=== PATIENT | male | born 1950 | race Caucasian/White ===

== ENCOUNTER 2023-10-13 07:36 | Outpatient (RCR) | payer MEDICARE, SELFPAY ==
[2023-10-11] VITALS (7 sets, daily range): BP systolic 111–144; BP diastolic 56–74
[2023-10-11] MEDS: BENADRYL 25 MG PO (09:29)
[2023-10-11] MEDS: GAMMAGARD 50 IV (09:30)
[2023-10-11] MEDS: TYLENOL 650 MG PO (09:30)
[2023-10-11 10:20] LABS: % Basophils 1.2 % (0-2); % Eosinophils 1.8 % (0-6); % Immature Granulocytes 0.4 % (0-0.5); % Monocytes 7.6 % (1.7-9.3); Absolute Basophils 0.1 10^3/uL (0-0.2); Absolute Eosinophils 0.1 10^3/uL (0-0.7); Absolute Lymphocytes 1.1 10^3/uL (1.2-3.4); Absolute Monocytes 0.6 10^3/uL (0.1-0.6); Absolute Neutrophils 5.9 10^3/uL (1.4-6.5); Hematocrit 38.8 % (39.0-52.0); Mean Corp Hgb Conc. 36.1 g/dL (33.0-37.0); Mean Corpuscular Hgb 31.4 pg (27.0-31.0); Nucleated Red Blood Cells % 0 % (-); Platelet Count 146 10^3/uL (130-400); Red Blood Cell Count 4.46 10^6/uL (4.70-6.10); Red Cell Dist. Width 14.8 % (11.5-14.5); White Blood Cell Count 7.8 10^3/uL (4.8-10.8)
[2023-10-11 10:29] LABS: ALT (SGPT) 24 U/L (0-50); AST (SGOT) 43 U/L (17-59); Albumin 4.3 g/dl (3.5-5.0); Alkaline Phosphatase 96 U/L (38-126); Blood Urea Nitrogen 34 mg/dl (9-20); Calcium 9.6 mg/dl (8.4-10.2); Carbon Dioxide 22 mmol/L (22-30); Chloride 101 mmol/L (98-107); Glucose 127 mg/dl (70-99); Sodium 141 mmol/L (135-145); Total Bilirubin 1.9 mg/dl (0.2-1.3); Total Protein 7.3 g/dl (6.3-8.2); eGFR 57.29
[2023-10-11] MEDS: GAMMAGARD 300 IV (10:29)
[2023-10-12 07:50] VITALS: BP 144/76
[2023-10-12] MEDS: TYLENOL 650 MG PO (08:01)
[2023-10-12 08:02] VITALS: BP 126/66
[2023-10-12] MEDS: GAMMAGARD 50 IV (08:02)
[2023-10-12] MEDS: BENADRYL 25 MG PO (08:02)
[2023-10-12] MEDS: GAMMAGARD 300 IV (08:57)
[2023-10-12 09:00] VITALS: BP 129/64
[2023-10-12 09:30] VITALS: BP 122/59
[2023-10-12 10:00] VITALS: BP 124/62
[2023-10-12 10:25] VITALS: BP 127/62
[2023-10-13] VITALS (8 sets, daily range): BP systolic 108–128; BP diastolic 49–66
[2023-10-13] MEDS: TYLENOL 650 MG PO (08:07)
[2023-10-13] MEDS: BENADRYL 25 MG PO (08:07)
[2023-10-13] MEDS: GAMMAGARD 50 IV (08:07)
[2023-10-13] MEDS: GAMMAGARD 300 IV (09:14)
[2023-10-14 16:35] LABS: Acetylcholine Receptor Bind Ab 96.2 nmol/L (0.0-0.4)
== END 2023-10-14 23:59 | disposition home or self-care (01) ==
LOC: OID 07:36
PROVIDERS: ATTENDING PHYSICIAN Psychiatry & Neurology Neurology; FAMILY PHYSICIAN Internal Medicine
DX: G70.01 Myasthenia gravis with (acute) exacerbation (principal)
CPT/HCPCS: 80053; 85025; 86041; 96365; 96366; J1569

== ENCOUNTER 2023-10-19 08:12 | Outpatient (RCR) | payer MEDICARE, SELFPAY ==
[2023-10-18] VITALS (8 sets, daily range): BP systolic 112–149; BP diastolic 50–71
[2023-10-18] MEDS: TYLENOL 650 MG PO (09:09)
[2023-10-18] MEDS: BENADRYL 25 MG PO (09:09)
[2023-10-18] MEDS: GAMMAGARD 50 IV (09:10)
[2023-10-18] MEDS: GAMMAGARD 300 IV (10:14)
[2023-10-19] VITALS (7 sets, daily range): BP systolic 117–127; BP diastolic 63–72
[2023-10-19] MEDS: GAMMAGARD 50 IV (09:04)
[2023-10-19] MEDS: TYLENOL 650 MG PO (09:04)
[2023-10-19] MEDS: GAMMAGARD 300 IV (10:03)
== END 2023-11-13 23:59 | disposition home or self-care (01) ==
LOC: OID 08:12
PROVIDERS: ATTENDING PHYSICIAN Psychiatry & Neurology Neurology; FAMILY PHYSICIAN Internal Medicine
DX: G70.01 Myasthenia gravis with (acute) exacerbation (principal)
CPT/HCPCS: 96365; 96366; J1569

== ENCOUNTER 2024-01-09 11:22 | Outpatient (RCR) | payer MEDICARE, SELFPAY ==
[2023-12-26 13:09] VITALS: BP 136/74
[2023-12-26] MEDS: VYVGART HYTRULO 1,008MG-11,200 5.6 MG SC (13:26)
[2023-12-26 14:10] VITALS: BP 132/73
[2024-01-02 13:10] VITALS: BP 115/54
[2024-01-02] MEDS: VYVGART HYTRULO 1,008MG-11,200 1008 MG SC (13:24)
[2024-01-02 15:15] VITALS: BP 119/57
[2024-01-09 11:33] VITALS: BP 135/72
[2024-01-09] MEDS: VYVGART HYTRULO 1,008MG-11,200 1008 MG SC (11:49)
== END 2024-01-10 09:50 | disposition home or self-care (01) ==
LOC: OID 11:22
PROVIDERS: ATTENDING PHYSICIAN Psychiatry & Neurology Neurology; FAMILY PHYSICIAN Internal Medicine
DX: G70.01 Myasthenia gravis with (acute) exacerbation (principal)
CPT/HCPCS: 96372; J9334

== ENCOUNTER 2024-01-09 12:53 | Emergency (ER) | payer MEDICARE, SELFPAY ==
[2024-01-09 13:02] VITALS: BP 126/64
--- NOTE | 2024-01-09 13:09 | ED.GENMED ---
ED Provider Triage
<Edelmira Madden PA-C - Last Filed: 01/09/24 13:15>
-
Patient seen by provider in Triage?: Seen in Triage
73-year-old male with history of diabetes, myasthenia gravis on steroids presents for redness, swelling and bruising to his volar aspect of his right wrist/forearm after a fall several days ago. Patient says it was a different color and then became
more red. He thought he probably just bruised it. The redness seems to be getting worse. Been on Bactrim for 6 days
Does not really see much noticeable improvement
No fevers or chills
A medical screening examination has been initiated by a qualified medical provider. Based on the assessment performed at this time, it has been determined that an emergent medical condition may exist and the patient has been informed that further
medical evaluation and possible additional diagnostic testing may be needed.
HPI: This is a medical evaluation conducted in person to initiate diagnostic evaluation and provide initial therapeutics. Please see further documentation by the treating clinician.
GENERAL: Alert , in no apparent distress
ENT: No visible abnormalities
LUNGS: No acute respiratory distress
NEUROLOGICAL: Alert and oriented
SKIN: Slight ecchymosis and erythematous skin changes of the volar aspect of the right distal forearm with soft tissue mass with minimal tenderness, some streaking up his arm, full range of motion of the wrist
MUSCULOSKELETAL: M mild wrist and forearm swelling but no significant limited range of motion
PSYCH: Normal and appropriate interaction.
History of Present Illness
<Edelmira Madden PA-C - Last Filed: 01/09/24 13:15>
General
Chief Complaint: Swelling
Time Seen by Provider: 01/09/24 16:53
<Norbert Hudson PA-C - Last Filed: 01/09/24 20:22>
History of Present Illness
History of Present Illness:
73-year-old male presents to the emergency department for evaluation of swelling and redness to the right volar forearm. He had a fall last week where he landed on outstretched hand. Denies any significant pain but the redness and swelling worsen,
was started on antibiotics 6 days ago by his primary care physician, currently on Bactrim with 1 further dose left. He states his symptoms have not improved.
Review of Systems
<Norbert Hudson PA-C - Last Filed: 01/09/24 20:22>
Review of Systems
Allergies reviewed?: Yes
All Other Systems: ROS reviewed and negative except as documented in HPI and ROS
Phy Exam
<Norbert Hudson PA-C - Last Filed: 01/09/24 20:22>
Physical Exam
Physical Exam:
GEN: Well appearing, NAD, WDWN
HEENT: Oral mucosa moist, no scleral icterus
Cardiac: Regular rate
Lung: No respiratory distress, no tachypnea
MSK: Focal fluctuant mass to the distal volar right forearm with moderate surrounding erythema, no induration, no pain with passive stretch of the right wrist
Skin: Good color, no pallor or jaundice, no rashes
Neuro: AO x3, moves all extremities freely
Psych: Calm, cooperative
Scores
<Norbert Hudson PA-C - Last Filed: 01/09/24 20:22>
Heart Failure Risk
Heart Failure Risk Score: Not Applicable
Course
<Edelmira Madden PA-C - Last Filed: 01/09/24 13:15>
Orders/Labs/Results
Orders:
Orders
01/09/24 13:10
CR Wrist - Right Min 3 Views Urgent
Comment:
Reason For Exam: fall bruising; please extend to include brusing
US Non Vasc UPPER Ext RT Urgent
Comment:
Reason For Exam: soft tissue swelling redness forearm
01/09/24 13:24
Complete Blood Count/With Diff Urgent
Comprehensive Metabolic Panel Urgent
Abnormal Lab Results
01/09/24
13:24
WBC 18.3 H 10^3/uL
(4.8-10.8)
RBC 3.33 L 10^6/uL
(4.70-6.10)
Hgb 11.4 L g/dL
(13.0-18.0)
Hct 32.7 L %
(39.0-52.0)
MCV 98.2 H fL
(80.0-94.0)
MCH 34.2 H pg
(27.0-31.0)
RDW 16.6 H %
(11.5-14.5)
Abs Immat Gran (auto) 0.2 H 10^3/uL
(0-0.05)
Absolute Neuts (auto) 15.5 H 10^3/uL
(1.4-6.5)
Absolute Monos (auto) 0.8 H 10^3/uL
(0.1-0.6)
Immature Gran % 1.3 H %
(0-0.5)
Neutrophils % 84.7 H %
(42.2-75.2)
Lymphocytes % 9.3 L %
(20.5-51.1)
BUN 38 H mg/dl
(9-20)
Creatinine 1.5 H mg/dL
(0.7-1.3)
Glucose 141 H mg/dl
(70-99)
Alkaline Phosphatase 144 H U/L
(38-126)
01/09/24 13:24
01/09/24 13:24
Vital Signs
Initial and Last Documented VS:
Initial Vital Signs
Temp Pulse Resp BP Pulse Ox
98.2 F 81 16 126/64 98
01/09/24 13:02 01/09/24 13:02 01/09/24 13:02 01/09/24 13:02 01/09/24 13:02
Last Documented Vital Signs
Temp Pulse Resp BP Pulse Ox
98.2 F 76 16 130/84 98
01/09/24 13:02 01/09/24 17:22 01/09/24 17:22 01/09/24 17:22 01/09/24 17:22
<Norbert Hudson PA-C - Last Filed: 01/09/24 20:22>
Orders/Labs/Results
Orders:
Orders
01/09/24 13:10
CR Wrist - Right Min 3 Views Urgent
Comment:
Reason For Exam: fall bruising; please extend to include brusing
US Non Vasc UPPER Ext RT Urgent
Comment:
Reason For Exam: soft tissue swelling redness forearm
01/09/24 13:24
Complete Blood Count/With Diff Urgent
Comprehensive Metabolic Panel Urgent
Abnormal Lab Results
01/09/24
13:24
WBC 18.3 H 10^3/uL
(4.8-10.8)
RBC 3.33 L 10^6/uL
(4.70-6.10)
Hgb 11.4 L g/dL
(13.0-18.0)
Hct 32.7 L %
(39.0-52.0)
MCV 98.2 H fL
(80.0-94.0)
MCH 34.2 H pg
(27.0-31.0)
RDW 16.6 H %
(11.5-14.5)
Abs Immat Gran (auto) 0.2 H 10^3/uL
(0-0.05)
Absolute Neuts (auto) 15.5 H 10^3/uL
(1.4-6.5)
Absolute Monos (auto) 0.8 H 10^3/uL
(0.1-0.6)
Immature Gran % 1.3 H %
(0-0.5)
Neutrophils % 84.7 H %
(42.2-75.2)
Lymphocytes % 9.3 L %
(20.5-51.1)
BUN 38 H mg/dl
(9-20)
Creatinine 1.5 H mg/dL
(0.7-1.3)
Glucose 141 H mg/dl
(70-99)
Alkaline Phosphatase 144 H U/L
(38-126)
01/09/24 13:24
01/09/24 13:24
Vital Signs
Initial and Last Documented VS:
Initial Vital Signs
Temp Pulse Resp BP Pulse Ox
98.2 F 81 16 126/64 98
01/09/24 13:02 01/09/24 13:02 01/09/24 13:02 01/09/24 13:02 01/09/24 13:02
Last Documented Vital Signs
Temp Pulse Resp BP Pulse Ox
98.2 F 76 16 130/84 98
01/09/24 13:02 01/09/24 17:22 01/09/24 17:22 01/09/24 17:22 01/09/24 17:22
<Norbert Hudson PA-C - Last Filed: 01/09/24 20:22>
MDM/Problems Addressed
MDM/Problems Addressed:
Small fluctuant mass Was aspirated at the bedside with an 18-gauge needle, bloody and purulent discharge removed from the mass with improvement in symptoms. Will add 3 further days of Bactrim, leukocytosis is most likely on the basis of prednisone
use
<Norbert Hudson PA-C - Last Filed: 01/09/24 20:22>
*Critical Care Note
Total Time (30-74mins, 75-104mins- exclusive of procedures): Not Applicable
ED Attending Note
<Edelmira Madden PA-C - Last Filed: 01/09/24 13:15>
-
Portions of this chart may have been created with voice recognition software.� Occasional wrong word or��sound alike� substitutions may have occurred due to the inherent limitations of voice recognition software.
Discharge Plan
Departure
Patient Disposition: Home (Routine Discharge)
Date of Disposition: 01/09/24
Time of Disposition: 17:07
Patient with high blood pressure during this ER visit?: No
Discharge Problem:
Infected hematoma
Instructions: Abscess Incision and Drainage (DC)
Prescriptions:
New
sulfamethoxazole-trimethoprim [Bactrim DS] 800-160 mg tablet
1 tab PO DAILY Qty: 6 0RF
No Action
metoprolol tartrate 100 mg Tablet
200 mg PO DAILY
amlodipine 5 mg Tablet
5 mg PO DAILY
spironolactone 25 mg Tablet
50 mg PO DAILY
simvastatin 20 mg Tablet
20 mg PO HS
pyridostigmine bromide 60 mg Tablet
60 mg PO .[id number]
Rx Instructions:
0.5 - 1 tab daily
fluticasone propionate [Flonase] 50 mcg/actuation [place],Suspension
1 spray INTRANASAL DAILY
esomeprazole magnesium [Nexium] 20 mg Capsule,Delayed Release(Dr/Ec)
20 mg PO BID
metformin 750 mg Tablet Extended Release 24 Hr
750 mg PO DAILY
dapagliflozin propanediol [Farxiga] 10 mg Tablet
10 mg PO HS
aspirin 81 mg Capsule
81 mg PO .QOD
prednisone 10 mg Tablet
50 mg PO DAILY
Vyvgart Hytrulo 1,008 mg-11,200 unit/5.6 mL Solution
5.6 ml SC QWEEK
insulin lispro 100 unit/mL Insulin Pen
10 unit SC TID
Referrals:
Juancarlos Champagne MD [Family Provider] -
Interventions
Interventions:
*Risk Screen - Suicide Last Done: 01/09/24 13:02
*General Assessment Last Done: 01/09/24 13:02
*Neglect/Abuse Screening Last Done: 01/09/24 13:02
*ED COVID-19 Vaccine History Last Done: 01/09/24 16:51
*Nursing Disposition Last Done: 01/09/24 17:23
ED- Cardiac Assessment Last Done: 01/09/24 16:51
ED- Pulmonary Assessment Last Done: 01/09/24 16:51
ED-Skin Assessment Last Done: 01/09/24 16:51
Discharge Date and Time
Discharge Date/Time: 01/09/24 17:24
Print Language: LITHUANIAN
[2024-01-09 13:42] LABS: % Basophils 0.2 % (0-2); % Eosinophils 0.2 % (0-6); % Immature Granulocytes 1.3 % (0-0.5); % Lymphocytes 9.3 % (20.5-51.1); % Monocytes 4.3 % (1.7-9.3); % Neutrophils 84.7 % (42.2-75.2); Absolute Immature Granulocytes 0.2 10^3/uL (0-0.05); Absolute Lymphocytes 1.7 10^3/uL (1.2-3.4); Absolute Monocytes 0.8 10^3/uL (0.1-0.6); Absolute Neutrophils 15.5 10^3/uL (1.4-6.5); Hematocrit 32.7 % (39.0-52.0); Hemoglobin 11.4 g/dL (13.0-18.0); Mean Corp Hgb Conc. 34.9 g/dL (33.0-37.0); Mean Corpuscular Hgb 34.2 pg (27.0-31.0); Mean Corpuscular Volume 98.2 fL (80.0-94.0); Mean Platelet Volume 9.2 fL (7.4-10.4); Nucleated Red Blood Cells % 0 % (-); Platelet Count 173 10^3/uL (130-400); Red Blood Cell Count 3.33 10^6/uL (4.70-6.10); Red Cell Dist. Width 16.6 % (11.5-14.5); White Blood Cell Count 18.3 10^3/uL (4.8-10.8)
[2024-01-09 13:52] LABS: ALT (SGPT) 38 U/L (0-50); AST (SGOT) 38 U/L (17-59); Albumin 3.6 g/dl (3.5-5.0); Alkaline Phosphatase 144 U/L (38-126); Blood Urea Nitrogen 38 mg/dl (9-20); Calcium 8.6 mg/dl (8.4-10.2); Carbon Dioxide 24 mmol/L (22-30); Chloride 103 mmol/L (98-107); Glucose 141 mg/dl (70-99); Potassium 4.1 mmol/L (3.5-5.1); Sodium 138 mmol/L (135-145); Total Bilirubin 0.7 mg/dl (0.2-1.3); Total Protein 6.3 g/dl (6.3-8.2); eGFR 48.25
[2024-01-09 17:22] VITALS: BP 130/84
== END 2024-01-09 17:24 | disposition home or self-care (01) ==
LOC: EMR 12:53
PROVIDERS: Physician Assistant; EMERGENCY PHYSICIAN Student in an Organized Health Care Education/Training Program; FAMILY PHYSICIAN Internal Medicine
DX: S50.11XA Contusion of right forearm, initial encounter (principal); W19.XXXA Unspecified fall, initial encounter; L08.89 Other specified local infections of the skin and subcutaneous tissue
CPT/HCPCS: 10160; 99284; 73110; 76882; 80053; 85025

== ENCOUNTER 2024-01-16 13:32 | Outpatient (RCR) | payer MEDICARE, SELFPAY ==
[2024-01-16 13:50] VITALS: BP 141/76
[2024-01-16] MEDS: VYVGART HYTRULO 1,008MG-11,200 1008 MG SC (14:07)
== END 2024-01-17 09:53 | disposition home or self-care (01) ==
LOC: OID 13:32
PROVIDERS: ATTENDING PHYSICIAN Psychiatry & Neurology Neurology; FAMILY PHYSICIAN Internal Medicine
DX: G70.01 Myasthenia gravis with (acute) exacerbation (principal)
CPT/HCPCS: 96372; J9334

== ENCOUNTER 2024-02-05 12:41 | Inpatient (IN) | payer MEDICARE, SELFPAY ==
[2024-02-02 14:47] VITALS: BP 128/84
[2024-02-02 15:19] LABS: % Basophils 0.2 % (0-2); % Eosinophils 0.3 % (0-6); % Immature Granulocytes 1.6 % (0-0.5); % Lymphocytes 2.9 % (20.5-51.1); % Monocytes 2.1 % (1.7-9.3); % Neutrophils 92.9 % (42.2-75.2); Absolute Immature Granulocytes 0.2 10^3/uL (0-0.05); Absolute Lymphocytes 0.4 10^3/uL (1.2-3.4); Absolute Monocytes 0.3 10^3/uL (0.1-0.6); Absolute Neutrophils 13.5 10^3/uL (1.4-6.5); Hemoglobin 10.4 g/dL (13.0-18.0); Mean Corp Hgb Conc. 33.5 g/dL (33.0-37.0); Mean Corpuscular Hgb 33.9 pg (27.0-31.0); Mean Platelet Volume 9.6 fL (7.4-10.4); Nucleated Red Blood Cells % 0 % (-); Platelet Count 121 10^3/uL (130-400); Red Blood Cell Count 3.07 10^6/uL (4.70-6.10); Red Cell Dist. Width 15.4 % (11.5-14.5); White Blood Cell Count 14.5 10^3/uL (4.8-10.8)
[2024-02-02 15:29] LABS: ALT (SGPT) 54 U/L (0-50); AST (SGOT) 66 U/L (17-59); Albumin 3.4 g/dl (3.5-5.0); Alkaline Phosphatase 211 U/L (38-126); Blood Urea Nitrogen 36 mg/dl (9-20); Calcium 8.6 mg/dl (8.4-10.2); Carbon Dioxide 23 mmol/L (22-30); Chloride 106 mmol/L (98-107); Glucose 176 mg/dl (70-99); Potassium 4.2 mmol/L (3.5-5.1); Sodium 134 mmol/L (135-145); Total Bilirubin 0.9 mg/dl (0.2-1.3); Total Protein 5.7 g/dl (6.3-8.2); eGFR 57.29
[2024-02-02 17:44] VITALS: BMI 27.3
--- NOTE | 2024-02-02 18:22 | ED.GENMED ---
History of Present Illness
General
Chief Complaint: Skin Problem
Source: patient
Exam Limitations: none
Time Seen by Provider: 02/02/24 17:42
Nursing documentation reviewed up to this point in time: agreed with
History of Present Illness
History of Present Illness:
Patient to ED with complaint of pain redness and swelling to his left hand. Symptoms started over 1 week ago. He was placed on Bactrim DS on Monday by PCP without improvement. Denies fever/chills. Limited ROM to left hand due to pain. Area of
fluctuance on dorsum of hand. States he fell 4 weeks ago He was seen in ED on 01/08 for infected hematoma which was drained in ED. He was placed on Bactrim DS and discharged home. This week he developed pain and redness to his left hand. He
denies any wounds to hand. Denies injurying hand in fall.
Past History
Past History
ED Past Medical History: GERD, HTN, Hypercholesterolemia, IDDM and Other (myasthenia Gravis)
Review of Systems
Review of Systems
Allergies reviewed?: Yes
All Other Systems: ROS reviewed and negative except as documented in HPI and ROS
Constitutional: Reports no symptoms
EENT: Reports no symptoms
Respiratory: Reports no symptoms
Cardiac: Reports no symptoms
ABD/GI: Reports no symptoms
Musculoskeletal: Reports joint pain (Pain to left hand)
Skin: Reports other (erythema, pain, swelling to left hand. Fluctuant mass to dorsum of hand)
Neurological: Reports no symptoms
Psychiatric: Reports no symptoms
Phy Exam
General Physical Exam
General Presentation: well appearing
General age: appears stated age
General Skin: warm and dry
General Habitus: normal
General Mental: alert
Musculoskeletal Exam
Musculoskeletal Exam: neuro vasc intact and other (Pain redness swelling left hand cnsistent with cellulitis. Fluctuant mass dorsum of hand. Attempted to aspirate, no fluid obtained)
Skin Exam
Skin Exam: normal color and warm/dry
Psychiatric Exam
Psychiatric Exam: normal mood/affect
Course
Orders/Labs/Results
Orders:
Orders
02/02/24 Dinner
1800 calorie (15 carb) Diabetic
At Your Request: Limited Participation
Does patient need a safe tray?: No
CMP [Comprehensive Metabolic Panel] Urgent
Complete Blood Count/With Diff Urgent
02/02/24 17:56
Hand, Left 3 View [CR Hand - Left Min 3 Views] Urgent
Comment:
Reason For Exam: pain redness swelling
02/02/24 18:26
Lactic Acid Urgent
02/02/24 19:12
Vancomycin [Vancocin] 1,500 mg 0.9% Sodium Chloride 500 ml [Nss] 500 ml IV NOW
02/02/24 19:13
Admit/Transfer Patient As Directed
Co-Sign Provider:
Level of Care: Observation services
Assign to:: Medical/Surgical
Physician / Group: hospitalist
Diagnosis: cellulitis
Reason for Hospitalization: purulent cellulitis
Expected length of stay greater than two midnights?: Yes
ELOS- Estimated Length of Stay in days: 2
I certify the patient meets the requirements for IP care: Yes
PRN Pain Medication Management As Directed
May give lesser potent ordered pain med per pt: Yes
preference::
Protocol:: Medication orders for pain may be administered in a
manner that supports deferring to patient preference
when the pt is:
- Requesting an ordered lesser potent pain medication.
Least to most potent pain medications are defined
as: acetaminophen < NSAID < tramadol < opioids
(morphine, oxycodone, hydromorphone).
- Requesting a lesser dose of the same medication IF
ORDERED.
- Requesting a less intrusive route of administration
if both routes are prescribed by the provider (PO <
IV).
02/02/24 19:15
Code Status As Directed
Resuscitation Status: Full Code
02/02/24 20:33
Acetaminophen [Tylenol] 650 mg PO Q4HPRN PRN
Bisacodyl [Dulcolax] 10 mg RECTAL [id number] PRN
Docusate W/Senna [Senokot-S] 1 tablet PO BIDPRN PRN
HYDROmorphone [Dilaudid] 0.25 mg IV Q4HPRN PRN
Polyethylene Glycol Powder [Miralax] 17 grams PO DAILYPRN PRN
VANCOMYCIN Pharmacy to Dose [VANCOCIN Pharmacy to Dose] 1 each Pharmacy To Prepare [Call Pharmacy To Prepare] 0 ml IV PER PROTOCOL
02/02/24 20:33
Activity As Directed
Activity Level: With Assistance
Bedside Glucose Monitoring As Directed
Frequency: AC&HS
Elevate Extremity As Directed
Extremity:: left hand
Vital Signs As Directed
Frequency: Per unit guidelines
Pulse Ox/spot Check [RESP] Routine
Quantity: 1
DX Deep Vein Thrombosis Video Routine
02/02/24 21:00
Pantoprazole [Protonix] 40 mg PO BID
02/02/24 22:00
Atorvastatin [Lipitor] 10 mg PO HS
Dapagliflozin [Farxiga] 10 mg PO HS
02/03/24 07:30
Insulin Aspart Corrective Low [Novolog Flexpen-Low Resistance] See Protocol SC AC
Insulin Aspart Pen [Novolog Flexpen] 5 units SC AC
02/03/24 08:00
Amlodipine [Norvasc] 5 mg PO DAILY
Aspirin Low Dose EC [Aspir Low (Enteric Coated)] 81 mg PO Q48H
Furosemide [Lasix] 20 mg PO DAILY
Metoprolol [Lopressor] 100 mg PO DAILY
Prednisone [Deltasone] 30 mg PO DAILY
Spironolactone [Aldactone] 25 mg PO DAILY
02/03/24 18:00
Enoxaparin Sodium [Lovenox] 40 mg SC QPM
Abnormal Lab Results
02/02/24 02/02/24
15:00 18:26
WBC 14.5 H 10^3/uL
(4.8-10.8)
RBC 3.07 L 10^6/uL
(4.70-6.10)
Hgb 10.4 L g/dL
(13.0-18.0)
Hct 31.0 L %
(39.0-52.0)
MCV 101.0 H fL
(80.0-94.0)
MCH 33.9 H pg
(27.0-31.0)
RDW 15.4 H %
(11.5-14.5)
Plt Count 121 L 10^3/uL
(130-400)
Abs Immat Gran (auto) 0.2 H 10^3/uL
(0-0.05)
Absolute Neuts (auto) 13.5 H 10^3/uL
(1.4-6.5)
Absolute Lymphs (auto) 0.4 L 10^3/uL
(1.2-3.4)
Immature Gran % 1.6 H %
(0-0.5)
Neutrophils % 92.9 H %
(42.2-75.2)
Lymphocytes % 2.9 L %
(20.5-51.1)
Sodium 134 L mmol/L
(135-145)
BUN 36 H mg/dl
(9-20)
Glucose 176 H mg/dl
(70-99)
Lactic Acid 3.3 H mmol/L
(0.7-2.0)
AST 66 H U/L
(17-59)
ALT 54 H U/L
(0-50)
Alkaline Phosphatase 211 H U/L
(38-126)
Total Protein 5.7 L g/dl
(6.3-8.2)
Albumin 3.4 L g/dl
(3.5-5.0)
02/02/24 15:00
02/02/24 15:00
Vital Signs
Initial and Last Documented VS:
Initial Vital Signs
Temp Pulse Resp BP Pulse Ox
98.3 F 82 16 128/84 98
02/02/24 14:47 02/02/24 14:47 02/02/24 14:47 02/02/24 14:47 02/02/24 14:47
Last Documented Vital Signs
Temp Pulse Resp BP Pulse Ox
97.3 F 65 18 110/47 100
02/04/24 15:15 02/04/24 15:15 02/04/24 15:15 02/04/24 15:15 02/04/24 15:15
*Critical Care Note
Total Time (30-74mins, 75-104mins- exclusive of procedures): Not Applicable
Update Note
Update Note:
Attempted to aspirate mass on dorsum of left hand. No fluid obtained. Labs, xray reviewed. Wbc 12.6. No evidence of osteomyelitis on xray. He has been on Bactrim DS x 3 days with worsening symtoms. Will admit to hospitalist service, IV antibiotics
ED Attending Note
-
Portions of this chart may have been created with voice recognition software.� Occasional wrong word or��sound alike� substitutions may have occurred due to the inherent limitations of voice recognition software.
Discharge Plan
Departure
Patient Disposition: Admit
Date of Disposition: 02/02/24
Time of Disposition: 18:49
Presentation/result/management discussed w/ accepting MD/DO: Hospitalist
Patient with high blood pressure during this ER visit?: No
Condition: Fair
Covid-19: Not Applicable
Discharge Problem:
Cellulitis of hand
Interventions
Interventions:
*Risk Screen - Suicide Last Done: 02/02/24 21:52
*General Assessment Last Done: 02/02/24 18:55
*Neglect/Abuse Screening Last Done: 02/02/24 14:47
ED- Fall Risk Assessment Last Done: 02/02/24 18:55
*ED COVID-19 Vaccine History Last Done: 02/02/24 21:52
*Nursing Disposition Last Done: 02/02/24 20:24
ED-Skin Assessment Last Done: 02/02/24 17:47
Discharge Date and Time
Discharge Date/Time: 02/02/24 20:55
--- NOTE | 2024-02-02 19:00 | HPS.HSE ---
Family Physician
-
Family Physician: Juancarlos Champagne
Chief Complaint
-
Left hand swelling
History of Present Illness
This is a 73 y.o with h/o diabetes on insulin, CHF, myasthenia gravis on prednisone (30mg currently), presents to ED with 3 - 4 days of left hand swelling.
Patient had a fall about 2 weeks ago with mostly bruising on the right hand. He then developed pain and swelling on the left hand. He denies fevers or chills. He notes decreased range of motion of the fingers but not wrist. Reports pain
spreading from hand to lateral forearm. Has been on bactrim for 3 days prior to coming to ED.
In ED he was afebrile, blood pressure 128/84, pulse of 82. And x-ray shows no fractures or dislocations. He had a white count of 14,000 with normal hemoglobin and a platelet of 121. He has 1.6% bands. Electrolytes BUN/creatinine are unchanged
from prior. He has mild elevation in his AST and ALT. Total bilirubin was normal.
There was attempted drainage. There was a small amount of pussy material removed however the collection was not left open.
Medical History
Past Medical History
Past Medical History: Reports CAD, CHF, GERD, HTN and IDDM
Additional Past Medical History:
Myasthenia Gravis
Past Surgical History: Reports Other
Social History
Tobacco: Non-smoker
Alcohol: None
Drug: None
Personal:
Living: With Family
Employment: Retired
Family History
Family History: Not pertinent
Allergies / Home Medications
Allergies reflects when Allergies were last updated in [facility].
Home Medications with original date entered in [facility]
Allergy/Medication List:
Allergies
Allergy/AdvReac Type Severity Reaction Status Date / Time
latex Allergy Hives/REDNE Verified 02/02/24 19:03
SS
Home Medications
amlodipine 5 mg tablet 5 mg PO DAILY 10/11/23
aspirin 81 mg capsule 81 mg PO Q48H 10/11/23
dapagliflozin propanediol 10 mg tablet (Farxiga) 10 mg PO HS 10/11/23
esomeprazole magnesium 20 mg capsule,delayed release (Nexium) 20 mg PO BID 10/11/23
metoprolol tartrate 100 mg tablet 100 mg PO DAILY 10/11/23
pyridostigmine bromide 60 mg tablet 60 mg PO Q6H 10/11/23
simvastatin 20 mg tablet 20 mg PO HS 10/11/23
spironolactone 25 mg tablet 25 mg PO DAILY 10/11/23
insulin lispro 100 unit/mL subcutaneous pen 10 unit SC MEALS 01/02/24
furosemide 20 mg tablet (Lasix) 20 mg PO DAILY 01/16/24
acetaminophen 500 mg tablet 1,000 mg PO Q6HPRN PRN mild pain 02/02/24
prednisone 20 mg tablet 30 mg PO DAILY 02/02/24
sulfamethoxazole 800 mg-trimethoprim 160 mg tablet 1 tab PO BID 02/02/24
Review of Systems
-
Constitutional: Reports No Symptoms
EENT: Reports No Symptoms
Respiratory: Reports No Symptoms
Cardiac: Reports No Symptoms
Abdomen/GI: Reports No Symptoms
: Reports No Symptoms
Musculoskeletal: Reports Edema
Skin: Reports Other (left hand swelling and erythema over the dorsal surface )
Neurological: Reports No Symptoms
Endocrine: Reports No Symptoms
Hematologic/Lymphatic: Reports No Symptoms
Psych: Reports No Symptoms
Physical Exam
Vital Signs
Vital Signs
Temp Pulse Resp BP Pulse Ox
98.3 F 82 16 128/84 98
02/02/24 14:47 02/02/24 14:47 02/02/24 14:47 02/02/24 14:47 02/02/24 14:47
Physical Exam
General: Well Developed, Well Nourished, No Apparent Distress and Comfortable
HEENT: NormoCephalic, Anicteric, Moist mucous membranes and Atraumatic
Respiratory: Clear
Cardiac: S1/S2 and Regular Rhythm
Breast: Deferred by me
GI: Soft, Non Tender, Non Distended and Normal Bowel Sounds
Rectal: Deferred by Provider
Musculoskeletal: No Clubbing, No Cyanosis, Edema, Left Lower Extremity (1+ pitting), Edema, Right Lower Extremity (trace pitting) and Other (Left hand - There is significant edema throughout the hand with decreased ROM of the fingers)
Skin: Warm and Lesions (There is a 1 cm nodular lesion on the dorsum of left hand. Minimal erythema. Tender to palpation. )
Neuro: AO x 3 and Nonfocal/grossly intact
Hematologic/Lymphatic: No Lymphadenopathy
Psych: Calm
Laboratory Results
-
02/02/24 15:00
02/02/24 15:00
Laboratory Results
Total Bilirubin 0.9 mg/dl (0.2-1.3) 02/02/24 15:00
AST 66 U/L (17-59) H 02/02/24 15:00
ALT 54 U/L (0-50) H 02/02/24 15:00
Alkaline Phosphatase 211 U/L (38-126) H 02/02/24 15:00
Data Reviewed
-
Diagnostic Radiology: Report Reviewed by me
Lab Data: Labs Reviewed by me
Old Records: Reviewed
Impression/Plan
-
IMPRESSION:
Patient with left hand swelling, erythema and tenderness. Apparent small collection/abscess located on dorsum of the left arm. S/P needle drainage unsuccessfully. Systemic signs with elevated WBC (however patient on a steroid taper for myasthenia
gravis). No fevers, chills, tachycardia to suggest sepsis.
PLAN:
1. Cellulitis - Furuncle with cellulitis of the left hand. No joint involvement. S/P bactrim x 3 days without improvement. Needle drainage in ED with removal of small amount of pus material. Extensvie hand edema. No tenosynovitis on exam.
- admit to med/surg
- iv vancomycin for now
- ID consultation
- keep hand elevated
2. Diabetes -
- farxiga daily
- aspart 10 tidac if bg > 100 otherwise 5 units
- sliding scale insulin achs
3. MG
- prednisone 30 mg daily
- continue pyridostigmine 60 q 6
4. CV
- aspirin 81, statin
- continue metoprolol, furosemide sprionlocatone and amlodipine
DVT PPX - lovenox sq
Code status - Full Code
[2024-02-02 19:09] VITALS: BP 130/61
[2024-02-02] MEDS: VANCOCIN 530 MG IV (19:42)
[2024-02-02 19:50] LABS: Lactic Acid 3.3 mmol/L (0.7-2.0)
[2024-02-02 20:00] VITALS: BP 131/63
[2024-02-02 20:56] VITALS: BP 149/69; BMI 27.3
--- NOTE | 2024-02-02 20:56 | PTCARENOTE ---
Pt arrived from ED via stretcher and ambulated with his cane to the bed. Pt is AAOx3, VSS, and w/o complaints of pain. Pt is oriented to unit, resting comfortably with call león within reach.
[2024-02-02] MEDS: FARXIGA 10 MG PO (21:20)
[2024-02-02] MEDS: LIPITOR 10 MG PO (21:20)
[2024-02-02] MEDS: PROTONIX 40 MG PO (21:20)
[2024-02-02 21:37] LABS: Glucose - Point of Care 473 mg/dl (70-99)
[2024-02-02] MEDS: MESTINON 60 MG PO (21:46)
--- NOTE | 2024-02-02 22:30 | PTCARENOTE ---
Pt's fingerstick blood sugar check is 473. RN informed pt about needing a venous glucose in order to get an accurate reading and is part of protocol. Pt refused. He stated he is a hard stick and his blood sugar is normally high at night and drops to
the 100's in the AM. RN educated on the importance of treating high blood sugars and pt still refused. PANEL MACHINE TENDER notified. Pt is oriented and call león is within reach.
[2024-02-02 23:40] VITALS: BP 155/80
[2024-02-03] MEDS: MESTINON 60 MG PO ×4 (04:10→21:28)
[2024-02-03] MEDS: VANCOCIN 275 MG IV (05:35)
[2024-02-03 07:21] LABS: Glucose - Point of Care 127 mg/dl (70-99)
[2024-02-03 07:25] VITALS: BP 139/66
--- NOTE | 2024-02-03 08:28 | PHA.VAN.IN ---
Assessment
- Assessment
Renal Function: Appears similar to baseline
Maximum Temperature: 98.4
Plan
- Plan
Initial / Loading Dose: Vanc 1500 mg 02/01 1250 mg 02/02
Maintenance Regimen: dose by level
Monitoring: r 02/03 am
Pharmacokinetics Vancomycin I
- -
Patient Age: 73
Patient Sex: Male
Vancomycin Day #: 1
Indication: Skin And Soft Tissue (L hand swelling)
Requesting Provider: Dr Leon
Pertinent Antimicrobial Allergies:
no pertinent allergies
Height / Weight:
Height 5 ft 10 in
Actual Weight 86.268 kg
Pertinent Past Medical History: MG on prednisone, DM
- Vital Signs / Lab Results
Temp Pulse Resp BP Pulse Ox
98 F 75 24 155/80 99
02/02/24 23:40 02/02/24 23:40 02/02/24 23:40 02/02/24 23:40 02/02/24 23:40
Lab Results - Hematology
02/02/24
15:00
WBC 14.5 H
Lab Results - Chemistry
02/02/24
15:00
BUN 36 H
Creatinine 1.3
Albumin 3.4 L
02/02/24
18:26
Lactic Acid 3.3 H
[2024-02-03] MEDS: NOVOLOG FLEXPEN-LOW RESISTANCE SC (08:41)
[2024-02-03] MEDS: ALDACTONE 25 MG PO (08:50)
[2024-02-03] MEDS: ASPIR LOW (ENTERIC COATED) 81 MG PO (08:50)
[2024-02-03] MEDS: LASIX 20 MG PO (08:51)
[2024-02-03] MEDS: NORVASC 5 MG PO (08:51)
[2024-02-03] MEDS: LOPRESSOR 100 MG PO (08:51)
[2024-02-03] MEDS: PROTONIX 40 MG PO ×2 (08:51→21:28)
[2024-02-03] MEDS: DELTASONE 30 MG PO (08:52)
[2024-02-03] MEDS: NOVOLOG FLEXPEN 5 UNITS SC ×3 (08:55→17:14)
[2024-02-03 11:51] LABS: Glucose - Point of Care 160 mg/dl (70-99)
--- NOTE | 2024-02-03 11:56 | W.PN.HOSP.TC ---
Today's Communication/Plan
-
Continue with IV vancomycin
Consult orthopedic
Assessment / Plan
Assessment / Plan
Patient with left hand swelling, erythema and tenderness. Apparent small collection/abscess located on dorsum of the left arm. S/P needle drainage unsuccessfully. Systemic signs with elevated WBC (however patient on a steroid taper for myasthenia
gravis). No fevers, chills, tachycardia to suggest sepsis.
PLAN:
1. Left hand cellulitis - Furuncle with cellulitis of the left hand. No joint involvement. S/P bactrim x 3 days without improvement. Needle drainage in ED with removal of small amount of pus material. Extensvie hand edema. Focal fluctuance on
the dorsal aspect of the hand noted
-Consult orthopedics
-Continue iv vancomycin for now
- ID consultation
- keep hand elevated
2. Diabetes -
- farxiga daily
- aspart 10 tidac if bg > 100 otherwise 5 units
- sliding scale insulin achs
3. MG
- prednisone 30 mg daily
- continue pyridostigmine 60 q 6
4. CV
- aspirin 81, statin
- continue metoprolol, furosemide sprionlocatone and amlodipine
DVT PPX - lovenox sq
Code status - Full Code
Anticipated Discharge: 24 - 48 hours
Subjective/Interval History
-
Date of Service: February 03, 2024
Feeling improved with less pain in the left hand.
Feels cold here in the hospital which he thinks because of not enough heat.
Denies any chills sweats or fevers today.
No nausea vomiting.
Objective Data
-
Labs:
Laboratory Results
02/03/24
06:00
WBC Pending
Hgb Pending
Hct Pending
Plt Count Pending
Sodium Pending
Potassium Pending
Chloride Pending
Carbon Dioxide Pending
BUN Pending
Creatinine Pending
Glucose Pending
Calcium Pending
Vital Signs:
Vital Signs
Temp Pulse Resp BP Pulse Ox
97.6 F 69 20 139/66 97
02/03/24 07:25 02/03/24 08:50 02/03/24 07:25 02/03/24 08:50 02/03/24 11:45
Review of Systems
-
Respiratory: Denies Trouble Breathing
Cardiac: Denies Chest Pain
Physical Exam
-
General: No Apparent Distress
HEENT: Moist Mucous Membranes
Respiratory: Clear to Auscultation
Cardiac: Regular Rhythm and S1/S2
Musculoskeletal: Other (Left dorsal aspect with the cellulitis and a focal area of fluctuation in the middle aspect of the middle metacarpal bone.)
Neuro: AO x 3
Data Reviewed
-
Labs: Labs Reviewed by me
[2024-02-03] MEDS: NOVOLOG FLEXPEN-LOW RESISTANCE 1 UNITS SC (12:28)
--- NOTE | 2024-02-03 13:47 | CON.ID ---
Consultation
-
Date/Time Consultation Requested: 02/03/24 5:53
Date/Time Consultation Performed: 02/03/24 13:49
Requesting Provider: Dr Leon
Performing Provider: Dr Salgado
Reason for Consultation: hand cellulitis, purulent, h/o dm 2, no osteo. On prednisone for Myasthenia
Chief Complaint / Past History
Chief Complaint
left hand swelling
History of Present Illness
Mr Brock is a 73 leo old male with h/o myasthenia gravis on prednisone (30 mg qday, being tapered from 60 mg) and pyridiostigmine, CHF, DM2 on insulin who presented here on 02/01 for 3-4 days of L hand swelling. About two weeks ago he suffered
a fall bursing the right hand. Subsequently with swelling of the left hand and decreased range of motion of the fingers but not wrist, started on bactrim 02/01 days however pain has now generalized to the lateral forearm.
Of note Seen in the ER on 01/08, at that time on 50 mg of prednisone a day for RIGHT hand swelling found to have 'Focal fluctuant mass to the distal volar right forearm with moderate surrounding erythema' for underwent needle drainage in the ER with
recovery of purulent material which was not sent for culture, he was given 3 further days of bactrim (10 day total course) and discharged.
In the ER he was afebrile, bp stable, wbc initially 14 hgb 10, plt 121, L shift is noted, cr 1.3, lactic acid 3.3, glucose range 473-127, t bili 0.9, ast 66, alt 54, alk phos 211, 02/01 xray of the hand - no osseous lesions seen. No cultures sent
thus far. ER did reattemtp to aspirate 'mass' on the dorsum of the L hand without return of fluid. He is on vancomycin only. ID is consulted for assistance with management. Reports that since arrival lesion is more fluctuant, but he has less
erythema and increased range of motion of the fingers
Past History
Additional Past Medical History:
CAD, CHF, GERD, HTN and IDDM
Additional Past Surgical History:
Myasthenia Gravis
Allergy History:
hydrocortisone [From Westcort ([id number])] Allergy (Unknown, Verified 02/03/24 03:13)
Unknown
neomycin [From [facility]cort ([id number])] Allergy (Unknown, Verified 02/03/24 03:13)
Unknown
polymyxin B [From Westcort ([id number])] Allergy (Unknown, Verified 02/03/24 03:13)
Unknown
varenicline Allergy (Unknown, Verified 02/03/24 03:15)
Unknown
latex Allergy (Verified 02/02/24 19:03)
Hives/REDNESS
Medications Reviewed: Yes
Social History
Tobacco: Non-Smoker
Alcohol: None
Drug: None
Family History
Family History: Not Pertinent
Review of Systems
Review of Systems
General: Negative Fever or Chills
All systems: All other systems were reviewed and were negative
Vital Signs
Temp Pulse Resp BP Pulse Ox
97.6 F 69 20 139/66 97
02/03/24 07:25 02/03/24 08:50 02/03/24 07:25 02/03/24 08:50 02/03/24 11:45
Physical Exam
Physical Exam
Constitutional: No Acute Distress
Cardiovascular: Regular Rate and S1/S2; Negative Murmur or Rub
Pulmonary: Clear and Symmetric; Negative Wheezes, Rales or Rhonchi
Gastrointestinal: Soft, Non Tender, Non Distended and Normal Bowel Sounds
Extremities: Other (left hand with fluctuant lesion about [id number] dorsal hand, decreased range of flexion of the fingers)
Skin: Warm and Dry; Negative Rash or Jaundice
Lab / Diagnostic Study Results
Abs Immat Gran (auto) 0.2 10^3/uL (0-0.05) H 02/02/24 15:00
Absolute Neuts (auto) 13.5 10^3/uL (1.4-6.5) H 02/02/24 15:00
Absolute Lymphs (auto) 0.4 10^3/uL (1.2-3.4) L 02/02/24 15:00
Absolute Monos (auto) 0.3 10^3/uL (0.1-0.6) 02/02/24 15:00
Absolute Basos (auto) 0.0 10^3/uL (0-0.2) 02/02/24 15:00
Immature Gran % 1.6 % (0-0.5) H 02/02/24 15:00
Neutrophils % 92.9 % (42.2-75.2) H 02/02/24 15:00
Lymphocytes % 2.9 % (20.5-51.1) L 02/02/24 15:00
Monocytes % 2.1 % (1.7-9.3) 02/02/24 15:00
Eosinophils % 0.3 % (0-6) 02/02/24 15:00
Basophils % 0.2 % (0-2) 02/02/24 15:00
Lactic Acid 3.3 mmol/L (0.7-2.0) H 02/02/24 18:26
Assessment / Plan
Cellulitis L hand
Tenosynovitis
Immunosuppression - high dose steroids (pred 30 mg)
Myasthenia gravis
- blood cultures x2 today
- MRSA nasal screen
- attempt at aspiration 02/01 - unsuccessful
- Xray no osseous changes
- agree with vancomycin
- orthopedics also consulted
Care Review
Plan reviewed with: Nurse (requesting a new room)
[2024-02-03 15:25] VITALS: BP 125/60
[2024-02-03] MEDS: IMODIUM 2 MG PO (16:00)
[2024-02-03 16:39] LABS: Glucose - Point of Care 244 mg/dl (70-99)
[2024-02-03] MEDS: NOVOLOG FLEXPEN-LOW RESISTANCE 2 UNITS SC (17:14)
[2024-02-03] MEDS: LOVENOX 40 MG SC (17:24)
[2024-02-03] MEDS: MELATONIN 5 MG PO (21:28)
[2024-02-03] MEDS: FARXIGA 10 MG PO (21:28)
[2024-02-03] MEDS: LIPITOR 10 MG PO (21:28)
[2024-02-03 21:51] LABS: Glucose - Point of Care 212 mg/dl (70-99)
[2024-02-03 23:04] VITALS: BP 140/63
[2024-02-04] MEDS: MESTINON 60 MG PO ×4 (04:20→21:09)
[2024-02-04 07:10] VITALS: BP 133/64
[2024-02-04 07:52] LABS: Glucose - Point of Care 123 mg/dl (70-99)
--- NOTE | 2024-02-04 08:33 | CON.ORTHO ---
Consultation - Orthopedics
History
73-year-old male presented to the emergency department with complaints of 3 to 4 days left hand swelling and redness. He had been started on Bactrim on outpatient basis without improvement. He was admitted to the hospitalist service for IV
antibiotics. Orthopedics is consulted for further evaluation and treatment. This morning patient reports that he actually has fairly significant improvement in his left hand discomfort. He reports that he is able to flex his hand much better than
when he came to the emergency department. He feels like the appearance has improved as well. Continues to complain of swelling however in his hand..
Allergies / Home Medications
Past medical history: Myasthenia gravis, insulin-dependent diabetes, hypercholesterolemia, hypertension, GERD
Past surgical history: None documented
Family history: Not pertinent
Social history: Non-smoker, lives at home
Allergy/AdvReac Type Severity Reaction Status Date / Time
hydrocortisone Allergy Unknown Unknown Verified 02/03/24 03:13
[From GIDEENrt
([id number])]
neomycin Allergy Unknown Unknown Verified 02/03/24 03:13
[From GIDEENrt
([id number])]
polymyxin B Allergy Unknown Unknown Verified 02/03/24 03:13
[From Westcort
([id number])]
varenicline Allergy Unknown Unknown Verified 02/03/24 03:15
latex Allergy Hives/REDNE Verified 02/02/24 19:03
SS
�Medication �Instructions �Recorded
amlodipine 5 mg tablet 5 mg PO DAILY Blood Pressure 10/11/23
aspirin 81 mg capsule 81 mg PO Q48H Blood Clot 10/11/23
Prevention/Tx
dapagliflozin propanediol 10 mg 10 mg PO HS Diabetes 10/11/23
tablet (Farxiga)
esomeprazole magnesium 20 mg 20 mg PO BID Gastrointestinal Issue 10/11/23
capsule,delayed release (Nexium)
metoprolol tartrate 100 mg tablet 100 mg PO DAILY Heart 10/11/23
Disease/Condition
pyridostigmine bromide 60 mg tablet 60 mg PO Q6H MYASTHENIA GRAVIS 10/11/23
simvastatin 20 mg tablet 20 mg PO HS High Cholesterol 10/11/23
spironolactone 25 mg tablet 25 mg PO DAILY Heart 10/11/23
Disease/Condition
insulin lispro 100 unit/mL 10 unit SC MEALS Diabetes 01/02/24
subcutaneous pen
furosemide 20 mg tablet (Lasix) 20 mg PO DAILY Heart 01/16/24
Disease/Condition
acetaminophen 500 mg tablet 1,000 mg PO Q6HPRN PRN mild pain 02/02/24
prednisone 20 mg tablet 30 mg PO DAILY MYASTHENIA GRAVIS 02/02/24
sulfamethoxazole 800 1 tab PO BID Infection 02/02/24
mg-trimethoprim 160 mg tablet
Vital Signs / Lab Results
Temp Pulse Resp BP Pulse Ox
98.3 F 66 16 140/63 98
02/03/24 23:04 02/03/24 23:04 02/03/24 23:04 02/03/24 23:04 02/03/24 23:04
02/03/24 06:00
02/03/24 06:00
10 point review systems reviewed and negative unless otherwise stated
General: Pleasant, no acute distress seated comfortably in chair
Musculoskeletal left upper extremity
Skin intact, very faint erythema noted dorsal aspect of hand
There is fairly diffuse swelling noted throughout dorsum of hand and into digits
Patient able to form near composite fist
There is a area of fluctuance over the long finger metacarpal that is fairly nontender to palpation today. There is a healed scab noted over this area of fluctuance
No motor or sensory deficits noted
Brisk cap refill
Diagnostic studies
X-rays hand show no fracture dislocation. No calcifications soft tissues. There is a some notable soft tissue swelling however
Assessment / Plan
73-year-old male chronic steroids myasthenia gravis history diabetes with left hand swelling erythema small area of fluctuance. Patient's symptoms have improved with IV antibiotics. Certainly improving cellulitis noted. There is an area of
fluctuance. Could represent abscess or hematoma. However this morning patient is very minimally tender over this area reports significant purulent symptoms. MRI is pending. Will plan to follow-up MRI. At this point based on examination would
not be aggressive with irrigation debridement of area of fluctuance. Would recommend continued IV antibiotics. Recommend continued elevation and ice to the hand to minimize swelling. Will reexamine patient and have further discussion regarding
continuing conservative treatment versus bedside irrigation debridement.
[2024-02-04] MEDS: ALDACTONE 25 MG PO (08:53)
[2024-02-04] MEDS: PROTONIX 40 MG PO ×2 (08:53→21:08)
[2024-02-04] MEDS: DELTASONE 30 MG PO (08:53)
[2024-02-04] MEDS: NOVOLOG FLEXPEN 5 UNITS SC ×3 (08:53→17:58)
[2024-02-04] MEDS: NORVASC 5 MG PO (08:54)
[2024-02-04] MEDS: LASIX 20 MG PO (08:54)
[2024-02-04] MEDS: NOVOLOG FLEXPEN-LOW RESISTANCE SC (08:54)
[2024-02-04] MEDS: LOPRESSOR 100 MG PO (08:54)
[2024-02-04 12:45] LABS: Blood Urea Nitrogen 36 mg/dl (9-20); Estimated Creatinine Clearance 47 ml/min
--- NOTE | 2024-02-04 12:54 | W.PN.ID1 ---
Date of Service
Date of Service: February 04, 2024
Today's Communication
- MRI abscess up to 5 cm in one dimension, given size and chronic high dose steroids, would be concerned about relapse if treated with antibiotics alone, would consider I&D, reviewed with orthopedics
Assessment / Plan
Cellulitis L hand
Tenosynovitis
Immunosuppression - high dose steroids (pred 30 mg)
Myasthenia gravis
DM2
- blood cultures x2 are in progress
- MRSA nasal screen
- attempt at aspiration 02/01 - unsuccessful
- MRI abscess up to 5 cm in one dimension, given size and chronic high dose steroids, would be concerned about relapse if treated with antibiotics alone, would consider I&D, reviewed with orthopedics
- encouraged compliance, reviewed issues with delayed blood cultures and uncontrolled blood sugars with patient, explained that he is immunosuppressed
- recommend tight glucose control which will improve neurophil function reviewed with patient
- agree with vancomycin
- appreciate orthopedics input
Chief Complaint
-: Other (abscess of the hand)
Subjective / Review of Systems
afebrile
bp stable
two sets of blood cultures were ordered for yesterday afternoon, patient refused second set
blood sugars running high over 400s on some readings - refused treatment
a1c pending
discussed reasoning for control of blood glucoses and need for two sets of blood cultures; about 15 minute conversation with him and his adult daughter, explained impact of uncontrolled hyperglycemic increasing risk of relapse of infection
Vital Signs / Physical Exam
Vital Signs
Vital Signs
Temp Pulse Resp BP Pulse Ox
97.6 F 61 14 133/64 98
02/04/24 07:10 02/04/24 08:53 02/04/24 07:10 02/04/24 08:53 02/04/24 10:38
Physical Exam
Constitutional: No Acute Distress
Cardiovascular: Regular Rate and S1/S2; Negative Murmur or Rub
Pulmonary: Clear and Symmetric; Negative Wheezes or Rales
Gastrointestinal: Soft, Non Tender, Non Distended and Normal Bowel Sounds
Extremities: Other (Left hand improved infection control nurse strength, less erythema over the large abscess on the posterior R hand)
Skin: Warm and Dry; Negative Rash or Jaundice
Objective Data
Lab Data
Lab Results
02/03/24 06:00
02/04/24 12:22
Estimated Creat Clear 47 ml/min 02/04/24 12:22
Lactic Acid 3.3 mmol/L (0.7-2.0) H 02/02/24 18:26
Total Bilirubin 0.9 mg/dl (0.2-1.3) 02/02/24 15:00
AST 66 U/L (17-59) H 02/02/24 15:00
ALT 54 U/L (0-50) H 02/02/24 15:00
Alkaline Phosphatase 211 U/L (38-126) H 02/02/24 15:00
Most recent labs reviewed.
MRI 2.6 x 1.3 x 4.8 cm rim-enhancing abscess along the dorsal aspect of the hand posterior to the third metacarpal with insinuation between the extensor tendons at this level.
No evidence for osteomyelitis.
Micro Results:
02/04/24 12: Blood Culture - Pending
Blood/Venous
02/03/24 17:21 Blood Culture - Pending
Blood/Venous
02/03/24 14:14 MRSA Screen - Pending
Nose
Care Review
Plan reviewed with: Physician (Dr Menjivar and Dr Carnes - recommend I&D, will likely be done at bedside)
[2024-02-04 12:57] LABS: Glucose - Point of Care 286 mg/dl (70-99)
[2024-02-04] MEDS: NOVOLOG FLEXPEN-LOW RESISTANCE 3 UNITS SC (13:02)
[2024-02-04] MEDS: VISBIOME 1 CAP PO (13:02)
--- NOTE | 2024-02-04 13:16 | PHA.VAN.FU ---
Vancomycin Assessment / Plan
- Assessment
Renal Function: SCR Increasing
In the past 24 hrs, patient has been: Afebrile
- Assessment - Therapeutic Drug Monitoring
Random Level: 11, 36 hous post 1250mg dose
- Dosing Plan
Continue: to dose by level, patient accumulating more than expected
Dosing by Level: Re-dose today (1000mg)
- Monitoring Plan
Random Level: 12/23 am labs
- Follow Up
Pharmacy will continue to follow.
Vancomycin Follow UP
- -
Patient Age: 73
Patient Sex: Male
Vancomycin Day #: 2
Indication: Skin And Soft Tissue (L hand swelling)
Requesting Provider: Dr Leon/ Dr Salgado
Pertinent Antimicrobial Allergies:
no pertinent allergies
Height / Weight:
Height 5 ft 10 in
Actual Weight 86.268 kg
Pertinent Past Medical History: MG on prednisone, DM
- Vital Signs / Lab Results
Temp Pulse Resp BP Pulse Ox
97.6 F 61 14 133/64 98
02/04/24 07:10 02/04/24 08:53 02/04/24 07:10 02/04/24 08:53 02/04/24 10:38
Lab Results - Hematology
02/02/24 02/03/24
15:00 06:00
WBC 14.5 H Cancelled
Lab Results - Chemistry
02/02/24 02/03/24 02/04/24
15:00 06:00 12:22
BUN 36 H Cancelled 36 H
Creatinine 1.3 Cancelled 1.4 H
Estimated Creat Clear Cancelled 47
Albumin 3.4 L
02/02/24
18:26
Lactic Acid 3.3 H
Therapeutic Drug Monitoring
Random Vancomycin 11.0 ug/ml 02/04/24 12:22
[2024-02-04 13:31] LABS: Glycohemoglobin (HgbA1c) 6.4 % (4.0-5.6)
[2024-02-04] MEDS: FLUSH (NSS) 1 FLUSH IV (13:49)
[2024-02-04] MEDS: VANCOCIN 200 IV (13:49)
--- NOTE | 2024-02-04 14:47 | W.PN.HOSP.TC ---
Today's Communication/Plan
-
see plan above
Assessment / Plan
Assessment / Plan
Patient with left hand swelling, erythema and tenderness. Apparent small collection/abscess located on dorsum of the left arm. S/P needle drainage unsuccessfully. Systemic signs with elevated WBC (however patient on a steroid taper for myasthenia
gravis). No fevers, chills, tachycardia to suggest sepsis.
PLAN:
1. Left hand cellulitis - Furuncle with cellulitis of the left hand. No joint involvement. S/P bactrim x 3 days without improvement. Needle drainage in ED with removal of small amount of pus material. Extensvie hand edema. Focal fluctuance on
the dorsal aspect of the hand noted
-Consulted orthopedic -plan to do I&D based on MRI hand
- MRI hand -2.6 x 1.3 x 4.8 cm rim-enhancing abscess along the dorsal aspect of the hand posterior to the third metacarpal with insinuation between the extensor tendons at this level.No OM
-Continue iv vancomycin for now
- ID following
- keep hand elevated
2. Diabetes -
- farxiga daily
- aspart 10 tidac if bg > 100 otherwise 5 units
- sliding scale insulin achs
3. MG
- prednisone 30 mg daily
- continue pyridostigmine 60 q 6
4. CV
- aspirin 81, statin
- continue metoprolol, furosemide sprionlocatone and amlodipine
DVT PPX - lovenox sq
Code status - Full Code
Check C Diff
Anticipated Discharge: > 48 hours
Subjective/Interval History
-
Date of Service: February 04, 2024
Feels the left hand the swelling is improved. Less pain from the dorsal aspect of the hand. No fever or chills.
Having loose stools-says he had 6 yesterday.
No nausea vomiting.
No abdominal pain.
Objective Data
-
Labs:
Laboratory Results
02/04/24
12:22
BUN 36 H
Creatinine 1.4 H
Vital Signs:
Vital Signs
Temp Pulse Resp BP Pulse Ox
97.6 F 61 14 133/64 98
02/04/24 07:10 02/04/24 08:53 02/04/24 07:10 02/04/24 08:53 02/04/24 10:38
I&O
02/03/24 02/04/24 02/05/24
06:59 06:59 06:59
Intake Total 720 / 720
Output Total 350 / 350
Balance 370 / 370
Review of Systems
-
Respiratory: Denies Trouble Breathing
Cardiac: Denies Chest Pain
Neuro: Denies Dizzy
Physical Exam
-
General: Comfortable
Respiratory: Non Labored Respirations; Negative Accessory Resp Muscle Use
Cardiac: Regular Rhythm and S1/S2
GI: Soft and Ostomy
Musculoskeletal: Other (Improved a little swelling of the hand on the left. Still fluctuant swelling on the dorsal aspect of the hand like yesterday. Less tender.)
Neuro: AO x 3
Data Reviewed
-
MRI: Report Reviewed by me (MRI hand)
Labs: Labs Reviewed by me
[2024-02-04 15:15] VITALS: BP 110/47
--- NOTE | 2024-02-04 16:08 | W.PN.UPDATE ---
Update Note
Progress Note Update
Reviewed MRI and discussed findings with patient. Also discussed with primary team and infectious disease. After discussion with patient, he like to proceed with irrigation debridement of abscess left hand under sedation in the operating room. We
discussed the details of the procedure. We discussed risks benefits and alternatives. After discussion verbal consent was obtained. Will plan to obtain written informed consent prior to OR tomorrow.
N.p.o. midnight
Please hold anticoagulation in preparation for OR
Plan 2 OR tomorrow for irrigation debridement left dorsal hand abscess
Please reach out with questions or concerns
--- NOTE | 2024-02-04 16:15 | CM ---
Addendum entered by Angelique Munoz RN 02/04/24 16:27:
GUAN Letter completed.
Original Note:
Patient with Hx myasthenia gravis with left hand swelling, erythema and tenderness. Room air. Receiving IV Abx.
Met with patient and daughter Alia Gonzalez, from [facility] (cell [phone]);
the patient resides with his Sonia in a 3rd floor condo, elevator in building.
He has been independent in ADLs and ambulation using both RW and SPC.
He is no longer driving.
DME - RW, SPC
Current with [facility]
No prior SNF.
PCP - Juancarlos Champagne
Pharmacy - [address]
Message to Dr Carnes: Patient fell 1 month ago and was getting PT/OT at home. Pls order PT/OT Evals.
Plan follow up after seen by PT/OT.
[2024-02-04 16:57] LABS: Glucose - Point of Care 360 mg/dl (70-99)
--- NOTE | 2024-02-04 16:59 | TRANSFER ---
Pt transferred from 4E to 426 via wheelchair, walked from wheelchair to chair in room by himself with a cane. Accompanied by his . VSS, oriented to room, blood sugar at this time is 360, will cover when dinner arrives. Call león within reach.
[2024-02-04] MEDS: LOVENOX SC (17:29)
[2024-02-04] MEDS: NOVOLOG FLEXPEN-LOW RESISTANCE 5 UNITS SC (17:58)
[2024-02-04] MEDS: FARXIGA 10 MG PO (21:08)
[2024-02-04] MEDS: LIPITOR 10 MG PO (21:09)
[2024-02-04] MEDS: IMODIUM 2 MG PO (21:30)
[2024-02-04 22:50] LABS: Glucose - Point of Care 195 mg/dl (70-99)
[2024-02-04] MEDS: MELATONIN 5 MG PO (22:52)
[2024-02-04 23:20] VITALS: BP 123/69
[2024-02-05] VITALS (13 sets, daily range): BP systolic 113–144; BP diastolic 57–76
[2024-02-05] MEDS: MESTINON 60 MG PO ×4 (04:52→22:55)
[2024-02-05 05:36] LABS: Hematocrit 31.6 % (39.0-52.0); Hemoglobin 10.5 g/dL (13.0-18.0); Mean Corp Hgb Conc. 33.2 g/dL (33.0-37.0); Mean Corpuscular Volume 102.3 fL (80.0-94.0); Mean Platelet Volume 9.4 fL (7.4-10.4); Platelet Count 120 10^3/uL (130-400); Red Blood Cell Count 3.09 10^6/uL (4.70-6.10); Red Cell Dist. Width 15.2 % (11.5-14.5); White Blood Cell Count 10.4 10^3/uL (4.8-10.8)
[2024-02-05 05:54] LABS: Glucose - Point of Care 124 mg/dl (70-99)
[2024-02-05 05:57] LABS: Vancomycin Random 15.1 ug/ml
[2024-02-05 06:03] LABS: Blood Urea Nitrogen 41 mg/dl (9-20); Calcium 8.8 mg/dl (8.4-10.2); Carbon Dioxide 26 mmol/L (22-30); Chloride 104 mmol/L (98-107); Estimated Creatinine Clearance 51 ml/min; Glucose 113 mg/dl (70-99); Potassium 4.1 mmol/L (3.5-5.1); Sodium 134 mmol/L (135-145); eGFR 57.29
[2024-02-05] MEDS: NOVOLOG FLEXPEN SC ×2 (06:05→13:09)
[2024-02-05] MEDS: NOVOLOG FLEXPEN-LOW RESISTANCE SC (06:05)
--- NOTE | 2024-02-05 08:07 | PHA.VAN.FU ---
Vancomycin Assessment / Plan
- Assessment
Renal Function: Stable (~ 1.3)
WBC's are: Trending Down
In the past 24 hrs, patient has been: Afebrile
Concomitant Antimicrobials: none
- Assessment - Therapeutic Drug Monitoring
Random Level: 15.1 - ~15 hours post 1000 mg dose
- Dosing Plan
Continue: dose by random level
Dosing by Level: Re-dose today (750 mg x 1 dose today)
- Monitoring Plan
Random Level: Am 02/06/24
- Follow Up
Pharmacy will continue to follow.
Vancomycin Follow UP
- -
Patient Age: 73
Patient Sex: Male
Vancomycin Day #: 3
Indication: Skin And Soft Tissue (L hand swelling)
Requesting Provider: Dr Leon/ Dr Salgado
Pertinent Antimicrobial Allergies:
no pertinent allergies
Height / Weight:
Height 5 ft 10 in
Actual Weight 86.268 kg
Pertinent Past Medical History: MG on prednisone, DM
- Vital Signs / Lab Results
Temp Pulse Resp BP Pulse Ox
98.3 F 63 18 123/69 99
02/04/24 23:20 02/04/24 23:20 02/04/24 23:20 02/04/24 23:20 02/04/24 23:20
Lab Results - Hematology
02/02/24 02/03/24 02/05/24
15:00 06:00 04:52
WBC 14.5 H Cancelled 10.4
Lab Results - Chemistry
02/02/24 02/03/24 02/04/24
15:00 06:00 12:22
BUN 36 H Cancelled 36 H
Creatinine 1.3 Cancelled 1.4 H
Estimated Creat Clear Cancelled 47
Albumin 3.4 L
02/05/24
04:52
BUN 41 H
Creatinine 1.3
Estimated Creat Clear 51
Albumin
02/02/24
18:26
Lactic Acid 3.3 H
Microbiology Results
02/03/24 17:21 Blood Culture - Preliminary
Blood/Venous No Growth in 24 hours- Final report to follow
02/03/24 14:14 MRSA Screen - Final
Nose Staph aureus MRSA
Therapeutic Drug Monitoring
Random Vancomycin 15.1 ug/ml 02/05/24 04:52
[2024-02-05] MEDS: VISBIOME PO ×2 (09:10→09:30)
[2024-02-05] MEDS: NORVASC 5 MG PO (09:10)
[2024-02-05] MEDS: LOPRESSOR 100 MG PO (09:11)
[2024-02-05] MEDS: PROTONIX 40 MG PO ×2 (09:11→22:55)
[2024-02-05] MEDS: DELTASONE 30 MG PO (09:11)
[2024-02-05] MEDS: ALDACTONE 25 MG PO (09:12)
[2024-02-05] MEDS: LASIX 20 MG PO (09:12)
[2024-02-05] MEDS: VANCOCIN 150 IV (09:13)
[2024-02-05] MEDS: ASPIR LOW (ENTERIC COATED) PO (09:14)
[2024-02-05 11:37] LABS: Glucose - Point of Care 192 mg/dl (70-99)
--- NOTE | 2024-02-05 12:38 | W.PN.HOSP.TC ---
Today's Communication/Plan
-
OR today
Hold Farxiga
CW ABX
Assessment / Plan
Assessment / Plan
Patient with left hand swelling, erythema and tenderness. Apparent small collection/abscess located on dorsum of the left arm. S/P needle drainage unsuccessfully. Systemic signs with elevated WBC (however patient on a steroid taper for myasthenia
gravis). No fevers, chills, tachycardia to suggest sepsis.
PLAN:
Left hand cellulitis - Furuncle with cellulitis of the left hand. No joint involvement. S/P bactrim x 3 days without improvement. Needle drainage in ED with removal of small amount of pus material. Extensvie hand edema. Focal fluctuance on the
dorsal aspect of the hand noted
-Consulted orthopedic -plan to do I&D today
- MRI hand -2.6 x 1.3 x 4.8 cm rim-enhancing abscess along the dorsal aspect of the hand posterior to the third metacarpal with insinuation between the extensor tendons at this level.No OM
- Continue iv vancomycin for now
- ID following
- keep hand elevated
Diabetes -
- farxiga daily -hold of surgery
- aspart 10 tidac if bg > 100 otherwise 5 units
- sliding scale insulin achs
MG
- prednisone 30 mg daily
- continue pyridostigmine 60 q 6
CV
- aspirin 81, statin
- continue metoprolol, furosemide sprionlocatone and amlodipine
DVT PPX - lovenox sq
Code status - Full Code
Anticipated Discharge: 24 - 48 hours
Subjective/Interval History
-
Date of Service: February 05, 2024
Pain from the left hand is improved. No fever or chills.
Denies any further loose stools. Used Imodium. No nausea vomiting. Tolerating diet. No abdominal pain.
Objective Data
-
Labs:
Laboratory Results
02/05/24
04:52
WBC 10.4
Hgb 10.5 L
Hct 31.6 L
Plt Count 120 L
Sodium 134 L
Potassium 4.1
Chloride 104
Carbon Dioxide 26
BUN 41 H
Creatinine 1.3
Glucose 113 H
Calcium 8.8
Vital Signs:
Vital Signs
Temp Pulse Resp BP Pulse Ox
98.3 F 71 20 116/66 99
02/05/24 09:11 02/05/24 09:11 02/05/24 09:11 02/05/24 09:11 02/05/24 09:11
I&O
02/04/24 02/05/24 02/06/24
06:59 06:59 06:59
Intake Total 720 / 720
Output Total 350 / 350
Balance 370 / 370
Review of Systems
-
Constitutional: Denies Fever or Chills
EENT: Denies Sore Throat
Respiratory: Denies Cough or Trouble Breathing
Cardiac: Denies Chest Pain
Neuro: Denies Dizzy
Physical Exam
-
General: No Apparent Distress
Respiratory: Non Labored Respirations; Negative Accessory Resp Muscle Use
Cardiac: Regular Rhythm and S1/S2; Negative Tachycardic
GI: Soft, Nontender, Nondistended and Normal Bowel Sounds
Musculoskeletal: Other (left dorsal hand - fluctuant swelling as yesterday)
Neuro: AO x 3
Data Reviewed
-
Labs: Labs Reviewed by me
[2024-02-05] MEDS: NOVOLOG FLEXPEN-LOW RESISTANCE 1 UNITS SC (13:23)
[2024-02-05 14:21] LABS: Glucose - Point of Care 247 mg/dl (70-99)
--- NOTE | 2024-02-05 14:53 | CM ---
CM reviewed chart, patient off floor at this time, for OR today. Patient switched to inpatient status. CM will continue to follow for all discharge planning needs.
Plan; home no needs vs VN, watch for further recommendations upon discharge.
--- NOTE | 2024-02-05 15:11 | W.PN.ID1 ---
Date of Service
Date of Service: February 05, 2024
Today's Communication
- MRSA nasal screen - positive - lab will get me sensitives on this isolate
- s/p I&D will follow up any available cultures
- continue with vancomycin
- appreciate orthopedics input
Assessment / Plan
Cellulitis L hand
Tenosynovitis
Immunosuppression - high dose steroids (pred 30 mg)
Myasthenia gravis
DM2
- blood cultures x2 are in progress
- MRSA nasal screen - positive - lab will get me sensitives on this isolate
- s/p I&D will follow up any available cultures
- continue with vancomycin
- appreciate orthopedics input
Chief Complaint
-: Other (abscess of the hand)
Subjective / Review of Systems
afebrile
bp stable
got a new room
no events overnight
had I&D this afternoon seen in pacu
Vital Signs / Physical Exam
Vital Signs
Vital Signs
Temp Pulse Resp BP Pulse Ox
98.3 F 71 20 116/66 99
02/05/24 09:11 02/05/24 09:11 02/05/24 09:11 02/05/24 09:11 02/05/24 09:11
Physical Exam
Constitutional: No Acute Distress
Cardiovascular: Regular Rate and S1/S2; Negative Murmur or Rub
Pulmonary: Clear and Symmetric; Negative Wheezes or Rales
Gastrointestinal: Soft, Non Tender, Non Distended and Normal Bowel Sounds
Extremities: Other (post operative dressing in place, deferred take down)
Skin: Warm and Dry; Negative Rash or Jaundice
Objective Data
Lab Data
Lab Results
02/05/24 04:52
02/05/24 04:52
Estimated Creat Clear 51 ml/min 02/05/24 04:52
Lactic Acid 3.3 mmol/L (0.7-2.0) H 02/02/24 18:26
Total Bilirubin 0.9 mg/dl (0.2-1.3) 02/02/24 15:00
AST 66 U/L (17-59) H 02/02/24 15:00
ALT 54 U/L (0-50) H 02/02/24 15:00
Alkaline Phosphatase 211 U/L (38-126) H 02/02/24 15:00
Most recent labs reviewed.
Micro Results:
02/04/24 12:22 Blood Culture - Preliminary
Blood/Venous No Growth in 24 hours- Final report to follow
02/03/24 17:21 Blood Culture - Preliminary
Blood/Venous No Growth in 24 hours- Final report to follow
02/03/24 14:14 MRSA Screen - Final
Nose Staph aureus MRSA
Care Review
Plan reviewed with: Physician (Dr Carnes - antibiotics)
[2024-02-05 15:16] LABS: Glucose - Point of Care 261 mg/dl (70-99)
--- NOTE | 2024-02-05 15:17 | OR.RPT ---
Operative Report
Operative Report
Anesthesia Type:
MAC
Operative Indications:
Left dorsal hand abscess
Operative Findings :
Gross purulence
Complications:
None
Implants:
None
Procedure and Technique:
Irrigation and debridement left dorsal hand abscess with excisional debridement
INDICATIONS FOR PROCEDURE:
73-year-old male history of myasthenia gravis diabetes presented to the ED with complaints of left hand pain swelling and redness. He was admitted to the hospital service. He was subsequently diagnosed with a dorsal hand abscess that was confirmed
on MRI. After discussion the patient primary team and infectious disease, mutual agreement to proceed with formal irrigation debridement of left dorsal hand abscess. We discussed risks benefits and alternatives to surgery. Discussed the usual
expected perioperative postoperative course. After discussion written informed consent was obtained
OPERATIVE PROCEDURE:
Patient was seen identified in the preoperative holding area. Operative extremities marked. All questions were addressed and answered. He was taken to the operating room where anesthesia was administered. Operative extremity was then prepped and
draped in normal sterile fashion. Nonsterile tourniquet was applied. Preoperative antibiotics were addressed. Tourniquet was inflated. Approximately 4 cm incision was made directly over the area of fluctuance dorsal aspect of left hand in line
with the long finger metacarpal. Gross purulence was identified. Cultures were obtained. this was copiously irrigated with normal saline solution 3 L. Sharp excisional debridement of deep fascial layer tendons and bone was performed to bleeding
tissue with a curette and rongeur. Satisfied with extent of surgery, wound was copiously irrigated and closed with 3-0 nylon suture. Quarter inch iodoform packing was placed in the wound. Sterile dressing was applied consisting of Xeroform, 4 x 4
gauze, ABD Webril. Patient was placed in a volar slab splint applied by myself. Anesthesia was versed he was taken to PACU in stable condition.
Postoperative plans will include nonweightbearing to the operative extremity. Follow-up intraoperative cultures. Continue IV antibiotics.
Disposition:
PACU stable condition
--- NOTE | 2024-02-05 15:19 | PTCARENOTE ---
1500 Patient RUE midline dressing noted to be saturated, no drainage from under tegaderm. PICC line functioning without difficulty. per CHIP FRIER this was patient's presentation on arrival. IV team to change dressing upon arrival to floor.
[2024-02-05] MEDS: NOVOLOG vial 4 UNITS SC (15:20)
[2024-02-05] MEDS: DILAUDID 0.25 MG IV (15:47)
--- NOTE | 2024-02-05 16:22 | SUR.PHASEI ---
awake and alert in pacu. tearful at times. wants to be home for [place] - concerned for family members. ID visited and spoke with patient. Review plan - assure pt he can see family. Initially minimal discomfort left hand and then pain 6/10 -
medicated with dilaudid with relief. Discharge to floor with report and hand off at bedside.
[2024-02-05 16:40] LABS: Glucose - Point of Care 221 mg/dl (70-99)
[2024-02-05] MEDS: NSS 1000 IV (17:04)
[2024-02-05] MEDS: LOVENOX 40 MG SC (17:05)
[2024-02-05] MEDS: NOVOLOG FLEXPEN 5 UNITS SC (17:54)
[2024-02-05] MEDS: NOVOLOG FLEXPEN-LOW RESISTANCE 2 UNITS SC (17:55)
[2024-02-05 21:42] LABS: Glucose - Point of Care 252 mg/dl (70-99)
--- NOTE | 2024-02-05 21:43 | PTCARENOTE ---
pt is asking to have all of his evening medications at 11pm. L arm elevated per orders. pt denies pain at this time.
[2024-02-05] MEDS: LIPITOR 10 MG PO (22:55)
[2024-02-05] MEDS: MELATONIN 5 MG PO (22:55)
[2024-02-06] MEDS: MESTINON 60 MG PO ×3 (04:59→16:00)
[2024-02-06 05:00] VITALS: BP 131/68
[2024-02-06 05:03] LABS: Hematocrit 31.9 % (39.0-52.0); Hemoglobin 10.7 g/dL (13.0-18.0); Mean Corp Hgb Conc. 33.5 g/dL (33.0-37.0); Mean Corpuscular Hgb 33.4 pg (27.0-31.0); Mean Corpuscular Volume 99.7 fL (80.0-94.0); Mean Platelet Volume 9.8 fL (7.4-10.4); Platelet Count 150 10^3/uL (130-400); Red Cell Dist. Width 14.8 % (11.5-14.5); White Blood Cell Count 12.5 10^3/uL (4.8-10.8)
[2024-02-06 05:20] LABS: Blood Urea Nitrogen 46 mg/dl (9-20); Calcium 8.7 mg/dl (8.4-10.2); Carbon Dioxide 25 mmol/L (22-30); Chloride 105 mmol/L (98-107); Estimated Creatinine Clearance 47 ml/min; Glucose 142 mg/dl (70-99); Potassium 4.9 mmol/L (3.5-5.1); Sodium 136 mmol/L (135-145); eGFR 52.41
[2024-02-06 06:53] LABS: Glucose - Point of Care 154 mg/dl (70-99)
--- NOTE | 2024-02-06 07:41 | PHA.VAN.FU ---
Vancomycin Assessment / Plan
- Assessment
Renal Function: SCR Increasing (1.4->1.3->1.4)
WBC's are: Trending Up
In the past 24 hrs, patient has been: Afebrile
Concomitant Antimicrobials: none
- Assessment - Therapeutic Drug Monitoring
Random Level: 16.0 ~ 19 hours post 750 mg dose yesterday
- Dosing Plan
Continue: dose by random level
Dosing by Level: Re-dose today (500 mg x 1 dose)
- Monitoring Plan
Random Level: 0600 02/06
- Follow Up
Pharmacy will continue to follow.
Vancomycin Follow UP
- -
Patient Age: 73
Patient Sex: Male
Vancomycin Day #: 4
Indication: Skin And Soft Tissue (L hand swelling)
Requesting Provider: Dr Leon/ Dr Salgado
Pertinent Antimicrobial Allergies:
no pertinent allergies
Height / Weight:
Height 5 ft 10 in
Actual Weight 86.268 kg
Pertinent Past Medical History: MG on prednisone, DM
- Vital Signs / Lab Results
Temp Pulse Resp BP Pulse Ox
98.6 F 69 18 131/68 100
02/06/24 05:00 02/06/24 05:00 02/06/24 05:00 02/06/24 05:00 02/06/24 05:00
Lab Results - Hematology
02/03/24 02/05/24 02/06/24
06:00 04:52 04:32
WBC Cancelled 10.4 12.5 H
Lab Results - Chemistry
02/03/24 02/04/24 02/05/24
06:00 12:22 04:52
BUN Cancelled 36 H 41 H
Creatinine Cancelled 1.4 H 1.3
Estimated Creat Clear Cancelled 47 51
02/06/24
04:32
BUN 46 H
Creatinine 1.4 H
Estimated Creat Clear 47
Microbiology Results
02/05/24 14:30 Gram Stain - Preliminary
Hand - Left
02/03/24 17:21 Blood Culture - Preliminary
Blood/Venous No Growth in 48 hours- Final report to follow
02/03/24 14:14 MRSA Screen - Preliminary
Nose Staph aureus MRSA
02/04/24 12:22 Blood Culture - Preliminary
Blood/Venous No Growth in 24 hours- Final report to follow
Therapeutic Drug Monitoring
Random Vancomycin 16.0 ug/ml 02/06/24 04:32
[2024-02-06 07:50] VITALS: BP 143/74
[2024-02-06] MEDS: NOVOLOG FLEXPEN-LOW RESISTANCE 1 UNITS SC (08:00)
[2024-02-06] MEDS: NOVOLOG FLEXPEN 5 UNITS SC ×2 (08:00→12:41)
[2024-02-06] MEDS: ALDACTONE 25 MG PO (08:00)
[2024-02-06] MEDS: LASIX 20 MG PO (08:01)
[2024-02-06] MEDS: VISBIOME 1 CAP PO (08:01)
[2024-02-06] MEDS: PROTONIX 40 MG PO (08:01)
[2024-02-06] MEDS: LOPRESSOR 100 MG PO (08:01)
[2024-02-06] MEDS: DELTASONE 30 MG PO (08:01)
[2024-02-06] MEDS: NORVASC 5 MG PO (08:01)
--- NOTE | 2024-02-06 10:09 | CM ---
Addendum entered by Dionna Gloria 02/06/24 16:21:
IMM completed and patient pharmacy confirmed time for closure, family to have patient script picked up. Patient here with him. CM will continue to follow for discharge planning needs.
fax for [facility] is [phone]
Addendum entered by Dionna Gloria 02/06/24 14:01:
updated clinical information sent to [facility]. Patient updated that he is now INP status.
Original Note:
Liaison for [facility] called, they have open case for patient to OT and nursing. Please update plans for discharge and call Liaison [phone]/ fax [phone]. CM will continue to follow for discharge planning needs.
Plan; watch for IV antibiotic needs, open to [facility], send updated clinicals and home with family supports
--- NOTE | 2024-02-06 11:02 | W.PN.ORTHO ---
Today's Communication / Plan
-
73-year-old male postop day 1 status post I&D of left dorsal hand abscess doing well
Limited use left upper extremity. Recommend no more lifting than coffee cup
Intraoperative cultures show Staph aureus
Continue antibiotics per primary team/infectious disease
Splint and dressing were removed, wound packing was removed and redressed with soft dressing
Okay for soft dressing changes as needed
Follow-up outpatient with myself in 7 to 10 days for repeat wound evaluation
Subjective
.
.:
Patient resting comfortably in chair this morning. Reports that hand continues to feel much improved.
Vital Signs and Labs
.
Vital Signs and Labs:
Lab Results
02/06/24 04:32
02/06/24 04:32
Temp Pulse Resp BP Pulse Ox
97.8 F 66 18 143/74 99
02/06/24 07:50 02/06/24 08:00 02/06/24 07:50 02/06/24 08:00 02/06/24 07:50
Physical Exam
-
Musculoskeletal left upper extremity
Surgical incision visualized, no active drainage
Packing was visualized and this was removed
Motor intact to AIN, PIN, ulnar nerve, radial nerve median nerve
Sensation tact light touch in all dispositions distally
Brisk cap refill
[2024-02-06] MEDS: VANCOCIN HCL 500 MG 100 IV (11:04)
[2024-02-06 11:35] LABS: Glucose - Point of Care 245 mg/dl (70-99)
--- NOTE | 2024-02-06 12:35 | W.PN.ID1 ---
Date of Service
Date of Service: February 06, 2024
Today's Communication
- sensitivity wont result until tomorrow; however patient requesting discharge, plan linezolid 600 mg PO BID x 6 weeks given need to debride bone, very likely to be sensitive and will not impact myasthenia gravis. counseled patient re: hold farxiga
while on linezolid due to risk of hypoglycemia - continue insulin, alarm symptoms (numbness/tingeling/changes in vision etc) and need to call [facility] coupon,
Assessment / Plan
Cellulitis L hand
Tenosynovitis
Immunosuppression - high dose steroids (pred 30 mg)
Myasthenia gravis
DM2
- blood cultures x2 are in progress
- MRSA nasal screen - positive - lab will get me sensitives on this isolate
- s/p I&D will follow up any available cultures
- vancomycin level 16 today, received vancomycin today
- sensitivity wont result until tomorrow; however patient requesting discharge, plan linezolid 600 mg PO BID x 6 weeks given need to debride bone, very likely to be sensitive and will not impact myasthenia gravis. counseled patient re: hold farxiga
while on linezolid due to risk of hypoglycemia - continue insulin, alarm symptoms (numbness/tingeling/changes in vision etc) and need to call [facility] coupon,
- follow up with me in about 6 weeks
Chief Complaint
-: Other (abscess of the hand)
Subjective / Review of Systems
afebrile
bp stable
Vital Signs / Physical Exam
Vital Signs
Vital Signs
Temp Pulse Resp BP Pulse Ox
97.8 F 66 18 143/74 99
02/06/24 07:50 02/06/24 08:00 02/06/24 07:50 02/06/24 08:00 02/06/24 07:50
Physical Exam
Constitutional: No Acute Distress
Cardiovascular: Regular Rate
Pulmonary: Symmetric and Non Labored
Musculoskeletal: Other (deferred dressing take down)
Neurological: Awake
Objective Data
Lab Data
Lab Results
02/06/24 04:32
02/06/24 04:32
Estimated Creat Clear 47 ml/min 02/06/24 04:32
Lactic Acid 3.3 mmol/L (0.7-2.0) H 02/02/24 18:26
Total Bilirubin 0.9 mg/dl (0.2-1.3) 02/02/24 15:00
AST 66 U/L (17-59) H 02/02/24 15:00
ALT 54 U/L (0-50) H 02/02/24 15:00
Alkaline Phosphatase 211 U/L (38-126) H 02/02/24 15:00
Most recent labs reviewed.
Micro Results:
02/04/24 12:22 Blood Culture - Preliminary
Blood/Venous No Growth in 48 hours- Final report to follow
02/03/24 14:14 MRSA Screen - Preliminary
Nose Staph aureus MRSA
02/05/24 14:30 Wound Culture - Preliminary
Hand - Left Staphylococcus aureus
Gram Stain - Preliminary
02/05/24 14:30 Anaerobic Culture - Preliminary
Hand - Left Culture pending. Anaerobic cultures are examined after 3
days incubation. Additional information to follow.
02/03/24 17:21 Blood Culture - Preliminary
Blood/Venous No Growth in 48 hours- Final report to follow
Care Review
Plan reviewed with: Physician (Dr Carnes- pt requesting dc, plan finalized)
[2024-02-06] MEDS: NOVOLOG FLEXPEN-LOW RESISTANCE 2 UNITS SC (12:41)
--- NOTE | 2024-02-06 14:21 | W.PN.HOSP.TC ---
Today's Communication/Plan
-
DC
Assessment / Plan
Assessment / Plan
Patient with left hand swelling, erythema and tenderness. Apparent small collection/abscess located on dorsum of the left arm. S/P needle drainage unsuccessfully. Systemic signs with elevated WBC (however patient on a steroid taper for myasthenia
gravis). No fevers, chills, tachycardia to suggest sepsis.
PLAN:
Left hand cellulitis - Furuncle with cellulitis of the left hand. No joint involvement. S/P bactrim x 3 days without improvement. Needle drainage in ED with removal of small amount of pus material. Extensvie hand edema. Focal fluctuance on the
dorsal aspect of the hand noted
- s/p I&D to02/04 - staph aureus noted; MRSA on nasal swab.
- MRI hand -2.6 x 1.3 x 4.8 cm rim-enhancing abscess along the dorsal aspect of the hand posterior to the third metacarpal with insinuation between the extensor tendons at this level.No OM
- keep hand elevated;improved swelling of hand
- DW ID -recommend Linezolid BID for 40 days. He was told about SE by ID.
Diabetes
- farxiga daily -hold till on Linezolid per ID
- home insulin regimen
MG
- prednisone 30 mg daily
- continue pyridostigmine 60 q 6
CV
- aspirin 81, statin
- continue metoprolol, furosemide sprionlocatone and amlodipine
DVT PPX - lovenox sq
Code status - Full Code
Medically stable for DC home today
Total time of dc 32 min
Anticipated Discharge: Today
Subjective/Interval History
-
Date of Service: February 06, 2024
Patient feels that his left hand swelling is much improved. Not much pain.
No fever chills.
Tolerating diet without nausea or diarrhea.
He says he is comfortable doing the dressing changes himself at home. He had done dressing changes for his when she had her toes wounds.
Objective Data
-
Labs:
Laboratory Results
02/06/24
04:32
WBC 12.5 H
Hgb 10.7 L
Hct 31.9 L
Plt Count 150 D
Sodium 136
Potassium 4.9
Chloride 105
Carbon Dioxide 25
BUN 46 H
Creatinine 1.4 H
Glucose 142 H
Calcium 8.7
Vital Signs:
Vital Signs
Temp Pulse Resp BP Pulse Ox
97.8 F 66 18 143/74 99
02/06/24 07:50 02/06/24 08:00 02/06/24 07:50 02/06/24 08:00 02/06/24 07:50
I&O
02/05/24 02/06/24 02/07/24
06:59 06:59 06:59
Intake Total 1370 / 1370
Output Total 700 / 700
Balance 670 / 670
Review of Systems
-
Constitutional: Denies Fever
EENT: Denies Sore Throat
Respiratory: Denies Cough or Trouble Breathing
Cardiac: Denies Chest Pain
Neuro: Denies Dizzy
Physical Exam
-
General: No Apparent Distress
HEENT: Moist Mucous Membranes
Respiratory: Clear to Auscultation
Cardiac: Regular Rhythm and S1/S2
GI: Soft
Musculoskeletal: Other (improved hand swelling on left . Wound just dressed today by Ortho so did not review.)
Psych: Calm
Data Reviewed
-
Labs: Labs Reviewed by me
[2024-02-06 15:24] VITALS: BP 121/51
--- NOTE | 2024-02-06 16:00 | W.DCSUMMARY ---
Discharge Summary
Discharge Data
Date of Admission: 02/05/24
Date of Discharge: 02/06/24
-
Pending Results: No
Hospital Course
Primary diagnosis:
Left hand cellulitis with dorsal hand abscess status post excisional debridement
Secondary diagnosis:
Diabetes mellitus type 2
Myasthenia gravis on prednisone
Essential hypertension
Hospital course:
Patient presented after failed outpatient to antibiotic treatments for left hand cellulitis. His left hand was getting more swollen and painful. In his dorsal of the hand clinically a fluctuant swelling was noted which was concerning for abscess
which was confirmed by MRI. Was seen by orthopedics, had I&D. Prelim wound culture report shows Staph aureus. His nasal swab was positive for MRSA. He was seen by ID who recommended a switch to oral linezolid for 6 weeks as there was need to
debride bone. He was advised to hold Farxiga while he is on linezolid for the risk of hypoglycemia. Advised to continue with his home insulin regimen and adjust as needed.
Consultants on board:
Ortho Melisa Fernandez
ID - Cuca Dotson
Discharge Plan
-
Patient Disposition: Home with Home Care
Discharge Diagnosis/Procedures: Left hand infection s/p I&D
Diet: Diabetic, Carb Controlled
Activity: As tolerated
Driving Restrictions: As prior to admission
Bathing Restrictions: None
Other Services: VN
Referrals:
Juancarlos Champagne MD [Family Provider] - in less than 1 week
Kael Menjivar MD [Active] - in one week
Sharla Salgado MD [Active] - in two to four weeks
Prescriptions:
New
linezolid 600 mg Tablet
600 mg PO BID Qty: 80 0RF
Continued
metoprolol tartrate 100 mg Tablet
100 mg PO DAILY
amlodipine 5 mg Tablet
5 mg PO DAILY
spironolactone 25 mg Tablet
25 mg PO DAILY
simvastatin 20 mg Tablet
20 mg PO HS
pyridostigmine bromide 60 mg Tablet
60 mg PO Q6H
esomeprazole magnesium [Nexium] 20 mg Capsule,Delayed Release(Dr/Ec)
20 mg PO BID
aspirin 81 mg Capsule
81 mg PO Q48H
insulin lispro 100 unit/mL Insulin Pen
10 unit SC MEALS
furosemide [Lasix] 20 mg Tablet
20 mg PO DAILY
prednisone 20 mg Tablet
30 mg PO DAILY
acetaminophen 500 mg Tablet
1,000 mg PO Q6HPRN PRN (Reason: mild pain)
Held
dapagliflozin propanediol [Farxiga] 10 mg Tablet
10 mg PO HS
Hold Instructions: Resume on 03/19/24. While you are on Linezolid antibiotic
Discontinued
sulfamethoxazole-trimethoprim 800-160 mg Tablet
1 tab PO BID
Discharge Orders:
Discharge Patient (As Directed); Ordered 02/06/24
Ordered By: Torres Carnes
Discharge Date and Time
Print Language: CHILEAN
[2024-02-06] MEDS: NOVOLOG FLEXPEN SC (16:05)
[2024-02-06] MEDS: NOVOLOG FLEXPEN-LOW RESISTANCE SC (16:06)
== END 2024-02-06 22:15 | disposition home health service (06) | DRG 982 ==
LOC: 4 WEST ACU 12:41
PROVIDERS: Nurse Practitioner; Student in an Organized Health Care Education/Training Program; ADMITTING PHYSICIAN Internal Medicine; ATTENDING PHYSICIAN Internal Medicine; CONSULT PHYSICIAN Orthopaedic Surgery; CONSULT PHYSICIAN Student in an Organized Health Care Education/Training Program; EMERGENCY PHYSICIAN Emergency Medicine; FAMILY PHYSICIAN Internal Medicine
PROC: 0J9K3ZZ Drainage of Left Hand Subcutaneous Tissue and Fascia, Percutaneous Approach (ICD-10-PCS; 2024-02-02)
PROC: 0PBN0ZZ Excision of Left Carpal, Open Approach (ICD-10-PCS; 2024-02-05)
DX: L02.512 Cutaneous abscess of left hand (principal); D84.821 Immunodeficiency due to drugs; L03.114 Cellulitis of left upper limb; E11.9 Type 2 diabetes mellitus without complications; B95.61 Methicillin susceptible Staphylococcus aureus infection as the cause of diseases classified elsewhere; E78.00 Pure hypercholesterolemia, unspecified; G70.00 Myasthenia gravis without (acute) exacerbation; I50.9 Heart failure, unspecified; I11.0 Hypertensive heart disease with heart failure; I25.10 Atherosclerotic heart disease of native coronary artery without angina pectoris; K21.9 Gastro-esophageal reflux disease without esophagitis; Z79.52 Long term (current) use of systemic steroids; Z79.4 Long term (current) use of insulin; Z91.040 Latex allergy status; Z79.82 Long term (current) use of aspirin; Z88.1 Allergy status to other antibiotic agents; Z88.8 Allergy status to other drugs, medicaments and biological substances
CPT/HCPCS: 73130; 73220; 80048; 80053; 80202; 82565; 82962; 83036; 83605; 84520; 85025; 85027; 86140; 87040; 87070; 87075; 87147; 87186; 87205; 96374; 99284; A9575

== ENCOUNTER 2024-02-27 12:38 | Outpatient (RCR) | payer MEDICARE, SELFPAY ==
[2024-02-20 13:50] VITALS: BP 109/53
[2024-02-20] MEDS: VYVGART HYTRULO 1,008MG-11,200 1008 MG SC (14:09)
[2024-02-27 13:34] VITALS: BP 107/53
[2024-02-27] MEDS: VYVGART HYTRULO 1,008MG-11,200 1008 MG SC (13:43)
== END 2024-03-15 23:59 | disposition home or self-care (01) ==
LOC: OID 12:38
PROVIDERS: ATTENDING PHYSICIAN Psychiatry & Neurology Neurology; FAMILY PHYSICIAN Internal Medicine
DX: G70.01 Myasthenia gravis with (acute) exacerbation (principal)
CPT/HCPCS: 96372; J9334

== ENCOUNTER 2024-03-04 13:18 | Inpatient (IN) | payer MEDICARE, SELFPAY ==
[2024-03-04] VITALS (9 sets, daily range): BP systolic 69–147; BP diastolic 58–71; BMI 25.0; BMI 22.7
[2024-03-04 08:28] LABS: AST (SGOT) 37 U/L (17-59); Albumin 3.5 g/dl (3.5-5.0); Alkaline Phosphatase 151 U/L (38-126); Blood Urea Nitrogen 60 mg/dl (9-20); Calcium 8.9 mg/dl (8.4-10.2); Carbon Dioxide 16 mmol/L (22-30); Chloride 107 mmol/L (98-107); Estimated Creatinine Clearance 30 ml/min; Glucose 146 mg/dl (70-99); Sodium 135 mmol/L (135-145); Total Bilirubin 2.2 mg/dl (0.2-1.3); Total Protein 5.6 g/dl (6.3-8.2); eGFR 30.47
--- NOTE | 2024-03-04 08:40 | ED.GENMED ---
History of Present Illness
General
Chief Complaint: Fatigue
Source: patient
Exam Limitations: none
Time Seen by Provider: 03/04/24 07:54
Nursing documentation reviewed up to this point in time: agreed with
History of Present Illness
History of Present Illness:
73-year-old male with past medical history of myasthenia gravis currently on steroids as well as pyridostigmine presenting to the emergency department today with concerns of increasing weakness over the past 3 days. Denies any trauma denies any
specific symptoms. Denies any abdominal pain at this point no fevers has had some mild upper respiratory symptoms
Past History
Past History
ED Past Medical History: GERD, HTN, Hypercholesterolemia, IDDM and Other (myasthenia Gravis)
Review of Systems
Review of Systems
Allergies reviewed?: Yes
All Other Systems: ROS reviewed and negative except as documented in HPI and ROS
Phy Exam
Physical Exam
Physical Exam:
GENERAL: Alert , in no apparent distress
EYE: pupils equal and reactive
NECK: Supple, no significant adenopathy.
ENT: o/p clr, mmm.
CARDIAC: Regular rate and rhythm .
LUNGS: Clear breath sounds bilaterally, no acute respiratory distress, no wheezes/rales/rhonchi
ABDOMEN: Soft, without focal tenderness, no r/g, no cvat
NEUROLOGICAL: Alert and oriented, no focal neuro deficits
SKIN: Warm and dry, skin intact.
MUSCULOSKELETAL: No edema, well perfused.
PSYCH: Normal and appropriate interaction.
Course
Orders/Labs/Results
Orders:
Orders
03/04/24 08:06
EKG [Electrocardiogram (*1)] Urgent
Reason for Study: Fatigue / Weakness
Complete Blood Count/With Diff Urgent
Comprehensive Metabolic Panel Urgent
TSH Reflex To Free T4 Urgent
Comment: ADD
03/04/24 08:07
EKG- Treatment ONCE
03/04/24 08:30
Add On- LAB Urgent
Tests Added?: TSH reflex to free T4
03/04/24 08:33
Chest [CR Chest - 2 Views ] Urgent
Comment:
Reason For Exam: weakness
US Abdomen Complete/Upper Urgent
Comment:
Reason For Exam: elvate dbili
03/04/24 08:39
COVID-19 Antigen Urgent
Source: Nasal Swab
Influenza A+B Rapid Molecular Urgent
[place] Source: Nasal Swab
Specimen Description:
0.9% Sodium Chloride 1000 ml [Nss] 1,000 ml IV BOLUS
03/04/24 10:42
Urinalysis Reflex To Culture Urgent
Date Specimen was Collected: 03/04/24
Time Specimen was Collected: 10:41
Urine Microscopic Reflex Cult Urgent
03/04/24 12:16
HEMATOLOGY CONSULT Routine
Consulting Provider: Linda Noyola
Was physician already notified: Yes
Reason for consult: Need for plasmapheresis. TY
03/04/24 12:17
NEUROLOGY CONSULT Urgent
Consulting Provider: Edwin Wolfe
Was physician already notified: Yes
03/04/24 12:18
Obtain Records As Directed
Dates of Information to be Released: all
Type of Information Requested: Consults
If Other, list type of info requested: All neurology consults and progress notes
Obtain Records from: [facility]
Abnormal Lab Results
03/04/24 03/04/24
08:06 10:42
RBC 2.98 L 10^6/uL
(4.70-6.10)
Hgb 9.9 L g/dL
(13.0-18.0)
Hct 27.9 L %
(39.0-52.0)
MCH 33.2 H pg
(27.0-31.0)
Plt Count 51 L 10^3/uL
(130-400)
MPV 12.0 H fL
(7.4-10.4)
Abs Immat Gran (auto) 0.1 H 10^3/uL
(0-0.05)
Absolute Neuts (auto) 7.3 H 10^3/uL
(1.4-6.5)
Immature Gran % 0.6 H %
(0-0.5)
Neutrophils % 79.1 H %
(42.2-75.2)
Lymphocytes % 18.9 L %
(20.5-51.1)
Monocytes % 1.3 L %
(1.7-9.3)
Carbon Dioxide 16 L mmol/L
(22-30)
BUN 60 H mg/dl
(9-20)
Creatinine 2.2 H mg/dL
(0.7-1.3)
Glucose 146 H mg/dl
(70-99)
Total Bilirubin 2.2 H mg/dl
(0.2-1.3)
Alkaline Phosphatase 151 H U/L
(38-126)
Total Protein 5.6 L g/dl
(6.3-8.2)
Leukocyte Esterase Rfl Trace A
(Negative)
Urine Bacteria (Reflex) Few A
(Negative)
Urine Yeast Few A
(Negative)
03/04/24 08:06
03/04/24 08:06
Vital Signs
Initial and Last Documented VS:
Initial Vital Signs
Temp Pulse Resp BP Pulse Ox
97.9 F 80 16 121/63 99
03/04/24 07:54 03/04/24 07:54 03/04/24 07:54 03/04/24 07:54 03/04/24 07:54
Last Documented Vital Signs
Temp Pulse Resp BP Pulse Ox
97.9 F 62 18 121/63 99
03/04/24 07:54 03/04/24 11:30 03/04/24 11:30 03/04/24 08:00 03/04/24 11:00
MDM/Problems Addressed
MDM/Problems Addressed:
73-year-old male presenting to the emergency department today with concerns of increased fatigue weakness decreased appetite over the past 2 days. Has been taking his normal medications for myasthenia gravis. Otherwise vital signs here are normal.
Labs showing potential dehydration with elevated creatinine of 2.2 baseline typically in the mid ones as well as a newly elevated BUN. Patient with a mild ANGELIA was given fluids did feel somewhat improved when reassessed but claims that he still
felt significantly weak unable to ambulate concerning this plan to admit with neuro consult for myasthenia gravis as well.
*Critical Care Note
Total Time (30-74mins, 75-104mins- exclusive of procedures): Not Applicable
ED Attending Note
-
Portions of this chart may have been created with voice recognition software.� Occasional wrong word or��sound alike� substitutions may have occurred due to the inherent limitations of voice recognition software.
Discharge Plan
Departure
Patient Disposition: Admit
Date of Disposition: 03/04/24
Time of Disposition: 12:23
Admit to: Telemetry
Admit to doctor: Tiago
Presentation/result/management discussed w/ accepting MD/DO: Hospitalist
Patient with high blood pressure during this ER visit?: No
Condition: Good
Covid-19: Not Applicable
Discharge Problem:
Generalized weakness, ANGELIA (acute kidney injury)
Prescriptions:
No Action
metoprolol tartrate 100 mg Tablet
100 mg PO DAILY
amlodipine 5 mg Tablet
5 mg PO DAILY
spironolactone 25 mg Tablet
25 mg PO DAILY
simvastatin 20 mg Tablet
20 mg PO HS
pyridostigmine bromide 60 mg Tablet
60 mg PO Q6H
esomeprazole magnesium [Nexium] 20 mg Capsule,Delayed Release(Dr/Ec)
20 mg PO BID
dapagliflozin propanediol [Farxiga] 10 mg Tablet
10 mg PO HS
aspirin 81 mg Capsule
81 mg PO Q48H
insulin lispro 100 unit/mL Insulin Pen
10 unit SC MEALS
furosemide [Lasix] 20 mg Tablet
20 mg PO DAILY
Patient Comments:
ON Hold 02/27/24
diphenhydramine-acetaminophen [Tylenol PM Extra Strength] 25-500 mg Tablet
1 tab PO HS PRN (Reason: sleep)
Vyvgart Hytrulo 1,008 mg-11,200 unit/5.6 mL Solution
5.6 ml SC QWEEK
prednisone 20 mg Tablet
30 mg PO DAILY
acetaminophen 500 mg Tablet
1,000 mg PO Q6HPRN PRN (Reason: mild pain)
linezolid 600 mg Tablet
600 mg PO BID Qty: 80 0RF
Referrals:
Juancarlos Champagne MD [Family Provider] -
Interventions
Interventions:
*Risk Screen - Suicide Last Done: 03/04/24 08:02
*General Assessment Last Done: 03/04/24 07:58
*Neglect/Abuse Screening Last Done: 03/04/24 08:02
*ED COVID-19 Vaccine History Last Done: 03/04/24 07:58
Discharge Date and Time
Print Language: SWISS
[2024-03-04 08:44] LABS: ALT (SGPT) 46 U/L (0-50)
[2024-03-04 08:48] LABS: % Basophils 0.1 % (0-2); % Immature Granulocytes 0.6 % (0-0.5); % Lymphocytes 18.9 % (20.5-51.1); % Monocytes 1.3 % (1.7-9.3); % Neutrophils 79.1 % (42.2-75.2); Absolute Immature Granulocytes 0.1 10^3/uL (0-0.05); Absolute Lymphocytes 1.8 10^3/uL (1.2-3.4); Absolute Monocytes 0.1 10^3/uL (0.1-0.6); Absolute Neutrophils 7.3 10^3/uL (1.4-6.5); Hematocrit 27.9 % (39.0-52.0); Hemoglobin 9.9 g/dL (13.0-18.0); Mean Corp Hgb Conc. 35.5 g/dL (33.0-37.0); Mean Corpuscular Hgb 33.2 pg (27.0-31.0); Mean Corpuscular Volume 93.6 fL (80.0-94.0); Nucleated Red Blood Cells % 0 % (-); Platelet Count 51 10^3/uL (130-400); Red Blood Cell Count 2.98 10^6/uL (4.70-6.10); Red Cell Dist. Width 13.1 % (11.5-14.5); White Blood Cell Count 9.3 10^3/uL (4.8-10.8)
[2024-03-04 09:08] LABS: COVID-19 Antigen Negative (Negative)
[2024-03-04] MEDS: NSS 1000 IV ×3 (09:39→20:44)
[2024-03-04 10:01] LABS: TSH Reflex To Free T4 0.76 uIU/ml (0.47-4.68)
[2024-03-04 10:58] LABS: Urine Albumin Trace (Neg - Trace); Urine Bilirubin Negative (Negative); Urine Character Clear (Clear); Urine Color Yellow; Urine Glucose Negative (Negative); Urine Ketone Negative (Negative); Urine Leukocyte Trace (Negative); Urine Nitrite Negative (Negative); Urine Occult Blood Negative (Negative); Urine Urobilinogen Negative (Neg - 1+)
[2024-03-04 11:05] LABS: Urine Red Blood Cell 0-2 /HPF (0-2)
[2024-03-04 11:07] LABS: Urine Bacteria Few (Negative); Urine Yeast Few (Negative)
[2024-03-04 11:08] LABS: Urine Mucus Moderate
--- NOTE | 2024-03-04 11:50 | CON.NEURO4 ---
Addendum entered and electronically signed by Edwin Wolfe MD 03/04/24 13:16:
Studies reviewed.
I have personally examined the patient. I reviewed and agree with the BLANKBOOK FORWARDER's Note.
My addenda:
Awake, alert, interactive. No acute distress.
Speech intact.
Follows 2-step requests w/o difficulty. No tremor.
Extra-ocular movements grossly intact.
Facial movements full and symmetric. Hearing intact to normal conversational volume. Mild ptosis bilaterally without fatigable ptosis according to the patient with prolonged upgaze
Right upper extremity proximal strength 5 - out of 5, left upper extremity strength approximately 4 out of 5, right lower extremity proximal strength 4+ out of 5, left lower extremity 4- out of 5. Distal strength in all extremities full
Neck flexor strength 3+ out of 5, neck extensors strength full
Neck: full ROM.
Chest: no dyspnea
Heart: no JVD
Ext: (-) Clubbing, (-) Cyanosis, (-) Edema
IMPRESSIONS/RECOMMENDATIONS:
Abrupt onset of worsening proximal strength in lower greater than upper extremities despite use of Efgartigimod. Most likely worsening in part due to lowering of usual steroids due to recent cellulitis secondary to trauma
Initiate plasma exchange with the assistance of hematology consultation, goal of 5 exchanges using 1-1-1/2 plasma volumes each exchange
Continue pyridostigmine, plan to increase from 60 mg 4 times a day to dosing of 120 mg 4 times a day if patient is tolerant
Continue Efgartigimod as planned
Continue antibiotics as currently receiving
Consider restart of high dose steroids, consider current low-dose steroid dosing at 30 mg daily
Obtain outpatient records
Start treatment for oral Yue infection
D/W patient / family / nursing
Will continue to follow patient.
Original Note:
Consultation - Neurology 4
-
CONSULTING PHYSICIAN:Dr. Edwin Wolfe
REFERRING PHYSICIAN: Dr. Manny Jarrett
DICTATED BY: TRAN Aleman
DATE/TIME OF REQUEST: 03/04/2024 1055
DATE/TIME OF CONSULTATION: 03/04/2024 1100
Reason for Consultation: weakness, history of MG
History of Present Illness:
This is a 73 year old right handed patient with a past medical history of CAD, CHF, GERD, IDDM, MG, and cellulitis/abscess, who presented to the hospital this a.m. on 03/04/2024 with GI symptoms, progressive weakness and vision being unclear. He
endorses a diagnosis of myasthenia gravis in August 2023. He had presented to his PCP with ptosis, diplopia difficulty swallowing as well as head weakness in August of 2023. His PCP suspected he had myasthenia he was sent to Dr. Gabriel at [facility] for
further evaluation. He was formally diagnosed with MG and started on IVIG. This was not helpful so he was admitted to [facility] for plasmapheresis. He reports he was in the hospital for 9 days. He was also started on pyridostigmine 60 mg
4 times daily as well as steroids. He has also started Vyvgart Hytrulo. He has had 1 round of 4 doses over 4 weeks followed by 4 weeks off and is into his second dose of his second round. He has been receiving that at our [facility]. Has been tolerating
this well. He does not feel that this round has been as helpful as the first round. Of note he had a fall in January and had bruising of left hand which resulted in abscess. He needed an
I&D 02/05/2024 and has been on antibiotics ever since. Antibiotics have caused significant diarrhea. D/t infection steroids have been fairly aggressively reduced from 60 mg to 30 mg daily. He reports over the past few weeks he has had a few falls.
He has needed assistance from his neighbor to get off the toilet twice in the past 2 weeks.
He does report that he had swallowing evaluation completed in October.
Past Medical History: CAD, CHF, GERD, IDDM,
Surgical History: I &D left hand
Family History: reviewed and non-contributory
Social History:Pt lives with in an over [address] condo
Allergies: see below
Home Medications: see below
Review of Symptoms:
Patient denies any fever, headache, chest pain, shortness of breath, GI or symptoms.
�
Vital Signs: see below
Physical Exam:
The patient is afebrile, heart sounds S1 and S2 are regular and chest is clear to auscultation bilaterally.
Neurologic Examination:
The patient is awake, alert and oriented x 3. He is able to follow commands and answer questions appropriately. There is no aphasia or dysarthria. On cranial nerve assessment, pupils are pinpoint bilateral, round and reactive to light and
accommodation, mild exophthalmos. Visual rosas are full. Extraocular movements are intact. Facial sensations are intact and bilaterally symmetrical, there is no facial asymmetry. Hearing is intact bilaterally to normal conversation volume. Tongue
palate and uvula are midline, candidiasis noted to throat. Sternocleidomastoid strengths are full bilaterally. Motor strengths-head extension 5/5, head flexion 3/5, RLE 4-/5, LLE 5/5, b/l upper extremity 5/5 proximal and distal. There is no drift or
involuntary movement noted. Deep tendon reflexes are trace bilateral upper and lower extremities. Sensations light touch intact. Sensation of temperature reduced distally. There was no extinction noted on double simultaneous stimulation.
Coordination is intact by finger to nose bilaterally.
Lab Results: see below
Neuro Imaging: none to review
Impression:
EMILY SHARP is a 73 year old M who has presented to the hospital with increased LE weakness, head weakness and vision changes. This is likely exacerbation of MG in the setting of infection and dehydration.
Recommendations:
-recommend starting plasmapheresis, will need to consult hematology to assist
-continue Pyridostigmine 60 mg QID
-continue Prednisone 30 mg daily, may need to consider increased dosage, may need infectious disease input given recent abscess/cellulitis of left hand
-monitor respiratory status, daily vital capacity and NIF
-PT/OT and speech evaluations
-Need inpatient records from [facility] as well as outpatient neurology records from Dr. Gabriel
Discussed patient care with: Patient, and neurologist, Dr. Wolfe
Medication and Allergies
Home Medications
Home Medications
�Medication �Instructions �Recorded
amlodipine 5 mg tablet 5 mg PO DAILY Blood Pressure 10/11/23
aspirin 81 mg capsule 81 mg PO Q48H Blood Clot 10/11/23
Prevention/Tx
dapagliflozin propanediol 10 mg 10 mg PO HS Diabetes 10/11/23
tablet (Farxiga)
esomeprazole magnesium 20 mg 20 mg PO BID Gastrointestinal Issue 10/11/23
capsule,delayed release (Nexium)
metoprolol tartrate 100 mg tablet 100 mg PO DAILY Heart 10/11/23
Disease/Condition
pyridostigmine bromide 60 mg tablet 60 mg PO Q6H MYASTHENIA GRAVIS 10/11/23
simvastatin 20 mg tablet 20 mg PO HS High Cholesterol 10/11/23
spironolactone 25 mg tablet 25 mg PO DAILY Heart 10/11/23
Disease/Condition
insulin lispro 100 unit/mL 10 unit SC MEALS Diabetes 01/02/24
subcutaneous pen
furosemide 20 mg tablet (Lasix) 20 mg PO DAILY Heart 01/16/24
Disease/Condition
acetaminophen 500 mg tablet 1,000 mg PO Q6HPRN PRN mild pain 02/02/24
prednisone 20 mg tablet 30 mg PO DAILY MYASTHENIA GRAVIS 02/02/24
linezolid 600 mg tablet 600 mg PO BID #80 tabs 02/06/24
diphenhydramine 25 1 tab PO HS PRN sleep 02/27/24
mg-acetaminophen 500 mg tablet
(Tylenol PM Extra Strength)
efgartigimod jimbo 1008 5.6 ml SC QWEEK 02/27/24
zr-[id number]-tiow 11,200 unit/5.6
mL subcut soln (Vyvgart Hytrulo)
Allergies
Allergies
Allergy/AdvReac Type Severity Reaction Status Date / Time
hydrocortisone Allergy Unknown Unknown Verified 02/27/24 13:27
[From [employer]
([id number])]
neomycin Allergy Unknown Unknown Verified 02/27/24 13:27
[From [employer]
([id number])]
polymyxin B Allergy Unknown Unknown Verified 02/27/24 13:27
[From [employer]
([id number])]
varenicline Allergy Unknown Unknown Verified 02/27/24 13:27
latex Allergy Hives/REDNE Verified 02/27/24 13:27
SS
Vital Signs / Labs
-
Vital Signs and Labs:
Temp Pulse Resp BP Pulse Ox
97.9 F 62 18 121/63 99
03/04/24 07:54 03/04/24 11:30 03/04/24 11:30 03/04/24 08:00 03/04/24 11:00
03/04/24 08:06
03/04/24 08:06
03/04/24 03/04/24
08:06 10:42
RBC 2.98 L
Hgb 9.9 L
Hct 27.9 L
MCH 33.2 H
Plt Count 51 L
MPV 12.0 H
Abs Immat Gran (auto) 0.1 H
Absolute Neuts (auto) 7.3 H
Immature Gran % 0.6 H
Neutrophils % 79.1 H
Lymphocytes % 18.9 L
Monocytes % 1.3 L
Carbon Dioxide 16 L
BUN 60 H
Creatinine 2.2 H
Glucose 146 H
Total Bilirubin 2.2 H
Alkaline Phosphatase 151 H
Total Protein 5.6 L
Leukocyte Esterase Rfl Trace A
Urine Bacteria (Reflex) Few A
Urine Yeast Few A
--- NOTE | 2024-03-04 12:24 | HPS.HSE ---
Family Physician
-
Family Physician: Juancarlos Champagne
Chief Complaint
-
abdominal pain diarrhea
History of Present Illness
73-year-old male with past medical history of myasthenia gravis, left hand wrist abscess.CKD,HTN, DM presented to us with abdominal pain associated with diarrhea for two weeks. patient stated poor oral intake. abdominal pain with eating and
diarrhea with any oral intake. denied nausea and vomiting.Denied fever, chills, chest pain,sob. denied fever,chills, chest pain, sob. denied dysuria or hematuria. patient stated worsening weakness. patient is on oral Linezolid for left hand
cellulitis with staph infection and MRSA of nares.
admitting for further management.
Medical History
Past Medical History
Past Medical History: Reports Other
Additional Past Medical History:
GERD
HTN
HLD
IDDM
Myasthenia Gravis
Past Surgical History: Reports Other
Additional Past Surgical History:
cholecystectomy
right knee replacement
cardiac stents
Social History
Tobacco: Non-smoker
Alcohol: None
Drug: None
Personal:
Living: With Family
Family History
Family History: Not pertinent
Allergies / Home Medications
Allergies reflects when Allergies were last updated in [facility].
Home Medications with original date entered in [facility]
Allergy/Medication List:
Allergies
Allergy/AdvReac Type Severity Reaction Status Date / Time
hydrocortisone Allergy Unknown Unknown Verified 02/27/24 13:27
[From [employer]
([id number])]
neomycin Allergy Unknown Unknown Verified 02/27/24 13:27
[From [employer]
([id number])]
polymyxin B Allergy Unknown Unknown Verified 02/27/24 13:27
[From [employer]
([id number])]
varenicline Allergy Unknown Unknown Verified 02/27/24 13:27
latex Allergy Hives/REDNE Verified 02/27/24 13:27
SS
Home Medications
aspirin 81 mg capsule 81 mg PO Q48H Blood Clot Prevention/Tx 10/11/23
esomeprazole magnesium 20 mg capsule,delayed release (Nexium) 20 mg PO BID Gastrointestinal Issue 10/11/23
metoprolol tartrate 100 mg tablet 100 mg PO DAILY Heart Disease/Condition 10/11/23
pyridostigmine bromide 60 mg tablet 60 mg PO Q6H MYASTHENIA GRAVIS 10/11/23
simvastatin 20 mg tablet 20 mg PO HS High Cholesterol 10/11/23
spironolactone 25 mg tablet 25 mg PO DAILY Heart Disease/Condition 10/11/23
insulin lispro 100 unit/mL subcutaneous pen 10 unit SC MEALS Diabetes 01/02/24
acetaminophen 500 mg tablet 1,000 mg PO Q6HPRN PRN mild pain 02/02/24
prednisone 20 mg tablet 30 mg PO DAILY MYASTHENIA GRAVIS 02/02/24
linezolid 600 mg tablet 600 mg PO BID #80 tabs 02/06/24
diphenhydramine 25 mg-acetaminophen 500 mg tablet (Tylenol PM Extra Strength) 1 tab PO HS PRN sleep 02/27/24
efgartigimod jimbo 1008 [id number]-[id number] 11,200 unit/5.6 mL subcut soln (Vyvgart Hytrulo) 5.6 ml SC QWEEK 02/27/24
Review of Systems
-
Constitutional: Reports Fatigue
EENT: Reports No Symptoms
Respiratory: Reports No Symptoms
Cardiac: Reports No Symptoms
Abdomen/GI: Reports Abdominal Pain and Diarrhea
: Reports No Symptoms
Musculoskeletal: Reports No Symptoms
Skin: Reports No Symptoms
Neurological: Reports Weakness
Endocrine: Reports No Symptoms
Hematologic/Lymphatic: Reports No Symptoms
Psych: Reports No Symptoms
Physical Exam
Vital Signs
Vital Signs
Temp Pulse Resp BP Pulse Ox
97.9 F 62 18 121/63 99
03/04/24 07:54 03/04/24 11:30 03/04/24 11:30 03/04/24 08:00 03/04/24 11:00
Physical Exam
General: Well Developed, Well Nourished and No Apparent Distress
HEENT: NormoCephalic, Moist mucous membranes and Atraumatic
Respiratory: Clear
Cardiac: S1/S2 and Regular Rhythm; No Murmur or Rub
GI: Soft, Non Tender, Non Distended and Normal Bowel Sounds; No Organomegaly
Rectal: Deferred by Provider
Musculoskeletal: No Clubbing, No Cyanosis and No Edema
Skin: No Rash
Neuro: AO x 3 and Nonfocal/grossly intact
Psych: Calm
Laboratory Results
-
03/04/24 08:06
03/04/24 08:06
Laboratory Results
Total Bilirubin 2.2 mg/dl (0.2-1.3) H 03/04/24 08:06
AST 37 U/L (17-59) 03/04/24 08:06
ALT 46 U/L (0-50) 03/04/24 08:06
Alkaline Phosphatase 151 U/L (38-126) H 03/04/24 08:06
Data Reviewed
-
Diagnostic Radiology: Discussed with Physician
Lab Data: Labs Reviewed by me
Impression/Plan
-
#abdominal pain associated with diarrhea
-obtain stool culture, c diff, norovirus
-abdominal US with rior cholecystectomy. No findings to suggest biliary tract dilatation.Small volume ascites.Mildly irregular hepatic contour.Stable mild chronic right medical renal disease.Normal directional blood flow within the hepatic and
portal veins.
-obtain Trop, Lipase,lactic acid
-obtain X ray of abdomen
-ctm
# MG flare
-Hematology consulted for plasmapheresis
-continue Pyridostigmine 60 mg QID
-continue Prednisone 30 mg daily, may need to consider increased dosage, may need infectious disease input given recent abscess/cellulitis of left hand
-monitor respiratory status, daily vital capacity and NIF
-PT/OT and speech evaluations
#Diabetes type 2
- hold Farxiga
-sliding scale
-CHo diet
#left hand cellulitis with staph aures/MRSA of nares
-on Linezolid as outpatient
-ID consulted
# ANGELIA on CKD stage IIIb/metabolic acidosis likely dehydration
-Creatinine 2.2, CO2 16
-Patient received fluids in ER
-normal saline x1 bag
-Monitor BMP in a.m.
# Anemia of chronic disease/thrombocytopenia
-Hemoglobin stable at 9.9
-No active bleeding
-Continue to monitor
-Hematology consulted
#CAD with cardiac stents
- aspirin 81 daily
#essential htn
-continue metoprolol
-hold spironolactone
#HLD
-statin continued
DVT PPX
-heparin sq
Code status - Full Code
[2024-03-04 13:30] LABS: Lactic Acid 5.1 mmol/L (0.7-2.0)
[2024-03-04 13:42] LABS: Troponin I 0.076 ng/ml
[2024-03-04 13:57] LABS: Lipase > 4000 U/L (23-300)
--- NOTE | 2024-03-04 14:15 | CON.ONC ---
Impression
Impression
- Hx of Myasthenia gravis with acute flare
- normocytic anemia
- thrombocytopenia
- Left hand abscess on abx
Plan
Plan
# MG flare
- Neurology recommended PLEX for MG symptoms despite current medications.
- IR consulted for non-tunneled pheresis catheter placement.
- [facility] notified with plan to start PLEX with albumin replacement QOD x 5 starting 03/05.
- written orders provided to [facility] pharmacist in ED.
- baseline PT, PTT, fibrinogen ordered. monitor daily while receiving PLEX.
# thrombocytopenia
- drop in from 150K on 02/05 to 51K this admission. Prior in 120-150 range.
- suspect related to Linezolid abx therapy. Consider holding if no longer clinically indicated (sent home 02/05 with 40day course)
- continue to monitor CBC daily.
- hold ppx AC if plts < 50K or bleeding.
thank you for consult. will continue to follow.
Patient History
History of Present Illness
Víctor is a 73 year old M w/ a past medical history of CAD, CHF, GERD, IDDM, MG, cellulitis/abscess involving left hand s/p I+D 02/04 who presented to the hospital 03/04/2024 with GI symptoms, progressive weakness and blurred vision. He was
diagnsoed with myasthenia gravis in August 2023. He had presented to his PCP with ptosis, diplopia difficulty swallowing as well as head weakness in August of 2023. His PCP suspected he had myasthenia he was sent to Dr. Gabriel at [place] for further
evaluation. He was formally diagnosed with MG and started on IVIG. This was not helpful so he was admitted to [facility] for plasmapheresis QOD x 5 in November which he states was most effective intervention to date. He was also started on
pyridostigmine 60 mg 4 times daily as well as steroids. He has also started Vyvgart Hytrulo. He has had 1 round of 4 doses over 4 weeks followed by 4 weeks off and is into his second dose of his second round. He has been receiving that at [facility].
Denies SOB, confusion, difficulty swallowing. CBC notable for new moderate thrombocytopenia with plts 51K, hgb 9.9 g/dl.
Neurology was consulted due to concern for MG flare. PLEX recommended. Hematology consulted to assist in arranging.
Past-Medical/Surgical History
see above
Patient Medication
�Medication �Instructions �Recorded �Confirmed �Last Taken �Type
aspirin 81 mg capsule 81 mg PO Q48H Blood Clot 10/11/23 03/04/24 02/26/24 History
Prevention/Tx
esomeprazole magnesium 20 mg 20 mg PO BID Gastrointestinal Issue 10/11/23 03/04/24 02/27/24 History
capsule,delayed release (Nexium)
metoprolol tartrate 100 mg tablet 100 mg PO DAILY Heart 10/11/23 03/04/24 02/27/24 History
Disease/Condition
pyridostigmine bromide 60 mg tablet 60 mg PO Q6 MYASTHENIA GRAVIS 10/11/23 03/04/24 03/04/24 History
simvastatin 20 mg tablet 20 mg PO HS High Cholesterol 10/11/23 03/04/24 02/26/24 History
spironolactone 25 mg tablet 25 mg PO DAILY Heart 10/11/23 03/04/24 02/27/24 History
Disease/Condition
insulin lispro 100 unit/mL 3 - 10 unit SC MEALS Diabetes 01/02/24 03/04/24 03/02/24 History
subcutaneous pen
acetaminophen 500 mg tablet 1,000 mg PO Q6HPRN PRN mild pain 02/02/24 03/04/24 02/27/24 History
prednisone 20 mg tablet 30 mg PO DAILY MYASTHENIA GRAVIS 02/02/24 03/04/24 02/27/24 History
30 mg
linezolid 600 mg tablet 600 mg PO BID #80 tabs 02/06/24 03/04/24 02/27/24 Rx
diphenhydramine 25 1 tab PO HS PRN sleep 02/27/24 03/04/24 02/26/24 History
mg-acetaminophen 500 mg tablet
(Tylenol PM Extra Strength)
efgartigimod jimbo 1008 5.6 ml SC TU MG 02/27/24 03/04/24 02/27/24 History
[id number]-[id number] 11,200 unit/5.6
mL subcut soln (Vyvgart Hytrulo)
Active Medications
Generic Name Dose Route Start Last Admin
Trade Name Freq PRN Reason Stop Dose Admin
Sodium Chloride 1,000 mls @ 80 mls/hr 03/04/24 13:45 03/04/24 14:05
Nss IV 03/05/24 02:14 1,000 mls
.[id number] SÁNCHEZ Administration
Review of Systems
-
History Source: Patient
Constitutional: Reports Fatigue and Weakness; Denies Fever
EENT: Reports Blurry Vision
Respiratory: Denies Cough or Trouble Breathing
Cardiac: Denies Chest Pain
GI: Reports Diarrhea; Denies Abdominal Pain
Musculoskeletal: Reports Joint Pain
Neuro: Reports Weakness; Denies Dizzy or Headache
Hematologic/Lymphatic: Denies Bleeding
Physical Exam
-
General: Well Developed, Well Nourished and No Apparent Distress
HEENT: Negative Jaundice
Cardiology: Normal Sinus Rhythm
Pulmonary: Clear
GI: Soft
Extremities: Edema (1+ pitting edema at ankles )
Neurology: Non Focal and No Word Finding Difficulty
Labs
Lab Results
WBC 9.3 10^3/uL (4.8-10.8) 03/04/24 08:06
RBC 2.98 10^6/uL (4.70-6.10) L 03/04/24 08:06
Hgb 9.9 g/dL (13.0-18.0) L 03/04/24 08:06
Hct 27.9 % (39.0-52.0) L 03/04/24 08:06
MCV 93.6 fL (80.0-94.0) 03/04/24 08:06
MCH 33.2 pg (27.0-31.0) H 03/04/24 08:06
MCHC 35.5 g/dL (33.0-37.0) 03/04/24 08:06
RDW 13.1 % (11.5-14.5) 03/04/24 08:06
Plt Count 51 10^3/uL (130-400) L 03/04/24 08:06
MPV 12.0 fL (7.4-10.4) H 03/04/24 08:06
Abs Immat Gran (auto) 0.1 10^3/uL (0-0.05) H 03/04/24 08:06
Absolute Neuts (auto) 7.3 10^3/uL (1.4-6.5) H 03/04/24 08:06
Absolute Lymphs (auto) 1.8 10^3/uL (1.2-3.4) 03/04/24 08:06
Absolute Monos (auto) 0.1 10^3/uL (0.1-0.6) 03/04/24 08:06
Absolute Eos (auto) 0.0 10^3/uL (0-0.7) 03/04/24 08:06
Absolute Basos (auto) 0.0 10^3/uL (0-0.2) 03/04/24 08:06
Immature Gran % 0.6 % (0-0.5) H 03/04/24 08:06
Neutrophils % 79.1 % (42.2-75.2) H 03/04/24 08:06
Lymphocytes % 18.9 % (20.5-51.1) L 03/04/24 08:06
Monocytes % 1.3 % (1.7-9.3) L 03/04/24 08:06
Eosinophils % 0.0 % (0-6) 03/04/24 08:06
Basophils % 0.1 % (0-2) 03/04/24 08:06
Creatinine 2.2 mg/dL (0.7-1.3) H 03/04/24 08:06
Vital Signs
Vital Signs
Temp Pulse Resp BP Pulse Ox
97.9 F 62 18 121/63 99
03/04/24 07:54 03/04/24 11:30 03/04/24 11:30 03/04/24 08:00 03/04/24 11:00
[2024-03-04 14:27] LABS: INR 1.24; PT 15.9 Sec (11.4-14.6)
--- NOTE | 2024-03-04 14:28 | CON.GI ---
Addendum entered and electronically signed by Denver Mccloud MD 03/04/24 17:28:
I saw and examined the patient.
The TRANSPLANTER ORCHID or PA's note was reviewed and I agree with the note.
Comment: 73yo male recently dx'd with myasthenia gravis in August 2023 previously treated with IVIg, plasmapheresis, pyridostigmine, steroids, Vyvgart Hytrulo without complete response. He was sent to ER due to worsening weakness, dysphagia, abd
pain, diarrhea, diplopia. In ER lipase was 4000, so GI consulted. He was recently treated for cellulitis and on Linezoid. New thrombocytopenia felt due to abx. LFTs essentially normal TB 2.2, AP 151, normal AST/ALT. Cr up to 2.2. Lactate 5.1.
Denies EtOH currently, drank heavy in the distant past. Had cholecystectomy. US in ER shows prior cholecystectomy, no biliary dilation, small volume ascites, mild irregular hepatic contour.
REC:
Complex presentation with myasthenia flare, abd pain/diarrhea, thrombocytopenia probably due to recent Linezolid course for had cellulitis
Await CT (though without contrast) results to look for evidence of acute pancreatitis
Linezolid can cause elevated lipase level
No bump in LFTs, would hold on MRCP at this time. Can reconsider if LFTs bump or abd pain progresses
Check stool studies, c diff given recent diarrhea
Will follow
Original Note:
Consultation
-
Date/Time Consultation Requested: 03/04/24 1420
Date/Time Consultation Performed: 03/04/24 1430
Requesting Provider: TRAN Barrera
Performing Provider: TRAN Ortiz, Denver Mccloud MD
Reason for Consultation: abdominal pain, diarrhea, elevated lipase
Medical History
Chief Complaint / HPI
Chief Complaint: abdominal pain, diarrhea
History of Present Illness:
Pt is a 73yo presents with HTN, NIDDM, CAD, CHF, GERD, graves's esophagus, prior mark, cellulitis/abscess, and myasthenia Gravis on Prednisone and pyridostigmine with prior IVIG/plasmapheresis and Vyvgart Hytulo use. He had recent fall with
hand abscess requiring Linezolid course. He is now noted with with diarrhea, abdominal pain, and lipase >4000. Labs also noted with lipase 5.1, troponin 0.076, bili 2.2, AST 37, ALT 46, alk phos 151. Pt also noted with complaints of progressive
weakness and blurred vision with plan for plasmapheresis therapy.
In review with patient he began with weakness and myasthenia Gravis symptoms in the summer. He has lost over 50 lbs since August. He also states onset of diarrhea. He has had some chronic loose stools but now admits to up to 8 stools a few
days ago. He also admits to dysphagia with dry mouth and cough with eating with concern for myasthenia related symptoms. He has seen speech in past. He also admits to abdominal pain that is in left upper quadrant and worse over last week. Pain
with worse with eating and pressure to abdomen. Better with lying still. He states pain in constant 3-6/10. He is on IVF and is concerned with issues with fluid overload in past. He denies blood or black in stools. Rare NSAID use. Heavy ETOH
use years ago but denies any recent use. Last EGD/colon at [facility] several years ago recall graves's esophagus no polyps.
Past Medical History
Past Medical History: CAD, CHF, GERD, HTN, NIDDM and Other (myasthenia gravis on prednisone, graves's esophagus, cellulitis with abscess)
Past Surgical History: Cholecystectomy
Social History
Tobacco: Former Smoker (quit 10 years ago and admit to recurrent use [id number] )
Alcohol: Other (heavy years ago no recent use )
Drug: None
Personal:
Employment: Retired
Family History
Family History: Other (no family hx pancreatitis )
Allergies / Home Medications
Allergy/AdvReac Type Severity Reaction Status Date / Time
hydrocortisone Allergy Unknown Unknown Verified 02/27/24 13:27
[From [facility]
([id number])]
neomycin Allergy Unknown Unknown Verified 02/27/24 13:27
[From [facility]
([id number])]
polymyxin B Allergy Unknown Unknown Verified 02/27/24 13:27
[From [facility]
([id number])]
varenicline Allergy Unknown Unknown Verified 02/27/24 13:27
latex Allergy Hives/REDNE Verified 02/27/24 13:27
SS
�Medication �Instructions �Recorded
aspirin 81 mg capsule 81 mg PO Q48H Blood Clot 10/11/23
Prevention/Tx
esomeprazole magnesium 20 mg 20 mg PO BID Gastrointestinal Issue 10/11/23
capsule,delayed release (Nexium)
metoprolol tartrate 100 mg tablet 100 mg PO DAILY Heart 10/11/23
Disease/Condition
pyridostigmine bromide 60 mg tablet 60 mg PO Q6 MYASTHENIA GRAVIS 10/11/23
simvastatin 20 mg tablet 20 mg PO HS High Cholesterol 10/11/23
spironolactone 25 mg tablet 25 mg PO DAILY Heart 10/11/23
Disease/Condition
insulin lispro 100 unit/mL 3 - 10 unit SC MEALS Diabetes 01/02/24
subcutaneous pen
acetaminophen 500 mg tablet 1,000 mg PO Q6HPRN PRN mild pain 02/02/24
prednisone 20 mg tablet 30 mg PO DAILY MYASTHENIA GRAVIS 02/02/24
linezolid 600 mg tablet 600 mg PO BID #80 tabs 02/06/24
diphenhydramine 25 1 tab PO HS PRN sleep 02/27/24
mg-acetaminophen 500 mg tablet
(Tylenol PM Extra Strength)
efgartigimod jimbo 1008 5.6 ml SC TU MG 02/27/24
la-rermxzfy-xaok 11,200 unit/5.6
mL subcut soln (Vyvgart Hytrulo)
Review of Systems
-
History Source: Patient and Family
Constitutional: Reports Weight Loss, Fatigue, Chills and Other (dry mouth)
EENT: Reports No Symptoms
Respiratory: Reports Cough (with eating )
Abdomen/GI: Reports Abdominal Pain, Diarrhea and Other (dysphagia )
: Reports No Symptoms
Musculoskeletal: Reports Other (weakness with difficulty walking)
Skin: Reports No Symptoms
Neurological: Reports Weakness
Endocrine: Reports No Symptoms
Hematologic/Lymphatic: Reports No Symptoms
Vital Signs
Temp Pulse Resp BP Pulse Ox
97.9 F 62 18 121/63 99
03/04/24 07:54 03/04/24 11:30 03/04/24 11:30 03/04/24 08:00 03/04/24 11:00
Physical Exam
Exam
General: Well Developed, Well Nourished and No Apparent Distress
HEENT: Normocephalic
Respiratory: Clear
Cardiac: Regular Rhythm
GI: Soft, Non Distended and Tender (left upper quadrant pain)
Musculoskeletal: No Clubbing and No Cyanosis
Skin: Warm and Dry
Neuro: Awake, Alert and AO x 3
Psych: Calm
Results
WBC 9.3 10^3/uL (4.8-10.8) 03/04/24 08:06
Hgb 9.9 g/dL (13.0-18.0) L 03/04/24 08:06
Hct 27.9 % (39.0-52.0) L 03/04/24 08:06
MCV 93.6 fL (80.0-94.0) 03/04/24 08:06
Plt Count 51 10^3/uL (130-400) L 03/04/24 08:06
Absolute Neuts (auto) 7.3 10^3/uL (1.4-6.5) H 03/04/24 08:06
Sodium 135 mmol/L (135-145) 03/04/24 08:06
Potassium 5.0 mmol/L (3.5-5.1) 03/04/24 08:06
Chloride 107 mmol/L (98-107) 03/04/24 08:06
Carbon Dioxide 16 mmol/L (22-30) L 03/04/24 08:06
BUN 60 mg/dl (9-20) H 03/04/24 08:06
Creatinine 2.2 mg/dL (0.7-1.3) H 03/04/24 08:06
Calcium 8.9 mg/dl (8.4-10.2) 03/04/24 08:06
Total Bilirubin 2.2 mg/dl (0.2-1.3) H 03/04/24 08:06
AST 37 U/L (17-59) 03/04/24 08:06
ALT 46 U/L (0-50) 03/04/24 08:06
Alkaline Phosphatase 151 U/L (38-126) H 03/04/24 08:06
Lipase > 4000 U/L (23-300) H* 03/04/24 13:10
Diagnostic Image Results:
03/04 abdominal film noted with Nonobstructive bowel gas pattern.Cholecystectomy clips project over the right upper quadrant. No appreciable intraperitoneal free air. No abnormal soft tissue calcifications. The lung bases are clear
Prior GI Procedures:
EGD: + graves's several years ago at [facility]
Colonoscopy: several years ago at [facility]
Assessment / Plan
-
Pt is a 73yo presents with HTN, NIDDM, CAD, CHF, GERD, graves's esophagus, prior mark, cellulitis/abscess, and myasthenia Gravis on Prednisone and pyridostigmine with prior IVIG/plasmapheresis and Vyvgart Hytulo use. He had recent fall with
hand abscess requiring Linezolid course. He is now noted with with diarrhea, abdominal pain, dysphagia, wt loss, and lipase >4000. Labs also noted with lipase 5.1, troponin 0.076, bili 2.2, AST 37, ALT 46, alk phos 151. Pt also noted with
complaints of progressive weakness and blurred vision with plan for plasmapheresis therapy. No recent ETOH use. No NSAID use.
-abdominal pain with elevated lipase and concern for pancreatitis
-diarrhea
-dysphagia
-wt loss
-acute on chronic CKD
-myasthenia Gravis with multiple recent treatment and concern for current flare
-recent cellulitis with Linezolid use
-elevated lactate level
-thrombocytopenia
-anemia
-elevated troponin
other med problems:
-NIDDM
-HTN
-CAD
-CHF
-graves's esophagus
-GERD
PLAN:
Etiology of pancreatitis, thrombocytopenia related to recent antibiotic use vs other
plan for CT to eval pancreas- no recent ETOH use, hx mark
cont IVF-- monitor for fluid overload
abx per ID
for heme eval with cytopenia in setting of recent antibiotics
to start plasmapheresis with myasthenia flare- for neuro eval
agree with check for norovirus, c-diff, stool cx with diarrhea
for speech eval with dysphagia
nutritional eval for wt loss
cont PPI with hx GERD and graves's
family updated
-
-
Thank you for consultation and allowing me to participate in the patient's care. Please call the computational sciences professor GI physician during the after hours with any questions or concerns.
[2024-03-04 14:46] LABS: Fibrinogen 120 MG/DL (199-459)
--- NOTE | 2024-03-04 15:11 | W.PN.UPDATE ---
Update Note
Progress Note Update
Attending update note
Patient seen independently
73-year-old man with past medical history of
myasthenia gravis,
recent left hand wrist abscess.
CKD,
essential HTN,
ID-DM
presents with abdominal pain associated with diarrhea for two weeks and weakness. patient stated he has poor oral intake. Abdominal pain is worse with eating and he has diarrhea with any oral intake. He denied nausea and vomiting.Denied fever,
chills, chest pain,sob. denied fever,chills, chest pain, sob. denied dysuria or hematuria. He is on oral Linezolid for left hand cellulitis with staph infection and MRSA of nares. Neurology has seen patient and recommends the following:
'Abrupt onset of worsening proximal strength in lower greater than upper extremities despite use of Efgartigimod.
Most likely worsening in part due to lowering of usual steroids due to recent cellulitis secondary to trauma
Initiate plasma exchange with the assistance of hematology consultation, goal of 5 exchanges using 1-1-1/2 plasma volumes each exchange
Continue pyridostigmine, plan to increase from 60 mg 4 times a day to dosing of 120 mg 4 times a day if patient is tolerant
Continue Efgartigimod as planned
Continue antibiotics as currently receiving
Consider restart of high dose steroids, consider current low-dose steroid dosing at 30 mg daily
Obtain outpatient records
Start treatment for oral Yue infection'
A lipase was checked because of the complaint of abdominal pain and it came back as > 4,000. CT of abdomen ordered and GI was consulted. Hematology has also been consulted.
Past Medical History
GERD
HTN
HLD
IDDM
Myasthenia Gravis
Past Surgical History: Reports Other
Additional Past Surgical History:
cholecystectomy
right knee replacement
cardiac stents
Physical Exam
General: Well Developed, Well Nourished and No Apparent Distress, but has intermittent abd pain
HEENT: NormoCephalic, Moist mucous membranes and Atraumatic
Respiratory: Clear
Cardiac: S1/S2 and Regular Rhythm; No Murmur or Rub
GI: Soft, Tender LUQ, Non Distended and Normal Bowel Sounds; No Organomegaly; no rebound, no guarding.
Psych: Calm
Impression/Plan
1. Pancreatitis, with abdominal pain associated with diarrhea
NPO
IV fluids
Pain control
-obtain stool culture, c diff, norovirus
CT of abdomen pending
GI consulted
2. MG flare
-Hematology consulted for plasmapheresis
Will follow recommendations of neuro and hematology
-continue Pyridostigmine 60 mg QID
-continue Prednisone 30 mg daily,
may need to consider increased dosage,
Will need infectious disease input given recent abscess/cellulitis of left hand
3. Diabetes - type 2, on insulin at home
- hold Farxiga
-sliding scale
4. left hand cellulitis with staph aures/MRSA of nares
-on Linezolid as outpatient - but this may be causing pancreatitis
-ID consulted
5. ANGELIA on CKD stage IIIb/metabolic acidosis likely dehydration -Creatinine 2.2, CO2 16
IV fluids
Follow renal function daily
Please see CAFETERIA DIRECTOR note for other details about:
Anemia of chronic disease/thrombocytopenia
CAD with cardiac stents
essential htn
HLD
DVT PPX -heparin sq
Code status - Full Code
--- NOTE | 2024-03-04 15:51 | CON.ID ---
Consultation
-
Date/Time Consultation Requested: 03/04/2024 1525
Date/Time Consultation Performed: 03/04/2024 1551
Requesting Provider: Anjana Cox
Performing Provider: Dr. Loza
Reason for Consultation: Hx left wrist infection
Chief Complaint / Past History
History of Present Illness
Víctor Brock is a 73-year-old man being evaluated at the request of Anjana Cox regarding left wrist infection. History is obtained from chart review, along with patient interview.
The patient has a significant past medical history of myasthenia gravis which was diagnosed in mid 2023. He is known to the Infectious Diseases service, having been seen in late January for a left hand cellulitis which ultimately grew MRSA. Notes
from that admission indicated he had had some left hand swelling and decreased range of motion. He was taken to the OR on 02/04, with excisional debridement of deep fascial layer tendons and bone. He was ultimately discharged on 02/05, to continue
with a 6-week course of linezolid.
He notes over the past 3 days or so he has had increasing abdominal discomfort. He also admits to some diarrhea for the past 2 weeks. No history of nausea or vomiting. He also reports increasing generalized weakness over the past 3 days, and his
notes that he recently slid out of bed.
Workup in the emergency room has not revealed a leukocytosis, but he does have a thrombocytopenia. Additionally creatinine is noted to be elevated and lipase is greater than 4000. He has been evaluated by Neurology, and plasma exchange is planned;
a right IJ catheter has been placed.
Past History
Additional Past Medical History:
CAD
CHF
GERD
HTN
DM
Myasthenia gravis
Allergy History:
hydrocortisone [From [facility] ([id number])] Allergy (Unknown, Verified 02/27/24 13:27)
Unknown
neomycin [From [facility] ([id number])] Allergy (Unknown, Verified 02/27/24 13:27)
Unknown
polymyxin B [From [employer] ([id number])] Allergy (Unknown, Verified 02/27/24 13:27)
Unknown
varenicline Allergy (Unknown, Verified 02/27/24 13:27)
Unknown
latex Allergy (Verified 02/27/24 13:27)
Hives/REDNESS
Medications Reviewed: Yes
Current Antibiotics:
Linezolid 600 mg p.o. twice daily
Social History
Tobacco: Non-Smoker
Alcohol: None
Drug: None
Personal:
Living: With Family
Employment: Retired
Family History
Family History: Not Pertinent
Review of Systems
Vital Signs
Temp Pulse Resp BP Pulse Ox
97.7 F 67 20 147/71 97
03/04/24 15:39 03/04/24 15:39 03/04/24 15:39 03/04/24 15:39 03/04/24 15:39
Physical Exam
Physical Exam
Constitutional: Comfortable, Chronically Ill and Non-toxic
Eyes: No Conjunctival Hemorrhage and Sclera Anicteric
Oral: No Thrush and No Ulcers
Cardiovascular: S1/S2; Negative S3/S4
Pulmonary: Clear; Negative Wheezes or Rales
Gastrointestinal: Soft, Tender, Non Distended, Normal Bowel Sounds, No Rebound and No Guarding
Extremities: Negative Edema, Cyanosis or Erythema
Skin: Other (Multiple areas of superficial ecchymosis)
Neurological: Awake and Alert
Psychological: Calm
.
Lab / Diagnostic Study Results
03/04/24 08:06
03/04/24 08:06
Abs Immat Gran (auto) 0.1 10^3/uL (0-0.05) H 03/04/24 08:06
Absolute Neuts (auto) 7.3 10^3/uL (1.4-6.5) H 03/04/24 08:06
Absolute Lymphs (auto) 1.8 10^3/uL (1.2-3.4) 03/04/24 08:06
Absolute Monos (auto) 0.1 10^3/uL (0.1-0.6) 03/04/24 08:06
Absolute Basos (auto) 0.0 10^3/uL (0-0.2) 03/04/24 08:06
Immature Gran % 0.6 % (0-0.5) H 03/04/24 08:06
Neutrophils % 79.1 % (42.2-75.2) H 03/04/24 08:06
Lymphocytes % 18.9 % (20.5-51.1) L 03/04/24 08:06
Monocytes % 1.3 % (1.7-9.3) L 03/04/24 08:06
Eosinophils % 0.0 % (0-6) 03/04/24 08:06
Basophils % 0.1 % (0-2) 03/04/24 08:06
PT 15.9 Sec (11.4-14.6) H 03/04/24 13:50
INR 1.24 03/04/24 13:50
Lactic Acid 5.1 mmol/L (0.7-2.0) H* 03/04/24 13:10
Ur Squamous Epith Cells 3-5 /LPF (Few) 03/04/24 10:42
Microbiology Results
Micro:
03/04/24 08:39 Influenza Types A & B (RYLIE) - Final
Nasal Swab Negative for Influenza A & B, NAAT
Negative results must be combined with clinical observations
and patient history.
Nucleic Acid Amplification test (NAAT)performed on the
[employer] platform.
Assessment / Plan
Suspected flare of myasthenia gravis
- Tentatively for plasmapheresis
Hx left hand infection with MRSA
- On 6-week course of linezolid
Thrombocytopenia
- suspect secondary to linezolid
Pancreatitis
ANGELIA
CAD
CHF
GERD
HTN
DM
Recommendations:
Currently ~ d#27 (of 42) of linezolid.
Discontinue further linezolid given thrombocytopenia.
Begin daptomycin.
- Current estimated creatinine clearance is 30.
- Begin at 700 mg every 24 hours. If Est CrCl goes below 30, adjust to q48h dosing.
- hold statin
- CPK in am
Trend platelet count.
Await initiation of plasmapheresis. Will contact Infectious Diseases Clinical Pharmacist to see if there is any dosing adjustments necessary.
Monitor white count and temperature curve.
--- NOTE | 2024-03-04 16:16 | PTCARENOTE ---
Recieved pt from ED, pulled over from stretcher, VSS, AAOx3, IVF running, oriented to room and call león. at bedside, pt resting comfortably, no new orders at this time.
[2024-03-04 16:28] LABS: Glucose - Point of Care 140 mg/dl (70-99)
[2024-03-04] MEDS: MESTINON 60 MG PO ×2 (17:13→23:11)
[2024-03-04] MEDS: CUBICIN 14 MG IV (18:13)
[2024-03-04 18:32] LABS: Lactic Acid 7.4 mmol/L (0.7-2.0)
[2024-03-04 18:43] LABS: Troponin I 0.087 ng/ml
--- NOTE | 2024-03-04 18:45 | PTCARENOTE ---
Lactic acid for this evening resulted at 7.4 after it was 5.1 earlier, cross coverage made aware. IVF at 120mL/hr, IV ABX administered, pt down for CT of abdomen currently.
--- NOTE | 2024-03-04 19:10 | W.PN.UPDATE ---
Update Note
Progress Note Update
patient lactic trending up-fluids continued at 200ml/hr
patient was also noted have elevated trop-cardiology consulted. gave a dose of asa now and continued asa. d/w with Dr. Olivas
[2024-03-04] MEDS: ASPIRIN 325 MG PO (19:36)
[2024-03-04] MEDS: PROTONIX 40 MG PO (19:36)
[2024-03-04 23:15] LABS: Glucose - Point of Care 120 mg/dl (70-99)
[2024-03-04 23:34] LABS: Lactic Acid 8.5 mmol/L (0.7-2.0)
--- NOTE | 2024-03-04 23:47 | PTCARENOTE ---
Addendum entered by Cyndi Randolph RN 03/05/24 04:01:
lactic 8.7, no complaints. 97.3-87-114/60-20-97%RA. updated house provider
Addendum entered by Cyndi Randolph RN 03/05/24 00:45:
co2-10, updated house provider
Original Note:
lactic- 8.5 from 7.4. Patient is getting NS at 200. 98.7-79-138/59-20-96% RA. Notified house provider
[2024-03-04 23:51] LABS: Troponin I 0.185 ng/ml
[2024-03-05] VITALS (10 sets, daily range): BP systolic 88–120; BP diastolic 47–74; BMI 22.7
[2024-03-05 00:12] LABS: Venous Blood Gas B.E. -13.9 mmol/L (-4 to +4); Venous Blood Gas HCO3 12.8 mmol/L (22-27); Venous Blood Gas O2 Sat % 96.7 %; Venous Blood Gas pCO2 32 mmHg (35-48); Venous Blood Gas pH 7.21 (7.32-7.43); Venous Blood Gas pO2 78 mmHg (30-50)
--- NOTE | 2024-03-05 00:17 | W.PN.UPDATE ---
Update Note
Progress Note Update
Lactic now 8.5 from 7.4 previously
Pt aaox3 vital signs wnl, hemodynamically stable
abd soft. pt states tenderness less than before.
Discussed with Dr Olivas- check bmp and VBG now
Give another 1000ml nss
[2024-03-05] MEDS: NSS 1000 IV ×6 (00:25→23:54)
[2024-03-05 00:41] LABS: Blood Urea Nitrogen 60 mg/dl (9-20); Calcium 8.1 mg/dl (8.4-10.2); Carbon Dioxide 10 mmol/L (22-30); Chloride 114 mmol/L (98-107); Estimated Creatinine Clearance 27 ml/min; Glucose 101 mg/dl (70-99); Potassium 4.8 mmol/L (3.5-5.1); Sodium 138 mmol/L (135-145); eGFR 27.45
[2024-03-05] MEDS: SODIUM BICARBONATE 50 MEQ IV (02:19)
[2024-03-05 03:52] LABS: Lactic Acid 8.7 mmol/L (0.7-2.0)
[2024-03-05] MEDS: MESTINON PO ×3 (05:31→11:39)
[2024-03-05 06:25] LABS: Glucose - Point of Care 99 mg/dl (70-99)
[2024-03-05 06:56] LABS: Hematocrit 23.7 % (39.0-52.0); Hemoglobin 8.3 g/dL (13.0-18.0); Lactic Acid 8.1 mmol/L (0.7-2.0); Mean Corpuscular Hgb 33.6 pg (27.0-31.0); Mean Platelet Volume 12.4 fL (7.4-10.4); Platelet Count 23 10^3/uL (130-400); Red Blood Cell Count 2.47 10^6/uL (4.70-6.10); Red Cell Dist. Width 13.2 % (11.5-14.5); White Blood Cell Count 6.9 10^3/uL (4.8-10.8)
[2024-03-05 07:14] LABS: Troponin I 0.833 ng/ml
[2024-03-05 07:15] LABS: ALT (SGPT) 39 U/L (0-50); AST (SGOT) 59 U/L (17-59); Albumin 2.6 g/dl (3.5-5.0); Alkaline Phosphatase 123 U/L (38-126); Blood Urea Nitrogen 59 mg/dl (9-20); Calcium 7.5 mg/dl (8.4-10.2); Carbon Dioxide 12 mmol/L (22-30); Chloride 115 mmol/L (98-107); Creatine Phosphokinase 60 U/L (55-170); Estimated Creatinine Clearance 27 ml/min; Glucose 88 mg/dl (70-99); Potassium 4.7 mmol/L (3.5-5.1); Sodium 142 mmol/L (135-145); Total Bilirubin 1.7 mg/dl (0.2-1.3); Total Protein 4.5 g/dl (6.3-8.2); eGFR 27.45
[2024-03-05 07:38] LABS: Lipase > 4000 U/L (23-300)
--- NOTE | 2024-03-05 07:38 | CON.CAR ---
Addendum entered and electronically signed by Nolan Ruth MD 03/05/24 13:31:
I saw and examined the patient.
The Spinning Machine Tender's note was reviewed and I agree with the note.
Comment: Briefly, 73-year-old man past medical history of CAD with remote PCI, hypertension, hyperlipidemia, myasthenia gravis and skin/soft tissue infection who presents with weakness and blurry vision found to have acute pancreatitis as well as
cirrhosis, acute kidney injury, lactic acidosis, anemia and thrombocytopenia.
Troponin was found to be elevated 0.076 �> 1.19 for which cardiology is being consulted.
In regards to his elevated troponin, patient tells me he has not been experiencing any chest discomfort
ECG with nonspecific T wave changes, but not overtly ischemic
Given platelet count of 23 would hold off on antiplatelet agents or anticoagulation at this time
With concern for cirrhosis, will not start statin at this time
Recommend trending troponin to peak
Repeat ECG
Check transthoracic echocardiogram to assess LV function and evaluate for regional wall motion abnormalities
Original Note:
Consultation
Consultation Request
Date/Time Consultation Requested: 03/04/2024
Date/Time Consultation Performed: 03/05/2024
Requesting Provider: TRAN Middleton
Performing Provider: Lolis Vazquez PA-C for Dr. Ruth
Reason for Consultation: Abnormal troponin
Medical History
-
History of Present Illness:
Patient is a 73 year old male with past medical history of CAD with remote history of two-vessel stenting in 1996, hypertension, hyperlipidemia, GERD/Platt's esophagus, IDDM, MG, with recent cellulitis/abscess involving left hand s/p I+D 02/04 on
oral Linezolid who presented to the hospital 03/04/2024 with abdominal pain associated with diarrhea, poor oral intake, progressive weakness and blurred vision. He was diagnosed with myasthenia gravis in August [address] Gabriel of
neurology in [place]. Patient found to have significantly elevated lipase greater than [address] of abdomen showed acute pancreatitis with moderate hepatic cirrhosis and small volume ascites. Chest x-ray showed no acute cardiopulmonary
abnormality. Troponin initially 0.076 and upward trending, currently 0.833. EKG shows sinus rhythm with nonspecific ST-T wave abnormality and no evidence of ischemic changes. Creatinine of 2.4. Patient found to be anemic with hemoglobin of 8.3
and thrombocytopenic with platelets 23,000. Cardiology being asked to see patient due to abnormal troponin. Patient denies chest pain, shortness of breath, palpitations, orthopnea, PND or edema. He does report on occasion as outpatient he
utilizes as needed Lasix for edema.
He follows with Dr. Vish Serrato at [facility] [place] for his cardiology care. Per review of outpatient records patient previously had been on lisinopril which was discontinued in July 2023 for concern of tongue and throat fullness
PMH:
CAD s/p stents x 2 vessels 1997
GERD/Platt esophagus
Hypertension
Hyperlipidemia
Insulin dependent diabetes
CKD
Myasthenia Gravis
Left hand cellulitis
Past Medical History
Past Medical History: Other (see HPI)
Past Surgical History: Cardiac (Stents in 2 vessels in 1996), Cholecystectomy and Orthopedic (Right knee replacement)
Social History
Tobacco: Former Smoker
Alcohol: Other (rare on special occasions)
Drug: None
Personal:
Living: With Family
Employment: Retired
Family History
Family History: Early CAD (father had CAD/CABG at age 49) and Cancer (Mother and sister )
Allergies / Home Medications
Allergy/AdvReac Type Severity Reaction Status Date / Time
hydrocortisone Allergy Unknown Unknown Verified 02/27/24 13:27
[From [facility]cort
([id number])]
neomycin Allergy Unknown Unknown Verified 02/27/24 13:27
[From [facility]cort
([id number])]
polymyxin B Allergy Unknown Unknown Verified 02/27/24 13:27
[From [facility]cort
([id number])]
varenicline Allergy Unknown Unknown Verified 02/27/24 13:27
latex Allergy Hives/REDNE Verified 02/27/24 13:27
SS
�Medication �Instructions �Recorded �Confirmed �Type
aspirin 81 mg capsule 81 mg PO Q48H Blood Clot 10/11/23 03/04/24 History
Prevention/Tx
esomeprazole magnesium 20 mg 20 mg PO BID Gastrointestinal Issue 10/11/23 03/04/24 History
capsule,delayed release (Nexium)
metoprolol tartrate 100 mg tablet 100 mg PO DAILY Heart 10/11/23 03/04/24 History
Disease/Condition
pyridostigmine bromide 60 mg tablet 60 mg PO Q6 MYASTHENIA GRAVIS 10/11/23 03/04/24 History
simvastatin 20 mg tablet 20 mg PO HS High Cholesterol 10/11/23 03/04/24 History
spironolactone 25 mg tablet 25 mg PO DAILY Heart 10/11/23 03/04/24 History
Disease/Condition
insulin lispro 100 unit/mL 3 - 10 unit SC MEALS Diabetes 01/02/24 03/04/24 History
subcutaneous pen
acetaminophen 500 mg tablet 1,000 mg PO Q6HPRN PRN mild pain 02/02/24 03/04/24 History
prednisone 20 mg tablet 30 mg PO DAILY MYASTHENIA GRAVIS 02/02/24 03/04/24 History
linezolid 600 mg tablet 600 mg PO BID #80 tabs 02/06/24 03/04/24 Rx
diphenhydramine 25 1 tab PO HS PRN sleep 02/27/24 03/04/24 History
mg-acetaminophen 500 mg tablet
(Tylenol PM Extra Strength)
efgartigimod jimbo 1008 5.6 ml SC TU MG 02/27/24 03/04/24 History
wh-ccjqoiom-bfsl 11,200 unit/5.6
mL subcut soln (Vyvgart Hytrulo)
Review of Systems
-
History Source: Patient
All other systems: Negative unless noted
Physical Exam
Vital Signs
Temp Pulse Resp BP Pulse Ox
97.3 F 87 20 114/60 97
03/05/24 02:57 03/05/24 02:57 03/05/24 02:57 03/05/24 02:57 03/05/24 02:57
GEN: No distress, awake, Ox3
HEENT: supple, anicteric, mmm
LUNGS: CTA, no wheezes/rales
CV: Reg, S1/S2, no murmur, rub or gallop
ABD: soft, BS+, NT/ND
EXT: trace to +1 LE edema, no clubbing or cyanosis
NEURO: Gross non-focal
SKIN: numerous areas dime to quarter size ecchymosis on arms, legs, no rash, warm, pink
Lab Results
03/05/24 06:26
03/05/24 06:26
Troponin I 0.833 ng/ml H* D 03/05/24 06:26
Impression / Plan
-
PCP: Juancarlos Champagne
Clinical Education Specialist: [facility] V[facility]
Impression:
Presents 03/04/2024 with abdominal pain associated with diarrhea, poor oral intake, progressive weakness and blurred vision
Acute pancreatitis
Anemia
Thrombocytopenia, concern secondary to linezolid
ANGELIA
Abnormal troponin
Left hand cellulitis/abscess with prior I&D January 2024 on 6-week course of linezolid
Myasthenia gravis exacerbation/flare
CAD s/p stents x 2 vessels 1996
GERD/Platt esophagus
Hypertension
Hyperlipidemia
Insulin dependent diabetes
Myasthenia Gravis
Left hand cellulitis
Echo 03/05/2024: pending
Lexiscan nuclear stress test at [facility] 09/08/2017: Small area of mildly reversible myocardial ischemia involving apical lateral segment. EF greater than 65%.
Plan:
-Presented 03/04/2024 with abdominal pain associated with diarrhea, poor oral intake, progressive weakness and blurred vision
-Found to have acute pancreatitis on CT of abdomen 03/04/24 and lipase greater than 4000. Patient currently n.p.o. with ongoing IV fluids. GI has been consulted
-Need to be cautious with IV hydration as patient reports he has history of as needed utilization of Lasix. May require IV Lasix dosing if he receives significant volume.
-Thrombocytopenia with acute anemia. Concerned that linezolid causing thrombocytopenia. This has been discontinued. ID following and started daptomycin for ongoing treatment of left hand cellulitis.
-Abnormal troponin, initially 0.076 upward trending at 0.833. EKG shows sinus rhythm without ischemic changes. Patient denies chest pain. Known remote CAD. Suspect nonischemic myocardial injury secondary to acute pancreatitis, myasthenia gravis
flare and ANGELIA. Continue to trend to peak
-Check an echocardiogram
-Known CAD with remote PCI/stenting of 2 vessels in 1996. Maintained on Lopressor, aspirin, Aldactone and simvastatin as outpatient. There is concern for tongue swelling in past on lisinopril.
-Would hold statin given pancreatitis and aspirin given thrombocytopenia. When stable will need eventual resumption
-Left hand cellulitis/abscess with prior I&D January 2024 on 6-week course of linezolid
-Myasthenia gravis exacerbation/flare neurology following and recommended PLEX per review of oncology note felt to be unsafe with platelets of 23,000.
Outpatient cardiology records requested and reviewed and reflected in above history.
HPI 03/05/2024:
Patient is a 73 year old male with past medical history of CAD with remote history of two-vessel stenting in 1996, hypertension, hyperlipidemia, GERD/Platt's esophagus, IDDM, MG, with recent cellulitis/abscess involving left hand s/p I+D 02/05/24
on oral Linezolid who presented to the hospital 03/04/2024 with abdominal pain associated with diarrhea, poor oral intake, progressive weakness and blurred vision. He was diagnosed with myasthenia gravis in August [address] Gabriel of
neurology in [place]. Patient found to have significantly elevated lipase greater than [address] of abdomen showed acute pancreatitis with moderate hepatic cirrhosis and small volume ascites. Chest x-ray showed no acute cardiopulmonary
abnormality. Troponin initially 0.076 and upward trending, currently 0.833. EKG shows sinus rhythm with nonspecific ST-T wave abnormality and no evidence of ischemic changes. Creatinine of 2.4. Patient found to be anemic with hemoglobin of 8.3
and thrombocytopenic with platelets 23,000. Cardiology being asked to see patient due to abnormal troponin. Patient denies chest pain, shortness of breath, palpitations, orthopnea, PND or edema. He does report on occasion as outpatient he
utilizes as needed Lasix for edema.
He follows with Dr. Vish Serrato at [place] for his cardiology care. Per review of outpatient records patient previously had been on lisinopril which was discontinued in July 2023 for concern of tongue and throat fullness
Data Reviewed
-
EKG: Report Reviewed by me, Discussed with Physician and Discussed with Patient
Radiology: Report Reviewed by me, Discussed with Physician and Discussed with Patient
CT Scan: Report Reviewed by me, Discussed with Physician and Discussed with Patient
Labs: Labs Reviewed by me, Discussed with Physician and Discussed with Patient
Old Records: Reviewed
[2024-03-05] MEDS: PROTONIX 40 MG PO ×2 (08:01→20:04)
[2024-03-05] MEDS: LOPRESSOR 100 MG PO (08:01)
[2024-03-05] MEDS: ASPIR LOW (ENTERIC COATED) 81 MG PO (08:01)
[2024-03-05] MEDS: DELTASONE 30 MG PO (08:02)
[2024-03-05] MEDS: NSS IV (08:08)
--- NOTE | 2024-03-05 09:09 | W.PN.ONC ---
Today's Communication / Plan
-
Unclear if weakness is secondary to MG flare or pancreatitis/sepsis/anemia
Would hold off on PLEX, unsafe w/ platelet count of 23 and other possible explanations for weakness, d/w neurology
Jonel Dumont) aware of cancelling PLEX, TT sent to pharmacy as well
Thrombocytopenia likely from antibiotics, sepsis, cirrhosis
Watch for bleeding, would stop ASA if possible (cardiac stents)
Antibiotics change to Daptomycin (from Linezolid)
Mgmt of pancreatitis/cirrhosis per GI
Impression
Impression
Pancreatitis
Cirrhosis
Hx of Myasthenia gravis with weakness
normocytic anemia
thrombocytopenia
Left hand abscess on abx (daptomycin)
Plan
Plan
Unclear if weakness is secondary to MG flare or pancreatitis/sepsis/anemia
Would hold off on PLEX, unsafe w/ platelet count of 23 and other possible explanations for weakness, d/w neurology
Jonel Dumont) aware of cancelling PLEX, TT sent to pharmacy as well
Thrombocytopenia likely from antibiotics, sepsis, cirrhosis
Watch for bleeding, would stop ASA if possible (cardiac stents)
Antibiotics change to Daptomycin (from Linezolid)
Mgmt of pancreatitis/cirrhosis per GI
Subjective/Objective
Subjective/Objective
No complaints, still weak, no bleeding noted
Vital Signs:
Vital Signs
Temp Pulse Resp BP Pulse Ox
97.8 F 80 18 120/57 100
03/05/24 07:25 03/05/24 08:01 03/05/24 07:25 03/05/24 08:01 03/05/24 07:25
Right IJ TLC
alert, appropriate
trace LE edema
Lab Results:
Laboratory Data
WBC 6.9 10^3/uL (4.8-10.8) 03/05/24 06:26
Hgb 8.3 g/dL (13.0-18.0) L 03/05/24 06:26
Plt Count 23 10^3/uL (130-400) L* D 03/05/24 06:26
PT 15.9 Sec (11.4-14.6) H 03/04/24 13:50
INR 1.24 03/04/24 13:50
APTT 30.0 Sec (23.4-35.0) 03/04/24 13:50
eGFR 27.45 03/05/24 06:26
--- NOTE | 2024-03-05 09:10 | PTOTSP ---
Speech Language Pathology
Pt seen for clinical bedside swallow evaluation. Pt stated he had a VSE at [facility] in October. He was told not to use straws, but does not recall any mention of aspiration. He had home care [facility] [employer] after discharge from [facility] who is no longer
following. 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
This date, P.O. trials of meds crushed in puree and ice chips provided. Limited by GI given pancreatitis and abdominal pain. No oral difficulty with minimal P.O. provided. Throat clear noted with 1st of 6 ice chips. No other signs of aspiration
noted. Pt denied any globus sensation. He does not feel swallowing is any different at this time.
Recommend:
(1) NPO except ice chips per GI restrictions
(2) Meds as tolerated
(3) Oral care 4x/day with suctioning as needed
(4) [employer] to continue to follow
--- NOTE | 2024-03-05 09:19 | W.PN.ID1 ---
Date of Service
Date of Service: March 05, 2024
Today's Communication
consider bicarbonate therapy/nephrology input
daily lactic acid level sufficient so long as BP stable from ID perspective
daptomycin adjusted to q48 hours dosing
micafungin given thrush and dysphagia - possible esophageal candidiasis
Assessment / Plan
Suspected flare of myasthenia gravis
Hx left hand infection with MRSA, Probable osteomyelitis
- On 6-week course of antibiotics
Thrombocytopenia - likely multifactorial - linezolid, cirrhosis, sepsis
Pancreatitis - possibly due to linezolid
ANGELIA
Lactic acidosis
CAD
CHF
GERD
HTN
DM
Possible Cirrhosis
Recommendations:
Probable left Hand Osteomyelitis
Currently d#30 (of 42) of effective rx, (from debridement)
c/w daptomycin
- 700 mg q48h dosing.
- hold statin
- CPK baseline normal 03/05, repeat weekly while on daptomycin
Lactic acidosis/pancreatitis may relate to linezolid. So long as BP remains stable daily lactate levels sufficient from ID perspective, may take up to two weeks to see improvement
Consider bicarbonate therapy/nephrology input
Monitor CBC, BMP and temperature curve.
Oral and possibly Candidiasis
- qtc 440
- has dysphagia
- started micafungin
Chief Complaint
-: Other (possible osteomyelitis)
Subjective / Review of Systems
remains afebrile
bp stable
tetracycline, quinolones avoided previously due to MG
abdominal pain is diffuse, about 3/10 - improving
dysphagia noted
continues with high dose steroids
has some purple colored bruising on the bilateral arms - shares he fell into a bed last week
Patient tells me his visiting nurse Ml stated that she would call my office two week ago when the diarrhea started. I was surprised by this comment and explained that my inbox is empty, I go through it regularly and haven't received any messages
regarding his care. I double checked his chart in [facility] now and there are no messages recorded from my office. I suspect visiting RN may have called patients PCP.
Vital Signs / Physical Exam
Vital Signs
Vital Signs
Temp Pulse Resp BP Pulse Ox
97.8 F 80 18 120/57 100
03/05/24 07:25 03/05/24 08:01 03/05/24 07:25 03/05/24 08:01 03/05/24 07:25
Physical Exam
Constitutional: No Acute Distress and Chronically Ill
Cardiovascular: Regular Rate and S1/S2; Negative Murmur or Rub
Pulmonary: Clear and Symmetric; Negative Wheezes or Rales
Gastrointestinal: Soft, Non Tender, Non Distended and Normal Bowel Sounds
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
Skin: Warm, Dry and Rash (purple brusising bilateral arms); Negative Jaundice
Objective Data
Lab Data
Lab Results
03/05/24 06:26
03/05/24 06:26
PT 15.9 Sec (11.4-14.6) H 03/04/24 13:50
INR 1.24 03/04/24 13:50
APTT 30.0 Sec (23.4-35.0) 03/04/24 13:50
Estimated Creat Clear 27 ml/min 03/05/24 06:26
Lactic Acid 8.1 mmol/L (0.7-2.0) H* 03/05/24 06:26
Total Bilirubin 1.7 mg/dl (0.2-1.3) H 03/05/24 06:26
AST 59 U/L (17-59) 03/05/24 06:26
ALT 39 U/L (0-50) 03/05/24 06:26
Alkaline Phosphatase 123 U/L (38-126) 03/05/24 06:26
Most recent labs reviewed.
Wound/abscess/other Cult Final 02/10/24-909
Many Staph aureus MRSA
Organism 1 Staph aureus MRSA
1. Staph aureus MRSA
M.I.C. RX
--------- ---
Amoxicillin/Potas. Clavulanate <=4/2 R
Ampicillin >8 R
Clindamycin <=0.5 S
Gentamicin <=4 S
Erythromycin <=0.5 S
Levofloxacin <=1 S
Oxacillin >2 R
Tetracycline <=4 S
Trimethoprim/Sulfamethoxazole <=0.5/9.5 S
[address]comycin [address] Scan: Image Reviewed and Report Reviewed (pancreatitis, diffuse pancreatic atrophy, cirrhosis, chronic BL renal disease)
Micro Results:
03/04/24 08:39 Influenza Types A & B ([facility]) - Final
Nasal Swab Negative for Influenza A & B, NAAT
Negative results must be combined with clinical observations
and patient history.
Nucleic Acid Amplification test (NAAT)performed on the
[employer] platform.
Care Review
Plan reviewed with: Physician (Dr Hill and Dr Richey - )
[2024-03-05 10:08] LABS: Venous Blood Gas B.E. -13.1 mmol/L (-4 to +4); Venous Blood Gas HCO3 13.5 mmol/L (22-27); Venous Blood Gas O2 Sat % 81.2 %; Venous Blood Gas pCO2 33 mmHg (35-48); Venous Blood Gas pH 7.22 (7.32-7.43); Venous Blood Gas pO2 51 mmHg (30-50)
--- NOTE | 2024-03-05 10:13 | W.PN.NEURO.1 ---
Addendum entered and electronically signed by Edwin Wolfe MD 03/05/24 13:11:
Studies reviewed.
I have personally examined the patient. I reviewed and agree with the BOX STRAPPER's Note.
My addenda:
Awake, alert, interactive. No acute distress.
Speech intact. No tremor.
Extra-ocular movements grossly intact.
Facial movements full and symmetric. Hearing intact to normal conversational volume.
Normal UE movements bilaterally.
Neck: full ROM.
Chest: no dyspnea
Heart: no JVD
Ext: (-) Clubbing, (-) Cyanosis, (-) Edema
IMPRESSIONS/RECOMMENDATIONS:
Abrupt onset of lower versus upper extremity weakness most likely secondary to metabolic disturbance more than myasthenic exacerbation
Would hold on plasma exchange at this time, until platelet count improves. Final decision on this may be made by our hematology interventional sale consultant
Continue other medications for control of myasthenia including pyridostigmine
Would continue antibiotics as per infectious disease interventional sale consultant
Continue prednisone at 30 mg
May hold aspirin from neurological perspective although patient is at probable risk of cardiovascular event due to prior history of coronary artery disease
Will continue to follow patient.
Original Note:
Documented by User: TRAN Aleman 03/05/24 10:37
Today's Communication / Plan
-
-Hold plasmapheresis
-Continue pyridostigmine 60 mg 4 times daily and prednisone 30 mg daily
-Continue to monitor for any increased weakness
Neuro Assessment/Plan
Assessment
This is a 73-year-old male patient who presented to the ER yesterday, 03/04/2024, with GI distress, progressive weakness and vision being unclear. He was diagnosed with myasthenia gravis in 2023. He received IVIG which was not helpful and was
therefore admitted to [facility] for plasmapheresis. He was started on Vyvgart Hytrulo, he has also been taking pyridostigmine 60 mg 4 times a day as well as steroids. In January after a fall developed left hand abscess requiring I&D and
ongoing antibiotics including linezolid for 6 week course. Prednisone was aggressively reduced to 30 mg daily. Plan was to initiate plasmapheresis today. Labs today show significant drop in platelets as well as hemoglobin. Lipase remains
elevated at greater than 4000, CT abdomen 03/04/2024 acute showed pancreatitis. Troponin level was also elevated today at 0.833 as well as lactic acid.
Plan
-Continue pyridostigmine 60 mg QID and 30 mg of prednisone
-Hold off on plasmapheresis at this time. This was discussed with hematology and GI
-Continue to monitor labs
-Still need records from [facility] and Dr. Gabriel primary neurologist
-continue PT/OT and speech evaluations and treatment
-continue to monitor respiratory status including daily vital capacity and NIF
-rest of medical management per primary care team
Subjective/Objective
Subjective Data
Date of Service: March 05, 2024
Pt seen at the bedside today and reports has continued worsening weakness. He reports choking on a pill last evening. Vision however, is improved. He did have right IJ placed yesterday.
Objective Data
Vital Signs
Temp Pulse Resp BP Pulse Ox
97.8 F 80 18 120/57 100
03/05/24 07:25 03/05/24 08:01 03/05/24 07:25 03/05/24 08:01 03/05/24 08:02
Lab Results
03/05/24 06:26
03/05/24 06:26
PT 15.9 Sec (11.4-14.6) H 03/04/24 13:50
INR 1.24 03/04/24 13:50
APTT 30.0 Sec (23.4-35.0) 03/04/24 13:50
Sodium 142 mmol/L (135-145) 03/05/24 06:26
Potassium 4.7 mmol/L (3.5-5.1) 03/05/24 06:26
BUN 59 mg/dl (9-20) H 03/05/24 06:26
Glucose 88 mg/dl (70-99) 03/05/24 06:26
Calcium 7.5 mg/dl (8.4-10.2) L 03/05/24 06:26
Patient Allergies
hydrocortisone [From [facility]cort ([id number])] Allergy (Unknown, Verified 02/27/24 13:)
Unknown
neomycin [From [facility]cort ([id number])] Allergy (Unknown, Verified 02/27/24 13:)
Unknown
polymyxin B [From Westcort ([id number])] Allergy (Unknown, Verified 02/27/24 13:)
Unknown
varenicline Allergy (Unknown, Verified 02/27/24 13:)
Unknown
latex Allergy (Verified 02/27/24 13:)
Hives/REDNESS
Review of Systems
-
History Source: Patient
Constitutional: Fatigue, Chills and Weakness
EENT: No Symptoms Reported; Negative Blurry Vision (now improved)
Respiratory: No Symptoms and Other
Cardiac: No Symptoms
Abdomen/GI: Abdominal Pain
Genitourinary: Other (not voiding frequently)
Musculoskeletal: Edema and Muscle Weakness
Skin: Other (various areas of bruising)
Neuro: Weakness and See existing Neuro Note
Hematologic / Lymphatic: Negative Bleeding (significant bruising)
Physical Exam
-
General: Appears in Distress and Appears Chronically Ill
Eyes: Round OU; Negative No Ptosis (mild b/l eye ptosis)
Neck: Other (R IJ)
Respiratory: No Dyspnea
Cardiac: Regular Rhythm and No JVD
GI: Soft
Skin: Other (multiple various bruising)
Extremities: Edema +1
Psych: Unremarkable
Extended Neurological Exam
Mood & Affect: Mood Unremarkable
Attention Span & Concentration: Awake, Alert, Interactive and No Difficulty with 2 Step Request
Memory: Unremarkable
Tremor: Hand Tremor Absent and Head Tremor Absent
Involuntary Movement: None
Speech: Quality Unremarkable, Quantity Unremarkable and Rate of Production Unremarkable
Cranial Nerve II: Left Eye: Pupillary Reactivity Unremarkable and Pupillary Size Unremarkable
Cranial Nerve II: Right Eye: Pupillary Reactivity Unremarkable and Pupillary Size Unremarkable
Cranial Nerves III, IV, : Extraocular Movement: Extraocular Movement Left, Extraocular Movement Right, Extraocular Movement Full in all Directions, Ptosis on Left (mild) and Ptosis on Right (mild)
Cranial Nerve VII: Facial Symmetry: Normal Facial Symmetry
Cranial Nerve VIII: Hearing: Unremarkable Hearing to Normal Conversational Volume
Cranial Nerves IX, X: Palate Movement: Palate Elevation Symmetric
Cranial Nerve XI: Shoulder Shrug: Unremarkable
Cranial Nerve XII: Tongue Protusion: Midline
Muscle Strength, Overall: Reduced (RLE)
Muscle Bulk & Tone: Bulk Unremarkable and Decreased Bulk
Pronator Drift: No Drift in Upper Extremities
Touch Sensation: Unremarkable
Coordination: [id number]-[id number]-[id number] Testing Unremarkable
Gait & Station: Other (Deferred)

Documented by User: Edwin Wolfe MD 03/05/24 12:57
Past History
Past History
ED Past Medical History: GERD, HTN, Hypercholesterolemia, IDDM and Other (myasthenia Gravis)
ED Past Surgical History: Cardiac (stents), Cholecystectomy and Orthopedic (right knee replacement)
Social History
Alcohol: Chronic alcoholic
Personal:
Living: with family
Family History
Family History: Other (Reviewed and noncontributory)
Medications
-
Medications:
Generic Name Dose Route Start Last Admin
Trade Name Freq PRN Reason Stop Dose Admin
Acetaminophen 500 mg 03/04/24 15:36
Acetaminophen 500 Mg Tablet PO 04/01/24 15:35
HSPRN PRN
sleep
Acetaminophen 650 mg 03/04/24 15:25
Acetaminophen 325 Mg Tablet PO 04/01/24 15:24
Q4HPRN PRN
mild pain/ALBERTS/temp> 100.4F
Aspirin 81 mg 03/05/24 08:00 03/05/24 08:01
Aspirin 81 Mg (Enteric Coated) Tablet PO 04/02/24 07:59 81 mg
DAILY SÁNCHEZ Administration
Dextrose 12.5 grams 03/04/24 15:25
Dextrose 50% (0.5 Grams/Ml) 50 Ml Syringe IV 04/01/24 15:24
[id number] PRN
hypoglycemia
Protocol
Diphenhydramine HCl 25 mg 03/04/24 15:38
Diphenhydramine 25 Mg Capsule PO 04/01/24 15:37
HSPRN PRN
SLEEP
Glucagon 1 mg 03/04/24 15:25
Glucagon 1 Mg Vial IM 04/01/24 15:24
PRN PRN
hypoglycemia
Protocol
Heparin Sodium 0 units 03/07/24 08:00
Heparin (1000 Units/Ml) 10,000 Units/10 Ml Vial INTRACATH 03/07/24 08:01
ONCE ONE
Heparin Sodium 0 units 03/09/24 08:00
Heparin (1000 Units/Ml) 10,000 Units/10 Ml Vial INTRACATH 03/09/24 08:01
ONCE ONE
Heparin Sodium 0 units 03/11/24 08:00
Heparin (1000 Units/Ml) 10,000 Units/10 Ml Vial INTRACATH 03/11/24 08:01
ONCE ONE
Heparin Sodium 0 units 03/13/24 08:00
Heparin (1000 Units/Ml) 10,000 Units/10 Ml Vial INTRACATH 03/13/24 08:01
ONCE ONE
Hydromorphone HCl 0.5 mg 03/04/24 15:25
Hydromorphone 0.5 Mg/0.5 Ml Syringe IV 03/18/24 15:24
Q4HPRN PRN
severe pain
Albumin Human 12.5 grams in 250 mls @ 1,875 mls/hr 03/07/24 08:00
Albumin 5% INTRACATH 03/07/24 09:59
.Q8M SÁNCHEZ
Albumin Human 12.5 grams in 250 mls @ 1,875 mls/hr 03/09/24 08:00
Albumin 5% INTRACATH 03/09/24 09:59
.Q8M SÁNCHEZ
Albumin Human 12.5 grams in 250 mls @ 1,875 mls/hr 03/11/24 08:00
Albumin 5% INTRACATH 03/11/24 09:59
.Q8M SÁNCHEZ
Albumin Human 12.5 grams in 250 mls @ 1,875 mls/hr 03/13/24 08:00
Albumin 5% INTRACATH 03/13/24 09:59
.Q8M SÁNCHEZ
Sodium Chloride 1,000 mls @ 200 mls/hr 03/04/24 23:00 03/05/24 08:08
Nss IV Not Given
.Q5H SÁNCHEZ
Calcium Gluconate 3,750 mg/ 287.5 mls @ 0 mls/hr 03/07/24 08:00
Sodium Chloride IV 03/07/24 08:01
ONCE ONE
As Directed
Calcium Gluconate 3,750 mg/ 287.5 mls @ 0 mls/hr 03/09/24 08:00
Sodium Chloride IV 03/09/24 08:01
ONCE ONE
As Directed
Calcium Gluconate 3,750 mg/ 287.5 mls @ 0 mls/hr 03/11/24 08:00
Sodium Chloride IV 03/11/24 08:01
ONCE ONE
As Directed
Calcium Gluconate 3,750 mg/ 287.5 mls @ 0 mls/hr 03/13/24 08:00
Sodium Chloride IV 03/13/24 08:01
ONCE ONE
As Directed
Daptomycin 700 mg/ Device 14 mls @ 0 mls/hr 03/06/24 18:00
IV
Q48H SÁNCHEZ
As Directed
Micafungin Sodium 100 mg/ 105 mls @ 105 mls/hr 03/05/24 12:00 03/05/24 11:38
Dextrose IV 03/15/24 11:59 105 mls
Q24H SÁNCHEZ Administration
Insulin Aspart 0 units 03/05/24 11:32 03/05/24 11:48
Insulin Aspart Low Resistance 300 Units/3 Ml Pen.Injctr SC 04/01/24 16:29 Not Given
Q6 SÁNCHEZ
Protocol
Metoprolol Tartrate 100 mg 03/05/24 08:00 03/05/24 08:01
Metoprolol 100 Mg Regular Release Tablet PO 04/02/24 07:59 100 mg
DAILY SÁNCHEZ Administration
Pantoprazole Sodium 40 mg 03/04/24 20:00 03/05/24 08:01
Pantoprazole 40 Mg Delayed Release Tablet PO 04/01/24 19:59 40 mg
BID SÁNCHEZ Administration
Prednisone 30 mg 03/05/24 08:00 03/05/24 08:02
Prednisone 20 Mg Tablet PO 04/02/24 07:59 30 mg
DAILY SÁNCHEZ Administration
Pyridostigmine [place] 60 mg 03/04/24 18:00 03/05/24 11:39
Pyridostigmine 60 Mg Tablet PO 04/01/24 17:59 Not Given
Q6 SÁNCHEZ
Sodium Chloride 0 flush 03/05/24 08:00 03/05/24 11:39
Sodium Chloride 0.9% (Flush) Syringe IV 04/02/24 07:59 1 flush
PER PROTOCOL SÁNCHEZ Administration
--- NOTE | 2024-03-05 11:06 | W.PN.GI.CBS2 ---
Today's Communication / Plan
-
NPO
Fluid management as per medical team/cardiology
Assessment / Plan
-
Pt is a 73yo presents with HTN, NIDDM, CAD, CHF, GERD, graevs's esophagus, prior mark, cellulitis/abscess, and myasthenia Gravis on Prednisone and pyridostigmine with prior IVIG/plasmapheresis and Vyvgart Hytulo use. He had recent fall with
hand abscess requiring Linezolid course. He is now noted with with diarrhea, abdominal pain, dysphagia, wt loss, and lipase >4000. Labs also noted with lipase 5.1, troponin 0.076, bili 2.2, AST 37, ALT 46, alk phos 151. Pt also noted with
complaints of progressive weakness and blurred vision with plan for plasmapheresis therapy. No recent ETOH use. No NSAID use.
-abdominal pain with elevated lipase and concern for pancreatitis.
-diarrhea
-dysphagia
-wt loss
-acute on chronic CKD
-myasthenia Gravis with multiple recent treatment and concern for current flare
-recent cellulitis with Linezolid use
-elevated lactate level
-thrombocytopenia
-anemia
-elevated troponin
other med problems:
-NIDDM
-HTN
-CAD
-CHF
-graves's esophagus
-GERD
CT abd/Pel 03/04 without IV cont
IMPRESSION:
1. MODERATE ACUTE INTERSTITIAL EDEMATOUS PANCREATITIS.
2. Moderate diffuse pancreatic parenchymal atrophy and lipomatosis.
3. MODERATE HEPATIC CIRRHOSIS.
4. Small volume of abdominal and pelvic ascites.
5. Severe chronic bilateral renal disease.
6. Previous cholecystectomy.
7. Severe calcific atherosclerotic plaque in the coronary arteries.
8. Mild inflammatory interstitial pneumonitis in the lungs.
PLAN:
Discussed CT abdomen finding with patient.
Case discussed with neurology/hematology. Plasmapheresis on hold with severe thrombocytopenia continue milligram once daily as per neurology.
Etiology of thrombocytopenia can be multifactorial considering recent antibiotic use/sepsis/liver cirrhosis -continue follow-up with hematology
IV fluid was started by medical team with elevated lactate. Advised to titrate based on daily fluid status
N.p.o. except meds
will check TG
if worsening abdominal pain / worsening LFT will recommend MRI/MRCP ( current CT abd / US imaging s/p cholecystectomy. No biliary dilatation. Liver test stable with normal AST/ALT/ALP with T.Bili 1.7 today )
If diarrhea persist would recommend stool studies for infection
Further evaluation of liver cirrhosis as outpatient. Likely etiology ETOH use in the past
Total Time Spent with Patient (in minutes): 35
Subjective
Subjective
Date of Service: March 05, 2024
Complaining of epigastric abdominal pain. Denies any nausea or vomiting.
Objective
Data Reviewed
Laboratory Data:
Laboratory Results
03/05/24 06:26
03/05/24 06:26
Laboratory Results
PT 15.9 Sec (11.4-14.6) H 03/04/24 13:50
INR 1.24 03/04/24 13:50
APTT 30.0 Sec (23.4-35.0) 03/04/24 13:50
Total Bilirubin 1.7 mg/dl (0.2-1.3) H 03/05/24 06:26
AST 59 U/L (17-59) 03/05/24 06:26
ALT 39 U/L (0-50) 03/05/24 06:26
Alkaline Phosphatase 123 U/L (38-126) 03/05/24 06:26
Lipase > 4000 U/L (23-300) H* 03/05/24 06:26
Vital Signs and I&O:
Vital Signs
Temp Pulse Resp BP Pulse Ox
97.8 F 80 18 120/57 100
03/05/24 07:25 03/05/24 08:01 03/05/24 07:25 03/05/24 08:01 03/05/24 08:02
I&O
03/04/24 03/05/24 03/06/24
06:59 06:59 06:59
Intake Total 480 / 480
Output Total 125 / 125
Balance 355 / 355
Physical Exam
Physical Exam
GI: Soft, Distended (Mildly distended) and Tender (Epigastric tenderness on deep palpation without rigidity)
[2024-03-05] MEDS: MYCAMINE 105 MG IV (11:38)
[2024-03-05] MEDS: FLUSH (NSS) 1 FLUSH IV (11:39)
[2024-03-05 11:54] LABS: Glucose - Point of Care 76 mg/dl (70-99)
--- NOTE | 2024-03-05 12:33 | PTCARENOTE ---
Pt on IVF 200mL/hr, no urine output in 6 hours, bladder scanned for 124mL of urine. Edema +2 generally, visibly worse than yesterday for this RN. BP 96/47, micafungin infusing. Critical labs this AM are as follows: CO2 of 12 (50mg IV bicarb
overnight for previous CO2 of 10), Lactic 8.1, platelet ct 23, lipase >4000, troponins 0.833. MD and resident made aware. ID, onc, GI, and MD in room to see pt. Pt to be transferred to IMU level of care when a bed opens up. Plasmapheresis cancelled
for clinical instability of pt today. Right IJ catheter and right midline IV in place. No new orders at this time.
--- NOTE | 2024-03-05 13:49 | W.PN.HOSP.TC ---
Addendum entered and electronically signed by Shawnee Hill MD 03/05/24 15:38:
I saw and evaluated the patient. I reviewed the resident�s note and agree with findings and plan as documented in the resident�s note.
A/P:
# Abd pain 2/2 pancreatitis, unclear etiology but possibly related to linezolid
Lipase >4000, cont to trend
CT abdomen/pelvis, abdominal ultrasound report noted
NPO with IVF
GI on board, consider MRI/MRCP if abdominal pain worsen.
can check IgG4 to r/o autoimmune pancreatitis
# diarrhea, may be related to pancreatitis
Follow stool studies: C diff, norovirus, stool Cx
MEDIA STRATEGIST Linezolid held
# proximal muscle weakness, Unclear etiology, possibly MG flare vs infection/sepsis (recent left hand abscess)
neurology and oncology following
Holding off PLEX for now given felt unsafe w/ current low platelet count of 23
Cont current prednisone 30 mg daily and mestinon 60mg q6h and Vyvgart per neuro
Upgraded to IMU
Vital capacity q12h
# elevated troponin, suspect non-KS related
Trend troponin until peak/plateau
Patient denies any chest pain
cardiology following - hold statin and ASA given pancreatitis and thrombocytopenia
check echo
# lactic acidosis
# Metabolic acidosis
Likely multifactorial (infection vs Linezolid adverse effect)
follow lactic acid level
# anemia, thrombocytopenia, Likely multifactorial (infection vs Linezolid vs cirrhosis vs dilutional)
Oncology following
ASA on hold
# Liver cirrhosis, likely 2/2 ETOH use
Full code
DVT prophylaxis - SCDs
Total time spent 51 minutes
Original Note:
Today's Communication/Plan
-
Continue daptomycin
Continue IVF
Follow blood counts
Continue steroids and mestinon
Hold PLEX and ASA
Assessment / Plan
Assessment / Plan
73 y/o male with known myasthenia gravis on mestinon and prednisone with:
#pancreatitis
- Lipase >4000
- Unclear etiology-- likely 2/2 Linezolid -- will check IgG4
- Supportive treatment --continue NPO -- continue IVF 200ml/hr
- GI following--if worsening abdominal pain / worsening LFT recommend MRI/MRCP.
#diarrhea
- Unclear etiology-- C diff vs norovirus vs antibiotic adverse effect
- Stool culture, C diff, norovirus pending
- Held Linezolid per ID, now on daptomycin, renally adjusted
# proximal muscle weakness
- Unclear etiology--MG flare vs infection/sepsis (recent left hand abscess)
- No leukocytosis
- neurology and oncology following--initial plan for PLEX however held due to thrombocytopenia (plts 23)
- continue prednisone 30 mg daily and mestinon 60mg q6h and Vyvgart
- continue abx per ID
- Hold aspirin
- Upgrade to IMU
- Vital capacity q12h
#elevated troponin
- cardiology following - hold statin and ASA given pancreatitis and thrombocytopenia --repeat ECG--Check transthoracic echocardiogram to assess LV function and evaluate for regional wall motion abnormalities
- pt remains asymptomatic
- likely in the setting of ANGELIA
- will recheck and continue to follow
#lactic acidosis
-Likely multifactorial (infection vs Linezolid adverse effect)
-will check daily
-downtrending today
#anemia, thrombocytopenia
- Likely multifactorial (infection vs Linezolid vs cirrhosis vs dilutional)
- Will hold off PLEX
- Oncology following
- Hold ASA
- Continue to monitor
#Liver cirrhosis--likely 2/2 ETOH use--outpt f/u with GI
Full code
DVT prophylaxis - SCDs
Anticipated Discharge: 24 - 48 hours
Subjective/Interval History
-
Date of Service: March 05, 2024
Objective Data
-
Labs:
Laboratory Results
03/05/24
06:26
WBC 6.9
Hgb 8.3 L
Hct 23.7 L
Plt Count 23 L* D
Sodium 142
Potassium 4.7
Chloride 115 H
Carbon Dioxide 12 L*
BUN 59 H
Creatinine 2.4 H
Glucose 88
Calcium 7.5 L
Total Bilirubin 1.7 H
AST 59
ALT 39
Alkaline Phosphatase 123
Vital Signs:
Vital Signs
Temp Pulse Resp BP Pulse Ox
97.6 F 60 16 96/47 100
03/05/24 11:27 03/05/24 11:27 03/05/24 11:27 03/05/24 11:27 03/05/24 11:28
I&O
03/04/24 03/05/24 03/06/24
06:59 06:59 06:59
Intake Total 480 / 480
Output Total 125 / 125
Balance 355 / 355
Review of Systems
-
History Source: Patient and Records
Constitutional: Reports Weakness
EENT: Reports No Symptoms Reported
Respiratory: Reports No Symptoms
Cardiac: Reports No Symptoms
Abdomen/GI: Reports Abdominal Pain and Diarrhea
Breast: Reports No Symptoms
Genitourinary: Reports No Symptoms
Musculoskeletal: Reports Muscle Weakness
Skin: Reports No Symptoms
Neuro: Reports No Symptoms
Endocrine: Reports No Symptoms
Hematologic / Lymphatic: Reports No Symptoms
Allergy / Immunology: Reports No Symptoms
Physical Exam
-
General: Well Developed, Well Nourished, No Apparent Distress and Comfortable
HEENT: Normocephalic
Respiratory: Clear to Auscultation
Cardiac: Regular Rhythm and S1/S2
GI: Soft, Nondistended and Tender (Epigastric and LUQ tenderness)
Genito-urinary: No Costovertebral Tender
Musculoskeletal: No Clubbing, No Cyanosis, Edema, Right Lower Extrem and Edema, Left Lower Extrem
Skin: Warm
Neuro: Awake, Alert and Oriented
Hematologic / Lymphatic: No Lymphadenopathy
Psych: Calm
--- NOTE | 2024-03-05 13:50 | W.CON.NEPH ---
Consultation
-
Date/Time Consultation Requested: 03/05/2024 9 AM
Date/Time Consultation Performed: 03/05/2024 1:50 PM
Requesting Provider: Dr. Olivas
Performing Provider: Dr. Tracey
Reason for Consultation: ANGELIA
Medical History
-
Chief Complaint: Diarrhea weakness
History of Present Illness:
This is a 73-year-old gentleman who has myasthenia gravis on oral medications who has received plasmapheresis in the past for exacerbations. He has diabetes mellitus type 2 on insulin therapy, recent left wrist abscess debridement on prolonged
course of antibiotics with linezolid. He was last in the hospital in January 2024 with the left wrist abscess. In the last 2 weeks he has been having diarrhea but no nausea or vomiting. He a few days ago he began having abdominal discomfort as
well as weakness. His oral intake has been slightly less as well. He has also developed some nausea. He came to the emergency room he was noted to have acute kidney injury with metabolic acidosis and lactic acidosis. His creatinine was 2.2 from
his baseline. Given the weakness there was concern that he was having an exacerbation of his myasthenia gravis. However, he was also found to be severely thrombocytopenic and with acute pancreatitis. Plasmapheresis was deferred at this time
Past Medical History
GERD
HTN
HLD
IDDM
Myasthenia Gravis
cholecystectomy
right knee replacement
cardiac stents
CKD 3A, baseline 1.1
Left hand wrist abscess with debridement
Social History
Tobacco: Former Smoker
Alcohol: None
Family History
Family History: Not Pertinent
Allergies / Home Medications
Allergy/AdvReac Type Severity Reaction Status Date / Time
hydrocortisone Allergy Unknown Unknown Verified 02/27/24 13:27
[From [facility]
([id number])]
neomycin Allergy Unknown Unknown Verified 02/27/24 13:27
[From [facility]
([id number])]
polymyxin B Allergy Unknown Unknown Verified 02/27/24 13:27
[From [facility]
([id number])]
varenicline Allergy Unknown Unknown Verified 02/27/24 13:27
latex Allergy Hives/REDNE Verified 02/27/24 13:27
SS
�Medication �Instructions �Recorded �Confirmed �Type
aspirin 81 mg capsule 81 mg PO Q48H Blood Clot 10/11/23 03/04/24 History
Prevention/Tx
esomeprazole magnesium 20 mg 20 mg PO BID Gastrointestinal Issue 10/11/23 03/04/24 History
capsule,delayed release (Nexium)
metoprolol tartrate 100 mg tablet 100 mg PO DAILY Heart 10/11/23 03/04/24 History
Disease/Condition
pyridostigmine bromide 60 mg tablet 60 mg PO Q6 MYASTHENIA GRAVIS 10/11/23 03/04/24 History
simvastatin 20 mg tablet 20 mg PO HS High Cholesterol 10/11/23 03/04/24 History
spironolactone 25 mg tablet 25 mg PO DAILY Heart 10/11/23 03/04/24 History
Disease/Condition
insulin lispro 100 unit/mL 3 - 10 unit SC MEALS Diabetes 01/02/24 03/04/24 History
subcutaneous pen
acetaminophen 500 mg tablet 1,000 mg PO Q6HPRN PRN mild pain 02/02/24 03/04/24 History
prednisone 20 mg tablet 30 mg PO DAILY MYASTHENIA GRAVIS 02/02/24 03/04/24 History
linezolid 600 mg tablet 600 mg PO BID #80 tabs 02/06/24 03/04/24 Rx
diphenhydramine 25 1 tab PO HS PRN sleep 02/27/24 03/04/24 History
mg-acetaminophen 500 mg tablet
(Tylenol PM Extra Strength)
efgartigimod jimbo 1008 5.6 ml SC TU MG 02/27/24 03/04/24 History
qn-cboplqla-nqfn 11,200 unit/5.6
mL subcut soln (Vyvkvngt Henryo)
Review of Systems
-
Diarrhea stopped, mild nausea, decreased appetite, weakness
All other systems: Negative unless noted
Physical Exam
Vital Signs
Vital Signs
Temp Pulse Resp BP Pulse Ox
97.6 F 60 16 96/47 100
03/05/24 11:27 03/05/24 11:27 03/05/24 11:27 03/05/24 11:27 03/05/24 11:28
Lab Results
WBC 6.9 10^3/uL (4.8-10.8) 03/05/24 06:26
RBC 2.47 10^6/uL (4.70-6.10) L 03/05/24 06:26
Hgb 8.3 g/dL (13.0-18.0) L 03/05/24 06:26
Hct 23.7 % (39.0-52.0) L 03/05/24 06:26
Plt Count 23 10^3/uL (130-400) L* D 03/05/24 06:26
Sodium 142 mmol/L (135-145) 03/05/24 06:26
Potassium 4.7 mmol/L (3.5-5.1) 03/05/24 06:26
Chloride 115 mmol/L (98-107) H 03/05/24 06:26
Carbon Dioxide 12 mmol/L (22-30) L* 03/05/24 06:26
BUN 59 mg/dl (9-20) H 03/05/24 06:26
Creatinine 2.4 mg/dL (0.7-1.3) H 03/05/24 06:26
eGFR 27.45 03/05/24 06:26
Glucose 88 mg/dl (70-99) 03/05/24 06:26
Calcium 7.5 mg/dl (8.4-10.2) L 03/05/24 06:26
Albumin 2.6 g/dl (3.5-5.0) L 03/05/24 06:26
Laboratory Tests
02/06/24
04:32
Creatinine 1.[address] abdomen and pelvis without contrast 03/04/2024
IMPRESSION:
1. MODERATE ACUTE INTERSTITIAL EDEMATOUS PANCREATITIS.
2. Moderate diffuse pancreatic parenchymal atrophy and lipomatosis.
3. MODERATE HEPATIC CIRRHOSIS.
4. Small volume of abdominal and pelvic ascites.
5. Severe chronic bilateral renal disease.
6. Previous cholecystectomy.
7. Severe calcific atherosclerotic plaque in the coronary arteries.
8. Mild inflammatory interstitial pneumonitis in the lungs.
Physical Exam
Patient is awake alert oriented and in no distress. Mood and affect were pleasant, insight and judgment were good. Pupils are equal round and reactive to light, extraocular movements are intact, sclera were anicteric. Hearing was normal, ears and
nose are intact. Oropharynx was clear and dry. Neck was supple with trachea midline and no thyromegaly. Heart was regular rate and rhythm without rubs. Lower extremities without edema. Lungs were clear to auscultation bilaterally and with normal
excursion. Abdomen was soft, nontender, with normal active bowel sounds, and no hepatosplenomegaly. Skin was without rash and with normal turgor.
Data Reviewed
-
CT Scan: Report Reviewed by me
Medical Tests (Nuc Med, Echo etc): Image Personally Visualized and interpreted (EKG on 03/04/2024 by my reading shows normal sinus rhythm, nonspecific ST-T wave)
Labs: Labs Reviewed by me
Old Records: Reviewed
Assessment/Plan
-
Assessment
Myasthenia gravis
ANGELIA
Metabolic acidosis
Lactic acidosis
Pancreatitis
Cirrhosis
diarrhea
Failure to thrive
Thrombocytopenia
Left hand wrist abscess on antibiotics
Plan
IV fluids with saline at 200 cc/h given pancreatitis
Follow BMP
If blood pressure remains low, will need transfer to ICU
Follow platelets
Check urine studies
Discussed with patient and
--- NOTE | 2024-03-05 15:02 | PTCARENOTE ---
Pt tx to U [id number], report given to AIDEN Martínez. Meds tubed to IMU.
--- NOTE | 2024-03-05 15:11 | PTCARENOTE ---
Rec'd pt on upgrade transfer from [address] [place] [address]. Pt has generalized anasarca. AAO x3. oriented to unit. vital signs stable. call león in reach.
[2024-03-05 16:32] LABS: Glucose - Point of Care 92 mg/dl (70-99)
[2024-03-05] MEDS: MESTINON 60 MG PO ×2 (17:28→23:54)
--- NOTE | 2024-03-05 20:55 | PTCARENOTE ---
Received pt from day shift RN. pt aaox3. NSR on monitor. 99% on RA. Denies any pain at this time. Pt turns well and educated patient to stay off back due to stage II on sacrum, wound care provided. Hygiene and CHG cloths completed. Pt resting in bed
with call león in reach.
[2024-03-05 23:05] LABS: Glucose - Point of Care 88 mg/dl (70-99)
--- NOTE | 2024-03-05 23:28 | W.PN.UPDATE ---
Addendum entered and electronically signed by TRAN Zazueta 03/06/24 06:23:
AM labs Hgb 7.1/20.6- Heme test,�bleeding noted at skin tear, pressure dressing applied,�will repeat CBC, Type and screen, Blood consent�
Original Note:
Update Note
Progress Note Update
RN notified, patient had an unwitnessed fall. patient seen and evaluated. AAOX3. Reports he was trying to go to the bathroom, managed to bring side rail down and fell on to right knee, then he balanced himself on left knee and he gently placed
himself on the floor on lateral position. Denies hitting head. Denies dizziness or light headedness.
neurochecks unremarkable.Reports Right knee being sore, able to move extremities without any pain. Right knee active range of motion with full extension and flexion, mild redness at right knee, left arm skin tear noted, head without bruises or
bumps. 89/51 (63), hr 70s. 99 an RA, BS 88. Repeat VS: 124/64 76. 16. 08.2, 99%
will order labs, fall precaution advised. Refused any further interventions. neuro-check per unit guidelines, Fall precautions
Co2 11 will order Sodium Bicarb x1
--- NOTE | 2024-03-05 23:30 | PTCARENOTE ---
This RN heard pt shouting for help. This RN entered room and found pt laying on the floor next to the bed. Pt denies hitting head; no loss of consciousness. This RN called for help and multiple RNs on the floor came to the room to assess the pt.
JENARO Sherman notified and she came and assessed pt at bedside. vitals taken (see chart) and blood sugar 88. Pt has multiple skin tears two on his left arm and one on his right arm under his midline dressing. AIDEN Weathers called to evaluate and
redress midline. Dressing partially off and pt said he 'was trying to take it out'. It appeared that there was skin on the dressing. All skin tears dressed. All side rails were up per pts request. Pt stated that he was confused and thought he was at
his sisters house. Per pt he needed to go to the bathroom and was trying to get out of bed. He said he could not find his call león which was lying on the left side of his bed. Pt said that he reached over put down his side rail and when the rail
lowered he rolled onto the floor landing on his knees. This RN reeducated pt on utilizing call león for any assistance Pt now resting in bed with bed alarm on, door to room open, and call león in reach.
--- NOTE | 2024-03-05 23:44 | VATNOTE ---
CALLED TO ASSESS 4FR R ML DRSG S/P PT FALL OOB. DRSG COMPLETELY NON OCCLUSIVE AT BOTTOM HALF OF TSM AND LARGE SKIN TEAR NOTED THE WIDTH OF THE TSM DRSG. NO BLEEDING NOTED. SITE RD PER PROTOCOL AND AN OPTIFOAM DRSG APPLIED UNDER THE BOTTOM EDGE OF
DRSG TO PROTECT THE SKIN TEAR. ML FLUSHED, GOOD BR OBTAINED AND LABS OBTAINED ORDERED. VAT TO FOLLOW.PCN HAMIDA BEDSIDE AND AWARE OF INTERVENTION AND OUTCOME.
[2024-03-05 23:48] LABS: Hemoglobin 8.1 g/dL (13.0-18.0); Mean Corp Hgb Conc. 33.8 g/dL (33.0-37.0); Mean Corpuscular Hgb 32.9 pg (27.0-31.0); Mean Corpuscular Volume 97.6 fL (80.0-94.0); Mean Platelet Volume 12.5 fL (7.4-10.4); Platelet Count 35 10^3/uL (130-400); Red Blood Cell Count 2.46 10^6/uL (4.70-6.10); Red Cell Dist. Width 13.5 % (11.5-14.5)
[2024-03-06] VITALS (42 sets, daily range): BP systolic 95–126; BP diastolic 41–77; BMI 24.6
[2024-03-06 00:06] LABS: Blood Urea Nitrogen 52 mg/dl (9-20); Calcium 7.1 mg/dl (8.4-10.2); Carbon Dioxide 11 mmol/L (22-30); Chloride 118 mmol/L (98-107); Estimated Creatinine Clearance 31 ml/min; Glucose 89 mg/dl (70-99); Potassium 4.5 mmol/L (3.5-5.1); Sodium 141 mmol/L (135-145); eGFR 32.22
--- NOTE | 2024-03-06 02:26 | DOWNTIME ---
There was a [employer] Client Meter Setter Downtime on 03/06/2024 from 0100 to 03/06/2023 at 0205 . Downtime documentation of patient's care, including medication administrations, has been reconciled in the electronic record per guidelines. Refer to the
patient's paper chart under the miscellaneous tab to see printed paper medication records and downtime forms.
[2024-03-06] MEDS: TYLENOL 650 MG PO (03:55)
[2024-03-06] MEDS: SODIUM BICARBONATE 50 MEQ IV (04:29)
[2024-03-06] MEDS: NSS 1000 IV ×2 (04:54→09:45)
[2024-03-06 05:29] LABS: Hematocrit 20.6 % (39.0-52.0); Hemoglobin 7.1 g/dL (13.0-18.0); Mean Corp Hgb Conc. 34.5 g/dL (33.0-37.0); Mean Corpuscular Hgb 32.6 pg (27.0-31.0); Mean Corpuscular Volume 94.5 fL (80.0-94.0); Mean Platelet Volume 13.5 fL (7.4-10.4); Platelet Count 19 10^3/uL (130-400); Red Blood Cell Count 2.18 10^6/uL (4.70-6.10); Red Cell Dist. Width 13.4 % (11.5-14.5); White Blood Cell Count 6.3 10^3/uL (4.8-10.8)
[2024-03-06 05:38] LABS: Lactic Acid 3.8 mmol/L (0.7-2.0)
[2024-03-06 06:00] LABS: Troponin I 0.752 ng/ml
[2024-03-06 06:04] LABS: ALT (SGPT) 37 U/L (0-50); AST (SGOT) 46 U/L (17-59); Albumin 2.3 g/dl (3.5-5.0); Alkaline Phosphatase 122 U/L (38-126); Blood Urea Nitrogen 53 mg/dl (9-20); Calcium 6.8 mg/dl (8.4-10.2); Carbon Dioxide 16 mmol/L (22-30); Chloride 118 mmol/L (98-107); Estimated Creatinine Clearance 35 ml/min; Glucose 58 mg/dl (70-99); Lipase 2004 U/L (23-300); Potassium 4.1 mmol/L (3.5-5.1); Sodium 142 mmol/L (135-145); Total Bilirubin 1.5 mg/dl (0.2-1.3); Total Protein 4.1 g/dl (6.3-8.2); Triglycerides 115 mg/dl (10-149); eGFR 36.33
[2024-03-06] MEDS: MESTINON 60 MG PO ×4 (06:29→23:17)
[2024-03-06] MEDS: DEXTROSE 50% SYRINGE 12.5 GRAMS IV ×2 (06:52→07:07)
[2024-03-06 07:01] LABS: Glucose - Point of Care 57 mg/dl (70-99)
--- NOTE | 2024-03-06 07:11 | PTCARENOTE ---
Notified JENARO Sherman of critical morning labs: Hct 20.6, Plt 19, Hgb 7.1, Ca 6.8
Received order to heme test stools and redraw labs at 1000.
[2024-03-06 07:15] LABS: Glucose - Point of Care 69 mg/dl (70-99)
--- NOTE | 2024-03-06 07:28 | PTOTSP ---
Patient transferred to higher level of care (2129 to IMU). New orders required to continue SPORTS MARKETER f/u.
[2024-03-06 07:40] LABS: Glucose - Point of Care 110 mg/dl (70-99)
--- NOTE | 2024-03-06 07:42 | W.PN.HOSP.TC ---
Addendum entered and electronically signed by Shawnee Hill MD 03/06/24 15:49:
I saw and evaluated the patient. I reviewed the resident�s note and agree with findings and plan as documented in the resident�s note.
A/P:
# Abd pain 2/2 pancreatitis, unclear etiology but possibly related to linezolid
Lipase 4000 -> 2000, cont to trend
CT abdomen/pelvis, abdominal ultrasound report noted
GI cleared for clears,
continue gentle IVF
check IgG4 to r/o autoimmune pancreatitis
# diarrhea, may be related to pancreatitis
Follow stool studies: C diff, norovirus, stool Cx if able
HERBOLOGIST Linezolid held
# proximal muscle weakness, unclear etiology, possibly MG flare relating to infectious/inflammatory process
# recent left hand abscess
# mechanical fall during hospital stay overnight 03/05
neurology and oncology on board
Holding plasmapheresis due to current thrombocytopenia
Cont prednisone 30 mg daily, mestinon 60mg q6h and Vyvgart per neuro
Vital capacity q12h
CT head was checked for fall in setting of thrombocytopenia, no acute intracranial abnormality
# elevated troponin, suspect non-[place] related
Patient denies any chest pain
Troponin peaked at 1.19
cardiology following, holding ASA 2/2 thrombocytopenia
echo unrevealing: EF 64%. Right ventricle Normal size and function. No significant valvular heart disease
# lactic acidosis, improving, likely related to linezolid side effect
# Metabolic acidosis due to above
follow lactic acid level
# anemia, thrombocytopenia, likely multifactorial (inflammatory due to pancreatitis, vs Linezolid side effect, vs cirrhosis, vs dilutional)
Transfuse 1 unit PRBC
Transfused 2 unit platelet
Oncology following
ASA on hold
# Liver cirrhosis, likely 2/2 ETOH use
Full code
DVT prophylaxis - SCDs
Discussed with on the phone, extensive discussion
Total time spent 51 minutes
Original Note:
Today's Communication/Plan
-
Transfuse 1 PRBC and [address] given fall last night and thrombocytopenia
Advance diet to clear liquids and IVF 100 ml/hr
Monitor counts
Assessment / Plan
Assessment / Plan
73 y/o male with known myasthenia gravis on mestinon and prednisone with:
#pancreatitis
- Lipase >4000
- Unclear etiology-- likely 2/2 Linezolid -- will check IgG4 for autoimmune pancreatitis
- Supportive treatment --continue NPO -- decrease rate to IVF 100ml/hr and start clear liquids
- GI following--if worsening abdominal pain / worsening LFT recommend MRI/MRCP.
#diarrhea
- Unclear etiology-- C diff vs norovirus vs antibiotic adverse effect
- Stool culture, C diff, norovirus pending
- Held Linezolid per ID, now on daptomycin, renally adjusted
# proximal muscle weakness
- Unclear etiology--MG flare vs infection/sepsis (recent left hand abscess)
- No leukocytosis
- neurology and oncology following--initial plan for PLEX however held due to thrombocytopenia (plts 23)
- continue prednisone 30 mg daily and mestinon 60mg q6h and Vyvgart
- continue Daptomycin and Micafungin per ID
- continue to hold aspirin
- Vital capacity q12h
- Head CT neg
#elevated troponin
- cardiology following - hold statin and ASA given pancreatitis and thrombocytopenia
- pt remains asymptomatic
- likely in the setting of ANGELIA, nonischemic myocardial injury troponin elevation
- peaked at 1.19, now downtrending
#lactic acidosis
- Likely multifactorial (infection vs Linezolid adverse effect)
- will check daily
- downtrending today
#anemia, thrombocytopenia
- Likely multifactorial (infection vs Linezolid vs cirrhosis vs dilutional)
- Will hold off PLEX
- Informed by nurse that patient fell off bed last night around midnight while trying to go to the restroom. Patient states he did not strike his head and did not lose consciousness. Has bruises all over his extremeties. Bleeding precautions -- Head
CT neg
- Transfuse 2 unit plts and 1 unit PRBC
- Oncology following
- Hold ASA
- Continue to monitor counts
#Liver cirrhosis--likely 2/2 ETOH use--outpt f/u with GI
Full code
DVT prophylaxis - SCDs
Anticipated Discharge: 24 - 48 hours
Subjective/Interval History
-
Date of Service: March 06, 2024
Objective Data
-
Labs:
Laboratory Results
03/05/24 03/06/24 03/06/24
23:34 04:58 10:00
WBC 8.0 6.3 Pending
Hgb 8.1 L 7.1 L Pending
Hct 24.0 L 20.6 L* Pending
Plt Count 35 L D 19 L* D Pending
Sodium 141 142
Potassium 4.5 4.1
Chloride 118 H 118 H
Carbon Dioxide 11 L* 16 L
BUN 52 H 53 H
Creatinine 2.1 H 1.9 H
Glucose 89 58 L
Calcium 7.1 L 6.8 L*
Total Bilirubin 1.5 H
AST 46
ALT 37
Alkaline Phosphatase 122
Vital Signs:
Vital Signs
Temp Pulse Resp BP Pulse Ox
97.8 F 76 16 102/41 99
03/06/24 03:00 03/06/24 06:00 03/06/24 06:00 03/06/24 06:00 03/06/24 06:00
I&O
03/05/24 03/06/24 03/07/24
06:59 06:59 06:59
Intake Total 480 / 480 4100 / 4100
Output Total 125 / 125 325 / 325
Balance 355 / 355 3775 / 3775
Review of Systems
-
History Source: Patient
Constitutional: Reports Weakness
EENT: Reports No Symptoms Reported
Respiratory: Reports No Symptoms
Cardiac: Reports No Symptoms
Abdomen/GI: Reports Abdominal Pain
Breast: Reports No Symptoms
Genitourinary: Reports No Symptoms
Musculoskeletal: Reports Other (Bruising on bilateral UE and LE)
Skin: Reports Other (bruises)
Neuro: Reports No Symptoms
Endocrine: Reports No Symptoms
Hematologic / Lymphatic: Reports Bruising
Allergy / Immunology: Reports No Symptoms
Physical Exam
-
General: Well Developed, Well Nourished, No Apparent Distress and Comfortable
HEENT: Normocephalic
Respiratory: Clear to Auscultation
Cardiac: Regular Rhythm and S1/S2
GI: Soft, Nondistended, Normal Bowel Sounds and Tender (Epigastric)
Genito-urinary: No Costovertebral Tender
Musculoskeletal: No Clubbing, No Cyanosis, No Edema and Other
Skin: Warm, Dry and Other (White fingers, Raynaud's?)
Neuro: Awake, Alert and Oriented
Hematologic / Lymphatic: No Lymphadenopathy
Psych: Calm
[2024-03-06 07:52] LABS: % Basophils 0.2 % (0-2); % Immature Granulocytes 0.3 % (0-0.5); % Lymphocytes 9.5 % (20.5-51.1); % Monocytes 2.1 % (1.7-9.3); % Neutrophils 87.9 % (42.2-75.2); Absolute Lymphocytes 0.6 10^3/uL (1.2-3.4); Absolute Monocytes 0.1 10^3/uL (0.1-0.6); Absolute Neutrophils 5.6 10^3/uL (1.4-6.5); Nucleated Red Blood Cells % 0 % (-)
[2024-03-06] MEDS: PROTONIX 40 MG PO ×2 (08:16→20:48)
[2024-03-06] MEDS: DELTASONE 30 MG PO (08:17)
[2024-03-06] MEDS: LOPRESSOR PO (09:43)
[2024-03-06 09:44] LABS: Glucose - Point of Care 94 mg/dl (70-99)
--- NOTE | 2024-03-06 09:59 | W.PN.ONC2 ---
Today's Communication / Plan
-
HOLDING PLEX.
Transfuse PRBC x 1 and PLT x 2.
Impression
Impression
Pancreatitis
Cirrhosis
Hx of Myasthenia gravis with weakness
normocytic anemia
thrombocytopenia
Left hand abscess on abx (daptomycin)
Plan
Plan
Unclear if weakness is secondary to MG flare or pancreatitis/sepsis/anemia
HOLDING PLEX, unsafe w/ platelet count < 30,000 and other possible explanations for weakness, d/w neurology
[facility] & pharmacy aware of cancelling PLEX. We will standby but not planing to resume unless neuro or pulm wish to resume.
Thrombocytopenia likely from antibiotics, sepsis, cirrhosis
Watch for bleeding, would stop ASA if possible (cardiac stents)
Antibiotics change to Daptomycin (from Linezolid)
Mgmt of pancreatitis/cirrhosis per GI
Subjective/Objective
Chief Complaint
ACS Heme Onc
Subjective
Still feels pretty sick...main issues are feeling weak and stomach issues. No serious bleeding. FOR PRBC x 1 and PLT x 2 units ordered by primary team.
Vital Signs:
Vital Signs
Temp Pulse Resp BP Pulse Ox
98 F 79 21 105/50 99
03/06/24 07:05 03/06/24 09:43 03/06/24 08:16 03/06/24 09:43 03/06/24 08:16
Lab Results:
Laboratory Data
WBC 6.3 10^3/uL (4.8-10.8) 03/06/24 04:58
Hgb 7.1 g/dL (13.0-18.0) L 03/06/24 04:58
Plt Count 19 10^3/uL (130-400) L* D 03/06/24 04:58
PT 15.9 Sec (11.4-14.6) H 03/04/24 13:50
INR 1.24 03/04/24 13:50
APTT 30.0 Sec (23.4-35.0) 03/04/24 13:50
eGFR 36.33 03/06/24 04:58
Physical Exam
HEENT: No Jaundice
Cardiology: S1 and S2
Pulmonary: Clear
GI: Soft
--- NOTE | 2024-03-06 10:00 | W.PN.CARDCBS ---
Today's Communication / Plan
-
Suspect elevated troponin is nonischemic myocardial injury troponin elevation
Hold aspirin will platelet count is below 50K
Stable from a cardiac standpoint
We will sign off, please recall as needed
Impression / Plan
-
PCP: Juancarlos Champagne
Shot Hole Driller: Dr. Vish Serrato, [facility]
Impression:
Presents 03/04/2024 with abdominal pain associated with diarrhea, poor oral intake, progressive weakness and blurred vision
Acute pancreatitis
Anemia
Thrombocytopenia, concern secondary to linezolid
ANGELIA
Abnormal troponin
Left hand cellulitis/abscess with prior I&D January 2024 on 6-week course of linezolid
Myasthenia gravis exacerbation/flare
CAD s/p stents x 2 vessels 1996
GERD/Platt esophagus
Hypertension
Hyperlipidemia
Insulin dependent diabetes
Myasthenia Gravis
Left hand cellulitis
Echo 03/05/2024: pending
Lexiscan nuclear stress test at [facility] 09/08/2017: Small area of mildly reversible myocardial ischemia involving apical lateral segment. EF greater than 65%.
Plan:
-Presented 03/04/2024 with abdominal pain associated with diarrhea, poor oral intake, progressive weakness and blurred vision
-Found to have acute pancreatitis on CT of abdomen 03/04/24 and lipase greater than 4000. Patient currently n.p.o. with ongoing IV fluids. GI has been consulted
-Need to be cautious with IV hydration as patient reports he has history of as needed utilization of Lasix. May require IV Lasix dosing if he receives significant volume.
-Thrombocytopenia with acute anemia. Possible that linezolid caused thrombocytopenia. This has been discontinued. ID following and started daptomycin for ongoing treatment of left hand cellulitis.
-Abnormal troponin which peaked at 1.19, no need to repeat
-Not reporting any chest discomfort
-EKG shows sinus rhythm without ischemic changes
-TTE with NL LVEF and no significant wall motion abnormalities
-Suspect nonischemic myocardial injury secondary to acute pancreatitis, anemia and ANGELIA.
-Known CAD with remote PCI/stenting of 2 vessels in 1996
-Hold ASA while platelet count <50k, resume when stable above this threshold
-Statin on hold in setting of pancreatitis
-Aldactone on hold for ANGELIA
Stable cardiac status
We will sign off, pleas recall as needed
He should follow up with his primary guest relations executive
[facility] 03/05/2024:
Patient is a 73 year old male with past medical history of CAD with remote history of two-vessel stenting in 1996, hypertension, hyperlipidemia, GERD/Platt's esophagus, IDDM, MG, with recent cellulitis/abscess involving left hand s/p I+D 02/05/24
on oral Linezolid who presented to the hospital 03/04/2024 with abdominal pain associated with diarrhea, poor oral intake, progressive weakness and blurred vision. He was diagnosed with myasthenia gravis in August [address] Gabriel of
neurology in [place]. Patient found to have significantly elevated lipase greater than [address] of abdomen showed acute pancreatitis with moderate hepatic cirrhosis and small volume ascites. Chest x-ray showed no acute cardiopulmonary
abnormality. Troponin initially 0.076 and upward trending, currently 0.833. EKG shows sinus rhythm with nonspecific ST-T wave abnormality and no evidence of ischemic changes. Creatinine of 2.4. Patient found to be anemic with hemoglobin of 8.3
and thrombocytopenic with platelets 23,000. Cardiology being asked to see patient due to abnormal troponin. Patient denies chest pain, shortness of breath, palpitations, orthopnea, PND or edema. He does report on occasion as outpatient he
utilizes as needed Lasix for edema.
He follows with Dr. Vish Serrato at [facility] for his cardiology care. Per review of outpatient records patient previously had been on lisinopril which was discontinued in July 2023 for concern of tongue and throat fullness
Progress Note - Shot Hole Driller
Subjective
Date of Service: March 06, 2024
Asymptomatic from a cardiac standpoint. No chest discomfort or SOB.
Tells me he was disoriented overnight and had a mechanical fall OOB.
Objective
Labs:
03/06/24 04:58
Labs
Hgb 7.1 g/dL (13.0-18.0) L 03/06/24 04:58
Hct 20.6 % (39.0-52.0) L* 03/06/24 04:58
Plt Count 19 10^3/uL (130-400) L* D 03/06/24 04:58
PT 15.9 Sec (11.4-14.6) H 03/04/24 13:50
INR 1.24 03/04/24 13:50
APTT 30.0 Sec (23.4-35.0) 03/04/24 13:50
Sodium 142 mmol/L (135-145) 03/06/24 04:58
Potassium 4.1 mmol/L (3.5-5.1) 03/06/24 04:58
BUN 53 mg/dl (9-20) H 03/06/24 04:58
Creatinine 1.9 mg/dL (0.7-1.3) H 03/06/24 04:58
Glucose 58 mg/dl (70-99) L 03/06/24 04:58
Troponins
03/04/24 03/04/24 03/04/24
13:10 18:08 23:14
Troponin I 0.076 H* 0.087 H* 0.185 H* D
03/05/24 03/05/24 03/05/24
06:26 12:10 17:35
Troponin I 0.833 H* D 1.190 H* D 1.130 H*
03/06/24 03/06/24
04:58 06:00
Troponin I 0.752 H* Cancelled
Vital Signs and I&O:
Vital Signs
Temp Pulse Resp BP Pulse Ox
98 F 79 21 105/50 99
03/06/24 07:05 03/06/24 09:43 03/06/24 08:16 03/06/24 09:43 03/06/24 08:16
Vital Signs
Temp Pulse Resp BP Pulse Ox
98 F 79 21 105/50 99
03/06/24 07:05 03/06/24 09:43 03/06/24 08:16 03/06/24 09:43 03/06/24 08:16
Intake & Output
03/04/24 03/05/24 03/06/24 03/07/24
06:59 06:59 06:59 06:59
Intake Total 480 / 480 4100 / 4100
Output Total 125 / 125 325 / 325
Balance 355 / 355 3775 / 3775
Physical Exam
Physical Exam
Gen: NAD, AA
HEENT: NC/AT, sclera anicteric
Neck: No JVD
CV: RRR, NL s1/s2, no M/R/G
Lungs: CTAB
Abd: S/ND
Ext: trace peripheral edema
Skin: Warm, dry, ecchymotic
Neuro: Non-focal
--- NOTE | 2024-03-06 10:06 | W.PN.NEURO.1 ---
Addendum entered and electronically signed by Edwin Wolfe MD 03/06/24 10:49:
Studies reviewed.
I have personally examined the patient. I reviewed and agree with the FABRIC WORKER's Note.
My addenda:
Awake, alert, interactive. No acute distress.
Speech intact. No tremor.
Extra-ocular movements grossly intact.
Facial movements full and symmetric. Hearing intact to normal conversational volume.
Normal UE movements bilaterally.
Neck: full ROM.
Chest: no dyspnea
Heart: no JVD
Ext: (-) Clubbing, (-) Cyanosis, (-) Edema
IMPRESSIONS/RECOMMENDATIONS:
Abrupt onset of lower extremity weakness and prior history of myasthenia gravis
The patient is now diagnosed with pancreatitis which may be producing generalized weakness. The patient's fall last evening with significantly low platelets is concerning for the possibility of an intracranial lesion
Would not yet perform plasma exchange and would delay same until after profound improvement from a pancreatitis standpoint as remediation of that issue may improve the patient's proximal strength on its own without the need for additional therapy
Continue both pyridostigmine and prednisone
Would restart aspirin when possible from thrombocytopenic standpoint
Check CT of head due to recent fall and thrombocytopenia
Will continue to follow patient.
Original Note:
Today's Communication / Plan
-
-continue pyridostigmine and prednisone
-continue therapy
-CT head
Neuro Assessment/Plan
Assessment
This is a 73-year-old male patient who presented to the ER yesterday, 03/04/2024, with GI distress, progressive weakness and vision being unclear. He was diagnosed with myasthenia gravis in August 2023. He received IVIG which was not helpful and was
therefore admitted to [facility] for plasmapheresis. He was started on Vyvgart Hytrulo, he has also been taking pyridostigmine 60 mg 4 times a day as well as steroids. In January after a fall developed left hand abscess requiring I&D and
ongoing antibiotics including linezolid for 6 week course. Prednisone was aggressively reduced to 30 mg daily. Plan was to initiate plasmapheresis today. Labs today show significant drop in platelets as well as hemoglobin. Lipase remains
elevated at greater than 4000, CT abdomen 03/04/2024 acute showed pancreatitis. Troponin level was also elevated as well as lactic acid.
Plan
-Continue pyridostigmine 60 mg QID and 30 mg of prednisone
-Hold off on plasmapheresis at this time. This was discussed with hematology and GI
-Continue to monitor labs
-Still need records from [facility] and Dr. Gabriel primary neurologist
-continue PT/OT and speech evaluations and treatment
-continue CT head d/t to fall last night and low platelet count
-rest of medical management per primary care team
Subjective/Objective
Subjective Data
Date of Service: March 06, 2024
Pt seen at bedside today in IMU. He did have a fall out of bed last night. He reports he became disoriented and was looking for his nurses and his . He does report he has continued generalized weakness. He denies any headache or new pain.
Objective Data
Vital Signs
Temp Pulse Resp BP Pulse Ox
98 F 79 21 105/50 99
03/06/24 07:05 03/06/24 09:43 03/06/24 08:16 03/06/24 09:43 03/06/24 08:16
Lab Results
03/06/24 04:58
PT 15.9 Sec (11.4-14.6) H 03/04/24 13:50
INR 1.24 03/04/24 13:50
APTT 30.0 Sec (23.4-35.0) 03/04/24 13:50
Sodium 142 mmol/L (135-145) 03/06/24 04:58
Potassium 4.1 mmol/L (3.5-5.1) 03/06/24 04:58
BUN 53 mg/dl (9-20) H 03/06/24 04:58
Glucose 58 mg/dl (70-99) L 03/06/24 04:58
Calcium 6.8 mg/dl (8.4-10.2) L* 03/06/24 04:58
Patient Allergies
hydrocortisone [From Westcort ([id number])] Allergy (Unknown, Verified 02/27/24 13:27)
Unknown
neomycin [From Westcort ([id number])] Allergy (Unknown, Verified 02/27/24 13:27)
Unknown
polymyxin B [From Westcort ([id number])] Allergy (Unknown, Verified 02/27/24 13:27)
Unknown
varenicline Allergy (Unknown, Verified 02/27/24 13:27)
Unknown
latex Allergy (Verified 02/27/24 13:27)
Hives/REDNESS
Review of Systems
-
History Source: Patient
Constitutional: No Symptoms
EENT: No Symptoms Reported
Respiratory: No Symptoms
Cardiac: No Symptoms
Abdomen/GI: No Symptoms
Genitourinary: No Symptoms
Musculoskeletal: Muscle Weakness
Skin: Other (various areas of bruising)
Neuro: Weakness
Endocrine: No Symptoms
Hematologic / Lymphatic: Bruising
Physical Exam
-
General: Appears Chronically Ill
Eyes: Unremarkable
HEENT: Thrush
Neck: Full Range of Motion
Respiratory: No Dyspnea and Accessory Resp Muscle Use
Cardiac: Regular Rhythm
GI: Soft
Skin: Other (various areas a bruisn=ing and bandages)
Extremities: Edema +2
Psych: Unremarkable
Extended Neurological Exam
Mood & Affect: Mood Unremarkable and Affect Unremarkable
Attention Span & Concentration: Awake, Alert, Interactive and No Difficulty with 2 Step Request
Memory: Unremarkable
Tremor: Negative Hand Tremor Absent or Head Tremor Absent
Involuntary Movement: None
Speech: Quality Unremarkable and Quantity Unremarkable
Cranial Nerve II: Left Eye: Pupillary Reactivity Unremarkable and Pupillary Size Unremarkable
Cranial Nerve II: Right Eye: Pupillary Reactivity Unremarkable and Pupillary Size Unremarkable
Cranial Nerves III, IV, : Extraocular Movement: Extraocular Movement Full in all Directions
Cranial Nerve VII: Facial Symmetry: Normal Facial Symmetry
Cranial Nerve VIII: Hearing: Unremarkable Hearing to Normal Conversational Volume
Cranial Nerve XI: Shoulder Shrug: Unremarkable
Muscle Strength, Overall: Full Throughout
Pronator Drift: No Drift in Upper Extremities and Drift in Left Lower Extremity
Coordination: [id number] Testing Unremarkable
Medication and Allergies
Home Medications
Home Medications
�Medication �Instructions �Recorded
aspirin 81 mg capsule 81 mg PO Q48H Blood Clot 10/11/23
Prevention/Tx
esomeprazole magnesium 20 mg 20 mg PO BID Gastrointestinal Issue 10/11/23
capsule,delayed release (Nexium)
metoprolol tartrate 100 mg tablet 100 mg PO DAILY Heart 10/11/23
Disease/Condition
pyridostigmine bromide 60 mg tablet 60 mg PO Q6 MYASTHENIA GRAVIS 10/11/23
simvastatin 20 mg tablet 20 mg PO HS High Cholesterol 10/11/23
spironolactone 25 mg tablet 25 mg PO DAILY Heart 10/11/23
Disease/Condition
insulin lispro 100 unit/mL 3 - 10 unit SC MEALS Diabetes 01/02/24
subcutaneous pen
acetaminophen 500 mg tablet 1,000 mg PO Q6HPRN PRN mild pain 02/02/24
prednisone 20 mg tablet 30 mg PO DAILY MYASTHENIA GRAVIS 02/02/24
linezolid 600 mg tablet 600 mg PO BID #80 tabs 02/06/24
diphenhydramine 25 1 tab PO HS PRN sleep 02/27/24
mg-acetaminophen 500 mg tablet
(Tylenol PM Extra Strength)
efgartigimod jimbo 1008 5.6 ml SC TU MG 02/27/24
hs-vqpylzks-mmcc 11,200 unit/5.6
mL subcut soln (Vyvgart Hytrulo)
Allergies
Allergies
Allergy/AdvReac Type Severity Reaction Status Date / Time
hydrocortisone Allergy Unknown Unknown Verified 02/27/24 13:27
[From Westcort
([id number])]
neomycin Allergy Unknown Unknown Verified 02/27/24 13:27
[From Westcort
([id number])]
polymyxin B Allergy Unknown Unknown Verified 02/27/24 13:27
[From Westcort
([id number])]
varenicline Allergy Unknown Unknown Verified 02/27/24 13:27
latex Allergy Hives/REDNE Verified 02/27/24 13:27
SS
Vital Signs / Labs
-
Vital Signs and Labs:
Temp Pulse Resp BP Pulse Ox
98 F 79 21 105/50 99
03/06/24 07:05 03/06/24 09:43 03/06/24 08:16 03/06/24 09:43 03/06/24 08:16
03/06/24 04:58
03/05/24 03/05/24 03/05/24
09:48 12:10 17:35
RBC
Hgb
Hct
MCV
MCH
Plt Count
MPV
Absolute Lymphs (auto)
Neutrophils %
Lymphocytes %
VBG pH 7.22 L
VBG pCO2 33 L
VBG pO2 51 H
VBG HCO3 13.5 L
Chloride
Carbon Dioxide
BUN
Creatinine
Glucose
Lactic Acid
Calcium
Total Bilirubin
Troponin I 1.190 H* D 1.130 H*
Total Protein
Albumin
Lipase
POC Glucose
03/05/24 03/06/24 03/06/24
23:34 04:58 06:48
RBC 2.46 L 2.18 L
Hgb 8.1 L 7.1 L
Hct 24.0 L 20.6 L*
MCV 97.6 H 94.5 H
MCH 32.9 H 32.6 H
Plt Count 35 L D 19 L* D
MPV 12.5 H 13.5 H
Absolute Lymphs (auto) 0.6 L
Neutrophils % 87.9 H
Lymphocytes % 9.5 L
VBG pH
VBG pCO2
VBG pO2
VBG HCO3
Chloride 118 H 118 H
Carbon Dioxide 11 L* 16 L
BUN 52 H 53 H
Creatinine 2.1 H 1.9 H
Glucose 58 L
Lactic Acid 3.8 H
Calcium 7.1 L 6.8 L*
Total Bilirubin 1.5 H
Troponin I 0.752 H*
Total Protein 4.1 L
Albumin 2.3 L
Lipase 2004 H*
POC Glucose 57 L
03/06/24 03/06/24
07:03 07:29
RBC
Hgb
Hct
MCV
MCH
Plt Count
MPV
Absolute Lymphs (auto)
Neutrophils %
Lymphocytes %
VBG pH
VBG pCO2
VBG pO2
VBG HCO3
Chloride
Carbon Dioxide
BUN
Creatinine
Glucose
Lactic Acid
Calcium
Total Bilirubin
Troponin I
Total Protein
Albumin
Lipase
POC Glucose 69 L 110 H
[2024-03-06 10:16] LABS: Hematocrit 19.9 % (39.0-52.0); Hemoglobin 6.9 g/dL (13.0-18.0); Mean Corp Hgb Conc. 34.7 g/dL (33.0-37.0); Mean Corpuscular Hgb 32.9 pg (27.0-31.0); Mean Corpuscular Volume 94.8 fL (80.0-94.0); Platelet Count 18 10^3/uL (130-400); Red Cell Dist. Width 13.4 % (11.5-14.5); White Blood Cell Count 5.5 10^3/uL (4.8-10.8)
[2024-03-06 10:32] LABS: Lactic Acid 3.9 mmol/L (0.7-2.0)
--- NOTE | 2024-03-06 10:38 | PTCARENOTE ---
Assumed care of patient at beginning of this shift from previous RN. Patient sustained a fall on previous shift resulting in multiple skin tears b/l arms that are covered with adhesive foam. R arm skin tear was noted to have large amount of bloody
drainage under dressing. Site redressed with assistance of VAT RN d/t part of foam being under midline dressing. WOC RN consulted. Dr Hill in room during dressing change and able to see site.
Repeat H&H drawn this mornin.9/, PLT 18, LA 3.9. Dr Hill and Dr Richey made aware when on unit to see patient; stated they will order 2 units PLTs and 1 unit PRBC and will order repeat LA for tomorrow and not repeat in 4hrs. Also stated IVF
to be decreased from 200ml/hr to 100ml/hr.
See worklist for full assessment and vital signs; see MAR for med administration.
--- NOTE | 2024-03-06 10:44 | PTCARENOTE ---
Patient ordered CT head by neurology; confirmed with Dr Hill that patient may go at this time.
--- NOTE | 2024-03-06 11:25 | RESPNOTE ---
patient returned to room after CT scan. attempted VC and NIF per order but patient states 'too tired.' patient instructed that NIF and VC needs to be completed once today and that this therapist will return after 1300 to attempt.
[2024-03-06] MEDS: MYCAMINE 105 MG IV (12:01)
--- NOTE | 2024-03-06 12:11 | PTCARENOTE ---
T&S ordered x2 sent.
[2024-03-06 12:17] LABS: Glucose - Point of Care 95 mg/dl (70-99)
--- NOTE | 2024-03-06 12:41 | W.PN.ID1 ---
Date of Service
Date of Service: March 06, 2024
Today's Communication
daptomycin dosing adjusted for improving renal function
continue micafungin
Assessment / Plan
Suspected flare of myasthenia gravis
Hx left hand infection with MRSA, Probable osteomyelitis
- On 6-week course of antibiotics
Thrombocytopenia - likely multifactorial - linezolid, cirrhosis, sepsis
Pancreatitis - possibly due to linezolid
ANGELIA - improving
Lactic acidosis - improving
CAD
CHF
GERD
HTN
DM
Possible Cirrhosis
Recommendations:
Probable left Hand Osteomyelitis
Currently d#31 (of 42) of effective rx, (from debridement)
c/w daptomycin
- 700 mg adjusted to q24 hour dosing
- hold statin while on daptomycin
- CPK baseline normal 03/05, repeat weekly while on daptomycin
Lactic acidosis/pancreatitis may relate to linezolid. So long as BP remains stable daily lactate levels sufficient from ID perspective, may take up to two weeks to see full resolution; pleased to see improvement overnight
Monitor CBC, BMP and temperature curve.
Oral and possibly Candidiasis
- qtc 440
- has dysphagia
- c/w micafungin
Chief Complaint
-: Other (possible osteomyelitis, lactic acidosis)
Subjective / Review of Systems
afebrile
bp stable - had some hypotension over night
got 1 unit of PRBCs and 2 units of platelets
unwitnessed fall overnight when trying to go to the bathroom
Vital Signs / Physical Exam
Vital Signs
Vital Signs
Temp Pulse Resp BP Pulse Ox
98 F 93 21 119/54 98
03/06/24 07:05 03/06/24 12:00 03/06/24 12:00 03/06/24 12:00 03/06/24 12:00
Physical Exam
Constitutional: No Acute Distress and Chronically Ill
Cardiovascular: Regular Rate and S1/S2; Negative Murmur or Rub
Pulmonary: Clear and Symmetric; Negative Wheezes or Rales
Gastrointestinal: Soft, Non Tender (resolved from yesterday), Non Distended and Normal Bowel Sounds
Musculoskeletal: Other (joints evaluated and no joint swelling)
Skin: Warm, Dry and Other (scattered bruising); Negative Rash or Jaundice
Neurological: Awake and Alert
Psychological: Calm
Objective Data
Lab Data
Lab Results
03/06/24 09:42
03/06/24 04:58
PT 15.9 Sec (11.4-14.6) H 03/04/24 13:50
INR 1.24 03/04/24 13:50
APTT 30.0 Sec (23.4-35.0) 03/04/24 13:50
Estimated Creat Clear 35 ml/min 03/06/24 04:58
Lactic Acid 3.9 mmol/L (0.7-2.0) H 03/06/24 09:42
Total Bilirubin 1.5 mg/dl (0.2-1.3) H 03/06/24 04:58
AST 46 U/L (17-59) 03/06/24 04:58
ALT 37 U/L (0-50) 03/06/24 04:58
Alkaline Phosphatase 122 U/L (38-126) 03/06/24 04:58
Most recent labs reviewed.
plt running about 20 today
Cr improving
lipase down to 2000 from 4000
Micro Results:
03/04/24 08:39 Influenza Types A & B (RYLIE) - Final
Nasal Swab Negative for Influenza A & B, NAAT
Negative results must be combined with clinical observations
and patient history.
Nucleic Acid Amplification test (NAAT)performed on the
[employer] platform.
[2024-03-06 13:53] LABS: Urine Sodium 24 mmol/L (30-90)
--- NOTE | 2024-03-06 13:54 | PTCARENOTE ---
Sent for 1st unit platelets
--- NOTE | 2024-03-06 14:02 | W.PN.GI.CBS2 ---
Today's Communication / Plan
-
clear liquid diet
Assessment / Plan
-
Pt is a 73yo presents with HTN, NIDDM, CAD, CHF, GERD, graves's esophagus, prior mark, cellulitis/abscess, and myasthenia Gravis on Prednisone and pyridostigmine with prior IVIG/plasmapheresis and Vyvgart Hytulo use. He had recent fall with
hand abscess requiring Linezolid course. He is now noted with with diarrhea, abdominal pain, dysphagia, wt loss, and lipase >4000. Labs also noted with lipase 5.1, troponin 0.076, bili 2.2, AST 37, ALT 46, alk phos 151. Pt also noted with
complaints of progressive weakness and blurred vision with plan for plasmapheresis therapy. No recent ETOH use. No NSAID use.
-Acute pancreatitis. etiology unknown . possible medication induced
-diarrhea
-dysphagia
-wt loss
-acute on chronic CKD
-myasthenia Gravis with multiple recent treatment and concern for current flare
-recent cellulitis with Linezolid use
-elevated lactate level
-thrombocytopenia
-anemia
-elevated troponin
other med problems:
-NIDDM
-HTN
-CAD
-CHF
-graves's esophagus
-GERD
CT abd/Pel 03/04 without IV cont
IMPRESSION:
1. MODERATE ACUTE INTERSTITIAL EDEMATOUS PANCREATITIS.
2. Moderate diffuse pancreatic parenchymal atrophy and lipomatosis.
3. MODERATE HEPATIC CIRRHOSIS.
4. Small volume of abdominal and pelvic ascites.
5. Severe chronic bilateral renal disease.
6. Previous cholecystectomy.
7. Severe calcific atherosclerotic plaque in the coronary arteries.
8. Mild inflammatory interstitial pneumonitis in the lungs.
PLAN:
TG normal .
ok for clear liquid diet today
Case discussed with neurology/hematology. Plasmapheresis on hold with severe thrombocytopenia continue milligram once daily as per neurology.
Etiology of thrombocytopenia can be multifactorial considering recent antibiotic use/sepsis/liver cirrhosis -continue follow-up with hematology
IV fluid as per medical team
if worsening abdominal pain / worsening LFT will recommend MRI/MRCP ( current CT abd / US imaging s/p cholecystectomy. No biliary dilatation. Liver test stable with normal AST/ALT/ALP with T.Bili 1.7 today )
If diarrhea persist would recommend stool studies for infection
severe thrombocytopenia / acute anemia - No overt GI bleeding . Hematology following . will get PRBC/ Plt transfusion today
Further evaluation of liver cirrhosis as outpatient. Likely etiology ETOH use in the past
Total Time Spent with Patient (in minutes): 35
Subjective
Subjective
Date of Service: March 06, 2024
Kevin any abdominal pain/ N/V
Objective
Data Reviewed
Laboratory Data:
Laboratory Results
03/06/24 09:42
03/06/24 04:58
Laboratory Results
PT 15.9 Sec (11.4-14.6) H 03/04/24 13:50
INR 1.24 03/04/24 13:50
APTT 30.0 Sec (23.4-35.0) 03/04/24 13:50
Total Bilirubin 1.5 mg/dl (0.2-1.3) H 03/06/24 04:58
AST 46 U/L (17-59) 03/06/24 04:58
ALT 37 U/L (0-50) 03/06/24 04:58
Alkaline Phosphatase 122 U/L (38-126) 03/06/24 04:58
Lipase 2004 U/L (23-300) H* 03/06/24 04:58
Vital Signs and I&O:
Vital Signs
Temp Pulse Resp BP Pulse Ox
98 F 93 21 119/54 98
03/06/24 07:05 03/06/24 12:00 03/06/24 12:00 03/06/24 12:00 01/22/25 12:00
I&O
03/05/24 03/06/24 03/07/24
06:59 06:59 06:59
Intake Total 480 / 480 4100 / 4100
Output Total 125 / 125 325 / 325
Balance 355 / 355 3775 / 3775
Physical Exam
Physical Exam
GI: Soft, Non Distended and Non Tender
--- NOTE | 2024-03-06 14:07 | PN.CDI ---
CDI
- -
CDI:
Physician Documentation Request
Admit Date: 03/04/24 13:18
Dear Doctor Sergio/Resident ,
Please review the following and provide your response in the progress notes.
Clinical Indicators:
Documentation in the record on _Progress note 03/05 ____ includes the diagnosis of sepsis. The following clinical information was noted in the record:
Pt admitted with Myasthenia Gravis Flare/ Acute Pancreatitis
No documented elevated WBC's ,Pulse or Respirations or fever
Recognized standard criteria for this condition and other associated definitions:
�Sepsis
-Systemic manifestations of infection, with 2 or more SIRS criteria which include:
-Fever > 100.4��F or hypothermia < 96.8��F
-Leukocytosis WBC > 12,000 or leukopenia, WBC < 4,000, or > 10% bands
-Tachycardia- > 90 beats/minute
-Tachypnea- RR > 20 breaths/minute or PaCO2 < 32mmHg
Source: Merck Manual 2013
Based on the above information and the recognized standard SIRS criteria, please clarify if sepsis is still an accurate diagnosis, and reflective of the patient�s condition, to ensure quality of the medical record.
Please clarify in the Progress Notes:
�Sepsis is/was present and is a clinical diagnosis based on (please include this additional support in the medical record)
�After study sepsis has been ruled out
�Other ( please specify)
Use of terms such as suspected, likely, concern for, or probable (associated with a specific diagnosis that is being evaluated, monitored, or treated as if it exists) are acceptable and can be coded in the inpatient setting, when documented at the
time of discharge.
Thank you,
Emely Lara RN
CDI Specialist
[place] [facility]
Please use your independent medical judgment in providing your response.
--- NOTE | 2024-03-06 14:09 | WOUNDNOTE ---
RIGHT UPPER ARM
--- NOTE | 2024-03-06 14:09 | WOUNDNOTE ---
RIGHT UPPER ARM
--- NOTE | 2024-03-06 14:10 | WOUNDNOTE ---
RIGHT LOWER LEG
--- NOTE | 2024-03-06 14:10 | WOUNDNOTE ---
RIGHT LOWER LEG
--- NOTE | 2024-03-06 14:10 | WOUNDNOTE ---
LEFT LOWER LEG
--- NOTE | 2024-03-06 14:11 | WOUNDNOTE ---
LEFT LOWER LEG
--- NOTE | 2024-03-06 14:11 | WOUNDNOTE ---
RIGHT LATERAL FOOT
--- NOTE | 2024-03-06 14:19 | WOUNDNOTE ---
[facility] RN note: Patient admitted with abdominal pain and diarrhea
See H&P for complete history.
PMH: Per Physician Note: HTN, NIDDM, CAD, CHF, GERD, graves's esophagus, prior mark, cellulitis/abscess, and myasthenia Gravis on Prednisone and pyridostigmine with prior IVIG/plasmapheresis and Vyvgart Hytulo use. Plt count 18.
Wound Location and type/assessment: Patient with multiple skin tears bilateral LE after fall last night. All wounds with pink wound bed and minimal drainage. Skin flap absent from right elbow skin tear. Attempt was made to cover left elbow skin
tear with remaining skin flap, but patient could not tolerate. Buttock skin folds with fungal appearing rash radiating from buttocks to perineum. Patient reports having challenges with skin on buttocks 'for a long time.' Skin on top of penis is
dry, cracked. Patient stated he was been using Vaseline to this area BID. Bilateral heels are boggy, with some superficial bruising noted on right medial heel. Scattered bruising on lower legs. Patient reports some of the bruising is old and and
some is new.
Appetite: Ice Chips
Pressure redistribution devices in place: Centrella Max Air, turning schedule, heels off-loaded with pillows or air cushion under calves
Plan: Old foam dressings removed from skin tears. All wounds cleaned with normal saline and dressed with Xeroform, ABD and susu. Will recommend antifungal ointment to buttocks and Vaseline to dry skin on Penis. Protective foam applied to heels.
Will confirm orders with hospitalist and update nurse.Updated care plan and will follow as needed.
Note to case management of equipment requested for discharge:
Recommend follow up at wound care center upon discharge.
--- NOTE | 2024-03-06 14:20 | PTCARENOTE ---
1st unit platelets started; reporting off to [facility].
--- NOTE | 2024-03-06 14:24 | PN.CDI ---
CDI
- -
CDI:
Physician Documentation Request
Admit Date: 03/04/24 13:18
Dear Doctor Sergio/Resident,
Please review the following and provide your response in the progress notes.
Clinical Indicators:
Pt admitted with Myasthenia Gravis Flare/Acute Pancreatitis
Documented in the record is Hx of CHF.
ECHO 03/05, ' ejection fraction is 64% ...'
Per MAR home meds pt takes Spironolactone/Metoprolol
Please provide further specificity regarding the most likely type and acuity of the documented CHF:
Chronic Diastolic CHF
Chronic systolic CHF
HX of CHF only
Other (please specify)
Use of terms such as suspected, likely, concern for, or probable (associated with a specific diagnosis that is being evaluated, monitored, or treated as if it exists) are acceptable and can be coded in the inpatient setting, when documented at the
time of discharge.
Thank you,
Emely Lara RN
CDI Specialist
[place] [facility]
Please use your independent medical judgment in providing your response.
--- NOTE | 2024-03-06 14:34 | RESPNOTE ---
returned to attempt VC and NIF with patient. patient again states 'very tired' and 'i have to get my blood transfusion now.' does not want to do VC/NIF. again stated that MD ordered NIF & VC once daily. expressed to patient that this therapist will
return again before dinner to attempt.
--- NOTE | 2024-03-06 15:38 | CM ---
CM met with pt and spouse bedside
They reside in a 3rd floor condo with elevator access
Pt is independent with his ADLs with use of a WW or SPC
Pt is current with [facility]
Denies financial insecurities
No longer drives
Dtr Alia COURTNEY also involved [phone]
PCP- Juancarlos Champagne
Rx- Narcisa Ingalls
PT/OT evals requested- TT/ resident Dr Richey
Pt noting issues with bed at home
Has not been able to transfer in/out well and has been falling
Requesting recommendations for assistance for DMEs for bed transfers (ie stairs, rails, etc)
Notes high bed-frame and 18' mattress
WOC and ID following
Discharge Disposition- anticipate home with [facility] DARLYN, watch for ID and WOC needs
[2024-03-06] MEDS: CUBICIN 14 MG IV (16:38)
--- NOTE | 2024-03-06 17:19 | W.PN.NEPH.PH ---
Today's Communication / Plan
-
IV fluids
Assessment/Plan
-
Assessment
Myasthenia gravis
ANGELIA
Metabolic acidosis
Lactic acidosis
Pancreatitis
Cirrhosis
diarrhea
Failure to thrive
Thrombocytopenia
Left hand wrist abscess on antibiotics
Plan
Follow BMP
Follow platelets
FFP
continue normal saline.
Bicarbonate improved.
calcium
Daptomycin-OM
creatinine peaked at 2.4 improved to 1.9
-
-
Date of Service: March 06, 2024
CC / HPI / ROS
-
Chief Complaint:
Abdominal pain
History of Present Illness:
abdominal pain it with acute pancreatitis and thrombocytopenia acute kidney injury
Review of Systems:
no chest pain shortness of breath
Labs
-
Labs:
WBC 5.5 10^3/uL (4.8-10.8) 03/06/24 09:42
RBC 2.10 10^6/uL (4.70-6.10) L 03/06/24 09:42
Hgb 6.9 g/dL (13.0-18.0) L* 03/06/24 09:42
Hct 19.9 % (39.0-52.0) L* 03/06/24 09:42
Plt Count 18 10^3/uL (130-400) L* 03/06/24 09:42
Sodium 142 mmol/L (135-145) 03/06/24 04:58
Potassium 4.1 mmol/L (3.5-5.1) 03/06/24 04:58
Chloride 118 mmol/L (98-107) H 03/06/24 04:58
Carbon Dioxide 16 mmol/L (22-30) L 03/06/24 04:58
BUN 53 mg/dl (9-20) H 03/06/24 04:58
Creatinine 1.9 mg/dL (0.7-1.3) H 03/06/24 04:58
eGFR 36.33 03/06/24 04:58
Glucose 58 mg/dl (70-99) L 03/06/24 04:58
Calcium 6.8 mg/dl (8.4-10.2) L* 03/06/24 04:58
Albumin 2.3 g/dl (3.5-5.0) L 03/06/24 04:58
Physical Exam
-
Vital Signs:
Vital Signs
Temp Pulse Resp BP Pulse Ox
97.9 F 85 15 114/66 99
03/06/24 16:44 03/06/24 16:44 03/06/24 16:44 03/06/24 16:44 03/06/24 16:44
Respiratory:: Bilateral: Coarse
Abdomen:: Tender
Bowel Sounds:: Normal
Extremity Edema:: +1: Bilateral:
[2024-03-06] MEDS: NOVOLOG FLEXPEN-LOW RESISTANCE SC (18:31)
[2024-03-06 18:35] LABS: Glucose - Point of Care 151 mg/dl (70-99)
[2024-03-06] MEDS: ANTIFUNGAL CLEAR 1 APPLIC TOPICAL (20:49)
[2024-03-06 21:40] LABS: Glucose - Point of Care 162 mg/dl (70-99)
--- NOTE | 2024-03-06 23:37 | PTCARENOTE ---
Received pt from day time RN. pt aaox3. NSR on the monitor. Hygiene completed including CHG wipes. Pt had Rx for blood infusion, infusion complete (see TAR). VSS. This RN reeducated pt on utilizing call león for any assistance and has been ringing
appropriately. Pt now resting in bed with bed alarm on, door to room open, and call león in reach.
[2024-03-07] VITALS (39 sets, daily range): BP systolic 95–136; BP diastolic 37–86; PULSE 78–79; O2SAT 97; BMI 25.5
[2024-03-07] MEDS: NSS IV ×2 (03:45→06:31)
[2024-03-07 04:32] LABS: Hematocrit 23.8 % (39.0-52.0); Hemoglobin 8.1 g/dL (13.0-18.0); Mean Corpuscular Hgb 31.5 pg (27.0-31.0); Mean Corpuscular Volume 92.6 fL (80.0-94.0); Mean Platelet Volume 12.1 fL (7.4-10.4); Platelet Count 25 10^3/uL (130-400); Red Blood Cell Count 2.57 10^6/uL (4.70-6.10); White Blood Cell Count 5.7 10^3/uL (4.8-10.8)
[2024-03-07 04:44] LABS: Lactic Acid 2.9 mmol/L (0.7-2.0)
[2024-03-07] MEDS: NSS 1000 IV (05:55)
[2024-03-07 06:05] LABS: Blood Urea Nitrogen 41 mg/dl (9-20); Calcium 6.7 mg/dl (8.4-10.2); Carbon Dioxide 18 mmol/L (22-30); Chloride 117 mmol/L (98-107); Estimated Creatinine Clearance 47 ml/min; Glucose 108 mg/dl (70-99); Lipase 951 U/L (23-300); Potassium 3.4 mmol/L (3.5-5.1); Sodium 141 mmol/L (135-145); eGFR 52.41
[2024-03-07] MEDS: MESTINON 60 MG PO ×3 (06:12→17:33)
[2024-03-07 06:18] LABS: Glucose - Point of Care 102 mg/dl (70-99)
--- NOTE | 2024-03-07 07:46 | W.PN.HOSP.TC ---
Addendum entered and electronically signed by Shawnee Hill MD 03/07/24 11:10:
I saw and evaluated the patient. I reviewed the resident�s note and agree with findings and plan as documented in the resident�s note.
A/P:
# Abd pain 2/2 pancreatitis, possibly related to linezolid
Lipase 4000 -> 950, cont to trend
CT abdomen/pelvis, abdominal ultrasound report noted
Cont clears and ADAT
Can observe off additional IVF
can follow IgG4 for autoimmune pancreatitis assessment
# diarrhea, may be related to pancreatitis, resolved
No further diarrhea for stool studies
[employer] Linezolid held
# proximal muscle weakness, possibly MG flare relating to inflammatory process
# recent left hand abscess
# mechanical fall during hospital stay overnight 03/05
neurology and oncology on board
Holding plasmapheresis due to current thrombocytopenia
Cont prednisone 30 mg daily, mestinon 60mg q6h and Vyvgart per neuro
Vital capacity q12h
CT head was checked for fall in setting of thrombocytopenia, no acute intracranial abnormality
# Bicytopenia with anemia and severe thrombocytopenia, likely related to myasthenia crisis
Transfused 1 unit PRBC, Hgb today 8.1
Transfused 2 units platelet, platelet today 25
Consider additional platelet transfusion
Oncology following
ASA on hold
# elevated troponin, suspect non-HI related
Patient denies any chest pain
Troponin peaked at 1.19
cardiology following, holding ASA 2/2 thrombocytopenia
echo unrevealing: EF 64%. Right ventricle Normal size and function. No significant valvular heart disease
# lactic acidosis, improving, likely related to linezolid side effect
# Metabolic acidosis due to above
follow lactic acid level
# Liver cirrhosis, likely 2/2 ETOH use
Full code
DVT prophylaxis - SCDs
Total time spent 51 minutes
Original Note:
Today's Communication/Plan
-
Appreciate oncology input regarding plt transfusion?
Continue daptomycin per ID
Continue steroid, mestinon and Vyvgart
PLEX not an option at this time due to low plts
Monitor QTc
Advance diet to full liquids
D/C IVF
Assessment / Plan
Assessment / Plan
73 y/o male with known myasthenia gravis on mestinon and prednisone with:
#pancreatitis
- Lipase downtrending, now 915
- Unclear etiology-- likely 2/2 Linezolid -- will check IgG4 for autoimmune pancreatitis, pending
- Supportive treatment -- IVF dc and start full liquids per GI and if tolerates low fat diet
- GI following--if worsening abdominal pain / worsening LFT recommend MRI/MRCP.
#diarrhea
- Unclear etiology-- C diff vs norovirus vs antibiotic adverse effect
- Now resolved
- Stool culture, C diff, norovirus held
- Held Linezolid per ID, now on daptomycin, renally adjusted
#proximal muscle weakness
- Unclear etiology--MG flare vs infection/sepsis (recent left hand abscess)
- No leukocytosis
- neurology and oncology following--initial plan for PLEX however held due to thrombocytopenia (plts 23)
- s/p 1 unit PRBC and 2 units Plts
- patient's weakness is not clinically improving
- continue prednisone 30 mg daily and mestinon 60mg q6h and Vyvgart
- continue Daptomycin and Micafungin per ID
- continue to hold aspirin
- Vital capacity q12h
- Head CT neg
#tachycardia
- EKG: sinus tachycardia with PACs
- QT prolonged 465
- Monitor QTc
#elevated troponin
- cardiology following - hold statin and ASA given pancreatitis and thrombocytopenia
- pt remains asymptomatic
- likely in the setting of ANGELIA, nonischemic myocardial injury troponin elevation
- peaked at 1.19, now downtrending
#lactic acidosis
- Likely multifactorial (infection vs Linezolid adverse effect)
- will check daily
- downtrending today 2.9
#anemia, thrombocytopenia
- Likely multifactorial (infection vs Linezolid vs cirrhosis vs dilutional)
- Will hold off PLEX
- Pt has bruises all over his extremeties.
- Bleeding precautions
- Head CT neg
- s/p transfusion 2 unit plts and 1 unit PRBC
- Oncology following - recommend transfusion per parameters
- Hold ASA
- Continue to monitor counts
#Liver cirrhosis--likely 2/2 ETOH use--outpt f/u with GI
Full code
DVT prophylaxis - SCDs
Anticipated Discharge: 24 - 48 hours
Subjective/Interval History
-
Date of Service: March 07, 2024
Objective Data
-
Labs:
Laboratory Results
03/07/24
03:48
WBC 5.7
Hgb 8.1 L
Hct 23.8 L
Plt Count 25 L* D
Sodium 141
Potassium 3.4 L
Chloride 117 H
Carbon Dioxide 18 L
BUN 41 H
Creatinine 1.4 H
Glucose 108 H
Calcium 6.7 L*
Vital Signs:
Vital Signs
Temp Pulse Resp BP Pulse Ox
98.3 F 109 18 135/54 99
03/06/24 23:17 03/07/24 06:00 03/07/24 06:00 03/07/24 06:00 03/07/24 06:00
I&O
03/06/24 03/07/24 03/08/24
06:59 06:59 06:59
Intake Total 4100 / 4100 3193 / 3193
Output Total 325 / 325 525 / 525
Balance 3775 / 3775 2668 / 2668
Review of Systems
-
History Source: Patient
Constitutional: Reports Fatigue and Weakness
EENT: Reports No Symptoms Reported
Respiratory: Reports No Symptoms
Cardiac: Reports No Symptoms
Abdomen/GI: Reports No Symptoms
Breast: Reports No Symptoms
Genitourinary: Reports No Symptoms
Musculoskeletal: Reports Myalgias
Skin: Reports Other (left elbow wound after fall )
Neuro: Reports No Symptoms
Endocrine: Reports No Symptoms
Hematologic / Lymphatic: Reports Bruising
Allergy / Immunology: Reports No Symptoms
Physical Exam
-
General: Well Developed and Well Nourished
HEENT: Normocephalic
Respiratory: Clear to Auscultation
Cardiac: S1/S2, Irregular Rhythm and Tachycardic
GI: Soft, Nontender and Nondistended
Genito-urinary: No Costovertebral Tender
Musculoskeletal: No Clubbing, No Cyanosis, No Edema and Other (Ecchymosis on all extremeties)
Skin: Warm
Neuro: Awake, Alert and Oriented
Hematologic / Lymphatic: No Lymphadenopathy
Psych: Calm
--- NOTE | 2024-03-07 07:51 | PTCARENOTE ---
Received call from Francisco Guo from [employer] asking if patient will need plasma phoresis today. He stated patient was on their schedule tentatively for today. He stated Dr Wolfe had ordered it. This nurse sent a tiger text to Dr Wolfe with this
information and cell # provided by Francisco Guo. Dr Wolfe responded that this is best handled through hematologists. And he will let them know. Today is not the day. This nurse informed him that [facility] gave his name; he texted that was an error.
This nurse then received a new text from Dr Wolfe, 'Tell the [facility] not today. In my opinion.' This nurse provided this information to Francisco Guo who then confirmed that Dr Noyola is heme/onc and he will call Dr Noyola.
[2024-03-07] MEDS: NOVOLOG FLEXPEN-LOW RESISTANCE SC ×3 (07:58→16:43)
[2024-03-07 08:38] LABS: Magnesium 2.2 mg/dl (1.6-2.3)
[2024-03-07] MEDS: KCL 40 MEQ PO (08:41)
[2024-03-07] MEDS: DELTASONE 30 MG PO (08:42)
[2024-03-07] MEDS: PROTONIX 40 MG PO ×2 (08:42→20:43)
[2024-03-07] MEDS: LOPRESSOR 100 MG PO (08:42)
[2024-03-07] MEDS: ANTIFUNGAL CLEAR 1 APPLIC TOPICAL ×2 (08:43→20:43)
[2024-03-07 08:59] LABS: Absolute Neutrophils -Man Diff 5.3 10^3/uL (1.4-6.5); Band Neutrophils 16 % (0-3); Lymphocytes 4 % (20-51); Segmented Neutrophils 77 % (42-75)
[2024-03-07 09:00] LABS: Monocytes 3 % (2-9); Normal RBC Morphology Yes; Nucleated Red Blood Cells 1 (-); Platelets Checked Yes; Total Cells Counted 100
--- NOTE | 2024-03-07 09:00 | W.PN.NEURO.1 ---
Today's Communication / Plan
-
-Continue pyridostigmine 60 mg 4x/day and 30 mg of prednisone
-Continue to hold plasmapheresis at this time until remediation of pancreatitis
Neuro Assessment/Plan
Assessment
This is a 73-year-old male patient who presented to the ER yesterday, 03/04/2024, with GI distress, progressive weakness and vision being unclear. He was diagnosed with myasthenia gravis in August 2023. He received IVIG which was not helpful and was
therefore admitted to [facility] for plasmapheresis. He was started on Vyvgart Hytrulo, he has also been taking pyridostigmine 60 mg 4 times a day as well as steroids. In January after a fall developed left hand abscess requiring I&D and
ongoing antibiotics including linezolid for 6 week course. Prednisone was aggressively reduced to 30 mg daily. Plan was to initiate plasmapheresis today. Labs today show significant drop in platelets as well as hemoglobin.
CT abdomen 03/04/2024 acute showed pancreatitis
Plan
-Continue pyridostigmine 60 mg 4x/day and 30 mg of prednisone
-Continue to hold plasmapheresis at this time until remediation of pancreatitis
-continue PT/OT and speech evaluations and treatment
Will follow peripherally
Subjective/Objective
Subjective Data
Date of Service: March 07, 2024
Objective Data
Vital Signs
Temp Pulse Resp BP Pulse Ox
36.8 C 107 22 120/54 98
03/06/24 23:17 03/07/24 08:42 03/07/24 08:00 03/07/24 08:42 03/07/24 07:29
Lab Results
03/07/24 03:48
03/07/24 03:48
PT 15.9 Sec (11.4-14.6) H 03/04/24 13:50
INR 1.24 03/04/24 13:50
APTT 30.0 Sec (23.4-35.0) 03/04/24 13:50
Sodium 141 mmol/L (135-145) 03/07/24 03:48
Potassium 3.4 mmol/L (3.5-5.1) L 03/07/24 03:48
BUN 41 mg/dl (9-20) H 03/07/24 03:48
Glucose 108 mg/dl (70-99) H 03/07/24 03:48
Calcium 6.7 mg/dl (8.4-10.2) L* 03/07/24 03:48
Patient Allergies
hydrocortisone [From [facility] ([id number])] Allergy (Unknown, Verified 02/27/24 13:27)
Unknown
neomycin [From [facility] ([id number])] Allergy (Unknown, Verified 02/27/24 13:27)
Unknown
polymyxin B [From [facility] ([id number])] Allergy (Unknown, Verified 02/27/24 13:27)
Unknown
varenicline Allergy (Unknown, Verified 02/27/24 13:27)
Unknown
latex Allergy (Verified 02/27/24 13:27)
Hives/REDNESS
Data Reviewed
-
Labs: Report Reviewed
Reviewed with: Nurse Practioner
Old Records: Summarized
Past History
Past History
ED Past Medical History: GERD, HTN, Hypercholesterolemia, IDDM and Other (myasthenia Gravis)
ED Past Surgical History: Cardiac (stents), Cholecystectomy and Orthopedic (right knee replacement)
Social History
Alcohol: Chronic alcoholic
Personal:
Living: with family
Family History
Family History: Other (Reviewed and noncontributory)
Medications
-
Medications:
Generic Name Dose Route Start Last Admin
Trade Name Freq PRN Reason Stop Dose Admin
Acetaminophen 500 mg 03/04/24 15:36
Acetaminophen 500 Mg Tablet PO 04/01/24 15:35
HSPRN PRN
sleep
Acetaminophen 650 mg 03/04/24 15:25 03/06/24 03:55
Acetaminophen 325 Mg Tablet PO 04/01/24 15:24 650 mg
Q4HPRN PRN Administration
mild pain/ALBERTS/temp> 100.4F
Aspirin 81 mg 03/05/24 08:00 03/05/24 08:01
Aspirin 81 Mg (Enteric Coated) Tablet PO 04/02/24 07:59 81 mg
DAILY SÁNCHEZ Administration
Dextrose 12.5 grams 03/04/24 15:25 03/06/24 07:07
Dextrose 50% (0.5 Grams/Ml) 50 Ml Syringe IV 04/01/24 15:24 12.5 grams
[id number] PRN Administration
hypoglycemia
Protocol
Diphenhydramine HCl 25 mg 03/04/24 15:38
Diphenhydramine 25 Mg Capsule PO 04/01/24 15:37
HSPRN PRN
SLEEP
Glucagon 1 mg 03/04/24 15:25
Glucagon 1 Mg Vial IM 04/01/24 15:24
PRN PRN
hypoglycemia
Protocol
Hydromorphone HCl 0.5 mg 03/04/24 15:25
Hydromorphone 0.5 Mg/0.5 Ml Syringe IV 03/18/24 15:24
Q4HPRN PRN
severe pain
Sodium Chloride 1,000 mls @ 100 mls/hr 03/04/24 23:00 03/07/24 06:31
Nss IV Not Given
.Q10H SÁNCHEZ
Micafungin Sodium 100 mg/ 105 mls @ 105 mls/hr 03/05/24 12:00 03/06/24 12:01
Dextrose IV 03/15/24 11:59 105 mls
Q24H SÁNCHEZ Administration
Daptomycin 700 mg/ Device 14 mls @ 0 mls/hr 03/06/24 16:00 03/06/24 16:38
IV 14 mls
Q24H SÁNCHEZ Administration
As Directed
Insulin Aspart 0 units 03/06/24 12:32 03/07/24 07:58
Insulin Aspart Low Resistance 300 Units/3 Ml Pen.Injctr SC 04/02/24 11:31 Not Given
AC SÁNCHEZ
Protocol
Metoprolol Tartrate 100 mg 03/05/24 08:00 03/07/24 08:42
Metoprolol 100 Mg Regular Release Tablet PO 04/02/24 07:59 100 mg
DAILY SÁNCHEZ Administration
Miconazole Nitrate 0 applic 03/06/24 20:00 03/07/24 08:43
Miconazole 2% (Same As Aloe [place]) Ointment Tube TOPICAL 04/03/24 19:59 1 applic
BID SÁNCHEZ Administration
Pantoprazole Sodium 40 mg 03/04/24 20:00 03/07/24 08:42
Pantoprazole 40 Mg Delayed Release Tablet PO 04/01/24 19:59 40 mg
BID SÁNCHEZ Administration
Prednisone 30 mg 03/05/24 08:00 03/07/24 08:42
Prednisone 20 Mg Tablet PO 04/02/24 07:59 30 mg
DAILY SÁNCHEZ Administration
Pyridostigmine Mazon 60 mg 03/04/24 18:00 03/07/24 06:12
Pyridostigmine 60 Mg Tablet PO 04/01/24 17:59 60 mg
Q6 SÁNCHEZ Administration
Sodium Chloride 0 flush 03/05/24 08:00 03/05/24 11:39
Sodium Chloride 0.9% (Flush) Syringe IV 04/02/24 07:59 1 flush
PER PROTOCOL SÁNCHEZ Administration
--- NOTE | 2024-03-07 09:02 | W.PN.ID1 ---
Date of Service
Date of Service: March 07, 2024
Today's Communication
continue daptomycin/micafungin
Assessment / Plan
Suspected flare of myasthenia gravis
Hx left hand infection with MRSA, Probable osteomyelitis
- On 6-week course of antibiotics
Thrombocytopenia - likely multifactorial - linezolid, cirrhosis, sepsis
Pancreatitis - possibly due to linezolid
ANGELIA - improving
Lactic acidosis - improving
CAD
CHF
GERD
HTN
DM
Possible Cirrhosis
Recommendations:
Probable left Hand Osteomyelitis
Currently d#32 (of 42) of effective rx, (from debridement)
c/w daptomycin
- c/w 700 mg q24 hours
- hold statin while on daptomycin
- CPK baseline normal 03/05, repeat weekly while on daptomycin
Lactic acidosis/pancreatitis may relate to linezolid - improving. So long as BP remains stable daily lactate levels sufficient from ID perspective
Monitor CBC, BMP, and temperature curve.
Oral and probably esophageal candidiasis
- qtc 440
- has dysphagia
- c/w micafungin day 3
Chief Complaint
-: Other (possible osteomyelitis, lactic acidosis)
Subjective / Review of Systems
afebrile
bp stable
able to lift both arms against gravity and use spoon to eat ice chips today
Vital Signs / Physical Exam
Vital Signs
Vital Signs
Temp Pulse Resp BP Pulse Ox
98.3 F 107 22 120/54 98
03/06/24 23:17 03/07/24 08:42 03/07/24 08:00 03/07/24 08:42 03/07/24 07:29
Physical Exam
Constitutional: No Acute Distress and Chronically Ill
Cardiovascular: Regular Rate and S1/S2; Negative Murmur or Rub
Pulmonary: Clear and Symmetric; Negative Wheezes or Rales
Gastrointestinal: Soft, Non Tender, Non Distended and Normal Bowel Sounds
Skin: Warm and Dry; Negative Rash or Jaundice
Objective Data
Lab Data
Lab Results
03/07/24 03:48
03/07/24 03:48
PT 15.9 Sec (11.4-14.6) H 03/04/24 13:50
INR 1.24 03/04/24 13:50
APTT 30.0 Sec (23.4-35.0) 03/04/24 13:50
Estimated Creat Clear 47 ml/min 03/07/24 03:48
Lactic Acid 2.9 mmol/L (0.7-2.0) H 03/07/24 03:48
Total Bilirubin 1.5 mg/dl (0.2-1.3) H 03/06/24 04:58
AST 46 U/L (17-59) 03/06/24 04:58
ALT 37 U/L (0-50) 03/06/24 04:58
Alkaline Phosphatase 122 U/L (38-126) 03/06/24 04:58
Most recent labs reviewed.
hgb responded to transfusion appr
plt 25 post two units
L shift persists
Cr further improved
acidosis further improved - nearly normalized
lactic acidosis nearly resolved
Micro Results:
03/04/24 08:39 Influenza Types A & B (RYLIE) - Final
Nasal Swab Negative for Influenza A & B, NAAT
Negative results must be combined with clinical observations
and patient history.
Nucleic Acid Amplification test (NAAT)performed on the
[employer] platform.
Care Review
Plan reviewed with: Physician (Dr Hill - lactic acidosis)
--- NOTE | 2024-03-07 09:38 | W.PN.ONC2 ---
Today's Communication / Plan
-
PLEX discontinued for now as outlined in neurology notes
transfuse Hgb <7 or as needed for sxs anemia
transfuse platelets for <20 or as needed for bleeding or procedures
monitor coags, fibrinogen
Impression
Impression
Pancreatitis
Cirrhosis
Hx of Myasthenia gravis with weakness
normocytic anemia
thrombocytopenia
Left hand abscess on abx (daptomycin)
Plan
Plan
Unclear if weakness is secondary to MG flare or pancreatitis/sepsis/anemia
Closed PLEX case with [facility] as outlined in neuro notes. We will standby but not planing to resume unless neuro wish to resume.
Thrombocytopenia likely from antibiotics, sepsis, cirrhosis
Watch for bleeding, would stop ASA on hold (cardiac stents)
Antibiotics change to Daptomycin (from Linezolid)
Fall 03/06 CT head negative for bld
Mgmt of pancreatitis/cirrhosis per GI
Subjective/Objective
Subjective
no new complaints
Vital Signs:
Vital Signs
Temp Pulse Resp BP Pulse Ox
98.6 F 107 22 120/54 99
03/07/24 07:23 03/07/24 08:42 03/07/24 08:00 03/07/24 08:42 03/07/24 09:05
Lab Results:
Laboratory Data
WBC 5.7 10^3/uL (4.8-10.8) 03/07/24 03:48
Hgb 8.1 g/dL (13.0-18.0) L 03/07/24 03:48
Plt Count 25 10^3/uL (130-400) L* D 03/07/24 03:48
PT 15.9 Sec (11.4-14.6) H 03/04/24 13:50
INR 1.24 03/04/24 13:50
APTT 30.0 Sec (23.4-35.0) 03/04/24 13:50
eGFR 52.41 03/07/24 03:48
Physical Exam
bilateral arm bruising and ecchymosis
L arm with dressing
HEENT: Moist Mucous Membranes; No Jaundice
Cardiology: Normal Sinus Rhythm
Pulmonary: Clear
GI: Soft
Extremities: Pulses Present and Edema
--- NOTE | 2024-03-07 10:28 | PTCARENOTE ---
Patient ordered KCL 40meq po; another order placed by resident. Confirmed with resident, Dr Richey that only one dose of 40meq needed to be given, so she d/c'd the duplicate dose. EKG done as ordered: report shows QT has lengthened. Lactic acid was
ordered for 07:45 but there was one resulted at 03:48 that was 2.9. TT sent to both Dr Hill and Dr Richey with these results; per TT from Dr Hill, both can be rechecked tomorrow. This nurse requested order be entered into computer.
--- NOTE | 2024-03-07 10:34 | PTCARENOTE ---
Received TT from EVERARDO Izquierdo, that patient may come off of enhanced precautions; she d/c'd cdiff stool request and Dr Richey d/c'd norovirus stool request. Patient remains on contact precautions.
--- NOTE | 2024-03-07 10:43 | PTCARENOTE ---
IVF capped as per hold order.
--- NOTE | 2024-03-07 10:49 | W.PN.GI.CBS2 ---
Today's Communication / Plan
-
Liquid diet today. Advance as tolerated to low-fat diet
Assessment / Plan
-
Pt is a 73yo presents with HTN, NIDDM, CAD, CHF, GERD, graves's esophagus, prior mark, cellulitis/abscess, and myasthenia Gravis on Prednisone and pyridostigmine with prior IVIG/plasmapheresis and Vyvgart Hytulo use. He had recent fall with
hand abscess requiring Linezolid course. He is now noted with with diarrhea, abdominal pain, dysphagia, wt loss, and lipase >4000. Labs also noted with lipase 5.1, troponin 0.076, bili 2.2, AST 37, ALT 46, alk phos 151. Pt also noted with
complaints of progressive weakness and blurred vision with plan for plasmapheresis therapy. No recent ETOH use. No NSAID use.
-Acute pancreatitis. possible medication induced (linezolid use )
- Liver cirrhosis on imaging . heavy EtOH use in the past
-diarrhea
-dysphagia
-wt loss
-acute on chronic CKD
-myasthenia Gravis with multiple recent treatment and concern for current flare
-recent cellulitis with Linezolid use
-elevated lactate level
-thrombocytopenia
-anemia
-elevated troponin
other med problems:
-NIDDM
-HTN
-CAD
-CHF
-graves's esophagus
-GERD
CT abd/Pel 03/04 without IV cont
IMPRESSION:
1. MODERATE ACUTE INTERSTITIAL EDEMATOUS PANCREATITIS.
2. Moderate diffuse pancreatic parenchymal atrophy and lipomatosis.
3. MODERATE HEPATIC CIRRHOSIS.
4. Small volume of abdominal and pelvic ascites.
5. Severe chronic bilateral renal disease.
6. Previous cholecystectomy.
7. Severe calcific atherosclerotic plaque in the coronary arteries.
8. Mild inflammatory interstitial pneumonitis in the lungs.
PLAN:
TG was normal . IgG4 pending
ok for full liquid diet today. Advance to low-fat diet as tolerated
Plasmapheresis on hold with severe thrombocytopenia continue milligram once daily as per neurology.
Etiology of thrombocytopenia can be multifactorial considering recent antibiotic use/sepsis/liver cirrhosis -continue follow-up with hematology
IV fluid as per medical team
if worsening abdominal pain / worsening LFT will recommend MRI/MRCP ( current CT abd / US imaging s/p cholecystectomy. No biliary dilatation. Liver test stable with normal AST/ALT/ALP with T.Bili 1.7 today )
If diarrhea persist would recommend stool studies for infection
severe thrombocytopenia / acute anemia - No overt GI bleeding . Hematology following . PRBC/ Plt transfusion yesterday. Hb 8.1/platelets 25K today
Further evaluation of liver cirrhosis as outpatient. Likely etiology ETOH use in the past
No further recommendation at this point. Continue further management as per medical team neurology . Will sign off. Please call us back if any questions
Total Time Spent with Patient (in minutes): 35
Subjective
Subjective
Date of Service: March 07, 2024
Already clear liquid diet. Currently denies any abdominal pain/nausea/vomiting.
Objective
Data Reviewed
Laboratory Data:
Laboratory Results
03/07/24 03:48
03/07/24 03:48
Laboratory Results
PT 15.9 Sec (11.4-14.6) H 03/04/24 13:50
INR 1.24 03/04/24 13:50
APTT 30.0 Sec (23.4-35.0) 03/04/24 13:50
Magnesium 2.2 mg/dl (1.6-2.3) 03/07/24 03:48
Total Bilirubin 1.5 mg/dl (0.2-1.3) H 03/06/24 04:58
AST 46 U/L (17-59) 03/06/24 04:58
ALT 37 U/L (0-50) 03/06/24 04:58
Alkaline Phosphatase 122 U/L (38-126) 03/06/24 04:58
Lipase 951 U/L (23-300) H 03/07/24 03:48
Vital Signs and I&O:
Vital Signs
Temp Pulse Resp BP Pulse Ox
98.6 F 88 17 115/57 99
03/07/24 07:23 03/07/24 10:00 03/07/24 10:00 03/07/24 10:00 03/07/24 09:05
I&O
03/06/24 03/07/24 03/08/24
06:59 06:59 06:59
Intake Total 4100 / 4100 3193 / 3193 120 / 120
Output Total 325 / 325 525 / 525 100 / 100
Balance 3775 / 3775 2668 / 2668
Physical Exam
Physical Exam
GI: Soft, Non Distended and Non Tender
[2024-03-07 11:32] LABS: Glucose - Point of Care 101 mg/dl (70-99)
[2024-03-07] MEDS: MYCAMINE 105 MG IV (11:56)
--- NOTE | 2024-03-07 15:11 | PTCARENOTE ---
GI was in to see patient earlier this morning and stated he would increase patient's diet today to full liquids. Note stated to advance to low residue; however order was not changed and GI signed off. TT sent to Dr Hill and Dr Richey; order changed
to full liquids. Speech therapist in to assess patient but he refused.
[2024-03-07] MEDS: CUBICIN 14 MG IV (15:30)
[2024-03-07 16:32] LABS: Glucose - Point of Care 148 mg/dl (70-99)
--- NOTE | 2024-03-07 17:10 | PTCARENOTE ---
Patient received 1 unit PLTs; 2nd unit to come from [place] as per blood bank.
--- NOTE | 2024-03-07 18:37 | W.PN.NEPH.PH ---
Today's Communication / Plan
-
IVF
Assessment/Plan
-
Assessment
Myasthenia gravis
ANGELIA
Metabolic acidosis
Lactic acidosis
Pancreatitis
Cirrhosis
diarrhea
Failure to thrive
Thrombocytopenia
Left hand wrist abscess on antibiotics
Plan
Follow BMP
Follow platelets
FFP
continue normal saline.
Bicarbonate improved.
calcium
Daptomycin-OM
pyridostigmine 60 mg 4x/day and 30 mg of prednisone
creatinine peaked at 2.4 improved to 1.4
IVF
-
-
Date of Service: March 07, 2024
CC / HPI / ROS
-
Chief Complaint:
Abdominal pain
History of Present Illness:
abdominal pain improved with acute pancreatitis and thrombocytopenia acute kidney injury
Review of Systems:
no chest pain shortness of breath
Labs
-
Labs:
WBC 5.7 10^3/uL (4.8-10.8) 03/07/24 03:48
RBC 2.57 10^6/uL (4.70-6.10) L 03/07/24 03:48
Hgb 8.1 g/dL (13.0-18.0) L 03/07/24 03:48
Hct 23.8 % (39.0-52.0) L 03/07/24 03:48
Plt Count 25 10^3/uL (130-400) L* D 03/07/24 03:48
Sodium 141 mmol/L (135-145) 03/07/24 03:48
Potassium 3.4 mmol/L (3.5-5.1) L 03/07/24 03:48
Chloride 117 mmol/L (98-107) H 03/07/24 03:48
Carbon Dioxide 18 mmol/L (22-30) L 03/07/24 03:48
BUN 41 mg/dl (9-20) H 03/07/24 03:48
Creatinine 1.4 mg/dL (0.7-1.3) H 03/07/24 03:48
eGFR 52.41 03/07/24 03:48
Glucose 108 mg/dl (70-99) H 03/07/24 03:48
Calcium 6.7 mg/dl (8.4-10.2) L* 03/07/24 03:48
Albumin 2.3 g/dl (3.5-5.0) L 03/06/24 04:58
Physical Exam
-
Vital Signs:
Vital Signs
Temp Pulse Resp BP Pulse Ox
97.9 F 77 22 105/59 98
03/07/24 15:25 03/07/24 16:00 03/07/24 16:00 03/07/24 16:00 03/07/24 16:00
Respiratory:: Bilateral: Coarse
Abdomen:: Tender
Bowel Sounds:: Normal
Extremity Edema:: +1: Bilateral:
[2024-03-07 20:41] LABS: IgG Subclass 1 207 mg/dL (240-1118); IgG Subclass 2 53 mg/dL (124-549); IgG Subclass 3 6 mg/dL (21-134); IgG Subclass 4 16 mg/dL (1-123)
[2024-03-07 23:45] LABS: Glucose - Point of Care 170 mg/dl (70-99)
[2024-03-08] VITALS (27 sets, daily range): BP systolic 97–136; BP diastolic 48–71; BMI 26.2
[2024-03-08] MEDS: MESTINON 60 MG PO ×5 (00:59→23:55)
[2024-03-08 06:13] LABS: INR 1.38; PT 17.3 Sec (11.4-14.6)
[2024-03-08 06:14] LABS: APTT 41.8 Sec (23.4-35.0); Fibrinogen 234 MG/DL (199-459)
[2024-03-08 06:26] LABS: Lactic Acid 1.9 mmol/L (0.7-2.0)
[2024-03-08 06:36] LABS: Hematocrit 21.1 % (39.0-52.0); Hemoglobin 7.1 g/dL (13.0-18.0); Mean Corp Hgb Conc. 33.6 g/dL (33.0-37.0); Mean Corpuscular Hgb 31.3 pg (27.0-31.0); Mean Platelet Volume 11.7 fL (7.4-10.4); Platelet Count 38 10^3/uL (130-400); Red Blood Cell Count 2.27 10^6/uL (4.70-6.10); Red Cell Dist. Width 15.4 % (11.5-14.5); White Blood Cell Count 5.5 10^3/uL (4.8-10.8)
[2024-03-08 06:42] LABS: Blood Urea Nitrogen 33 mg/dl (9-20); Calcium 6.7 mg/dl (8.4-10.2); Carbon Dioxide 17 mmol/L (22-30); Chloride 114 mmol/L (98-107); Estimated Creatinine Clearance 66 ml/min; Glucose 113 mg/dl (70-99); Lipase 560 U/L (23-300); Magnesium 2.2 mg/dl (1.6-2.3); Potassium 3.6 mmol/L (3.5-5.1); Sodium 137 mmol/L (135-145); eGFR > 60.00
--- NOTE | 2024-03-08 07:35 | W.PN.NEURO.1 ---
Today's Communication / Plan
-
Continue pyridostigmine 60 mg 4x/day and 30 mg of prednisone
Restart aspirin when possible
Continue to hold plasmapheresis at this time until remediation of pancreatitis
Neuro Assessment/Plan
Assessment
This is a 73-year-old male patient who presented to the ER yesterday, 03/04/2024, with GI distress, progressive weakness and vision being unclear. He was diagnosed with myasthenia gravis in August 2023. He received IVIG which was not helpful and was
therefore admitted to [facility] for plasmapheresis. He was started on Vyvgart Hytrulo, he has also been taking pyridostigmine 60 mg 4 times a day as well as steroids. In January after a fall developed left hand abscess requiring I&D and
ongoing antibiotics including linezolid for 6 week course. Prednisone was aggressively reduced to 30 mg daily. Plan was to initiate plasmapheresis today. Labs today show significant drop in platelets as well as hemoglobin.
CT abdomen 03/04/2024 acute showed pancreatitis
Plan
Continue pyridostigmine 60 mg 4x/day and 30 mg of prednisone
Restart aspirin when possible
Continue to hold plasmapheresis at this time until remediation of pancreatitis
continue PT/OT and speech evaluations and treatment
Will follow peripherally
Subjective/Objective
Subjective Data
Date of Service: March 08, 2024
Objective Data
Vital Signs
Temp Pulse Resp BP Pulse Ox
37.0 C 77 17 106/62 98
03/08/24 04:12 03/08/24 06:00 03/08/24 06:00 03/08/24 01:00 03/08/24 06:00
Lab Results
03/08/24 05:28
03/08/24 05:28
PT 17.3 Sec (11.4-14.6) H 03/08/24 05:28
INR 1.38 03/08/24 05:28
APTT 41.8 Sec (23.4-35.0) H 03/08/24 05:28
Sodium 137 mmol/L (135-145) 03/08/24 05:28
Potassium 3.6 mmol/L (3.5-5.1) 03/08/24 05:28
BUN 33 mg/dl (9-20) H 03/08/24 05:28
Glucose 113 mg/dl (70-99) H 03/08/24 05:28
Calcium 6.7 mg/dl (8.4-10.2) L* 03/08/24 05:28
Patient Allergies
hydrocortisone [From [facility]cort ([id number])] Allergy (Unknown, Verified 02/27/24 13:27)
Unknown
neomycin [From Westcort ([id number])] Allergy (Unknown, Verified 02/27/24 13:27)
Unknown
polymyxin B [From Westcort ([id number])] Allergy (Unknown, Verified 02/27/24 13:27)
Unknown
varenicline Allergy (Unknown, Verified 02/27/24 13:27)
Unknown
latex Allergy (Verified 02/27/24 13:27)
Hives/REDNESS
Data Reviewed
-
Labs: Report Reviewed
Past History
Past History
ED Past Medical History: GERD, HTN, Hypercholesterolemia, IDDM and Other (myasthenia Gravis)
ED Past Surgical History: Cardiac (stents), Cholecystectomy and Orthopedic (right knee replacement)
Social History
Alcohol: Chronic alcoholic
Personal:
Living: with family
Family History
Family History: Other (Reviewed and noncontributory)
Medications
-
Medications:
Generic Name Dose Route Start Last Admin
Trade Name Freq PRN Reason Stop Dose Admin
Acetaminophen 500 mg 03/04/24 15:36
Acetaminophen 500 Mg Tablet PO 04/01/24 15:35
HSPRN PRN
sleep
Acetaminophen 650 mg 03/04/24 15:25 03/06/24 03:55
Acetaminophen 325 Mg Tablet PO 04/01/24 15:24 650 mg
Q4HPRN PRN Administration
mild pain/ALBERTS/temp> 100.4F
Aspirin 81 mg 03/05/24 08:00 03/05/24 08:01
Aspirin 81 Mg (Enteric Coated) Tablet PO 04/02/24 07:59 81 mg
DAILY SÁNCHEZ Administration
Dextrose 12.5 grams 03/04/24 15:25 03/06/24 07:07
Dextrose 50% (0.5 Grams/Ml) 50 Ml Syringe IV 04/01/24 15:24 12.5 grams
[id number] PRN Administration
hypoglycemia
Protocol
Diphenhydramine HCl 25 mg 03/04/24 15:38
Diphenhydramine 25 Mg Capsule PO 04/01/24 15:37
HSPRN PRN
SLEEP
Glucagon 1 mg 03/04/24 15:25
Glucagon 1 Mg Vial IM 04/01/24 15:24
PRN PRN
hypoglycemia
Protocol
Hydromorphone HCl 0.5 mg 03/04/24 15:25
Hydromorphone 0.5 Mg/0.5 Ml Syringe IV 03/18/24 15:24
Q4HPRN PRN
severe pain
Sodium Chloride 1,000 mls @ 100 mls/hr 03/04/24 23:00 03/07/24 06:31
Nss IV Not Given
.Q10H SÁNCHEZ
Micafungin Sodium 100 mg/ 105 mls @ 105 mls/hr 03/05/24 12:00 03/07/24 11:56
Dextrose IV 03/15/24 11:59 105 mls
Q24H SÁNCHEZ Administration
Daptomycin 700 mg/ Device 14 mls @ 0 mls/hr 03/06/24 16:00 03/07/24 15:30
IV 14 mls
Q24H SÁNCHEZ Administration
As Directed
Insulin Aspart 0 units 03/06/24 12:32 03/07/24 16:43
Insulin Aspart Low Resistance 300 Units/3 Ml Pen.Injctr SC 04/02/24 11:31 Not Given
AC SÁNCHEZ
Protocol
Metoprolol Tartrate 100 mg 03/05/24 08:00 03/07/24 08:42
Metoprolol 100 Mg Regular Release Tablet PO 04/02/24 07:59 100 mg
DAILY SÁNCHEZ Administration
Miconazole Nitrate 0 applic 03/06/24 20:00 03/07/24 20:43
Miconazole 2% (Same As Aloe [place]) Ointment Tube TOPICAL 04/03/24 19:59 1 applic
BID SÁNCHEZ Administration
Pantoprazole Sodium 40 mg 03/04/24 20:00 03/07/24 20:43
Pantoprazole 40 Mg Delayed Release Tablet PO 04/01/24 19:59 40 mg
BID SÁNCHEZ Administration
Potassium Chloride 40 meq 03/08/24 07:32
Potassium Chloride 20 Meq Extended Release Tablet PO 03/08/24 07:33
NOW STA
Prednisone 30 mg 03/05/24 08:00 03/07/24 08:42
Prednisone 20 Mg Tablet PO 04/02/24 07:59 30 mg
DAILY SÁNCHEZ Administration
Pyridostigmine [place] 60 mg 03/04/24 18:00 03/08/24 05:14
Pyridostigmine 60 Mg Tablet PO 04/01/24 17:59 60 mg
Q6 SÁNCHEZ Administration
Sodium Chloride 0 flush 03/05/24 08:00 03/05/24 11:39
Sodium Chloride 0.9% (Flush) Syringe IV 04/02/24 07:59 1 flush
PER PROTOCOL SÁNCHEZ Administration
--- NOTE | 2024-03-08 08:07 | W.PN.HOSP.TC ---
Addendum entered and electronically signed by Shawnee Hill MD 03/08/24 17:47:
I saw and evaluated the patient. I reviewed the resident�s note and agree with findings and plan as documented in the resident�s note.
A/P:
# Abd pain 2/2 pancreatitis, possibly related to linezolid
Lipase 4000 -> 560, cont to trend
CT abdomen/pelvis, abdominal ultrasound report noted
Abd pain has resolved
Diet advanced to low fat
IgG4 WNL which was checked for autoimmune pancreatitis
# diarrhea, may be related to pancreatitis, resolved
No further diarrhea for stool studies
R PROGRAMMER Linezolid held
# proximal muscle weakness, possibly MG flare relating to active inflammatory process/pancreatitis
# mechanical fall during hospital stay overnight 03/05
neurology and oncology on board
plasmapheresis was not started due to thrombocytopenia
Cont prednisone 30 mg daily, mestinon 60mg q6h and Vyvgart per neuro
Vital capacity q12h
CT head was checked for fall in setting of thrombocytopenia, no acute intracranial abnormality
# recent left hand abscess
R PROGRAMMER Linezolid held
Continue daptomycin per ID
# Oral and probably esophageal candidiasis
dysphagia improving
c/w micafungin per ID
# Bicytopenia with anemia and severe thrombocytopenia, likely related to myasthenia crisis
Transfuse second unit PRBC today
s/p 2 units platelet platelet, transfuse additional 2 units platelet today
Oncology following
ASA on hold
# elevated troponin, suspect non-IA related
Patient denies any chest pain
Troponin peaked at 1.19
cardiology following, holding ASA 2/2 thrombocytopenia
echo unrevealing: EF 64%. Right ventricle Normal size and function. No significant valvular heart disease
# lactic acidosis likely related to linezolid side effect, resolved
# Metabolic acidosis due to above, improving
# Liver cirrhosis, likely 2/2 ETOH use
Full code
DVT prophylaxis - SCDs
Total time spent 51 minutes
Original Note:
Today's Communication/Plan
-
Hold aspirin
Transfuse 1 PRBC
Transfuse 2 platelets
Assessment / Plan
Assessment / Plan
73 y/o male with known myasthenia gravis on mestinon and prednisone with:
#pancreatitis
- Lipase downtrending, now 560
- Unclear etiology-- likely 2/2 Linezolid -- will check IgG4 for autoimmune pancreatitis, pending
- Supportive treatment -- IVF dc and start full liquids per GI and if tolerates low fat diet
- GI following--if worsening abdominal pain / worsening LFT recommend MRI/MRCP.
#diarrhea
- Unclear etiology-- C diff vs norovirus vs antibiotic adverse effect
- Now resolved
- Stool culture, C diff, norovirus held
- Held Linezolid per ID, now on daptomycin, renally adjusted
#proximal muscle weakness
- Unclear etiology--MG flare vs infection/sepsis (recent left hand abscess)
- No leukocytosis
- neurology and oncology following--initial plan for PLEX however held due to thrombocytopenia (plts 23)
- s/p 1 unit PRBC and 2 units Plts
- patient's weakness is not clinically improving
- continue prednisone 30 mg daily and mestinon 60mg q6h and Vyvgart
- continue Daptomycin and Micafungin per ID
- continue to hold aspirin
- Vital capacity q12h
- Head CT neg
-Holding plasmapheresis due to thrombocytopenia
#tachycardia
- EKG: sinus tachycardia with PACs
- QT prolonged 465
- Monitor QTc
#elevated troponin
- cardiology following - hold statin and ASA given pancreatitis and thrombocytopenia
- pt remains asymptomatic
- likely in the setting of ANGELIA, nonischemic myocardial injury troponin elevation
- peaked at 1.19, now downtrending
#lactic acidosis
- Likely multifactorial (infection vs Linezolid adverse effect)
- will check daily
- downtrending
#anemia, thrombocytopenia
- Likely multifactorial (infection vs Linezolid vs cirrhosis vs dilutional)
- Will hold off PLEX
- Pt has bruises all over his extremeties.
- Bleeding precautions
- Head CT neg
- s/p transfusion 2 unit plts and 1 unit PRBC
- Oncology following - recommend transfusion per parameters
- Hold ASA
Transfuse 1 PRBC, 2 unit platelets.
- Continue to monitor counts
#Liver cirrhosis--likely 2/2 ETOH use--outpt f/u with GI
Full code
DVT prophylaxis - SCDs
Anticipated Discharge: > 48 hours
Subjective/Interval History
-
Date of Service: March 08, 2024
No overnight complaints.
Objective Data
-
Labs:
Laboratory Results
03/08/24
05:28
WBC 5.5
Hgb 7.1 L
Hct 21.1 L
Plt Count 38 L D
PT 17.3 H
INR 1.38
APTT 41.8 H
Sodium 137
Potassium 3.6
Chloride 114 H
Carbon Dioxide 17 L
BUN 33 H
Creatinine 1.0
Glucose 113 H
Calcium 6.7 L*
Vital Signs:
Vital Signs
Temp Pulse Resp BP Pulse Ox
98.6 F 77 17 106/62 98
03/08/24 04:12 03/08/24 06:00 03/08/24 06:00 03/08/24 01:00 03/08/24 06:00
I&O
03/07/24 03/08/24 03/09/24
06:59 06:59 06:59
Intake Total 3193 / 3193 884 / 884
Output Total 525 / 525 500 / 500
Balance 2668 / 2668 384 / 384
Physical Exam
-
General: No Apparent Distress
HEENT: Normocephalic and Atraumatic
Respiratory: Clear to Auscultation
Cardiac: Regular Rhythm and S1/S2
GI: Soft, Nontender, Nondistended and Normal Bowel Sounds
Skin: Warm, Dry and Other (Bilateral arm bruising and ecchymosis)
Neuro: Awake, Alert, Oriented and AO x 3
Psych: Calm
[2024-03-08 08:31] LABS: Glucose - Point of Care 114 mg/dl (70-99)
[2024-03-08] MEDS: NOVOLOG FLEXPEN-LOW RESISTANCE SC ×2 (08:32→12:49)
[2024-03-08 08:39] LABS: % Basophils 0.2 % (0-2); % Immature Granulocytes 0.5 % (0-0.5); % Lymphocytes 8.2 % (20.5-51.1); % Monocytes 3.1 % (1.7-9.3); Absolute Lymphocytes 0.5 10^3/uL (1.2-3.4); Absolute Monocytes 0.2 10^3/uL (0.1-0.6); Absolute Neutrophils 4.9 10^3/uL (1.4-6.5); Nucleated Red Blood Cells % 0 % (-)
[2024-03-08] MEDS: LOPRESSOR PO (08:42)
[2024-03-08] MEDS: KCL 40 MEQ PO (08:42)
[2024-03-08] MEDS: PROTONIX 40 MG PO ×2 (08:43→20:15)
[2024-03-08] MEDS: DELTASONE 30 MG PO (08:43)
[2024-03-08] MEDS: ANTIFUNGAL CLEAR 1 APPLIC TOPICAL ×2 (08:45→20:15)
--- NOTE | 2024-03-08 09:38 | W.PN.ONC2 ---
Today's Communication / Plan
-
daily CBC, no diff.
continue to monitor coagulopathy
monitor for bleeding
check iron studies, b12, folate, retic, LDH, heme stool
Impression
Impression
Unclear if weakness is secondary to MG flare or pancreatitis/sepsis/anemia
Pancreatitis
Cirrhosis
Hx of Myasthenia gravis with weakness on pyridostigmine & prednisone
normocytic anemia s/p 1U PRBC 03/06
thrombocytopenia s/p 4 U SDP during hospitalization, last 03/07. No evidence of acute DIC with normalization of fibrinogen following plex discontinuation. Thrombocytopenia likely from antibiotics, sepsis, cirrhosis
Prolonged PTT/PT likely r/t plex, liver dz, nutritional, and daptomycin
Left hand abscess on abx (daptomycin)
Fall 03/06 CT head negative for bld
Plan
Plan
Closed PLEX case with [place] as outlined in neuro notes. We will standby but not planing to resume unless neuro wish to resume.
on pyridostigmine and prednisone per neuro
monitor for bleeding, ASA on hold (cardiac stents)
transfuse Hgb <7 or as needed for sxs anemia
Antibiotics change to Daptomycin (from Linezolid)
Mgmt of pancreatitis/cirrhosis per GI
Subjective/Objective
Subjective
no new complaints
denies overt bleeding
Vital Signs:
Vital Signs
Temp Pulse Resp BP Pulse Ox
97.9 F 77 17 97/64 98
03/08/24 07:30 03/08/24 06:00 03/08/24 06:00 03/08/24 08:42 03/08/24 06:00
Lab Results:
Laboratory Data
WBC 5.5 10^3/uL (4.8-10.8) 03/08/24 05:28
Hgb 7.1 g/dL (13.0-18.0) L 03/08/24 05:28
Plt Count 38 10^3/uL (130-400) L D 03/08/24 05:28
PT 17.3 Sec (11.4-14.6) H 03/08/24 05:28
INR 1.38 03/08/24 05:28
APTT 41.8 Sec (23.4-35.0) H 03/08/24 05:28
eGFR > 60.00 03/08/24 05:28
Physical Exam
L arm with dressing, b/l arm burising and ecchymosis
HEENT: Moist Mucous Membranes; No Jaundice
Cardiology: Normal Sinus Rhythm
Pulmonary: Clear
GI: Soft
Extremities: Pulses Present and Edema
Orders
Orders
Orders From Last 24 Hours
03/08/24 05:28
Fibrinogen IN AM
PT/INR [Prothrombin Time] IN AM
PTT IN AM
03/09/24 06:00
Fibrinogen IN AM
PT/INR [Prothrombin Time] IN AM
PTT IN AM
03/10/24 06:00
Fibrinogen IN AM
PT/INR [Prothrombin Time] IN AM
PTT IN AM
03/11/24 06:00
Fibrinogen IN AM
PT/INR [Prothrombin Time] IN AM
PTT IN AM
03/12/24 06:00
Fibrinogen IN AM
PT/INR [Prothrombin Time] IN AM
PTT IN AM
--- NOTE | 2024-03-08 10:05 | W.PN.NEPH.PH ---
Today's Communication / Plan
-
replete Calcium
Assessment/Plan
-
Assessment
Myasthenia gravis
ANGELIA
Metabolic acidosis
Lactic acidosis
Pancreatitis
Cirrhosis
diarrhea
Failure to thrive
Thrombocytopenia
Left hand wrist abscess on antibiotics
Plan
follow BMP
replete Calcium at this time
cap IVF
can try lasix tomorrow given edema
-
-
Date of Service: March 08, 2024
CC / HPI / ROS
-
Chief Complaint:
Abdominal pain
History of Present Illness:
ANGELIA/Cr down to 1.0
Hgb down to 7.1
Plt low 38 slightly better
Lipase down to 560
Calcium still low 6.7
acidosis persists
Review of Systems:
no chest pain shortness of breath
Labs
-
Labs:
WBC 5.5 10^3/uL (4.8-10.8) 03/08/24 05:28
RBC 2.27 10^6/uL (4.70-6.10) L 03/08/24 05:28
Hgb 7.1 g/dL (13.0-18.0) L 03/08/24 05:28
Hct 21.1 % (39.0-52.0) L 03/08/24 05:28
Plt Count 38 10^3/uL (130-400) L D 03/08/24 05:28
Sodium 137 mmol/L (135-145) 03/08/24 05:28
Potassium 3.6 mmol/L (3.5-5.1) 03/08/24 05:28
Chloride 114 mmol/L (98-107) H 03/08/24 05:28
Carbon Dioxide 17 mmol/L (22-30) L 03/08/24 05:28
BUN 33 mg/dl (9-20) H 03/08/24 05:28
Creatinine 1.0 mg/dL (0.7-1.3) 03/08/24 05:28
eGFR > 60.00 03/08/24 05:28
Glucose 113 mg/dl (70-99) H 03/08/24 05:28
Calcium 6.7 mg/dl (8.4-10.2) L* 03/08/24 05:28
Albumin 2.3 g/dl (3.5-5.0) L 03/06/24 04:58
Physical Exam
-
Vital Signs:
Vital Signs
Temp Pulse Resp BP Pulse Ox
97.9 F 77 17 97/64 98
03/08/24 07:30 03/08/24 06:00 03/08/24 06:00 03/08/24 08:42 03/08/24 06:00
Cardiovascular:: Regular rate and rhythm
Respiratory:: Bilateral: Coarse
Lung Excursion:: Normal
Abdomen:: Nontender and Soft
Bowel Sounds:: Normal
Extremity Edema:: +2: Bilateral:
[2024-03-08 10:29] LABS: Iron 66 ug/dl (49-181); LDH 421 U/L (120-246)
[2024-03-08 10:36] LABS: Percent Saturation 46 % (20-50); Total Iron Binding Capacity 142 ug/dl (261-462)
--- NOTE | 2024-03-08 10:41 | CM ---
Patient seen at bedside. Patient plan is home with [facility]il [facility] however patient is currently 3x daily wound care. Per physician patient not medically appropriate for discharge at this time. CM will continue to follow for discharge planning needs.
Plan; Pending PT/OT and wound care needs. home with [facility] vs SNF
[2024-03-08 11:10] LABS: Reticulocyte Count 0.2 % (0.4-2.8)
--- NOTE | 2024-03-08 11:55 | W.PN.ID1 ---
Date of Service
Date of Service: March 08, 2024
Today's Communication
continue daptomycin and micafungin
Assessment / Plan
Suspected flare of myasthenia gravis
Hx left hand infection with MRSA, Probable osteomyelitis
- On 6-week course of antibiotics
Thrombocytopenia - likely multifactorial - linezolid, cirrhosis, sepsis
Pancreatitis - improving - possibly due to linezolid
ANGELIA - resolved
Lactic acidosis - resolved
CAD
CHF
GERD
HTN
DM
Possible Cirrhosis
Recommendations:
Probable left Hand Osteomyelitis
Currently d#33 (of 42) of effective rx, (from debridement)
c/w daptomycin
- c/w 700 mg q24 hours
- hold statin while on daptomycin
- CPK baseline normal 03/05, repeat weekly while on daptomycin
pancreatitis may relate to linezolid - improving. So long as BP remains stable daily lactate levels sufficient from ID perspective
Monitor CBC, BMP, and temperature curve.
Oral and probably esophageal candidiasis
- qtc 440
- has dysphagia - improving
- c/w micafungin day 4; would avoid fluconazole given risk of agranulocytosis
Chief Complaint
-: Other (possible osteomyelitis, lactic acidosis)
Subjective / Review of Systems
afebrile
bp stable
plt further improved today but getting intermittent transfusions
lactic acidosis has resolved, lipase nearly normalized
still with some odynophagia
no joint swelling
Vital Signs / Physical Exam
Vital Signs
Vital Signs
Temp Pulse Resp BP Pulse Ox
98.4 F 93 18 112/53 96
03/08/24 11:14 03/08/24 11:10 03/08/24 11:10 03/08/24 11:10 03/08/24 11:01
Physical Exam
Constitutional: No Acute Distress
Cardiovascular: Regular Rate and S1/S2; Negative Murmur or Rub
Pulmonary: Clear and Symmetric; Negative Wheezes or Rales
Gastrointestinal: Soft, Non Tender, Non Distended and Normal Bowel Sounds
Skin: Warm, Dry and Rash (scattered brusises); Negative Jaundice
Objective Data
Lab Data
Lab Results
03/08/24 05:28
03/08/24 05:28
PT 17.3 Sec (11.4-14.6) H 03/08/24 05:28
INR 1.38 03/08/24 05:28
APTT 41.8 Sec (23.4-35.0) H 03/08/24 05:28
Estimated Creat Clear 66 ml/min 03/08/24 05:28
Lactic Acid 1.9 mmol/L (0.7-2.0) 03/08/24 05:28
Total Bilirubin 1.5 mg/dl (0.2-1.3) H 03/06/24 04:58
AST 46 U/L (17-59) 03/06/24 04:58
ALT 37 U/L (0-50) 03/06/24 04:58
Alkaline Phosphatase 122 U/L (38-126) 03/06/24 04:58
Most recent labs reviewed.
Micro Results:
03/04/24 08:39 Influenza Types A & B (RYLIE) - Final
Nasal Swab Negative for Influenza A & B, NAAT
Negative results must be combined with clinical observations
and patient history.
Nucleic Acid Amplification test (NAAT)performed on the
[employer] platform.
[2024-03-08 12:14] LABS: Folate 3.9 ng/ml (2.76-20); Vitamin B12 901 pg/ml (239-931)
[2024-03-08] MEDS: TYLENOL 650 MG PO (12:37)
[2024-03-08] MEDS: CALCIUM GLUCONATE 280 MG IV (12:49)
[2024-03-08 12:59] LABS: Glucose - Point of Care 143 mg/dl (70-99)
[2024-03-08] MEDS: MYCAMINE IV (13:02)
--- NOTE | 2024-03-08 13:29 | PTCARENOTE ---
pt completed 1U PRBC transfusion. Calcium gluconate infusing currently. D/T thin, compromised skin reaching out to resident requesting picc. no change in assessment pt resting comfortably CB in reach.
[2024-03-08] MEDS: CUBICIN 14 MG IV (16:26)
[2024-03-08 17:16] LABS: Glucose - Point of Care 167 mg/dl (70-99)
--- NOTE | 2024-03-08 17:29 | PTCARENOTE ---
additional IV access obtained. sending for 2nd PRBC. Multiple dressing changes to b/l UE skin tear drainage.
[2024-03-08] MEDS: NOVOLOG FLEXPEN-LOW RESISTANCE 1 UNITS SC (17:42)
[2024-03-08] MEDS: MYCAMINE 105 MG IV (18:08)
--- NOTE | 2024-03-08 18:30 | VATNOTE ---
PICC order noted. Discussed with Dr. Hill and medical center representative. No need for central access. RN made aware, additional PIV access placed. Will hold PICC placement at this time.
--- NOTE | 2024-03-08 19:11 | PTCARENOTE ---
plts transfused. pt tolerated proceedure well. VS documented. CB within reach
--- NOTE | 2024-03-08 21:26 | PTCARENOTE ---
Caring for patient overnight. Aaox3, flat & drowsy. Denies pain & SOB. Remains RA & NSR PVC. Bedrest at this time, very weak. Q2T. Bed alarm on, no attempts made, knows how to use call león. Hourly rounds. refused legs being elevated. Anasarca +1-2.
Wounds on arms CDI. Midline R arm. R IJ. R hand iv. Resting comfortably. 2nd bag of plt's running now. Will monitor.
[2024-03-09] VITALS (22 sets, daily range): BP systolic 106–142; BP diastolic 44–82; BMI 26.7
[2024-03-09 00:12] LABS: Glucose - Point of Care 177 mg/dl (70-99)
[2024-03-09 05:37] LABS: APTT 40.2 Sec (23.4-35.0); Fibrinogen 250 MG/DL (199-459); INR 1.21; PT 15.6 Sec (11.4-14.6)
[2024-03-09 05:47] LABS: Hematocrit 23.6 % (39.0-52.0); Hemoglobin 8.4 g/dL (13.0-18.0); Mean Corp Hgb Conc. 35.6 g/dL (33.0-37.0); Mean Corpuscular Hgb 32.1 pg (27.0-31.0); Mean Corpuscular Volume 90.1 fL (80.0-94.0); Mean Platelet Volume 10.6 fL (7.4-10.4); Platelet Count 39 10^3/uL (130-400); Red Blood Cell Count 2.62 10^6/uL (4.70-6.10); Red Cell Dist. Width 14.8 % (11.5-14.5); White Blood Cell Count 6.2 10^3/uL (4.8-10.8)
[2024-03-09 05:56] LABS: Blood Urea Nitrogen 26 mg/dl (9-20); Calcium 7.7 mg/dl (8.4-10.2); Carbon Dioxide 19 mmol/L (22-30); Chloride 112 mmol/L (98-107); Estimated Creatinine Clearance 73 ml/min; Glucose 128 mg/dl (70-99); Magnesium 2.1 mg/dl (1.6-2.3); Potassium 4.1 mmol/L (3.5-5.1); Sodium 133 mmol/L (135-145); eGFR > 60.00
--- NOTE | 2024-03-09 06:19 | PTCARENOTE ---
Pt feeling very down, making comments 'i didnt think id make it to the morning' pt tearing up. offered emotional support. Pt stated he is happy to be here. Offered a psych consult for someone to come in and talk to him and offer more support. Pt
does not think he needs that at this time.
[2024-03-09] MEDS: MESTINON 60 MG PO ×4 (06:23→23:46)
[2024-03-09] MEDS: NOVOLOG FLEXPEN-LOW RESISTANCE SC (07:54)
[2024-03-09 08:01] LABS: Glucose - Point of Care 137 mg/dl (70-99)
[2024-03-09] MEDS: DELTASONE 30 MG PO (08:11)
[2024-03-09] MEDS: LOPRESSOR 100 MG PO (08:11)
[2024-03-09] MEDS: PROTONIX 40 MG PO ×2 (08:12→21:57)
[2024-03-09 08:51] LABS: % Basophils 0.2 % (0-2); % Immature Granulocytes 0.8 % (0-0.5); % Lymphocytes 6.7 % (20.5-51.1); % Monocytes 4.2 % (1.7-9.3); % Neutrophils 88.1 % (42.2-75.2); Absolute Immature Granulocytes 0.1 10^3/uL (0-0.05); Absolute Lymphocytes 0.4 10^3/uL (1.2-3.4); Absolute Monocytes 0.3 10^3/uL (0.1-0.6); Absolute Neutrophils 5.4 10^3/uL (1.4-6.5); Nucleated Red Blood Cells % 0 % (-)
--- NOTE | 2024-03-09 09:12 | W.PN.HOSP.TC ---
Today's Communication/Plan
-
see A/P
Assessment / Plan
Assessment / Plan
A/P:
# Abd pain 2/2 pancreatitis, possibly related to linezolid, Abd pain resolved
Lipase 4000 -> 560, stopped trending
CT abdomen/pelvis, abdominal ultrasound report noted
Diet advanced to low fat and pt tolerated well
IgG4 WNL which was checked for autoimmune pancreatitis
# diarrhea, may be related to pancreatitis, resolved
No further diarrhea for stool studies
GRINDER AND PLATER Linezolid held
# proximal muscle weakness, possibly MG flare relating to active inflammatory process/pancreatitis
# mechanical fall during hospital stay overnight 03/05
neurology and oncology on board
plasmapheresis was not started due to thrombocytopenia
Cont prednisone 30 mg daily, mestinon 60mg q6h and Vyvgart per neuro
Vital capacity q12h
CT head was checked for fall in setting of thrombocytopenia, no acute intracranial abnormality
# Bicytopenia with anemia and severe thrombocytopenia, likely related to myasthenia crisis
s/p 2 units PRBC
s/p 6 units platelet,
transfuse additional unit platelet today (Platelet count 39 today) in anticipation for need of plasmapheresis
Oncology and Neuro following for plasmapheresis need
ASA on hold
# recent left hand abscess
GRINDER AND PLATER Linezolid held
Continue daptomycin per ID
# Oral and probably esophageal candidiasis
dysphagia improving
c/w micafungin per ID
# elevated troponin, suspect non-MT related
Patient denies any chest pain
Troponin peaked at 1.19
cardiology following, holding ASA 2/2 thrombocytopenia
echo unrevealing: EF 64%. Right ventricle Normal size and function. No significant valvular heart disease
# lactic acidosis likely related to linezolid side effect, resolved
# Metabolic acidosis due to above, improving
# Liver cirrhosis, likely 2/2 ETOH use
# Mild hyponatremia
# Pedal edema likely due to slight volume overload from multiple transfusion
IV lasix 40 mg x1 today, monitor pedal edema
Full code
DVT prophylaxis - SCDs
DW Neuro and Onc
left voice mail to
Total time spent 51 minutes
Anticipated Discharge: > 48 hours
Subjective/Interval History
-
Date of Service: March 09, 2024
Objective Data
-
Labs:
Laboratory Results
03/09/24
04:36
WBC 6.2
Hgb 8.4 L
Hct 23.6 L
Plt Count 39 L
PT 15.6 H
INR 1.21
APTT 40.2 H
Sodium 133 L
Potassium 4.1
Chloride 112 H
Carbon Dioxide 19 L
BUN 26 H
Creatinine 0.9
Glucose 128 H
Calcium 7.7 L
Vital Signs:
Vital Signs
Temp Pulse Resp BP Pulse Ox
36.7 C 92 14 114/59 94
03/09/24 04:54 03/09/24 06:00 03/09/24 06:00 03/09/24 06:00 03/09/24 08:48
I&O
03/08/24 03/09/24 03/10/24
06:59 06:59 06:59
Intake Total 884 / 884 840 / 840
Output Total 500 / 500 425 / 425
Balance 384 / 384 415 / 415
Review of Systems
-
All other systems: Reviewed and negative
Neuro: Reports Weakness
Physical Exam
-
General: Well Developed, No Apparent Distress, Comfortable, Conversant and Appears Chronically Ill
HEENT: Normocephalic and Atraumatic
Respiratory: Clear to Auscultation and Non Labored Respirations; Negative Accessory Resp Muscle Use
Cardiac: Regular Rhythm and S1/S2
GI: Soft, Nontender, Nondistended and Normal Bowel Sounds
Musculoskeletal: Edema, Right Lower Extrem and Edema, Left Lower Extrem
Skin: Warm, Dry and Other (Bilateral arm bruising and ecchymosis)
Neuro: Awake, Alert, Oriented and AO x 3
Psych: Calm and Intact Judgement/Insight
Data Reviewed
-
Labs: Labs Reviewed by me
--- NOTE | 2024-03-09 09:29 | W.PN.NEURO.1 ---
Today's Communication / Plan
-
Start plasmapheresis since there has been remediation of pancreatitis goal of 5 therapies
Continue pyridostigmine 60 mg 4x/day and 30 mg of prednisone
Restart aspirin when possible
Neuro Assessment/Plan
Assessment
This is a 73-year-old male patient who presented to the ER yesterday, 03/04/2024, with GI distress, progressive weakness and vision being unclear. He was diagnosed with myasthenia gravis in August 2023. He received IVIG which was not helpful and was
therefore admitted to [facility] for plasmapheresis. He was started on Vyvgart Hytrulo, he has also been taking pyridostigmine 60 mg 4 times a day as well as steroids.
In January after a fall developed left hand abscess requiring I&D and ongoing antibiotics including linezolid for 6 week course. Prednisone was aggressively reduced to 30 mg daily.
Plan was to initiate plasmapheresis, held due to low platelets and pancreatitis
CT abdomen 03/04/2024 acute showed pancreatitis
Plan
Start plasmapheresis since there has been remediation of pancreatitis goal of 5 therapies
Continue pyridostigmine 60 mg 4x/day and 30 mg of prednisone
Restart aspirin when possible
continue PT/OT and speech evaluations and treatment
Will follow
Subjective/Objective
Subjective Data
Date of Service: March 09, 2024
Objective Data
Vital Signs
Temp Pulse Resp BP Pulse Ox
36.7 C 92 14 114/59 94
03/09/24 04:54 03/09/24 06:00 03/09/24 06:00 03/09/24 06:00 03/09/24 08:48
Lab Results
03/09/24 04:36
03/09/24 04:36
PT 15.6 Sec (11.4-14.6) H 03/09/24 04:36
INR 1.21 03/09/24 04:36
APTT 40.2 Sec (23.4-35.0) H 03/09/24 04:36
Sodium 133 mmol/L (135-145) L 03/09/24 04:36
Potassium 4.1 mmol/L (3.5-5.1) 03/09/24 04:36
BUN 26 mg/dl (9-20) H 03/09/24 04:36
Glucose 128 mg/dl (70-99) H 03/09/24 04:36
Calcium 7.7 mg/dl (8.4-10.2) L 03/09/24 04:36
Vitamin B12 901 pg/ml (239-931) 03/08/24 05:28
Patient Allergies
hydrocortisone [From Westcort ([id number])] Allergy (Unknown, Verified 02/27/24 13:27)
Unknown
neomycin [From Westcort ([id number])] Allergy (Unknown, Verified 02/27/24 13:27)
Unknown
polymyxin B [From Westcort ([id number])] Allergy (Unknown, Verified 02/27/24 13:27)
Unknown
varenicline Allergy (Unknown, Verified 02/27/24 13:27)
Unknown
latex Allergy (Verified 02/27/24 13:27)
Hives/REDNESS
Past History
Past History
ED Past Medical History: GERD, HTN, Hypercholesterolemia, IDDM and Other (myasthenia Gravis)
ED Past Surgical History: Cardiac (stents), Cholecystectomy and Orthopedic (right knee replacement)
Social History
Alcohol: Chronic alcoholic
Personal:
Living: with family
Family History
Family History: Other (Reviewed and noncontributory)
Medications
-
Medications:
Generic Name Dose Route Start Last Admin
Trade Name Freq PRN Reason Stop Dose Admin
Acetaminophen 500 mg 03/04/24 15:36
Acetaminophen 500 Mg Tablet PO 04/01/24 15:35
HSPRN PRN
sleep
Acetaminophen 650 mg 03/04/24 15:25 03/08/24 12:37
Acetaminophen 325 Mg Tablet PO 04/01/24 15:24 650 mg
Q4HPRN PRN Administration
mild pain/ALBERTS/temp> 100.4F
Aspirin 81 mg 03/05/24 08:00 03/05/24 08:01
Aspirin 81 Mg (Enteric Coated) Tablet PO 04/02/24 07:59 81 mg
DAILY SÁNCHEZ Administration
Dextrose 12.5 grams 03/04/24 15:25 03/06/24 07:07
Dextrose 50% (0.5 Grams/Ml) 50 Ml Syringe IV 04/01/24 15:24 12.5 grams
[id number] PRN Administration
hypoglycemia
Protocol
Diphenhydramine HCl 25 mg 03/04/24 15:38
Diphenhydramine 25 Mg Capsule PO 04/01/24 15:37
HSPRN PRN
SLEEP
Glucagon 1 mg 03/04/24 15:25
Glucagon 1 Mg Vial IM 04/01/24 15:24
PRN PRN
hypoglycemia
Protocol
Hydromorphone HCl 0.5 mg 03/04/24 15:25
Hydromorphone 0.5 Mg/0.5 Ml Syringe IV 03/18/24 15:24
Q4HPRN PRN
severe pain
Daptomycin 700 mg/ Device 14 mls @ 0 mls/hr 03/06/24 16:00 03/08/24 16:26
IV 14 mls
Q24H SÁNCHEZ Administration
As Directed
Micafungin Sodium 100 mg/ 105 mls @ 105 mls/hr 03/08/24 18:00 03/08/24 18:08
Dextrose IV 03/15/24 17:59 105 mls
Q24H SÁNCHEZ Administration
Insulin Aspart 0 units 03/06/24 12:32 03/09/24 07:54
Insulin Aspart Low Resistance 300 Units/3 Ml Pen.Injctr SC 04/02/24 11:31 Not Given
AC SÁNCHEZ
Protocol
Metoprolol Tartrate 100 mg 03/05/24 08:00 03/09/24 08:11
Metoprolol 100 Mg Regular Release Tablet PO 04/02/24 07:59 100 mg
DAILY SÁNCHEZ Administration
Miconazole Nitrate 0 applic 03/06/24 20:00 03/08/24 20:15
Miconazole 2% (Same As [place]) Ointment Tube TOPICAL 04/03/24 19:59 1 applic
BID SÁNCHEZ Administration
Pantoprazole Sodium 40 mg 03/04/24 20:00 03/09/24 08:12
Pantoprazole 40 Mg Delayed Release Tablet PO 04/01/24 19:59 40 mg
BID SÁNCHEZ Administration
Prednisone 30 mg 03/05/24 08:00 03/09/24 08:11
Prednisone 20 Mg Tablet PO 04/02/24 07:59 30 mg
DAILY SÁNCHEZ Administration
Pyridostigmine Pinch 60 mg 03/04/24 18:00 03/09/24 06:23
Pyridostigmine 60 Mg Tablet PO 04/01/24 17:59 60 mg
Q6 SÁNCHEZ Administration
Sodium Chloride 0 flush 03/05/24 08:00 03/05/24 11:39
Sodium Chloride 0.9% (Flush) Syringe IV 04/02/24 07:59 1 flush
PER PROTOCOL SÁNCHEZ Administration
[2024-03-09] MEDS: LASIX 40 MG IV (10:03)
[2024-03-09] MEDS: ANTIFUNGAL CLEAR 1 APPLIC TOPICAL ×2 (10:03→21:57)
--- NOTE | 2024-03-09 11:28 | PTCARENOTE ---
Assessment and care as documented. Aox3; flat. NSR with PAC's on tele monitor. B/L arm dressings C/D/I. Unit of platelets transfused, pt tolerated well. Ringing appropriately, call león within reach.
--- NOTE | 2024-03-09 11:30 | W.PN.NEPH.PH ---
Today's Communication / Plan
-
Lasix
Assessment/Plan
-
Assessment
Myasthenia gravis
ANGELIA
Metabolic acidosis
Lactic acidosis
Pancreatitis
Cirrhosis
diarrhea
Failure to thrive
Thrombocytopenia
Left hand wrist abscess on antibiotics
Plan
follow BMP
replete Calcium again
cap IVF
can try lasix
-
-
Date of Service: March 09, 2024
CC / HPI / ROS
-
Chief Complaint:
Abdominal pain
History of Present Illness:
ANGELIA/Cr down to 0.9
Hgb up to 8.4
Plt low 39 slightly better
Calcium still low 7.7 but improving
acidosis persists 19
Review of Systems:
no chest pain shortness of breath
Tolerating diet
Labs
-
Labs:
WBC 6.2 10^3/uL (4.8-10.8) 03/09/24 04:36
RBC 2.62 10^6/uL (4.70-6.10) L 03/09/24 04:36
Hgb 8.4 g/dL (13.0-18.0) L 03/09/24 04:36
Hct 23.6 % (39.0-52.0) L 03/09/24 04:36
Plt Count 39 10^3/uL (130-400) L 03/09/24 04:36
Sodium 133 mmol/L (135-145) L 03/09/24 04:36
Potassium 4.1 mmol/L (3.5-5.1) 03/09/24 04:36
Chloride 112 mmol/L (98-107) H 03/09/24 04:36
Carbon Dioxide 19 mmol/L (22-30) L 03/09/24 04:36
BUN 26 mg/dl (9-20) H 03/09/24 04:36
Creatinine 0.9 mg/dL (0.7-1.3) 03/09/24 04:36
eGFR > 60.00 03/09/24 04:36
Glucose 128 mg/dl (70-99) H 03/09/24 04:36
Calcium 7.7 mg/dl (8.4-10.2) L 03/09/24 04:36
Albumin 2.3 g/dl (3.5-5.0) L 03/06/24 04:58
Physical Exam
-
Vital Signs:
Vital Signs
Temp Pulse Resp BP Pulse Ox
97.8 F 78 18 116/82 96
03/09/24 10:45 03/09/24 10:45 03/09/24 10:45 03/09/24 10:45 03/09/24 10:45
Cardiovascular:: Regular rate and rhythm
Respiratory:: Bilateral: CTA
Lung Excursion:: Normal
Abdomen:: Nontender and Soft
Bowel Sounds:: Normal
Extremity Edema:: None: Bilateral:
[2024-03-09 12:17] LABS: Glucose - Point of Care 174 mg/dl (70-99)
[2024-03-09] MEDS: CALCIUM GLUCONATE 130 MG IV (12:42)
[2024-03-09] MEDS: NOVOLOG FLEXPEN-LOW RESISTANCE 1 UNITS SC ×2 (12:42→17:34)
--- NOTE | 2024-03-09 14:10 | W.PN.ONC ---
Today's Communication / Plan
-
to start plasmapheresis as per neurology recommendations - QOD x 5
monitor CBC and coags/fibrinogen as ordered
Impression
Impression
weakness - MG flare vs. pancreatitis/sepsis/anemia
Pancreatitis
Cirrhosis
Hx of Myasthenia gravis with weakness on pyridostigmine & prednisone
normocytic anemia s/p 1U PRBC 03/06
thrombocytopenia s/p 4 U SDP during hospitalization, last 03/07. No evidence of acute DIC with normalization of fibrinogen following plex discontinuation. Thrombocytopenia likely from antibiotics, sepsis, cirrhosis
Prolonged PTT/PT likely r/t plex, liver dz, nutritional, and daptomycin
Left hand abscess on abx (daptomycin)
Fall 03/06 CT head negative for bld
Plan
Plan
1. MG - weakness
-neurology recommending initiation of plasmapheresis
-contacted [place] - will start plasmapheresis later today
-monitor CBC, PT/INR, aPTT and fibrinogen
-monitor for bleeding, ASA on hold (cardiac stents)
-transfuse Hgb <7 or as needed for sxs anemia
Will continue to follow with you.
Subjective/Objective
Subjective/Objective
Patient appears stable - some weakness
Vital Signs:
Vital Signs
Temp Pulse Resp BP Pulse Ox
98.1 F 78 18 116/82 96
03/09/24 11:30 03/09/24 10:45 03/09/24 10:45 03/09/24 10:45 03/09/24 10:45
Lab Results:
Laboratory Data
WBC 6.2 10^3/uL (4.8-10.8) 03/09/24 04:36
Hgb 8.4 g/dL (13.0-18.0) L 03/09/24 04:36
Plt Count 39 10^3/uL (130-400) L 03/09/24 04:36
PT 15.6 Sec (11.4-14.6) H 03/09/24 04:36
INR 1.21 03/09/24 04:36
APTT 40.2 Sec (23.4-35.0) H 03/09/24 04:36
eGFR > 60.00 03/09/24 04:36
[2024-03-09 16:59] LABS: Glucose - Point of Care 199 mg/dl (70-99)
[2024-03-09] MEDS: MYCAMINE 105 MG IV (17:33)
[2024-03-09] MEDS: CUBICIN 14 MG IV (18:18)
[2024-03-09] MEDS: CALCIUM GLUCONATE 10% INJECTION 290 MG IV (19:07)
[2024-03-09] MEDS: HEPARIN 10000 UNITS INTRACATH (20:40)
--- NOTE | 2024-03-09 23:17 | W.PN.UPDATE ---
Update Note
Progress Note Update
Rapid Response was called. There was a rhythm change
rhythm noted appears to be V-tach at 158bmp on the strip. RN reports HR went up to 213bpm on the monitor, Patient was asked to bear down which converted rhythm into NSR PVC PAC on EKG. Stable VS otherwise. Denies any chest pain, shortness of breath,
dizziness or light headedness. labs ordered
Hgb 7.0/20.1 will transfuse 1 u of blood, Type and screen ordered
Mag 1.7, mag rider 1g IV
May consider reconsulting Doubler Operator.
[2024-03-09 23:18] LABS: Glucose - Point of Care 231 mg/dl (70-99)
[2024-03-09 23:38] LABS: Hematocrit 20.1 % (39.0-52.0); Mean Corp Hgb Conc. 34.8 g/dL (33.0-37.0); Mean Corpuscular Hgb 31.3 pg (27.0-31.0); Mean Corpuscular Volume 89.7 fL (80.0-94.0); Mean Platelet Volume 11.2 fL (7.4-10.4); Platelet Count 33 10^3/uL (130-400); Red Blood Cell Count 2.24 10^6/uL (4.70-6.10); Red Cell Dist. Width 14.5 % (11.5-14.5)
[2024-03-09 23:42] LABS: Blood Urea Nitrogen 18 mg/dl (9-20); Calcium 7.8 mg/dl (8.4-10.2); Carbon Dioxide 21 mmol/L (22-30); Chloride 106 mmol/L (98-107); Estimated Creatinine Clearance 82 ml/min; Glucose 178 mg/dl (70-99); Magnesium 1.7 mg/dl (1.6-2.3); Potassium 3.7 mmol/L (3.5-5.1); Sodium 133 mmol/L (135-145); eGFR > 60.00
[2024-03-09 23:55] LABS: Troponin I 0.108 ng/ml
[2024-03-10] VITALS (16 sets, daily range): BP systolic 102–142; BP diastolic 43–92
--- NOTE | 2024-03-10 00:10 | RR ---
A Rapid Response was called on this patient, please see Rapid Response form.
DIRECTOR OF STRATEGIC MARKETING called for pt. Around 2257 pt had rhythm change, appearing to be Vtach with [id number]. Pt awake reaching for ceiling. Rhythm change lasted for a little over 1minute, pt asked to bear down & pt broke back to his normal rhythm of NSR W/ PAC & PVC. Pt
was asymptomatic, no SOB no CP. BP stable. Labs drawn. mg 1.7, mg rider ordered. hgb 7.0, 1URBC ordered. stand off off plt's. trop 0.108. EKG done SR w/ pac.
[2024-03-10] MEDS: MAGNESIUM SULFATE 102 GRAMS IV (00:21)
--- NOTE | 2024-03-10 03:03 | PTCARENOTE ---
Caring for patient overnight. aaox3, pleasant but withdrawn at times. NSR pac pvc. Remains RA. Weak, remains bedrest, Q2T. +2 anasarca & third spacing, weeping, arms wrapped with abd & kerlix. R midline R IJ R handiv. Iv abx. Received plasmapheresis
tonight, no issues. See [employer]. Around 2257 pt went into a minute of vtach w/pulse, broke when asked to bear down. all VSS. labs drawn. mg natacha, [facility] ordered. Pt comfortable in bed. Denies pain, only aching when touched & moved. Receiving unit of
blood now. Will monitor.
[2024-03-10] MEDS: BENADRYL 25 MG PO (03:15)
[2024-03-10] MEDS: TYLENOL 500 MG PO (03:15)
[2024-03-10] MEDS: MESTINON 60 MG PO (06:01)
[2024-03-10] MEDS: NOVOLOG FLEXPEN-LOW RESISTANCE SC (08:22)
--- NOTE | 2024-03-10 08:23 | W.PN.NEURO.1 ---
Today's Communication / Plan
-
Started plasmapheresis since there has been remediation of pancreatitis goal of 5 therapies, fist treatment 03/09/2024; would not continue this therapy unless the patient's platelet count goes over 50,000
Advance pyridostigmine from 60 mg 4x/day to dosing of 90 mg 4 times a day
Continue 30 mg of prednisone
Restart aspirin when possible
continue PT/OT and speech evaluations and treatment
Neuro Assessment/Plan
Assessment
This is a 73-year-old male patient who presented to the ER yesterday, 03/04/2024, with GI distress, progressive weakness and vision being unclear. He was diagnosed with myasthenia gravis in August 2023. He received IVIG which was not helpful and was
therefore admitted to [facility] for plasmapheresis. He was started on Vyvgart Hytrulo, he has also been taking pyridostigmine 60 mg 4 times a day as well as steroids.
In January after a fall developed left hand abscess requiring I&D and ongoing antibiotics including linezolid for 6 week course. Prednisone was aggressively reduced to 30 mg daily.
Plan was to initiate plasmapheresis, held due to low platelets and pancreatitis
CT abdomen 03/04/2024 acute showed pancreatitis
Plan
Started plasmapheresis since there has been remediation of pancreatitis goal of 5 therapies, fist treatment 03/09/2024; would not continue this therapy unless the patient's platelet count goes over 50,000
Advance pyridostigmine from 60 mg 4x/day to dosing of 90 mg 4 times a day
Continue 30 mg of prednisone
Restart aspirin when possible
continue PT/OT and speech evaluations and treatment
Will follow
Subjective/Objective
Subjective Data
Date of Service: March 10, 2024
New episode last evening
Objective Data
Vital Signs
Temp Pulse Resp BP Pulse Ox
36.7 C 91 19 117/55 93
03/10/24 05:56 03/10/24 06:00 03/10/24 06:00 03/10/24 05:58 03/10/24 06:00
PT 15.6 Sec (11.4-14.6) H 03/09/24 04:36
INR 1.21 03/09/24 04:36
APTT 40.2 Sec (23.4-35.0) H 03/09/24 04:36
Sodium 133 mmol/L (135-145) L 03/09/24 23:15
Potassium 3.7 mmol/L (3.5-5.1) 03/09/24 23:15
BUN 18 mg/dl (9-20) 03/09/24 23:15
Glucose 178 mg/dl (70-99) H 03/09/24 23:15
Calcium 7.8 mg/dl (8.4-10.2) L 03/09/24 23:15
Vitamin B12 901 pg/ml (239-931) 03/08/24 05:28
Patient Allergies
hydrocortisone [From Westcort ([id number])] Allergy (Unknown, Verified 02/27/24 13:27)
Unknown
neomycin [From Westcort ([id number])] Allergy (Unknown, Verified 02/27/24 13:27)
Unknown
polymyxin B [From Westcort ([id number])] Allergy (Unknown, Verified 02/27/24 13:27)
Unknown
varenicline Allergy (Unknown, Verified 02/27/24 13:27)
Unknown
latex Allergy (Verified 02/27/24 13:27)
Hives/REDNESS
Review of Systems
-
History Source: Patient
All other systems: Reviewed and negative
Constitutional: No Symptoms
EENT: Negative Blurry Vision or Swallowing Difficulty
Respiratory: Negative Trouble Breathing
Cardiac: Negative Chest Pain
Abdomen/GI: Negative Incontinence of Stool
Genitourinary: Negative Incontinence
Musculoskeletal: Muscle Weakness
Neuro: Weakness; Negative Dizzy or Headache
Physical Exam
-
General: No Apparent Distress and Appears Chronically Ill
Eyes: Unremarkable and Round OU
Neck: Full Range of Motion
Respiratory: No Dyspnea and Accessory Resp Muscle Use
Cardiac: Regular Rhythm
GI: Non-distended
Skin: Other (various areas a bruising and bandages)
Extremities: Edema +2
Psych: Intact Judgement/Insight
Extended Neurological Exam
Mood & Affect: Mood Unremarkable and Affect Unremarkable
Attention Span & Concentration: Awake, Alert, Interactive and No Difficulty with 2 Step Request
Memory: Vague
Tremor: Negative Hand Tremor Absent or Head Tremor Absent
Involuntary Movement: None
Speech: Mildly Reduced Output and Other (Some mild word finding difficulty); Negative Dysarthric
Cranial Nerve II: Left Eye: Pupillary Size Unremarkable and Visual Cabezas Grossly Intact
Cranial Nerve II: Right Eye: Pupillary Size Unremarkable and Visual Cabezas Grossly Intact
Cranial Nerves III, IV, : Extraocular Movement: Grossly Intact
Cranial Nerve VII: Facial Symmetry: Normal Facial Symmetry
Cranial Nerve VIII: Hearing: Unremarkable Hearing to Normal Conversational Volume
Cranial Nerve XI: Shoulder Shrug: Unremarkable
Muscle Strength, Overall: Reduced Bilaterally (Lower extremities with inability to lift legs off of bed for greater than 1 second on the right and greater than 2 seconds on the left. Distal strength in bilateral lower extremities is full); Negative
Full in Upper Extremities (Difficulty with maintaining upper extremities off of bed for greater than 4 seconds, right weaker than left)
Muscle Bulk & Tone: Bulk Unremarkable and Tone Unremarkable
Pronator Drift: No Drift in Upper Extremities
Touch Sensation: Unremarkable
Coordination: [id number] Testing Unremarkable
Gait & Station: Unable to Assess
Data Reviewed
-
Labs: Report Reviewed
Reviewed with: Physician and Patient
Old Records: Summarized
Past History
Past History
ED Past Medical History: GERD, HTN, Hypercholesterolemia, IDDM and Other (myasthenia Gravis)
ED Past Surgical History: Cardiac (stents), Cholecystectomy and Orthopedic (right knee replacement)
Social History
Alcohol: Chronic alcoholic
Personal:
Living: with family
Family History
Family History: Other (Reviewed and noncontributory)
Medications
-
Medications:
Generic Name Dose Route Start Last Admin
Trade Name Freq PRN Reason Stop Dose Admin
Acetaminophen 500 mg 03/04/24 15:36 03/10/24 03:15
Acetaminophen 500 Mg Tablet PO 04/01/24 15:35 500 mg
HSPRN PRN Administration
sleep
Acetaminophen 650 mg 03/04/24 15:25 03/08/24 12:37
Acetaminophen 325 Mg Tablet PO 04/01/24 15:24 650 mg
Q4HPRN PRN Administration
mild pain/ALBERTS/temp> 100.4F
Aspirin 81 mg 03/05/24 08:00 03/05/24 08:01
Aspirin 81 Mg (Enteric Coated) Tablet PO 04/02/24 07:59 81 mg
DAILY SÁNCHEZ Administration
Dextrose 12.5 grams 03/04/24 15:25 03/06/24 07:07
Dextrose 50% (0.5 Grams/Ml) 50 Ml Syringe IV 04/01/24 15:24 12.5 grams
[id number] PRN Administration
hypoglycemia
Protocol
Diphenhydramine HCl 25 mg 03/04/24 15:38 03/10/24 03:15
Diphenhydramine 25 Mg Capsule PO 04/01/24 15:37 25 mg
HSPRN PRN Administration
SLEEP
Glucagon 1 mg 03/04/24 15:25
Glucagon 1 Mg Vial IM 04/01/24 15:24
PRN PRN
hypoglycemia
Protocol
Heparin Sodium 0 units 03/11/24 08:00
Heparin (1000 Units/Ml) 10,000 Units/10 Ml Vial INTRACATH 03/11/24 08:01
ONCE ONE
Heparin Sodium 0 units 01/29/25 08:00
Heparin (1000 Units/Ml) 10,000 Units/10 Ml Vial INTRACATH 03/13/24 08:01
ONCE ONE
Heparin Sodium 0 units 03/15/24 08:00
Heparin (1000 Units/Ml) 10,000 Units/10 Ml Vial INTRACATH 03/15/24 08:01
ONCE ONE
Heparin Sodium 0 units 03/17/24 08:00
Heparin (1000 Units/Ml) 10,000 Units/10 Ml Vial INTRACATH 03/17/24 08:01
ONCE ONE
Hydromorphone HCl 0.5 mg 03/04/24 15:25
Hydromorphone 0.5 Mg/0.5 Ml Syringe IV 03/18/24 15:24
Q4HPRN PRN
severe pain
Daptomycin 700 mg/ Device 14 mls @ 0 mls/hr 03/06/24 16:00 03/09/24 18:18
IV 14 mls
Q24H SÁNCHEZ Administration
As Directed
Micafungin Sodium 100 mg/ 105 mls @ 105 mls/hr 03/08/24 18:00 03/09/24 17:33
Dextrose IV 03/15/24 17:59 105 mls
Q24H SÁNCHEZ Administration
Albumin Human 12.5 grams in 250 mls @ 2,000 mls/hr 03/11/24 08:00
Albumin 5% INTRACATH 03/11/24 10:00
.Q8M SÁNCHEZ
Calcium Gluconate 4,000 mg/ 290 mls @ 0 mls/hr 03/11/24 08:00
Sodium Chloride IV 03/11/24 08:01
ONCE ONE
As Directed
Albumin Human 12.5 grams in 250 mls @ 2,000 mls/hr 03/13/24 08:00
Albumin 5% INTRACATH 03/13/24 10:00
.Q8M SÁNCHEZ
Calcium Gluconate 4,000 mg/ 290 mls @ 0 mls/hr 03/13/24 08:00
Sodium Chloride IV 03/13/24 08:01
ONCE ONE
As Directed
Albumin Human 12.5 grams in 250 mls @ 2,000 mls/hr 03/15/24 08:00
Albumin 5% INTRACATH 03/15/24 10:00
.Q8M SÁNCHEZ
Calcium Gluconate 4,000 mg/ 290 mls @ 0 mls/hr 03/15/24 08:00
Sodium Chloride IV 03/15/24 08:01
ONCE ONE
As Directed
Albumin Human 12.5 grams in 250 mls @ 2,000 mls/hr 03/17/24 08:00
Albumin 5% INTRACATH 03/17/24 10:00
.Q8M SÁNCHEZ
Calcium Gluconate 4,000 mg/ 290 mls @ 0 mls/hr 03/17/24 08:00
Sodium Chloride IV 03/17/24 08:01
ONCE ONE
As Directed
Insulin Aspart 0 units 03/06/24 12:32 03/09/24 17:34
Insulin Aspart Low Resistance 300 Units/3 Ml Pen.Injctr SC 04/02/24 11:31 1 units
AC SÁNCHEZ Administration
Protocol
Metoprolol Tartrate 100 mg 03/05/24 08:00 03/09/24 08:11
Metoprolol 100 Mg Regular Release Tablet PO 04/02/24 07:59 100 mg
DAILY SÁNCHEZ Administration
Miconazole Nitrate 0 applic 03/06/24 20:00 03/09/24 21:57
Miconazole 2% (Same As Aloe [place]) Ointment Tube TOPICAL 04/03/24 19:59 1 applic
BID SÁNCHEZ Administration
Pantoprazole Sodium 40 mg 03/04/24 20:00 03/09/24 21:57
Pantoprazole 40 Mg Delayed Release Tablet PO 04/01/24 19:59 40 mg
BID SÁNCHEZ Administration
Prednisone 30 mg 03/05/24 08:00 03/09/24 08:11
Prednisone 20 Mg Tablet PO 04/02/24 07:59 30 mg
DAILY SÁNCHEZ Administration
Pyridostigmine [place] 60 mg 03/04/24 18:00 03/10/24 06:01
Pyridostigmine 60 Mg Tablet PO 04/01/24 17:59 60 mg
Q6 SÁNCHEZ Administration
Sodium Chloride 0 flush 03/05/24 08:00 03/05/24 11:39
Sodium Chloride 0.9% (Flush) Syringe IV 04/02/24 07:59 1 flush
PER PROTOCOL SÁNCHEZ Administration
[2024-03-10 08:32] LABS: Glucose - Point of Care 146 mg/dl (70-99)
--- NOTE | 2024-03-10 08:41 | W.PN.HOSP.TC ---
Today's Communication/Plan
-
see A/P
Assessment / Plan
Assessment / Plan
A/P:
# Abd pain 2/2 pancreatitis, possibly related to linezolid, Abd pain has resolved
Lipase 4000 -> 560
CT abdomen/pelvis, abdominal ultrasound report noted
Diet advanced to low fat and pt tolerated well
IgG4 WNL which was checked for autoimmune pancreatitis
# diarrhea, may be related to pancreatitis, resolved
No further diarrhea for stool studies
CAD TECHNICIAN Linezolid held
# proximal muscle weakness, possibly MG flare relating to active inflammatory process/pancreatitis
# mechanical fall during hospital stay overnight 03/05
neurology and oncology on board
thrombocytopenia improved following platelet transfusion, pt was started with plasmapheresis 03/09
Cont prednisone 30 mg daily, mestinon 60mg q6h and Vyvgart per neuro
Vital capacity q12h
CT head was checked for fall in setting of thrombocytopenia, no acute intracranial abnormality
# Bicytopenia with anemia and severe thrombocytopenia, likely related to myasthenia crisis
s/p 3 units PRBC
s/p 7 units platelet,
Oncology on board
ASA on hold
# Arrhythmia overnight 03/09, suspect SVT, which converted to NSR after bearing down
reconsult [facility].
# recent left hand abscess
CAD TECHNICIAN Linezolid held
Continue daptomycin per ID
# Oral and probably esophageal candidiasis
dysphagia improving
c/w micafungin per ID
# elevated troponin, suspect non-ND related
Patient denies any chest pain
Troponin peaked at 1.19
cardiology following, holding ASA 2/2 thrombocytopenia
echo unrevealing: EF 64%. Right ventricle Normal size and function. No significant valvular heart disease
# lactic acidosis likely related to linezolid side effect, resolved
# Metabolic acidosis due to above, improving
# Liver cirrhosis, likely 2/2 ETOH use
# Mild hyponatremia
# Pedal edema likely due to slight volume overload from multiple transfusion
additional IV lasix 40 mg 03/10, monitor pedal edema
Full code
DVT prophylaxis - SCDs
DW on the phone
Total time spent 51 minutes
Anticipated Discharge: > 48 hours
Subjective/Interval History
-
Date of Service: March 10, 2024
Objective Data
-
Labs:
Laboratory Results
03/09/24 03/10/24
23:15 08:14
WBC 4.0 L Pending
Hgb 7.0 L Pending
Hct 20.1 L* Pending
Plt Count 33 L Pending
PT Pending
INR Pending
APTT Pending
Sodium 133 L Pending
Potassium 3.7 Pending
Chloride 106 Pending
Carbon Dioxide 21 L Pending
BUN 18 Pending
Creatinine 0.8 Pending
Glucose 178 H Pending
Calcium 7.8 L Pending
Vital Signs:
Vital Signs
Temp Pulse Resp BP Pulse Ox
36.7 C 87 14 106/43 95
03/10/24 05:56 03/10/24 08:00 03/10/24 08:00 03/10/24 08:00 03/10/24 08:00
I&O
03/09/24 03/10/24 03/11/24
06:59 06:59 06:59
Intake Total 840 / 840 1650 / 1650
Output Total 425 / 425 1100 / 1100
Balance 415 / 415 550 / 550
Review of Systems
-
All other systems: Reviewed and negative
Neuro: Reports Weakness
Physical Exam
-
General: Well Developed, No Apparent Distress, Comfortable, Conversant and Appears Chronically Ill
HEENT: Normocephalic and Atraumatic
Respiratory: Clear to Auscultation and Non Labored Respirations; Negative Accessory Resp Muscle Use
Cardiac: Regular Rhythm and S1/S2
GI: Soft, Nontender, Nondistended and Normal Bowel Sounds
Musculoskeletal: Edema, Right Lower Extrem and Edema, Left Lower Extrem
Skin: Warm, Dry and Other (Bilateral arm bruising and ecchymosis)
Neuro: Awake, Alert, Oriented and AO x 3
Psych: Calm and Intact Judgement/Insight
Data Reviewed
-
Labs: Labs Reviewed by me
[2024-03-10 08:46] LABS: Hematocrit 25.3 % (39.0-52.0); Hemoglobin 8.7 g/dL (13.0-18.0); Mean Corp Hgb Conc. 34.4 g/dL (33.0-37.0); Mean Corpuscular Hgb 30.6 pg (27.0-31.0); Mean Corpuscular Volume 89.1 fL (80.0-94.0); Mean Platelet Volume 12.1 fL (7.4-10.4); Platelet Count 30 10^3/uL (130-400); Red Blood Cell Count 2.84 10^6/uL (4.70-6.10); Red Cell Dist. Width 14.6 % (11.5-14.5); White Blood Cell Count 5.9 10^3/uL (4.8-10.8)
[2024-03-10 08:55] LABS: Blood Urea Nitrogen 18 mg/dl (9-20); Calcium 7.9 mg/dl (8.4-10.2); Carbon Dioxide 21 mmol/L (22-30); Chloride 107 mmol/L (98-107); Estimated Creatinine Clearance 82 ml/min; Glucose 139 mg/dl (70-99); Potassium 3.4 mmol/L (3.5-5.1); Sodium 133 mmol/L (135-145); eGFR > 60.00
[2024-03-10 08:56] LABS: INR 1.79
[2024-03-10 08:57] LABS: APTT 43.7 Sec (23.4-35.0)
[2024-03-10 09:04] LABS: Fibrinogen 109 MG/DL (199-459)
[2024-03-10] MEDS: LASIX 40 MG IV ×2 (09:40→17:11)
[2024-03-10] MEDS: ANTIFUNGAL CLEAR 1 APPLIC TOPICAL ×2 (09:40→21:11)
[2024-03-10] MEDS: KCL 40 MEQ PO ×2 (09:41→21:09)
[2024-03-10] MEDS: DILAUDID 0.5 MG IV (09:57)
[2024-03-10 10:07] LABS: % Basophils 0.3 % (0-2); % Eosinophils 0.2 % (0-6); % Immature Granulocytes 1.7 % (0-0.5); % Lymphocytes 10.3 % (20.5-51.1); % Monocytes 5.3 % (1.7-9.3); % Neutrophils 82.2 % (42.2-75.2); Absolute Immature Granulocytes 0.1 10^3/uL (0-0.05); Absolute Lymphocytes 0.6 10^3/uL (1.2-3.4); Absolute Monocytes 0.3 10^3/uL (0.1-0.6); Absolute Neutrophils 4.8 10^3/uL (1.4-6.5); Nucleated Red Blood Cells % 0 % (-)
--- NOTE | 2024-03-10 10:26 | W.PN.CARDCBS ---
Today's Communication / Plan
-
Pt had rapid response last night, possible VT vs SVT with aberrancy
Cont repletion of potassium
Mag repleted and improved
Trop peak 1.1 on 03/05 and still trending down
Check limited echo to reeval EF
Replete K and Mg as needed
Cont tele
He denies hx of arrhythmia
Cont beta krish
Echo 03/05 normal EF and no wall motion abnormality
H/H improved after transfusion last night
Hemoglobin 8.7 platelet count 30 , 03/10/24.
Resume ASA when able from a hematological standpoint
Medical tx of nonMI troponin
Thrombocytopenia with acute anemia.
Possible that linezolid caused thrombocytopenia. This has been discontinued.
ID following for treatment of left hand cellulitis.
-Known CAD with remote PCI/stenting of 2 vessels in 1996
-Hold ASA while platelet count <50k, resume when stable above this threshold
-Statin on hold in setting of pancreatitis
-Aldactone on hold for ANGELIA
Impression / Plan
-
.
PCP: Juancarlos Champagne
Autocad Technician: Dr. Vish Serrato, [facility]
Impression:
Presents 03/04/2024 with abdominal pain associated with diarrhea, poor oral intake, progressive weakness and blurred vision
s/p rapid response PM 03/09/24, possible VT
Acute pancreatitis
Myasthenia gravis exacerbation/flare
Anemia
Thrombocytopenia, concern secondary to linezolid
ANGELIA
Abnormal troponin
Left hand cellulitis/abscess with prior I&D January 2024 on 6-week course of linezolid
CAD s/p stents x 2 vessels 1996
GERD/Platt esophagus
Hypertension
Hyperlipidemia
Insulin dependent diabetes
Lexiscan nuclear stress test at [facility] 09/08/2017: Small area of mildly reversible myocardial ischemia involving apical lateral segment. EF greater than 65%.
Echo 03/05/2024: Left ventricle: Normal size and function. No regional wall motion abnormalities are noted. The estimated ejection fraction is 64% by Reyes's method of discs. Right ventricle: Normal size and function
Mild tricuspid regurgitation. Estimated pulmonary artery systolic pressures are 44 mmHg
Plan:
-Presented 03/04/2024 with abdominal pain associated with diarrhea, poor oral intake, progressive weakness and blurred vision
-Found to have acute pancreatitis on CT of abdomen 03/04/24 and lipase greater than 4000.
Pt had rapid response last night, possible VT vs SVT with aberrancy
Cont repletion of potassium
Mag repleted and improved
Trop peak 1.1 on 03/05 and still trending down
Check limited echo to reeval EF
Replete K and Mg as needed
Cont tele
He denies hx of arrhythmia
Cont beta krish
Echo 03/05 normal EF and no wall motion abnormality
H/H improved after transfusion last night
Hemoglobin 8.7 platelet count 30 , 03/10/24.
Resume ASA when able from a hematological standpoint
Medical tx of nonMI troponin
Thrombocytopenia with acute anemia.
Possible that linezolid caused thrombocytopenia. This has been discontinued.
ID following for treatment of left hand cellulitis, abx changed from outpt.
-Known CAD with remote PCI/stenting of 2 vessels in 1996
-Hold ASA while platelet count <50k, resume when stable above this threshold
-Statin on hold in setting of pancreatitis
-Aldactone on hold for ANGELIA
Lasix IV diuresis as per nephrology
He should follow up with his primary desk assistant after discharge
HPI 03/05/2024:
Patient is a 73 year old male with past medical history of CAD with remote history of two-vessel stenting in 1996, hypertension, hyperlipidemia, GERD/Platt's esophagus, IDDM, MG, with recent cellulitis/abscess involving left hand s/p I+D 02/05/24
on oral Linezolid who presented to the hospital 03/04/2024 with abdominal pain associated with diarrhea, poor oral intake, progressive weakness and blurred vision. He was diagnosed with myasthenia gravis in August [address] Gabriel of
neurology in [place]. Patient found to have significantly elevated lipase greater than [address] of abdomen showed acute pancreatitis with moderate hepatic cirrhosis and small volume ascites. Chest x-ray showed no acute cardiopulmonary
abnormality. Troponin initially 0.076 and upward trending, currently 0.833. EKG shows sinus rhythm with nonspecific ST-T wave abnormality and no evidence of ischemic changes. Creatinine of 2.4. Patient found to be anemic with hemoglobin of 8.3
and thrombocytopenic with platelets 23,000. Cardiology being asked to see patient due to abnormal troponin. Patient denies chest pain, shortness of breath, palpitations, orthopnea, PND or edema. He does report on occasion as outpatient he
utilizes as needed Lasix for edema.
He follows with Dr. Vish Serrato at [facility] for his cardiology care. Per review of outpatient records patient previously had been on lisinopril which was discontinued in July 2023 for concern of tongue and throat fullness
Progress Note - Autocad Technician
Subjective
Date of Service: March 10, 2024
Pt seen and examined. No complaints. No chest pain or shortness of breath. Lethargic
Objective
Labs:
03/10/24 08:14
03/10/24 08:14
Labs
Hgb 8.7 g/dL (13.0-18.0) L D 03/10/24 08:14
Hct 25.3 % (39.0-52.0) L 03/10/24 08:14
Plt Count 30 10^3/uL (130-400) L 03/10/24 08:14
PT 21.0 Sec (11.4-14.6) H 03/10/24 08:14
INR 1.79 03/10/24 08:14
APTT 43.7 Sec (23.4-35.0) H 03/10/24 08:14
Sodium 133 mmol/L (135-145) L 03/10/24 08:14
Potassium 3.4 mmol/L (3.5-5.1) L 03/10/24 08:14
BUN 18 mg/dl (9-20) 03/10/24 08:14
Creatinine 0.8 mg/dL (0.7-1.3) 03/10/24 08:14
Glucose 139 mg/dl (70-99) H 03/10/24 08:14
Troponins
03/09/24
23:15
Troponin I 0.108 H*
Vital Signs and I&O:
Vital Signs
Temp Pulse Resp BP Pulse Ox
97.9 F 83 14 106/43 95
03/10/24 07:40 03/10/24 09:40 03/10/24 08:00 03/10/24 09:40 03/10/24 08:00
Vital Signs
Temp Pulse Resp BP Pulse Ox
97.9 F 83 14 106/43 95
03/10/24 07:40 03/10/24 09:40 03/10/24 08:00 03/10/24 09:40 03/10/24 08:00
Intake & Output
03/08/24 03/09/24 03/10/24 03/11/24
06:59 06:59 06:59 06:59
Intake Total 884 / 884 840 / 840 1650 / 1650
Output Total 500 / 500 425 / 425 1100 / 1100
Balance 384 / 384 415 / 415 550 / 550
Physical Exam
Physical Exam
General: No acute distress, AAOX3
Neck: Negative JVD
Heart: Regular, Negative S3 positive S1/S2, Negative S4, No murmur
Lungs: CTA b/l, negative wheezes/rales/rhonchi
Abd: Positive BS, NT/ND, neg rebound/rigidity/guarding
Ext: Negative cyanosis/clubbing/edema
Neuro: nonfocal
--- NOTE | 2024-03-10 10:35 | W.PN.NEPH.PH ---
Today's Communication / Plan
-
increase lasix
Assessment/Plan
-
Assessment
Myasthenia gravis
ANGELIA
Metabolic acidosis
Lactic acidosis
Pancreatitis
Cirrhosis
diarrhea
Failure to thrive
Thrombocytopenia
Left hand wrist abscess on antibiotics
Plan
follow BMP
replete Calcium again
increase lasix to BID given recent + I/O
replete K
-
-
Date of Service: March 10, 2024
CC / HPI / ROS
-
Chief Complaint:
Abdominal pain
History of Present Illness:
ANGELIA/Cr down to 0.9
Hgb up to 8.7
Plt low 30
Calcium still low 7.9 but improving
acidosis persists 21
K low 3.4
Review of Systems:
no chest pain shortness of breath
Tolerating diet
Labs
-
Labs:
WBC 5.9 10^3/uL (4.8-10.8) 03/10/24 08:14
RBC 2.84 10^6/uL (4.70-6.10) L 03/10/24 08:14
Hgb 8.7 g/dL (13.0-18.0) L D 03/10/24 08:14
Hct 25.3 % (39.0-52.0) L 03/10/24 08:14
Plt Count 30 10^3/uL (130-400) L 03/10/24 08:14
Sodium 133 mmol/L (135-145) L 03/10/24 08:14
Potassium 3.4 mmol/L (3.5-5.1) L 03/10/24 08:14
Chloride 107 mmol/L (98-107) 03/10/24 08:14
Carbon Dioxide 21 mmol/L (22-30) L 03/10/24 08:14
BUN 18 mg/dl (9-20) 03/10/24 08:14
Creatinine 0.8 mg/dL (0.7-1.3) 03/10/24 08:14
eGFR > 60.00 03/10/24 08:14
Glucose 139 mg/dl (70-99) H 03/10/24 08:14
Calcium 7.9 mg/dl (8.4-10.2) L 03/10/24 08:14
Albumin 2.3 g/dl (3.5-5.0) L 03/06/24 04:58
Physical Exam
-
Vital Signs:
Vital Signs
Temp Pulse Resp BP Pulse Ox
97.9 F 83 14 106/43 95
03/10/24 07:40 03/10/24 09:40 03/10/24 08:00 03/10/24 09:40 03/10/24 08:00
Cardiovascular:: Regular rate and rhythm
Respiratory:: Bilateral: CTA
Lung Excursion:: Normal
Abdomen:: Nontender and Soft
Bowel Sounds:: Normal
Extremity Edema:: +3: Bilateral:
[2024-03-10] MEDS: DELTASONE 30 MG PO (11:02)
[2024-03-10] MEDS: PROTONIX 40 MG PO ×2 (11:02→21:09)
[2024-03-10] MEDS: LOPRESSOR 100 MG PO (11:05)
--- NOTE | 2024-03-10 11:19 | W.PN.ID1 ---
Date of Service
Date of Service: March 10, 2024
Today's Communication
Continue abx's.
Assessment / Plan
Suspected myasthenia gravis flare
Hx left hand infection with MRSA, Probable osteomyelitis
- On 6-week course of antibiotics
Thrombocytopenia - likely multifactorial - linezolid, cirrhosis, sepsis
Pancreatitis - improving - possibly due to linezolid
ANGELIA - resolved
Lactic acidosis - resolved
CAD
CHF
GERD
HTN
DM
Possible Cirrhosis
Recommendations:
Probable left Hand Osteomyelitis
Currently d#35 (of 42) of effective rx, (from debridement)
c/w daptomycin
- c/w 700 mg q24 hours
- hold statin while on daptomycin
- CPK baseline normal 03/05, repeat weekly while on daptomycin
pancreatitis may relate to linezolid - improving. So long as BP remains stable daily lactate levels sufficient from ID perspective
Monitor CBC, BMP, and temperature curve.
Oral and probably esophageal candidiasis
- qtc 440
- has dysphagia - improving
- c/w micafungin day 6; would avoid fluconazole given risk of agranulocytosis
Myasthenia gravis
- s/p Plasmapheresis 03/09
- Vtach afterwards
- Holding on plasmapheresis until platelet count >50K, per neurology
Chief Complaint
-: Other (possible osteomyelitis, lactic acidosis)
Subjective / Review of Systems
Still with muscle weakness.
Vital Signs / Physical Exam
Vital Signs
Vital Signs
Temp Pulse Resp BP Pulse Ox
97.9 F 103 14 120/71 95
03/10/24 07:40 03/10/24 11:05 03/10/24 08:00 03/10/24 11:05 03/10/24 08:00
Physical Exam
Constitutional: No Acute Distress
Eyes: Sclera Anicteric
Cardiovascular: S1/S2 and Other (tachycardic)
Pulmonary: Clear
Gastrointestinal: Soft, Non Tender, Non Distended and Normal Bowel Sounds
Extremities: Negative Edema
Neurological: AO x 3
Lines: CVP (RIJ intact) and Other (RUE midline no erythema)
Objective Data
Lab Data
Lab Results
03/10/24 08:14
03/10/24 08:14
PT 21.0 Sec (11.4-14.6) H 03/10/24 08:14
INR 1.79 03/10/24 08:14
APTT 43.7 Sec (23.4-35.0) H 03/10/24 08:14
Estimated Creat Clear 82 ml/min 03/10/24 08:14
Lactic Acid 1.9 mmol/L (0.7-2.0) 03/08/24 05:28
Total Bilirubin 1.5 mg/dl (0.2-1.3) H 03/06/24 04:58
AST 46 U/L (17-59) 03/06/24 04:58
ALT 37 U/L (0-50) 03/06/24 04:58
Alkaline Phosphatase 122 U/L (38-126) 03/06/24 04:58
Most recent labs reviewed.
Micro Results:
03/04/24 08:39 Influenza Types A & B (RYLIE) - Final
Nasal Swab Negative for Influenza A & B, NAAT
Negative results must be combined with clinical observations
and patient history.
Nucleic Acid Amplification test (NAAT)performed on the
[employer] platform.
--- NOTE | 2024-03-10 11:40 | PTCARENOTE ---
pt with approx 12 second run SVT; eating yogurt, asymptomatic. Episode was self-limiting. Daily metoprolol not given until 1130; patient refused several times in the morning, wanted to sleep, wanted to take his time and eat his yogurt first, etc.
Rhythm returning to sinus with rates in 90's to 100 with frequent PACs and PVCs. Continuing to monitor
[2024-03-10] MEDS: MESTINON 90 MG PO ×3 (14:19→21:09)
[2024-03-10] MEDS: NOVOLOG FLEXPEN-LOW RESISTANCE 1 UNITS SC (14:26)
[2024-03-10 14:37] LABS: Glucose - Point of Care 196 mg/dl (70-99)
--- NOTE | 2024-03-10 14:41 | PTOTSP ---
ST Follow-Up
Pt currently presents with clinical signs of mild oropharyngeal and esophageal dysphagia characterized by prolonged mastication and bolus formation, reduced bolus formation requiring a liquid aid to assist in bolus formation and assist in residue
clearance, as well as occasional coughing after ingestion of thin liquids that could be indicative of airway invasion as well as occasional signs of aerophagia/eructation after ingestion of liquids.
Recommendations:
- DOWNGRADE diet to SOFT BITE SIZED SOLIDS and continue with thin liquids (NO STRAWS) and meds whole in puree (crush PRN).
- Aspiration and reflux precautions: HOB upright for all PO intake and for 60 minutes after PO intake; small bites/sips; slow intake rate; alternate bites/sips; NO STRAWS.
- [facility] [employer] to f/u re: diet tolerance and to determine if pt would benefit from an update instrumental swallow study (last VFSS was at [facility] in November 2022).
[2024-03-10] MEDS: MYCAMINE 105 MG IV (17:13)
[2024-03-10 18:14] LABS: Glucose - Point of Care 221 mg/dl (70-99)
[2024-03-10] MEDS: NOVOLOG FLEXPEN-LOW RESISTANCE 2 UNITS SC (18:22)
[2024-03-10] MEDS: CUBICIN 14 MG IV (18:24)
[2024-03-10 21:19] LABS: Glucose - Point of Care 248 mg/dl (70-99)
[2024-03-11] VITALS (24 sets, daily range): BP systolic 90–132; BP diastolic 51–96; PULSE 84; O2SAT 97; BMI 26.4; BMI 26.3
--- NOTE | 2024-03-11 05:02 | PTCARENOTE ---
Pt sates he woke up and knew his surroundings were familiar to him but he couldn't place why he knew any of it. Oriented to self and time. Reoriented pt to DH. Pt appeared upset at his temporary state of confusion. Reassured pt that he was in a
safe place. Resting in bed with bed alarm on and call león in reach.
[2024-03-11 05:22] LABS: Hematocrit 28.2 % (39.0-52.0); Hemoglobin 9.7 g/dL (13.0-18.0); Mean Corp Hgb Conc. 34.4 g/dL (33.0-37.0); Mean Corpuscular Hgb 31.2 pg (27.0-31.0); Mean Corpuscular Volume 90.7 fL (80.0-94.0); Platelet Count 39 10^3/uL (130-400); Red Blood Cell Count 3.11 10^6/uL (4.70-6.10); White Blood Cell Count 7.8 10^3/uL (4.8-10.8)
[2024-03-11 05:34] LABS: INR 1.31; PT 16.5 Sec (11.4-14.6)
[2024-03-11 05:35] LABS: APTT 36.3 Sec (23.4-35.0); Fibrinogen 201 MG/DL (199-459)
[2024-03-11 05:44] LABS: Blood Urea Nitrogen 15 mg/dl (9-20); Calcium 7.8 mg/dl (8.4-10.2); Carbon Dioxide 22 mmol/L (22-30); Chloride 108 mmol/L (98-107); Creatine Phosphokinase < 20 U/L (55-170); Estimated Creatinine Clearance 82 ml/min; Glucose 190 mg/dl (70-99); Lipase 348 U/L (23-300); Magnesium 1.8 mg/dl (1.6-2.3); Potassium 4.5 mmol/L (3.5-5.1); Sodium 134 mmol/L (135-145); eGFR > 60.00
--- NOTE | 2024-03-11 07:25 | W.PN.NEURO.1 ---
Today's Communication / Plan
-
.
Subjective/Objective
Subjective Data
Date of Service: March 11, 2024
Neurology follow-up note.
HPI: This is a 73-year-old man who presented to [facility] on 02/15/2024 with 2 weeks of worsening of proximal leg weakness and blurred vision in setting on prednisone dose reduction, ANGELIA on CKD, Linezolid treatment for the left hand
osteomyelitis since 01/2024m anemia, and diarrhea.
Mr. Brock was diagnosed with an acute pancreatitis, felt to be secondary to possibly due to linezolid as well as thrombocytopenia (secondary to linezolid, cirrhosis, sepsis). Mestinon was increased to 90 mg QID, Prednisone was continued at 30 mg
QAM and he was started on PLEX on 03/09/2024. Prednisone dose was reduced from 60 mg to 30 mg given left hand abscess. He was started on Micafungin for possible oral and possible esophageal candidiasis.
The patient reports no improvement in his condition. He requires 2 persons assistance to stand and used a cane/rolling walker prior the admission. He admits to worsening of swallowing and now requires a chopped diet and was notable for Pox of 92-93%
on RA yesterday. No reports of conte pain, sensory symptoms on the legs/feet, muscle cramps, change in sphincter function.
Labs(03/11/2024): PL 39, Hb 9.7, Na 134, gluc 190, CK<20, Mg 1.8,
Ach binding ab(10/11/2023) 96.2(0.0-0.4 nmol/L), normal TSH (03/04/2024).
CT head wo contrast(03/06/2024) -moderate atrophy
Chart review: Mr. Brock developed diplopia, ptosis, dysphagia and generalized weakness before he was diagnosed with seropositive generalized myasthenia gravis in the summer 2023. He is under care of ARIANE Cunningham([facility]). A
combination of steroids, Mestinon and Gammagard was reportedly not beneficial and he was treated with Vyvgart in 12/2023. Mr. Brock was reportedly told to be thymoma negative.
PMH: Generalized MG(2023), pancreatitis, L hand abscess(01/2024), hepatic cirrhosis, CAD, DM(6.4), CKD, CHF, GERD, Platt's esophagus, ambulatory dysfunction, OA
PSH: left hand I&D (02/05/2024), bilateral cataract surgery, CABG, PTCI, cholecystectomy, R TKA
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
FH:sister-lung CA, father-CAD
All: Neomycin�polymyxin) latex, Chantix
ROS: Constitutional: Negative. Negative for chills, fever and unexpected weight change.
HENT: Negative for ear pain, hearing loss, tinnitus and trouble swallowing.
Eyes: Negative for diplopia
Respiratory: Negative for cough, choking and shortness of breath.
Cardiovascular: Negative for chest pain, palpitations and leg swelling.
Gastrointestinal: Positive for dysphagia, dysarthria,
Endocrine: Negative. Negative for cold intolerance.
Genitourinary: Positive for chronic urinary urgency
Musculoskeletal: Positive for left hand pain
Skin: Negative for rash.
Allergic/Immunologic: Negative. Negative for immunocompromised state.
Neurological: Positive for leg weakness,
Psychiatric/Behavioral: Negative for behavioral problems, confusion and hallucinations.
General: Well developed. In no acute distress.
Cardio: Regular rate and rhythm. Extremities are without cyanosis or edema.
Neuro:
Mental Status: Alert, oriented to person, place, and date. Normal attention and recall. Good fund of knowledge. Follows complex requests across the midline. Comprehension, naming, and repetition intact.
Cranial Nerves: Pupils are equally round, surgical. EOMs full. Visual rosas full to confrontation. No ptosis. No nystagmus. Face symmetric. Impaired hearing AU. The palate elevated well. SCMs and traps 5/5. Tongue midline. Moderate
dysarthria including edentulous.
Motor: Normal bulk and tone. No pronator or arm drift. Strength 5/5 throughout, except for neck flexors 4 out of 5, lateral triceps, biceps and bels�4- out of 5, hip flexors, knee extensors�3+ out of 4. Dorsiflexion�5 out of 5. No clonus.
Reflexes: Trace throughout.
Sensory: Normal vibration at the toes
Coordination: Mild left greater than right action tremor.
Gait: Unable
Assessment and Plan:
I. Generalized seropositive MG exacerbation.
II. Thrombocytopenia
III. Chronic ambulatory dysfunction.
-Continue ICU care
-Dysphagia evaluation
-NIF Q 3-4 hs
-Continue Mestinon 90 mg 4 times daily, prednisone 30 mg nightly with PPI prophylaxis
-Plan to increase prednisone to 60 mg if no objections from ID.
-Fall and aspiration precautions
-Continue PLEX as per hematology(today is #2/5 treatments)
-Hold Vyvgart given infection
-Please obtain medical records form ARIANE Cunningham([facility])
-PT
-DVT prophylaxis
I personally reviewed all radiology and labs along with past medical records pertinent to current medical problems. Total time spent in patient care is 50 minutes.
Thank you for allowing us to participate in the care of this patient. We will continue to follow. Please do not hesitate to contact us with any questions or concerns.
Objective Data
Vital Signs
Temp Pulse Resp BP Pulse Ox
36.4 C 76 16 117/58 94
03/11/24 06:00 03/11/24 06:00 03/11/24 06:00 03/11/24 06:00 03/11/24 06:00
Lab Results
03/11/24 04:50
03/11/24 04:50
PT 16.5 Sec (11.4-14.6) H 03/11/24 04:50
INR 1.31 03/11/24 04:50
APTT 36.3 Sec (23.4-35.0) H 03/11/24 04:50
Sodium 134 mmol/L (135-145) L 03/11/24 04:50
Potassium 4.5 mmol/L (3.5-5.1) D 03/11/24 04:50
BUN 15 mg/dl (9-20) 03/11/24 04:50
Glucose 190 mg/dl (70-99) H 03/11/24 04:50
Calcium 7.8 mg/dl (8.4-10.2) L 03/11/24 04:50
Vitamin B12 901 pg/ml (239-931) 03/08/24 05:28
Patient Allergies
hydrocortisone [From [facility] ([id number])] Allergy (Unknown, Verified 02/27/24 13:27)
Unknown
neomycin [From [facility] ([id number])] Allergy (Unknown, Verified 02/27/24 13:27)
Unknown
polymyxin B [From [facility] ([id number])] Allergy (Unknown, Verified 02/27/24 13:27)
Unknown
varenicline Allergy (Unknown, Verified 02/27/24 13:27)
Unknown
latex Allergy (Verified 02/27/24 13:27)
Hives/REDNESS
Vital Signs and Labs
-
Vital Signs and Labs:
Vital Signs
Temp Pulse Resp BP Pulse Ox
36.4 C 76 16 117/58 94
03/11/24 06:00 03/11/24 06:00 03/11/24 06:00 03/11/24 06:00 03/11/24 06:00
Lab Results
03/11/24 04:50
03/11/24 04:50
PT 16.5 Sec (11.4-14.6) H 03/11/24 04:50
INR 1.31 03/11/24 04:50
APTT 36.3 Sec (23.4-35.0) H 03/11/24 04:50
Sodium 134 mmol/L (135-145) L 03/11/24 04:50
Potassium 4.5 mmol/L (3.5-5.1) D 03/11/24 04:50
BUN 15 mg/dl (9-20) 03/11/24 04:50
Glucose 190 mg/dl (70-99) H 03/11/24 04:50
Calcium 7.8 mg/dl (8.4-10.2) L 03/11/24 04:50
Vitamin B12 901 pg/ml (239-931) 03/08/24 05:28
Medications
-
Medications:
Generic Name Dose Route Start Last Admin
Trade Name Freq PRN Reason Stop Dose Admin
Acetaminophen 500 mg 03/04/24 15:36 03/10/24 03:15
Acetaminophen 500 Mg Tablet PO 04/01/24 15:35 500 mg
HSPRN PRN Administration
sleep
Acetaminophen 650 mg 03/04/24 15:25 03/08/24 12:37
Acetaminophen 325 Mg Tablet PO 04/01/24 15:24 650 mg
Q4HPRN PRN Administration
mild pain/ALBERTS/temp> 100.4F
Aspirin 81 mg 03/05/24 08:00 03/05/24 08:01
Aspirin 81 Mg (Enteric Coated) Tablet PO 04/02/24 07:59 81 mg
DAILY SÁNCHEZ Administration
Dextrose 12.5 grams 03/04/24 15:25 03/06/24 07:07
Dextrose 50% (0.5 Grams/Ml) 50 Ml Syringe IV 04/01/24 15:24 12.5 grams
[id number] PRN Administration
hypoglycemia
Protocol
Diphenhydramine HCl 25 mg 03/04/24 15:38 03/10/24 03:15
Diphenhydramine 25 Mg Capsule PO 04/01/24 15:37 25 mg
HSPRN PRN Administration
SLEEP
Furosemide 40 mg 03/10/24 16:00 03/10/24 17:11
Furosemide 40 Mg (10 Mg/Ml) 4 Ml Vial IV 04/07/24 15:59 40 mg
BID AT 0800,1600 SÁNCHEZ Administration
Glucagon 1 mg 03/04/24 15:25
Glucagon 1 Mg Vial IM 04/01/24 15:24
PRN PRN
hypoglycemia
Protocol
Heparin Sodium 0 units 03/11/24 08:00
Heparin (1000 Units/Ml) 10,000 Units/10 Ml Vial INTRACATH 03/11/24 08:01
ONCE ONE
Heparin Sodium 0 units 03/13/24 08:00
Heparin (1000 Units/Ml) 10,000 Units/10 Ml Vial INTRACATH 03/13/24 08:01
ONCE ONE
Heparin Sodium 0 units 03/15/24 08:00
Heparin (1000 Units/Ml) 10,000 Units/10 Ml Vial INTRACATH 03/15/24 08:01
ONCE ONE
Heparin Sodium 0 units 03/17/24 08:00
Heparin (1000 Units/Ml) 10,000 Units/10 Ml Vial INTRACATH 03/17/24 08:01
ONCE ONE
Hydromorphone HCl 0.5 mg 03/04/24 15:25 03/10/24 09:57
Hydromorphone 0.5 Mg/0.5 Ml Syringe IV 03/18/24 15:24 0.5 mg
Q4HPRN PRN Administration
severe pain
Daptomycin 700 mg/ Device 14 mls @ 0 mls/hr 03/06/24 16:00 03/10/24 18:24
IV 14 mls
Q24H SÁNCHEZ Administration
As Directed
Micafungin Sodium 100 mg/ 105 mls @ 105 mls/hr 03/08/24 18:00 03/10/24 17:13
Dextrose IV 03/15/24 17:59 105 mls
Q24H SÁNCHEZ Administration
Albumin Human 12.5 grams in 250 mls @ 2,000 mls/hr 03/11/24 08:00
Albumin 5% INTRACATH 03/11/24 10:00
.Q8M SÁNCHEZ
Calcium Gluconate 4,000 mg/ 290 mls @ 0 mls/hr 03/11/24 08:00
Sodium Chloride IV 03/11/24 08:01
ONCE ONE
As Directed
Albumin Human 12.5 grams in 250 mls @ 2,000 mls/hr 03/13/24 08:00
Albumin 5% INTRACATH 03/13/24 10:00
.Q8M SÁNCHEZ
Calcium Gluconate 4,000 mg/ 290 mls @ 0 mls/hr 03/13/24 08:00
Sodium Chloride IV 03/13/24 08:01
ONCE ONE
As Directed
Albumin Human 12.5 grams in 250 mls @ 2,000 mls/hr 03/15/24 08:00
Albumin 5% INTRACATH 03/15/24 10:00
.Q8M SÁNCHEZ
Calcium Gluconate 4,000 mg/ 290 mls @ 0 mls/hr 03/15/24 08:00
Sodium Chloride IV 03/15/24 08:01
ONCE ONE
As Directed
Albumin Human 12.5 grams in 250 mls @ 2,000 mls/hr 03/17/24 08:00
Albumin 5% INTRACATH 03/17/24 10:00
.Q8M SÁNCHEZ
Calcium Gluconate 4,000 mg/ 290 mls @ 0 mls/hr 03/17/24 08:00
Sodium Chloride IV 03/17/24 08:01
ONCE ONE
As Directed
Insulin Aspart 0 units 03/06/24 12:32 03/10/24 18:22
Insulin Aspart Low Resistance 300 Units/3 Ml Pen.Injctr SC 04/02/24 11:31 2 units
AC SÁNCHEZ Administration
Protocol
Metoprolol Tartrate 100 mg 03/05/24 08:00 03/10/24 11:05
Metoprolol 100 Mg Regular Release Tablet PO 04/02/24 07:59 100 mg
DAILY SÁNCHEZ Administration
Miconazole Nitrate 0 applic 03/06/24 20:00 03/10/24 21:11
Miconazole 2% (Same As Aloe Windfall) Ointment Tube TOPICAL 04/03/24 19:59 1 applic
BID SÁNCHEZ Administration
Pantoprazole Sodium 40 mg 03/04/24 20:00 03/10/24 21:09
Pantoprazole 40 Mg Delayed Release Tablet PO 04/01/24 19:59 40 mg
BID SÁNCHEZ Administration
Prednisone 30 mg 03/05/24 08:00 03/10/24 11:02
Prednisone 20 Mg Tablet PO 04/02/24 07:59 30 mg
DAILY SÁNCHEZ Administration
Pyridostigmine [place] 90 mg 03/10/24 13:00 03/10/24 21:09
Pyridostigmine 60 Mg Tablet PO 04/07/24 12:59 90 mg
QID SÁNCHEZ Administration
Sodium Chloride 0 flush 03/05/24 08:00 03/05/24 11:39
Sodium Chloride 0.9% (Flush) Syringe IV 04/02/24 07:59 1 flush
PER PROTOCOL SÁNCHEZ Administration
Home Medications
-
Home Medications
aspirin 81 mg capsule 81 mg PO Q48H Blood Clot Prevention/Tx 10/11/23
esomeprazole magnesium 20 mg capsule,delayed release (Nexium) 20 mg PO BID Gastrointestinal Issue 10/11/23
metoprolol tartrate 100 mg tablet 100 mg PO DAILY Heart Disease/Condition 10/11/23
pyridostigmine bromide 60 mg tablet 60 mg PO Q6 MYASTHENIA GRAVIS 10/11/23
simvastatin 20 mg tablet 20 mg PO HS High Cholesterol 10/11/23
spironolactone 25 mg tablet 25 mg PO DAILY Heart Disease/Condition 10/11/23
insulin lispro 100 unit/mL subcutaneous pen 3 - 10 unit SC MEALS Diabetes 01/02/24
acetaminophen 500 mg tablet 1,000 mg PO Q6HPRN PRN mild pain 02/02/24
prednisone 20 mg tablet 30 mg PO DAILY MYASTHENIA GRAVIS 02/02/24
linezolid 600 mg tablet 600 mg PO BID #80 tabs 02/06/24
diphenhydramine 25 mg-acetaminophen 500 mg tablet (Tylenol PM Extra Strength) 1 tab PO HS PRN sleep 02/27/24
efgartigimod jimbo 1008 [id number] 11,200 unit/5.6 mL subcut soln (Vyvgart Hytrulo) 5.6 ml SC TU MG 02/27/24
[2024-03-11 07:35] LABS: Glucose - Point of Care 194 mg/dl (70-99)
[2024-03-11 07:48] LABS: % Basophils 0.4 % (0-2); % Immature Granulocytes 3.1 % (0-0.5); % Lymphocytes 4.2 % (20.5-51.1); % Monocytes 5.4 % (1.7-9.3); % Neutrophils 86.9 % (42.2-75.2); Absolute Immature Granulocytes 0.2 10^3/uL (0-0.05); Absolute Lymphocytes 0.3 10^3/uL (1.2-3.4); Absolute Monocytes 0.4 10^3/uL (0.1-0.6); Absolute Neutrophils 6.8 10^3/uL (1.4-6.5); Nucleated Red Blood Cells % 0 % (-)
--- NOTE | 2024-03-11 08:45 | PTOTSP ---
Speech Language Pathology
Pt seen for dysphagia tx. Pt reported some difficulty with chopped meatloaf last evening with globus sensation in throat. He also endorsed some coughing with liquids, but is unsure if this is similar to baseline. Seen with P.O. trials of thin
water via cup, jello, and small bite of franko cracker. Adequate mastication, bolus formation, and A-P transit noted with no oral residue. Brief cough following thin liquid in 2/5 trials. No change in vocal quality.
Discussed recommendation for VSE. Pt stated he would be unable to sit upright for study and does not want to do it at this time. Discussed risk for aspiration and potential for PNA. Pt would like to hold off. Of note, WBC WNL.
Recommend:
(1) VSE once pt agreeable
(2) Continue IDDSI Level 6 (soft/bite-sized) and thin liquids
(3) Aspiration precautions: sit upright, slow rate, single cup sips
(4) Meds as tolerated
(5) ADVISORY [employer]NS[employer]IP to continue to follow
[2024-03-11] MEDS: MESTINON 90 MG PO ×4 (09:46→21:07)
[2024-03-11] MEDS: NOVOLOG FLEXPEN-LOW RESISTANCE 1 UNITS SC ×2 (09:48→12:54)
--- NOTE | 2024-03-11 10:52 | W.PN.ID1 ---
Date of Service
Date of Service: March 11, 2024
Today's Communication
continue dapto, micafungin
Assessment / Plan
Suspected myasthenia gravis flare
Hx left hand infection with MRSA, Probable osteomyelitis
- On 6-week course of antibiotics
Thrombocytopenia - likely multifactorial - linezolid, cirrhosis, sepsis
Pancreatitis - improving - possibly due to linezolid
ANGELIA - resolved
Lactic acidosis - resolved
CAD
CHF
GERD
HTN
DM
Possible Cirrhosis
Recommendations:
Probable left Hand Osteomyelitis
Currently d#36 (of 42) of effective rx, (from debridement)
c/w daptomycin
- c/w 700 mg q24 hours
- hold statin while on daptomycin
- CPK baseline normal 03/05, repeat weekly while on daptomycin
Monitor CBC, BMP at least weekly, follow T curve and physical exam
Oral and probably esophageal candidiasis
- qtc 440
- has dysphagia - improving
- c/w micafungin day 7 - continue today
Myasthenia gravis
- s/p Plasmapheresis 03/09
- Vtach afterwards and also last night - resolved with valsalva
- no objection to increasing steroids - tiger texted neurology my opinion
- Holding on plasmapheresis until platelet count >50K, per neurology
Chief Complaint
-: Other (possible osteomyelitis, lactic acidosis)
Subjective / Review of Systems
afebrile
bp stable
transient confusion this am
had about a minute of VT last night - broke with valsalva
Vital Signs / Physical Exam
Vital Signs
Vital Signs
Temp Pulse Resp BP Pulse Ox
98 F 76 16 117/58 94
03/11/24 07:05 03/11/24 06:00 03/11/24 06:00 03/11/24 06:00 03/11/24 06:00
Physical Exam
Constitutional: No Acute Distress and Chronically Ill
Cardiovascular: Regular Rate and S1/S2; Negative Murmur or Rub
Pulmonary: Clear and Symmetric; Negative Wheezes or Rales
Gastrointestinal: Soft, Non Tender, Non Distended and Normal Bowel Sounds
Skin: Warm and Dry; Negative Rash or Jaundice
Objective Data
Lab Data
Lab Results
03/11/24 04:50
03/11/24 04:50
PT 16.5 Sec (11.4-14.6) H 03/11/24 04:50
INR 1.31 03/11/24 04:50
APTT 36.3 Sec (23.4-35.0) H 03/11/24 04:50
Estimated Creat Clear 82 ml/min 03/11/24 04:50
Lactic Acid 1.9 mmol/L (0.7-2.0) 03/08/24 05:28
Total Bilirubin 1.5 mg/dl (0.2-1.3) H 03/06/24 04:58
AST 46 U/L (17-59) 03/06/24 04:58
ALT 37 U/L (0-50) 03/06/24 04:58
Alkaline Phosphatase 122 U/L (38-126) 03/06/24 04:58
Most recent labs reviewed.
Micro Results:
03/04/24 08:39 Influenza Types A & B (RYLIE) - Final
Nasal Swab Negative for Influenza A & B, NAAT
Negative results must be combined with clinical observations
and patient history.
Nucleic Acid Amplification test (NAAT)performed on the
Sprig platform.
--- NOTE | 2024-03-11 11:04 | W.PN.CARDCBS ---
Today's Communication / Plan
-
Check limited echo
Continue beta-krish, reviewed with neuro
No recurrent SVT
Resume aspirin once platelet count improved
Impression / Plan
-
.
PCP: Juancarlos Champagne
Corporate Sales Trainer: Dr. Vish Serrato, [facility]
Impression:
Presents 03/04/2024 with abdominal pain associated with diarrhea, poor oral intake, progressive weakness and blurred vision
s/p rapid response PM 03/09/24, possible VT
Acute pancreatitis
Myasthenia gravis exacerbation/flare
Anemia
Thrombocytopenia, concern secondary to linezolid
ANGELIA
Abnormal troponin
Left hand cellulitis/abscess with prior I&D January 2024 on 6-week course of linezolid
CAD s/p stents x 2 vessels 1996
GERD/Platt esophagus
Hypertension
Hyperlipidemia
Insulin dependent diabetes
Lexiscan nuclear stress test at [facility] 09/08/2017: Small area of mildly reversible myocardial ischemia involving apical lateral segment. EF greater than 65%.
Echo 03/05/2024: Left ventricle: Normal size and function. No regional wall motion abnormalities are noted. The estimated ejection fraction is 64% by Reyes's method of discs. Right ventricle: Normal size and function
Mild tricuspid regurgitation. Estimated pulmonary artery systolic pressures are 44 mmHg
Plan:
-Presented 03/04/2024 with abdominal pain associated with diarrhea, poor oral intake, progressive weakness and blurred vision
-Found to have acute pancreatitis on CT of abdomen 03/04/24 and lipase greater than 4000.
Pt had rapid response03/09/24, no recurrence; possible VT but more likely SVT with aberrancy
Cont repletion of potassium
Mag repleted and improved
Trop peak 1.1 on 03/05 and still trending down
Check limited echo to reeval EF
Replete K and Mg as needed
Cont tele
He denies hx of arrhythmia
Cont beta krish as ok with neuro
Echo 03/05 normal EF and no wall motion abnormality
H/H improved after transfusion last night
Hemoglobin 8.7 platelet count 30 , 03/10/24.
Resume ASA when able from a hematological standpoint
Medical tx of nonMI troponin
Thrombocytopenia with acute anemia.
Possible that linezolid caused thrombocytopenia. This has been discontinued.
ID following for treatment of left hand cellulitis, abx changed from outpt.
-Known CAD with remote PCI/stenting of 2 vessels in 1996
-Hold ASA while platelet count <50k, resume when stable above this threshold
-Statin on hold in setting of pancreatitis
-Aldactone on hold for ANGELIA
Lasix IV diuresis as per nephrology
He should follow up with his primary purification operator after discharge
HPI 03/05/2024:
Patient is a 73 year old male with past medical history of CAD with remote history of two-vessel stenting in 1996, hypertension, hyperlipidemia, GERD/Platt's esophagus, IDDM, MG, with recent cellulitis/abscess involving left hand s/p I+D 02/05/24
on oral Linezolid who presented to the hospital 03/04/2024 with abdominal pain associated with diarrhea, poor oral intake, progressive weakness and blurred vision. He was diagnosed with myasthenia gravis in August [address] Gabriel of
neurology in [place]. Patient found to have significantly elevated lipase greater than [address] of abdomen showed acute pancreatitis with moderate hepatic cirrhosis and small volume ascites. Chest x-ray showed no acute cardiopulmonary
abnormality. Troponin initially 0.076 and upward trending, currently 0.833. EKG shows sinus rhythm with nonspecific ST-T wave abnormality and no evidence of ischemic changes. Creatinine of 2.4. Patient found to be anemic with hemoglobin of 8.3
and thrombocytopenic with platelets 23,000. Cardiology being asked to see patient due to abnormal troponin. Patient denies chest pain, shortness of breath, palpitations, orthopnea, PND or edema. He does report on occasion as outpatient he
utilizes as needed Lasix for edema.
He follows with Dr. Vish Serrato at [place] for his cardiology care. Per review of outpatient records patient previously had been on lisinopril which was discontinued in July 2023 for concern of tongue and throat fullness
Progress Note - Corporate Sales Trainer
Subjective
Date of Service: March 11, 2024
Pt seen and examined. No complaints. No chest pain or shortness of breath.
Objective
Labs:
03/11/24 04:50
03/11/24 04:50
Labs
Hgb 9.7 g/dL (13.0-18.0) L 03/11/24 04:50
Hct 28.2 % (39.0-52.0) L 03/11/24 04:50
Plt Count 39 10^3/uL (130-400) L D 03/11/24 04:50
PT 16.5 Sec (11.4-14.6) H 03/11/24 04:50
INR 1.31 03/11/24 04:50
APTT 36.3 Sec (23.4-35.0) H 03/11/24 04:50
Sodium 134 mmol/L (135-145) L 03/11/24 04:50
Potassium 4.5 mmol/L (3.5-5.1) D 03/11/24 04:50
BUN 15 mg/dl (9-20) 03/11/24 04:50
Creatinine 0.8 mg/dL (0.7-1.3) 03/11/24 04:50
Glucose 190 mg/dl (70-99) H 03/11/24 04:50
Troponins
03/09/24
23:15
Troponin I 0.108 H*
Vital Signs and I&O:
Vital Signs
Temp Pulse Resp BP Pulse Ox
98 F 76 16 117/58 94
03/11/24 07:05 03/11/24 06:00 03/11/24 06:00 03/11/24 06:00 03/11/24 06:00
Vital Signs
Temp Pulse Resp BP Pulse Ox
98 F 76 16 117/58 94
03/11/24 07:05 03/11/24 06:00 03/11/24 06:00 03/11/24 06:00 03/11/24 06:00
Intake & Output
03/09/24 03/10/24 03/11/24 03/12/24
06:59 06:59 06:59 06:59
Intake Total 840 / 840 1650 / 1650 100 / 100 120 / 120
Output Total 425 / 425 1100 / 1100 1600 / 1600
Balance 415 / 415 550 / 550 -1500 / -1500 120 / 120
Physical Exam
Physical Exam
General: No acute distress, awake and alert
Neck: Negative JVD
Heart: Regular, Negative S3 positive S1/S2, Negative S4, No murmur
Lungs: CTA b/l, negative wheezes/rales/rhonchi
Abd: Positive BS, NT/ND, neg rebound/rigidity/guarding
Ext: Negative cyanosis/clubbing/edema
Neuro: nonfocal
[2024-03-11] MEDS: CALCIUM GLUCONATE 10% INJECTION 290 MG IV (11:56)
[2024-03-11] MEDS: HEPARIN 10000 UNITS INTRACATH (11:57)
[2024-03-11 12:02] LABS: Glucose - Point of Care 167 mg/dl (70-99)
--- NOTE | 2024-03-11 12:17 | W.PN.NEPH.PH ---
Today's Communication / Plan
-
adjust lasix as needed for edema
Assessment/Plan
-
Assessment
Myasthenia gravis
ANGELIA
Metabolic acidosis
Lactic acidosis
Pancreatitis
Cirrhosis
diarrhea
Failure to thrive
Thrombocytopenia
Left hand wrist abscess on antibiotics
Plan
ANGELIA-resolved
titrate lasix for edema , wt slow to improve
calcium stable, cont plasmapheresis per heme
hyponatremia-stable
follow BMP
will follow peripherally
-
-
Date of Service: March 11, 2024
CC / HPI / ROS
-
Chief Complaint:
Abdominal pain
History of Present Illness:
ANGELIA/Cr down to 0.8
Hgb up to 9.7
Plt better at 39
Calcium still low 7.8, uncorrected stable
acidosis better at 22
K 4.5
Review of Systems:
no chest pain shortness of breath at rest
Tolerating diet
feels tired
Labs
-
Labs:
WBC 7.8 10^3/uL (4.8-10.8) 03/11/24 04:50
RBC 3.11 10^6/uL (4.70-6.10) L 03/11/24 04:50
Hgb 9.7 g/dL (13.0-18.0) L 03/11/24 04:50
Hct 28.2 % (39.0-52.0) L 03/11/24 04:50
Plt Count 39 10^3/uL (130-400) L D 03/11/24 04:50
eGFR > 60.00 03/11/24 04:50
Albumin 2.3 g/dl (3.5-5.0) L 03/06/24 04:58
Physical Exam
-
Vital Signs:
Vital Signs
Temp Pulse Resp BP Pulse Ox
98 F 76 16 117/58 94
03/11/24 07:05 03/11/24 06:00 03/11/24 06:00 03/11/24 06:00 03/11/24 06:00
Cardiovascular:: Regular rate and rhythm
Respiratory:: Bilateral: CTA
Lung Excursion:: Normal
Abdomen:: Nontender and Soft
Extremity Edema:: +2: Bilateral:
Thacker Catheter: No
[2024-03-11] MEDS: LOPRESSOR 100 MG PO (12:45)
[2024-03-11] MEDS: DELTASONE 30 MG PO (12:45)
[2024-03-11] MEDS: PROTONIX 40 MG PO ×2 (12:47→21:07)
[2024-03-11] MEDS: LASIX 40 MG IV ×2 (12:49→17:12)
[2024-03-11] MEDS: ANTIFUNGAL CLEAR 1 APPLIC TOPICAL ×2 (12:49→21:07)
[2024-03-11 12:58] LABS: Blood Urea Nitrogen 13 mg/dl (9-20); Calcium 8.3 mg/dl (8.4-10.2); Carbon Dioxide 22 mmol/L (22-30); Chloride 104 mmol/L (98-107); Estimated Creatinine Clearance 94 ml/min; Glucose 147 mg/dl (70-99); Magnesium 1.5 mg/dl (1.6-2.3); Potassium 3.8 mmol/L (3.5-5.1); Sodium 134 mmol/L (135-145); eGFR > 60.00
--- NOTE | 2024-03-11 14:16 | W.PN.HOSP.TC ---
Addendum entered and electronically signed by Shawnee Hill MD 03/11/24 14:59:
I saw and evaluated the patient. I reviewed the resident�s note and agree with findings and plan as documented in the resident�s note.
A/P:
# Abd pain 2/2 pancreatitis, possibly related to linezolid
Abd pain and pancreatitis have resolved
Lipase 4000 -> 300
CT abdomen/pelvis, abdominal ultrasound report noted
Diet was advanced to low fat, now down to soft/bite size due to dysphagia (2/2 MG)
IgG4 WNL (was checked for autoimmune pancreatitis)
# diarrhea, may be related to pancreatitis, resolved
No further diarrhea for stool studies
GALLEY BOY Linezolid held
# proximal muscle weakness, likely MG flare relating to active inflammatory process/pancreatitis
# mechanical fall during hospital stay overnight 03/05
neurology and oncology on board
thrombocytopenia improved following platelet transfusion, pt was started with plasmapheresis 03/09, further plasmapheresis per Onc/Neuro
Cont prednisone, increased to 60 mg daily on 03/11,
Cont Mestinon 60mg q6h per neuro
Off Vyvgart per neuro
Vital capacity q12h
CT head was checked for fall in setting of thrombocytopenia, no acute intracranial abnormality
# Bicytopenia (anemia and severe thrombocytopenia), likely related to myasthenia crisis
s/p 3 units PRBC
s/p 7 units platelet,
Oncology on board
ASA on hold
# Arrhythmia overnight 03/09, suspect SVT, which converted to NSR after bearing down
Press Setup Operator on board
follow repeat limited echo
# recent left hand abscess
GALLEY BOY Linezolid held
Continue daptomycin per ID
# Oral and probably esophageal candidiasis
dysphagia improving
c/w micafungin per ID
# elevated troponin, suspect non-NC related
Patient denies any chest pain
Troponin peaked at 1.19
cardiology following, holding ASA 2/2 thrombocytopenia
echo unrevealing: EF 64%. Right ventricle Normal size and function. No significant valvular heart disease
# lactic acidosis likely related to linezolid side effect, resolved
# Metabolic acidosis due to above, improving
# Liver cirrhosis, likely 2/2 ETOH use
# Mild hyponatremia
# Pedal edema likely due to slight volume overload from multiple transfusion
additional IV lasix 40 mg 03/10, monitor pedal edema
Full code
DVT prophylaxis - SCDs
Original Note:
Today's Communication/Plan
-
Continue Plasmapheresis
Vyvgart held per neurology
Echo
Increase prednisone to 60mg
Assessment / Plan
Assessment / Plan
73 y/o male with known myasthenia gravis on mestinon, prednisone and Vyvgart with:
# Abd pain 2/2 pancreatitis
- Possibly related to linezolid
- GALLEY BOY Linezolid held
- Now resolved
- Lipase 4000 -> 348
- CT abdomen/pelvis, abdominal ultrasound report noted
- Continue diet IDDSI Level [address], aspiration precautions, VSE once patient agreeable
- IgG4 WNL which was checked for autoimmune pancreatitis
# Diarrhea
- Likely related to pancreatitis
- Now resolved
- No further diarrhea for stool studies
- GALLEY BOY Linezolid held
# Proximal muscle weakness
- Possibly MG flare relating to active inflammatory process/pancreatitis
- Neurology following
- Continue Mestinon 90 mg 4 times daily, prednisone 30 mg nightly with PPI prophylaxis
- Plan to increase prednisone to 60 mg if no objections from ID
- Continue PLEX as per hematology (today is #2/5 treatments)
- Vyvgart held
- Vital capacity q12h
#Arrythmia
- Patient had an episode of elevated HRs (up to 200) on 03/09 after plasmapheresis, EKG showed sinus rhythm with PACs, converted to NSR with Valsalva
- Patient not symptomatic
- Cardiology on board
- Plan for Echo today
# Bicytopenia with anemia and severe thrombocytopenia
- Likely related to myasthenia crisis
- Improved following platelet transfusion and plasmapheresis
- s/p 3 units PRBC
- s/p 7 units platelet
- Continue PLEX as per hematology (today is #2/5 treatments)
- ASA on hold
- Iron panel suggestive of anemia of chronic disease
#Recent left hand abscess
- GALLEY BOY Linezolid held
- Continue daptomycin per ID
# Oral and probably esophageal candidiasis
- Dysphagia improving
- Continue micafungin per ID
# Elevated troponin, suspect non-NC related
- Patient denies any chest pain
- Cardiology following, holding ASA 2/2 thrombocytopenia
- Plan for echo today
# Lactic acidosis
- Likely related to linezolid side effect
- Now resolved
# Metabolic acidosis
- Likely related to linezolid side effect
- Now resolved
# Liver cirrhosis
- Likely 2/2 ETOH use
# Mild hyponatremia
# Pedal edema likely due to slight volume overload from multiple transfusions
- Will continue IV lasix 40 mg bid
Full code
DVT prophylaxis - SCDs
Updated on the phone.
Anticipated Discharge: 24 - 48 hours
Subjective/Interval History
-
Date of Service: March 11, 2024
Objective Data
-
Labs:
Laboratory Results
03/11/24 03/11/24
04:50 12:30
WBC 7.8
Hgb 9.7 L
Hct 28.2 L
Plt Count 39 L D
PT 16.5 H
INR 1.31
APTT 36.3 H
Sodium 134 L 134 L
Potassium 4.5 D 3.8
Chloride 108 H 104
Carbon Dioxide 22 22
BUN 15 13
Creatinine 0.8 0.7
Glucose 190 H 147 H
Calcium 7.8 L 8.3 L
Vital Signs:
Vital Signs
Temp Pulse Resp BP Pulse Ox
98.3 F 101 16 123/58 94
03/11/24 11:05 03/11/24 12:49 03/11/24 06:00 03/11/24 12:49 03/11/24 06:00
I&O
03/10/24 03/11/24 03/12/24
06:59 06:59 06:59
Intake Total 1650 / 1650 100 / 100 120 / 120
Output Total 1100 / 1100 1600 / 1600
Balance 550 / 550 -1500 / -1500 120 / 120
Review of Systems
-
History Source: Patient
Constitutional: Reports Weakness
EENT: Reports Other (Dysphagia)
Respiratory: Reports No Symptoms
Cardiac: Reports No Symptoms
Abdomen/GI: Reports No Symptoms
Breast: Reports No Symptoms
Genitourinary: Reports No Symptoms
Musculoskeletal: Reports Muscle Weakness
Skin: Reports No Symptoms
Neuro: Reports No Symptoms
Endocrine: Reports No Symptoms
Hematologic / Lymphatic: Reports Bruising
Allergy / Immunology: Reports No Symptoms
Physical Exam
-
General: Well Developed, Well Nourished, No Apparent Distress and Comfortable
HEENT: Normocephalic
Respiratory: Clear to Auscultation
Cardiac: S1/S2 and Irregular Rhythm
GI: Soft, Nontender, Nondistended and Normal Bowel Sounds
Genito-urinary: No Costovertebral Tender
Musculoskeletal: No Clubbing, No Cyanosis, Edema, Right Lower Extrem and Edema, Left Lower Extrem
Skin: Warm
Neuro: Awake, Alert, Oriented and AO x 3
Hematologic / Lymphatic: No Lymphadenopathy
Psych: Calm
--- NOTE | 2024-03-11 15:43 | CM ---
Patient with Hx myasthenia gravis. Per MD notes, mechanical fall during hospital stay overnight 03/05. Room air. Receiving IV Abx, IV Calcium Gluconate, IV Lasix. PT/OT recommend skilled rehab.
Met with patient and spoke with Sonia by phone; discussed patient's current functional mobility as per PT/OT. Patient/ receptive to short term SNF for rehab. Patient defers to his to decide about SNFs. was on her way
currently to a medical test and unable to discuss further at this time. She agrees to meet with CM tomorrow to discuss SNF options.
Plan follow up with patient's tomorrow for SNF preferences.
--- NOTE | 2024-03-11 16:45 | PTCARENOTE ---
[facility] provided plasmaphoresis this morning. Patient fatigued after procedure. Poor appetite today eating 25 % of meals. Several loose stools incontinent. Condom catheter draining jay urine. Wound care provided as per orders. Right arm midline
with skin tear underneath, discussed with IV team. CHG bath completed. Patient states that his sense of touch is heightened, has discomfort withe lightest touch. No pain when laying still.
[2024-03-11] MEDS: CUBICIN 14 MG IV (17:09)
[2024-03-11] MEDS: MYCAMINE 105 MG IV (17:10)
[2024-03-11] MEDS: MAGNESIUM SULFATE 102 GRAMS IV (18:09)
[2024-03-11 18:15] LABS: Glucose - Point of Care 229 mg/dl (70-99)
[2024-03-11] MEDS: NOVOLOG FLEXPEN-LOW RESISTANCE 2 UNITS SC (18:16)
[2024-03-11 21:20] LABS: Glucose - Point of Care 215 mg/dl (70-99)
[2024-03-12] VITALS (11 sets, daily range): BP systolic 105–138; BP diastolic 52–96
--- NOTE | 2024-03-12 05:32 | PTCARENOTE ---
Caring for pt overnight. aaox3, flat but pleasant. C/o generalized pain, no pain meds needed. NSR PAC PVC on monitor. Remains RA. Q2T. R IJ R midline.
Pt explaining to nurse that he feels he is getting depressed. I offered emotional support. Pt stated he has someone to talk to and he feels he will get better when he gets better & is out of the hospital. Offered psych to come in and speak to him
but he denied and stated 'i dont want any medication i just wanted to talk to you about it' pt also requested a manager pulmonary to come in to speak with him.
[2024-03-12 05:54] LABS: PT 21.1 Sec (11.4-14.6)
[2024-03-12 05:55] LABS: APTT 40.5 Sec (23.4-35.0)
[2024-03-12 06:03] LABS: % Basophils 0.2 % (0-2); % Immature Granulocytes 4.9 % (0-0.5); % Lymphocytes 4.8 % (20.5-51.1); % Monocytes 4.6 % (1.7-9.3); % Neutrophils 85.5 % (42.2-75.2); Absolute Immature Granulocytes 0.3 10^3/uL (0-0.05); Absolute Lymphocytes 0.3 10^3/uL (1.2-3.4); Absolute Monocytes 0.3 10^3/uL (0.1-0.6); Absolute Neutrophils 5.4 10^3/uL (1.4-6.5); Hematocrit 26.2 % (39.0-52.0); Hemoglobin 9.1 g/dL (13.0-18.0); Mean Corp Hgb Conc. 34.7 g/dL (33.0-37.0); Mean Corpuscular Hgb 30.6 pg (27.0-31.0); Mean Corpuscular Volume 88.2 fL (80.0-94.0); Mean Platelet Volume 11.7 fL (7.4-10.4); Nucleated Red Blood Cells % 0 % (-); Platelet Count 38 10^3/uL (130-400); Red Blood Cell Count 2.97 10^6/uL (4.70-6.10); Red Cell Dist. Width 14.8 % (11.5-14.5); White Blood Cell Count 6.3 10^3/uL (4.8-10.8)
[2024-03-12 06:10] LABS: Blood Urea Nitrogen 13 mg/dl (9-20); Calcium 7.7 mg/dl (8.4-10.2); Carbon Dioxide 25 mmol/L (22-30); Chloride 102 mmol/L (98-107); Estimated Creatinine Clearance 94 ml/min; Fibrinogen 141 MG/DL (199-459); Glucose 191 mg/dl (70-99); Magnesium 1.7 mg/dl (1.6-2.3); Potassium 3.8 mmol/L (3.5-5.1); Sodium 134 mmol/L (135-145); eGFR > 60.00
[2024-03-12 07:42] LABS: Glucose - Point of Care 221 mg/dl (70-99)
[2024-03-12] MEDS: MESTINON 90 MG PO ×4 (08:00→20:49)
[2024-03-12] MEDS: ANTIFUNGAL CLEAR 1 APPLIC TOPICAL ×2 (08:00→20:52)
[2024-03-12] MEDS: PROTONIX 40 MG PO ×2 (08:00→20:50)
[2024-03-12] MEDS: NOVOLOG FLEXPEN-LOW RESISTANCE 2 UNITS SC (08:00)
[2024-03-12] MEDS: LOPRESSOR 100 MG PO (08:01)
[2024-03-12] MEDS: DELTASONE 60 MG PO (08:01)
[2024-03-12] MEDS: LASIX 40 MG IV ×2 (08:02→17:34)
--- NOTE | 2024-03-12 08:19 | W.PN.HOSP.TC ---
Addendum entered and electronically signed by Nanda Jeff MD 03/12/24 19:48:
I saw and evaluated the patient independently. I reviewed the resident�s note and agree with findings and plan as documented by Dr. Richey.
GENERAL: well developed, well nourished, male in no apparent distress
HEENT: NC/AT
HEART: regular rate and rhythm, +S1, +S2
LUNGS : clear to auscultation bilaterally
ABDOM: soft, nontender, nondistended, + bowel sounds
EXT: no cyanosis, clubbing, or edema
NEUROLOGIC: grossly intact
Abd pain likely due to pancreatitis--possibly due to linezolid (held)--resolved--cont diet with aspiration precautions
Diarrhea- Likely related to pancreatitis- No further diarrhea for stool studies- [employer] Linezolid held
Proximal muscle weakness- Possibly MG flare relating to active inflammatory process/pancreatitis--apprec neuro- Continue Mestinon 90 mg 4 times daily, prednisone increased to 60 mg nightly with PPI prophylaxis--s/p PLEX (plasma exchange) now held as
per hematology- Vyvgart held- Vital capacity q12h- Consult physiatry for acute rehab
Arrhythmia- Patient had an episode of elevated HRs (up to 200) on 03/09 after plasmapheresis, EKG showed sinus rhythm with PACs, converted to NSR with Valsalva--apprec cards-- Echo no change compared to prior, EF 60-65%
Bicytopenia with anemia and severe thrombocytopenia- Likely related to myasthenia crisis- Improved following platelet transfusion and plasmapheresis- s/p 3 units PRBC - s/p 7 units platelet- PLEX held as per hematology- ASA on hold- Iron panel
suggestive of anemia of chronic disease
Hyperglycemia- Add lantus to aim for BG 140-180
Recent left hand abscess- [employer] Linezolid held --apprec ID, cont daptomycin--finish course
Oral and probably esophageal candidiasis- Dysphagia improving- Continue micafungin per ID
Elevated troponin, suspect nonischemic myocardial troponin elevation- Patient denies any chest pain- Cardiology following, holding ASA due to thrombocytopenia
Lactic acidosis/metabolic acidosis --resolved
Liver cirrhosis- Likely due to ETOH use
Mild hyponatremia
Pedal edema likely due to slight volume overload from multiple transfusions - Will continue IV lasix 40 mg bid
code status--Full code
DVT proph - SCDs
Original Note:
Today's Communication/Plan
-
Continue steroid and mestinon
Physiatry consult
Add lantus for hyperglycemia
Continue lasix
Assessment / Plan
Assessment / Plan
73 y/o male with known myasthenia gravis on mestinon, prednisone and Vyvgart with:
# Abd pain 2/2 pancreatitis
- Possibly related to linezolid
- [employer] Linezolid held
- Now resolved
- Lipase 4000 -> 348
- CT abdomen/pelvis, abdominal ultrasound report noted
- Continue diet IDDSI Level [address], aspiration precautions, VSE once patient agreeable -- per patient, dysphagia better today
- IgG4 WNL which was checked for autoimmune pancreatitis
# Diarrhea
- Likely related to pancreatitis
- Now resolved
- No further diarrhea for stool studies
- [employer] Linezolid held
# Proximal muscle weakness
- Possibly MG flare relating to active inflammatory process/pancreatitis
- Neurology following
- Continue Mestinon 90 mg 4 times daily, prednisone increased to 60 mg nightly with PPI prophylaxis
- PLEX held as per hematology
- Vyvgart held
- Vital capacity q12h
- Consult physiatry for acute rehab
#Arrhythmia
- Patient had an episode of elevated HRs (up to 200) on 03/09 after plasmapheresis, EKG showed sinus rhythm with PACs, converted to NSR with Valsalva
- Patient not symptomatic
- Cardiology following
- Echo no change compared to prior, EF 60-65%
- Now resolved
# Bicytopenia with anemia and severe thrombocytopenia
- Likely related to myasthenia crisis
- Improved following platelet transfusion and plasmapheresis
- s/p 3 units PRBC
- s/p 7 units platelet
- PLEX held as per hematology
- ASA on hold
- Iron panel suggestive of anemia of chronic disease
# Hyperglycemia
- Add lantus to aim for BG 140-180
# Recent left hand abscess
- [employer] Linezolid held
- Continue daptomycin per ID
# Oral and probably esophageal candidiasis
- Dysphagia improving
- Continue micafungin per ID
# Elevated troponin, suspect non-CT related
- Patient denies any chest pain
- Cardiology following, holding ASA 2/2 thrombocytopenia
# Lactic acidosis
- Likely related to linezolid side effect
- Now resolved
# Metabolic acidosis
- Likely related to linezolid side effect
- Now resolved
# Liver cirrhosis
- Likely 2/2 ETOH use
# Mild hyponatremia
# Pedal edema likely due to slight volume overload from multiple transfusions
- Will continue IV lasix 40 mg bid
Full code
DVT prophylaxis - SCDs
Updated at bedside.
Anticipated Discharge: 24 - 48 hours
Subjective/Interval History
-
Date of Service: March 12, 2024
Objective Data
-
Labs:
Laboratory Results
03/12/24
05:11
WBC 6.3
Hgb 9.1 L
Hct 26.2 L
Plt Count 38 L
PT 21.1 H
INR 1.80
APTT 40.5 H
Sodium 134 L
Potassium 3.8
Chloride 102
Carbon Dioxide 25
BUN 13
Creatinine 0.7
Glucose 191 H
Calcium 7.7 L
Vital Signs:
Vital Signs
Temp Pulse Resp BP Pulse Ox
97.7 F 77 17 128/65 97
03/12/24 07:46 03/12/24 08:01 03/12/24 06:00 03/12/24 08:01 03/12/24 06:00
I&O
03/11/24 03/12/24 03/13/24
06:59 06:59 06:59
Intake Total 100 / 100 240 / 240
Output Total 1600 / 1600 3300 / 3300
Balance -1500 / -1500 -3060 / -3060
Review of Systems
-
History Source: Patient
Constitutional: Reports Night Sweats and Weakness
EENT: Reports No Symptoms Reported
Respiratory: Reports No Symptoms
Cardiac: Reports No Symptoms
Abdomen/GI: Reports No Symptoms
Breast: Reports No Symptoms
Genitourinary: Reports No Symptoms
Musculoskeletal: Reports Muscle Weakness
Skin: Reports No Symptoms
Neuro: Reports No Symptoms
Endocrine: Reports No Symptoms
Hematologic / Lymphatic: Reports No Symptoms
Allergy / Immunology: Reports No Symptoms
Physical Exam
-
General: Well Developed, Well Nourished, No Apparent Distress and Comfortable
HEENT: Normocephalic
Respiratory: Clear to Auscultation
Cardiac: Regular Rhythm and S1/S2
GI: Soft, Nontender, Nondistended and Normal Bowel Sounds
Genito-urinary: No Costovertebral Tender
Musculoskeletal: No Clubbing, No Cyanosis, Edema, Right Lower Extrem and Edema, Left Lower Extrem
Skin: Warm
Neuro: Awake, Alert and Oriented
Hematologic / Lymphatic: No Lymphadenopathy
Psych: Calm
--- NOTE | 2024-03-12 09:22 | W.PN.ID1 ---
Date of Service
Date of Service: March 12, 2024
Today's Communication
continue daptomycin and micafungin
dysphagia resolved
Assessment / Plan
Suspected myasthenia gravis flare
Hx left hand infection with MRSA, Probable osteomyelitis
- On 6-week course of antibiotics
Thrombocytopenia - likely multifactorial - linezolid, cirrhosis, sepsis
Pancreatitis - improving - possibly due to linezolid
ANGELIA - resolved
Lactic acidosis - resolved
CAD
CHF
GERD
HTN
DM
Possible Cirrhosis
Recommendations:
Probable left Hand Osteomyelitis
Currently d#37 (of 42) of effective rx, (from debridement)
c/w daptomycin
- c/w 700 mg q24 hours
- hold statin while on daptomycin
- CPK baseline normal 03/05, repeat weekly while on daptomycin
Monitor CBC, BMP at least weekly, follow T curve and physical exam
Oral and probably esophageal candidiasis
- qtc 440
- dysphagia resolved
- c/w micafungin day - continue today
Myasthenia gravis
- s/p Plasmapheresis 03/09, 03/11
- no objection to increasing steroids
Chief Complaint
-: Other (possible osteomyelitis, lactic acidosis)
Subjective / Review of Systems
afebrile
bp stable
had PLEX yesterday - tired after
color better today
'I feel better'
Vital Signs / Physical Exam
Vital Signs
Vital Signs
Temp Pulse Resp BP Pulse Ox
97.7 F 77 17 128/65 97
03/12/24 07:46 03/12/24 08:01 03/12/24 06:00 03/12/24 08:01 03/12/24 06:00
Physical Exam
Constitutional: No Acute Distress
Cardiovascular: Regular Rate and S1/S2; Negative Murmur or Rub
Pulmonary: Clear and Symmetric; Negative Wheezes or Rales
Gastrointestinal: Soft, Non Tender, Non Distended and Normal Bowel Sounds
Skin: Warm and Dry; Negative Rash or Jaundice
Wound: Other (L hand surgical site remains fully healed)
Objective Data
Lab Data
Lab Results
03/12/24 05:11
03/12/24 05:11
PT 21.1 Sec (11.4-14.6) H 03/12/24 05:11
INR 1.80 03/12/24 05:11
APTT 40.5 Sec (23.4-35.0) H 03/12/24 05:11
Estimated Creat Clear 94 ml/min 03/12/24 05:11
Lactic Acid 1.9 mmol/L (0.7-2.0) 03/08/24 05:28
Total Bilirubin 1.5 mg/dl (0.2-1.3) H 03/06/24 04:58
AST 46 U/L (17-59) 03/06/24 04:58
ALT 37 U/L (0-50) 03/06/24 04:58
Alkaline Phosphatase 122 U/L (38-126) 03/06/24 04:58
Most recent labs reviewed.
Micro Results:
03/04/24 08:39 Influenza Types A & B (RYLIE) - Final
Nasal Swab Negative for Influenza A & B, NAAT
Negative results must be combined with clinical observations
and patient history.
Nucleic Acid Amplification test (NAAT)performed on the
[employer] platform.
--- NOTE | 2024-03-12 10:13 | W.PN.ONC ---
Today's Communication / Plan
-
HOLD PLEX for now.
Further mgmt per neurology and primary team
Impression
Impression
weakness - MG flare vs. pancreatitis/sepsis/anemia, s/p PLEX on 03/09, 03/11
Pancreatitis
Cirrhosis
Hx of Myasthenia gravis with weakness on pyridostigmine & prednisone
normocytic anemia s/p 1U PRBC 03/06
thrombocytopenia s/p 4 U SDP during hospitalization, last 03/07. No evidence of acute DIC with normalization of fibrinogen following plex discontinuation. Thrombocytopenia likely from antibiotics, sepsis, cirrhosis
Prolonged PTT/PT likely r/t plex, liver dz, nutritional, and daptomycin
Left hand abscess on abx (daptomycin)
Fall 03/06 CT head negative for bld
Plan
Plan
Weakness is improving, unclear if that is secondary to PLEX, steroids, and/or improvement in pancreatitis
d/w neurology, will HOLD PLEX for now
Can keep line in place for now
Monitor CBC daily
u.
Subjective/Objective
Subjective/Objective
feeling pretty good today
Vital Signs:
Vital Signs
Temp Pulse Resp BP Pulse Ox
97.7 F 77 17 128/65 97
03/12/24 07:46 03/12/24 08:01 03/12/24 06:00 03/12/24 08:01 03/12/24 06:00
Lab Results:
Laboratory Data
WBC 6.3 10^3/uL (4.8-10.8) 03/12/24 05:11
Hgb 9.1 g/dL (13.0-18.0) L 03/12/24 05:11
Plt Count 38 10^3/uL (130-400) L 03/12/24 05:11
PT 21.1 Sec (11.4-14.6) H 03/12/24 05:11
INR 1.80 03/12/24 05:11
APTT 40.5 Sec (23.4-35.0) H 03/12/24 05:11
eGFR > 60.00 03/12/24 05:11
--- NOTE | 2024-03-12 10:18 | W.PN.CARDCBS ---
Today's Communication / Plan
-
No further SVT with aberrancy
Sign off
Impression / Plan
-
.
PCP: Juancarlos Champagne
Sap Business Analyst: Dr. Vish Serrato, [facility]
Impression:
Presents 03/04/2024 with abdominal pain associated with diarrhea, poor oral intake, progressive weakness and blurred vision
s/p rapid response PM 03/09/24, possible VT
Acute pancreatitis
Myasthenia gravis exacerbation/flare
Anemia
Thrombocytopenia, concern secondary to linezolid
ANGELIA
Abnormal troponin
Left hand cellulitis/abscess with prior I&D January 2024 on 6-week course of linezolid
CAD s/p stents x 2 vessels 1996
GERD/Platt esophagus
Hypertension
Hyperlipidemia
Insulin dependent diabetes
Lexiscan nuclear stress test at [facility] 09/08/2017: Small area of mildly reversible myocardial ischemia involving apical lateral segment. EF greater than 65%.
Echo 03/05/2024: Left ventricle: Normal size and function. No regional wall motion abnormalities are noted. The estimated ejection fraction is 64% by Reyes's method of discs. Right ventricle: Normal size and function
Mild tricuspid regurgitation. Estimated pulmonary artery systolic pressures are 44 mmHg
Plan:
Reviewed telemetry
No further SVT with aberrancy
Lasix IV diuresis as per nephrology
He should follow up with his primary esol teacher after discharge
No further recommendations
Will sign off, call with questions
HPI 03/05/2024:
Patient is a 73 year old male with past medical history of CAD with remote history of two-vessel stenting in 1996, hypertension, hyperlipidemia, GERD/Platt's esophagus, IDDM, MG, with recent cellulitis/abscess involving left hand s/p I+D 02/05/24
on oral Linezolid who presented to the hospital 03/04/2024 with abdominal pain associated with diarrhea, poor oral intake, progressive weakness and blurred vision. He was diagnosed with myasthenia gravis in August [address] Gabriel of
neurology in [place]. Patient found to have significantly elevated lipase greater than [address] of abdomen showed acute pancreatitis with moderate hepatic cirrhosis and small volume ascites. Chest x-ray showed no acute cardiopulmonary
abnormality. Troponin initially 0.076 and upward trending, currently 0.833. EKG shows sinus rhythm with nonspecific ST-T wave abnormality and no evidence of ischemic changes. Creatinine of 2.4. Patient found to be anemic with hemoglobin of 8.3
and thrombocytopenic with platelets 23,000. Cardiology being asked to see patient due to abnormal troponin. Patient denies chest pain, shortness of breath, palpitations, orthopnea, PND or edema. He does report on occasion as outpatient he
utilizes as needed Lasix for edema.
He follows with Dr. Vish Serrato at [place] for his cardiology care. Per review of outpatient records patient previously had been on lisinopril which was discontinued in July 2023 for concern of tongue and throat fullness
Progress Note - Sap Business Analyst
Subjective
Date of Service: March 12, 2024
No complaints
Objective
Labs:
03/12/24 05:11
03/12/24 05:11
Labs
Hgb 9.1 g/dL (13.0-18.0) L 03/12/24 05:11
Hct 26.2 % (39.0-52.0) L 03/12/24 05:11
Plt Count 38 10^3/uL (130-400) L 03/12/24 05:11
PT 21.1 Sec (11.4-14.6) H 03/12/24 05:11
INR 1.80 03/12/24 05:11
APTT 40.5 Sec (23.4-35.0) H 03/12/24 05:11
Sodium 134 mmol/L (135-145) L 03/12/24 05:11
Potassium 3.8 mmol/L (3.5-5.1) 03/12/24 05:11
BUN 13 mg/dl (9-20) 03/12/24 05:11
Creatinine 0.7 mg/dL (0.7-1.3) 03/12/24 05:11
Glucose 191 mg/dl (70-99) H 03/12/24 05:11
Troponins
03/09/24
23:15
Troponin I 0.108 H*
Vital Signs and I&O:
Vital Signs
Temp Pulse Resp BP Pulse Ox
97.7 F 77 17 128/65 97
03/12/24 07:46 03/12/24 08:01 03/12/24 06:00 03/12/24 08:01 03/12/24 06:00
Vital Signs
Temp Pulse Resp BP Pulse Ox
97.7 F 77 17 128/65 97
03/12/24 07:46 03/12/24 08:01 03/12/24 06:00 03/12/24 08:01 03/12/24 06:00
Intake & Output
03/10/24 03/11/24 03/12/24 03/13/24
06:59 06:59 06:59 06:59
Intake Total 1650 / 1650 100 / 100 240 / 240
Output Total 1100 / 1100 1600 / 1600 3300 / 3300
Balance 550 / 550 -1500 / -1500 -3060 / -3060
Physical Exam
Physical Exam
General: Well developed, well nourished in NAD.
Neck: Supple, no JVD, HJR, carotids +2 B/L, no bruits bilaterally.
Heart: Non displaced PMI, RRR, no murmurs, No S3, S4, no rubs.
Lungs: Scattered rhonchi
Extremities: No clubbing, cyanosis or edema bilaterally.
Neuro: Grossly nonfocal, awake, alert and oriented x3.
--- NOTE | 2024-03-12 10:55 | CM ---
Patient seen at bedside with physicians and . Patient indicated he was very weak and patient physician indicated that she would request consult to PM&R and CM will send referral to [facility]. CM will continue to follow for discharge planning needs.
Plan; Acute Rehab referral
[2024-03-12 12:02] LABS: Glucose - Point of Care 300 mg/dl (70-99)
[2024-03-12] MEDS: NOVOLOG FLEXPEN-LOW RESISTANCE 4 UNITS SC (12:08)
--- NOTE | 2024-03-12 12:51 | W.PN.NEURO.1 ---
Today's Communication / Plan
-
.
Neuro Assessment/Plan
Assessment
This is a 73-year-old male patient who presented to the ER yesterday, 03/04/2024, with GI distress, progressive weakness and vision being unclear. He was diagnosed with myasthenia gravis in August 2023. He received IVIG which was not helpful and was
therefore admitted to [facility] for plasmapheresis. He was started on Vyvgart Hytrulo, he has also been taking pyridostigmine 60 mg 4 times a day as well as steroids.
In January after a fall developed left hand abscess requiring I&D and ongoing antibiotics including linezolid for 6 week course. Prednisone was aggressively reduced to 30 mg daily.
Plan was to initiate plasmapheresis, held due to low platelets and pancreatitis
CT abdomen 03/04/2024 acute showed pancreatitis
Plan
Started plasmapheresis since there has been remediation of pancreatitis goal of 5 therapies, fist treatment 03/09/2024; would not continue this therapy unless the patient's platelet count goes over 50,000
Advance pyridostigmine from 60 mg 4x/day to dosing of 90 mg 4 times a day
Continue 30 mg of prednisone
Restart aspirin when possible
continue PT/OT and speech evaluations and treatment
Will follow
Subjective/Objective
Subjective Data
Date of Service: March 12, 2024
Neurology follow-up note.
HPI: Mr. Brock states that his swallowing has significantly improved since yesterday. No reports of headaches, diplopia, dyspnea.
Platelets�38.
PMH: Generalized MG(2023), chemical pancreatitis, L hand abscess(01/2024), hepatic cirrhosis, CAD, DM(6.4), CKD, CHF, GERD, Platt's esophagus, ambulatory dysfunction, OA
PSH: left hand I&D (02/05/2024), bilateral cataract surgery, CABG, PTCI, cholecystectomy, R TKA
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
FH:sister-lung CA, father-CAD
All: Neomycin�polymyxin) latex, Chantix
ROS: Constitutional: Negative. Negative for chills, fever and unexpected weight change.
HENT: Negative for ear pain, hearing loss, tinnitus and trouble swallowing.
Eyes: Negative for diplopia
Respiratory: Negative for cough, choking and shortness of breath.
Cardiovascular: Negative for chest pain, palpitations and leg swelling.
Gastrointestinal: Positive for dysphagia, dysarthria,
Endocrine: Negative. Negative for cold intolerance.
Genitourinary: Positive for chronic urinary urgency
Musculoskeletal: Positive for left hand pain
Skin: Negative for rash.
Allergic/Immunologic: Negative. Negative for immunocompromised state.
Neurological: Positive for leg weakness,
Psychiatric/Behavioral: Negative for behavioral problems, confusion and hallucinations.
General: Well developed. In no acute distress.
Cardio: Regular rate and rhythm. Extremities are without cyanosis or edema.
Neuro:
Mental Status: Alert, oriented to person, place, and date. Normal attention and recall. Good fund of knowledge. Follows complex requests across the midline. Comprehension, naming, and repetition intact.
Cranial Nerves: Pupils are equally round, surgical. EOMs full. Visual rosas full to confrontation. No ptosis. No nystagmus. Face symmetric. Impaired hearing AU. The palate elevated well. SCMs and traps 5/5. Tongue midline. Moderate
dysarthria including edentulous.
Motor: Normal bulk and tone. No pronator or arm drift. Strength 5/5 throughout, except for neck flexors 4 out of 5, lateral triceps, biceps and bels�4- out of 5, hip flexors, knee extensors�3+ out of 4. Dorsiflexion�5 out of 5. No clonus.
Reflexes: Trace throughout.
Sensory: Normal vibration at the toes
Coordination: Mild left greater than right action tremor.
Gait: Unable
Assessment and Plan:
I. Generalized seropositive MG, clinically improved.
II. Thrombocytopenia
III. Chronic ambulatory dysfunction.
-Fall and aspiration precautions
-Continue Mestinon 90 mg 4 times daily, prednisone 30 mg nightly with PPI prophylaxis
-Continue prednisone to 60 mg
-Fall and aspiration precautions
-Hold X given clinical improvement, lack of respiratory failure, thrombocytopenia.
-Hold Vyvgart given infection
-Please obtain medical records form ARIANE Cunningham([facility])
-PT
-DVT prophylaxis
I personally reviewed all radiology and labs along with past medical records pertinent to current medical problems. Total time spent in patient care is 50 minutes.
Thank you for allowing us to participate in the care of this patient. We will continue to follow. Please do not hesitate to contact us with any questions or concerns
Objective Data
Vital Signs
Temp Pulse Resp BP Pulse Ox
36.4 C 87 20 128/65 98
03/12/24 11:46 03/12/24 10:00 03/12/24 10:00 03/12/24 08:01 03/12/24 10:48
Lab Results
03/12/24 05:11
03/12/24 05:11
PT 21.1 Sec (11.4-14.6) H 03/12/24 05:11
INR 1.80 03/12/24 05:11
APTT 40.5 Sec (23.4-35.0) H 03/12/24 05:11
Sodium 134 mmol/L (135-145) L 03/12/24 05:11
Potassium 3.8 mmol/L (3.5-5.1) 03/12/24 05:11
BUN 13 mg/dl (9-20) 03/12/24 05:11
Glucose 191 mg/dl (70-99) H 03/12/24 05:11
Calcium 7.7 mg/dl (8.4-10.2) L 03/12/24 05:11
Vitamin B12 901 pg/ml (239-931) 03/08/24 05:28
Patient Allergies
hydrocortisone [From Westcort ([id number])] Allergy (Unknown, Verified 02/27/24 13:27)
Unknown
neomycin [From Westcort ([id number])] Allergy (Unknown, Verified 02/27/24 13:27)
Unknown
polymyxin B [From Westcort ([id number])] Allergy (Unknown, Verified 02/27/24 13:27)
Unknown
varenicline Allergy (Unknown, Verified 02/27/24 13:27)
Unknown
latex Allergy (Verified 02/27/24 13:)
Hives/REDNESS
Vital Signs and Labs
-
Vital Signs and Labs:
Vital Signs
Temp Pulse Resp BP Pulse Ox
36.9 C 80 16 116/69 96
03/12/24 15:17 03/12/24 14:00 03/12/24 14:00 03/12/24 17:34 03/12/24 14:00
Lab Results
03/12/24 05:11
03/12/24 05:11
PT 21.1 Sec (11.4-14.6) H 03/12/24 05:11
INR 1.80 03/12/24 05:11
APTT 40.5 Sec (23.4-35.0) H 03/12/24 05:11
Sodium 134 mmol/L (135-145) L 03/12/24 05:11
Potassium 3.8 mmol/L (3.5-5.1) 03/12/24 05:11
BUN 13 mg/dl (9-20) 03/12/24 05:11
Glucose 191 mg/dl (70-99) H 03/12/24 05:11
Calcium 7.7 mg/dl (8.4-10.2) L 03/12/24 05:11
Vitamin B12 901 pg/ml (820-389) 03/08/24 05:28
Medications
-
Medications:
Generic Name Dose Route Start Last Admin
Trade Name Freq PRN Reason Stop Dose Admin
Acetaminophen 500 mg 03/04/24 15:36 03/10/24 03:15
Acetaminophen 500 Mg Tablet PO 04/01/24 15:35 500 mg
HSPRN PRN Administration
sleep
Acetaminophen 650 mg 03/04/24 15:25 03/08/24 12:37
Acetaminophen 325 Mg Tablet PO 04/01/24 15:24 650 mg
Q4HPRN PRN Administration
mild pain/ALBERTS/temp> 100.4F
Aspirin 81 mg 03/05/24 08:00 03/05/24 08:01
Aspirin 81 Mg (Enteric Coated) Tablet PO 04/02/24 07:59 81 mg
DAILY SÁNCHEZ Administration
Dextrose 12.5 grams 03/04/24 15:25 03/06/24 07:07
Dextrose 50% (0.5 Grams/Ml) 50 Ml Syringe IV 04/01/24 15:24 12.5 grams
[id number] PRN Administration
hypoglycemia
Protocol
Diphenhydramine HCl 25 mg 03/04/24 15:38 03/10/24 03:15
Diphenhydramine 25 Mg Capsule PO 04/01/24 15:37 25 mg
HSPRN PRN Administration
SLEEP
Furosemide 40 mg 03/10/24 16:00 03/12/24 17:34
Furosemide 40 Mg (10 Mg/Ml) 4 Ml Vial IV 04/07/24 15:59 40 mg
BID AT 0800,1600 SÁNCHEZ Administration
Glucagon 1 mg 03/04/24 15:25
Glucagon 1 Mg Vial IM 04/01/24 15:24
PRN PRN
hypoglycemia
Protocol
Heparin Sodium 0 units 03/13/24 08:00
Heparin (1000 Units/Ml) 10,000 Units/10 Ml Vial INTRACATH 03/13/24 08:01
ONCE ONE
Heparin Sodium 0 units 03/15/24 08:00
Heparin (1000 Units/Ml) 10,000 Units/10 Ml Vial INTRACATH 03/15/24 08:01
ONCE ONE
Heparin Sodium 0 units 03/17/24 08:00
Heparin (1000 Units/Ml) 10,000 Units/10 Ml Vial INTRACATH 03/17/24 08:01
ONCE ONE
Hydromorphone HCl 0.5 mg 03/04/24 15:25 03/10/24 09:57
Hydromorphone 0.5 Mg/0.5 Ml Syringe IV 03/18/24 15:24 0.5 mg
Q4HPRN PRN Administration
severe pain
Daptomycin 700 mg/ Device 14 mls @ 0 mls/hr 03/06/24 16:00 03/12/24 17:46
IV 03/17/24 23:00 14 mls
Q24H SÁNCHEZ Administration
As Directed
Micafungin Sodium 100 mg/ 105 mls @ 105 mls/hr 03/08/24 18:00 03/12/24 17:35
Dextrose IV 03/14/24 17:59 105 mls
Q24H SÁNCHEZ Administration
Albumin Human 12.5 grams in 250 mls @ 2,000 mls/hr 03/13/24 08:00
Albumin 5% INTRACATH 03/13/24 10:00
.Q8M SÁNCHEZ
Calcium Gluconate 4,000 mg/ 290 mls @ 0 mls/hr 03/13/24 08:00
Sodium Chloride IV 03/13/24 08:01
ONCE ONE
As Directed
Albumin Human 12.5 grams in 250 mls @ 2,000 mls/hr 03/15/24 08:00
Albumin 5% INTRACATH 03/15/24 10:00
.Q8M SÁNCHEZ
Calcium Gluconate 4,000 mg/ 290 mls @ 0 mls/hr 03/15/24 08:00
Sodium Chloride IV 03/15/24 08:01
ONCE ONE
As Directed
Albumin Human 12.5 grams in 250 mls @ 2,000 mls/hr 03/17/24 08:00
Albumin 5% INTRACATH 03/17/24 10:00
.Q8M SÁNCHEZ
Calcium Gluconate 4,000 mg/ 290 mls @ 0 mls/hr 03/17/24 08:00
Sodium Chloride IV 03/17/24 08:01
ONCE ONE
As Directed
Insulin Glargine 10 units/ 0.1 mls @ 0 mls/hr 03/12/24 22:00
Device SC 04/09/24 21:59
HS SÁNCHEZ
As Directed
Insulin Aspart 0 units 03/06/24 12:32 03/12/24 17:33
Insulin Aspart Low Resistance 300 Units/3 Ml Pen.Injctr SC 04/02/24 11:31 3 units
AC SÁNCHEZ Administration
Protocol
Metoprolol Tartrate 100 mg 03/05/24 08:00 03/12/24 08:01
Metoprolol 100 Mg Regular Release Tablet PO 04/02/24 07:59 100 mg
DAILY SÁNCHEZ Administration
Miconazole Nitrate 0 applic 03/06/24 20:00 03/12/24 08:00
Miconazole 2% (Same As Aloe [place] [facility]) Ointment Tube TOPICAL 04/03/24 19:59 1 applic
BID SÁNCHEZ Administration
Pantoprazole Sodium 40 mg 03/04/24 20:00 03/12/24 08:00
Pantoprazole 40 Mg Delayed Release Tablet PO 04/01/24 19:59 40 mg
BID SÁNCHEZ Administration
Prednisone 60 mg 03/11/24 14:43 03/12/24 08:01
Prednisone 20 Mg Tablet PO 04/02/24 07:59 60 mg
DAILY SÁNCHEZ Administration
Pyridostigmine [place] 90 mg 03/10/24 13:00 03/12/24 17:34
Pyridostigmine 60 Mg Tablet PO 04/07/24 12:59 90 mg
QID SÁNCHEZ Administration
Sodium Chloride 0 flush 03/05/24 08:00 03/05/24 11:39
Sodium Chloride 0.9% (Flush) Syringe IV 04/02/24 07:59 1 flush
PER PROTOCOL [facility] Administration
Home Medications
-
Home Medications
aspirin 81 mg capsule 81 mg PO Q48H Blood Clot Prevention/Tx 10/11/23
esomeprazole magnesium 20 mg capsule,delayed release (Nexium) 20 mg PO BID Gastrointestinal Issue 10/11/23
metoprolol tartrate 100 mg tablet 100 mg PO DAILY Heart Disease/Condition 10/11/23
pyridostigmine bromide 60 mg tablet 60 mg PO Q6 MYASTHENIA GRAVIS 10/11/23
simvastatin 20 mg tablet 20 mg PO HS High Cholesterol 10/11/23
spironolactone 25 mg tablet 25 mg PO DAILY Heart Disease/Condition 10/11/23
insulin lispro 100 unit/mL subcutaneous pen 3 - 10 unit SC MEALS Diabetes 01/02/24
acetaminophen 500 mg tablet 1,000 mg PO Q6HPRN PRN mild pain 02/02/24
prednisone 20 mg tablet 30 mg PO DAILY MYASTHENIA GRAVIS 02/02/24
linezolid 600 mg tablet 600 mg PO BID #80 tabs 02/06/24
diphenhydramine 25 mg-acetaminophen 500 mg tablet (Tylenol PM Extra Strength) 1 tab PO HS PRN sleep 02/27/24
efgartigimod jimbo 1008 my-onjcpbol-agyc 11,200 unit/5.6 mL subcut soln (Vyvgart Hytrulo) 5.6 ml SC TU MG 02/27/24
--- NOTE | 2024-03-12 13:53 | PTCARENOTE ---
Assumed care of patient at beginning of this shift from previous RN. Patient Ox3, flat affect and admits to feeling down; requested 'deacon.' Call placed to application support engineer who came to see patient. He is able to assist with turns and help to pull up in
bed by reaching to headboard and pulling up; continues with generalized weakness and maintained on Q2T schedule. Decreased po intake, only taking in 10-25% of tray; needs encouragement to increase activity and intake. Inc bm. See worklist for full
assessment and vital signs; see MAR for med administration.
[2024-03-12] MEDS: NOVOLOG FLEXPEN-LOW RESISTANCE 3 UNITS SC (17:33)
[2024-03-12] MEDS: MYCAMINE 105 MG IV (17:35)
[2024-03-12 17:43] LABS: Glucose - Point of Care 290 mg/dl (70-99)
[2024-03-12] MEDS: CUBICIN 14 MG IV (17:46)
--- NOTE | 2024-03-12 18:35 | PTCARENOTE ---
Nurse from [facility] called stating she will be in tomorrow between [id number] and requested that Ca gluconate 4gm in 100ml NSS and 4L albumin be on unit before she arrives. Pharmacist notified via TT.
[2024-03-12 20:35] LABS: Glucose - Point of Care 328 mg/dl (70-99)
[2024-03-12] MEDS: LANTUS 0.1 UNITS SC (20:51)
--- NOTE | 2024-03-12 23:44 | PTCARENOTE ---
Assumed care for patient overnight, received report from ary RN. Pt AAOx3, flat affect. Pt had two episodes of incontinence, soft, brown moderate amounts of stool. Buttock has MASD associated skin breakdown, prescribed antifungal cream and
moisture barrier cream applied. Pt voiding using the urinal. NS with PAC's on tele. 96% on RA. Pt is sensitive to touch and states that he has 'chronic pain throughout his body'. Wound care done and charted see worklist. Pt tolerating frequent
turning and repositioning. Pt using the call león appropriately, call león is within reach.
[2024-03-13] VITALS (18 sets, daily range): BP systolic 78–131; BP diastolic 36–78; PULSE 82; O2SAT 95–96; BMI 26.3
[2024-03-13 04:17] LABS: INR 1.51; PT 18.4 Sec (11.4-14.6)
[2024-03-13 04:18] LABS: APTT 32.9 Sec (23.4-35.0)
[2024-03-13 04:23] LABS: Fibrinogen 150 MG/DL (199-459)
[2024-03-13 04:40] LABS: Hematocrit 27.1 % (39.0-52.0); Hemoglobin 9.4 g/dL (13.0-18.0); Mean Corp Hgb Conc. 34.7 g/dL (33.0-37.0); Mean Corpuscular Hgb 30.6 pg (27.0-31.0); Mean Corpuscular Volume 88.3 fL (80.0-94.0); Mean Platelet Volume 12.6 fL (7.4-10.4); Platelet Count 51 10^3/uL (130-400); Red Blood Cell Count 3.07 10^6/uL (4.70-6.10); Red Cell Dist. Width 14.6 % (11.5-14.5); White Blood Cell Count 6.3 10^3/uL (4.8-10.8)
[2024-03-13 05:05] LABS: Blood Urea Nitrogen 14 mg/dl (9-20); Calcium 7.9 mg/dl (8.4-10.2); Carbon Dioxide 26 mmol/L (22-30); Chloride 98 mmol/L (98-107); Estimated Creatinine Clearance 82 ml/min; Glucose 228 mg/dl (70-99); Potassium 3.3 mmol/L (3.5-5.1); Sodium 130 mmol/L (135-145); eGFR > 60.00
[2024-03-13] MEDS: LOPRESSOR 100 MG PO (06:31)
--- NOTE | 2024-03-13 06:33 | PTCARENOTE ---
Patient tachycardic. HR 110-130's, TRAN Donnelly made aware, advised to administer scheduled metoprolol early see APR.
--- NOTE | 2024-03-13 06:49 | W.PN.ONC2 ---
Today's Communication / Plan
-
PLEX QOD as per neurology (discussed with RN). PLEX scheduled for later today (03/13). Also received on 03/09 & 03/11
Impression
Impression
weakness - MG flare vs. pancreatitis/sepsis/anemia, s/p PLEX on 03/09, 03/11
Pancreatitis
Cirrhosis
Hx of Myasthenia gravis with weakness on pyridostigmine & prednisone
normocytic anemia s/p 1U PRBC 03/06
thrombocytopenia s/p 4 U SDP during hospitalization, last 03/07. No evidence of acute DIC with normalization of fibrinogen following plex discontinuation. Thrombocytopenia likely from antibiotics, sepsis, cirrhosis
Prolonged PTT/PT likely r/t plex, liver dz, nutritional, and daptomycin
Left hand abscess on abx (daptomycin)
Fall 03/06 CT head negative for bld
Plan
Plan
Weakness is improving, unclear if that is secondary to PLEX, steroids, and/or improvement in pancreatitis
Neurology (per RN) wishes to continue with PLEX # 3 of 5 due today. Scheduled.
PLT improving...now 51,000 today. No bleeding.
Monitor CBC daily
Subjective/Objective
Chief Complaint
ACS Heme F/U
Subjective
Feels very cold overnight. Still very weak. Neurology restarted PLEX on 03/11 with plans for QOD Tx due again today x 5 total. No bleeding. PLEX being managed by [place] plasmapheresis team.
Vital Signs:
Vital Signs
Temp Pulse Resp BP Pulse Ox
98.5 F 123 19 109/57 95
03/13/24 03:16 03/13/24 06:31 03/13/24 06:00 03/13/24 06:31 03/13/24 06:00
Lab Results:
Laboratory Data
WBC 6.3 10^3/uL (4.8-10.8) 03/13/24 03:50
Hgb 9.4 g/dL (13.0-18.0) L 03/13/24 03:50
Plt Count 51 10^3/uL (130-400) L D 03/13/24 03:50
PT 18.4 Sec (11.4-14.6) H 03/13/24 03:50
INR 1.51 03/13/24 03:50
APTT 32.9 Sec (23.4-35.0) 03/13/24 03:50
eGFR > 60.00 03/13/24 03:50
Physical Exam
Cardiology: Other (Tachy Regular)
[2024-03-13 07:15] LABS: % Basophils 0.3 % (0-2); % Immature Granulocytes 1.6 % (0-0.5); % Lymphocytes 3.5 % (20.5-51.1); % Monocytes 4.5 % (1.7-9.3); % Neutrophils 90.1 % (42.2-75.2); Absolute Immature Granulocytes 0.1 10^3/uL (0-0.05); Absolute Lymphocytes 0.2 10^3/uL (1.2-3.4); Absolute Monocytes 0.3 10^3/uL (0.1-0.6); Absolute Neutrophils 5.6 10^3/uL (1.4-6.5); Nucleated Red Blood Cells % 0.5 % (-)
[2024-03-13] MEDS: MESTINON 90 MG PO ×4 (07:54→21:38)
[2024-03-13] MEDS: NOVOLOG FLEXPEN-LOW RESISTANCE 2 UNITS SC (07:54)
[2024-03-13] MEDS: DELTASONE 60 MG PO (07:55)
[2024-03-13] MEDS: PROTONIX 40 MG PO ×2 (07:55→19:17)
[2024-03-13] MEDS: ANTIFUNGAL CLEAR 1 APPLIC TOPICAL ×2 (07:56→19:17)
[2024-03-13 08:05] LABS: Glucose - Point of Care 230 mg/dl (70-99)
--- NOTE | 2024-03-13 08:10 | W.PN.HOSP.TC ---
Addendum entered and electronically signed by Nanda Jeff MD 03/13/24 19:39:
I saw and evaluated the patient independently. I reviewed the resident�s note and agree with findings and plan as documented by Dr. Richey.
GENERAL: well developed, well nourished, male in no apparent distress
HEENT: NC/AT
HEART: regular rate and rhythm, +S1, +S2
LUNGS : clear to auscultation bilaterally
ABDOM: soft, nontender, nondistended, + bowel sounds
EXT: no cyanosis, clubbing, or edema
NEUROLOGIC: grossly intact
Abd pain likely due to pancreatitis--possibly due to linezolid (held)--resolved--cont diet with aspiration precautions
Diarrhea- Likely related to pancreatitis- No further diarrhea for stool studies- CARE PROGRAM DIRECTOR Linezolid held
Proximal muscle weakness- Possibly MG flare relating to active inflammatory process/pancreatitis--apprec neuro- Continue Mestinon 90 mg 4 times daily, prednisone increased to 60 mg nightly with PPI prophylaxis--s/p PLEX (plasma exchange) now held as
per neurology- Vyvgart held- Vital capacity q12h- Consult physiatry for acute rehab--await input
Arrhythmia- Patient had an episode of elevated HRs (up to 200) on 03/09 after plasmapheresis, EKG showed sinus rhythm with PACs, converted to NSR with Valsalva--apprec cards-- Echo no change compared to prior, EF 60-65%
Bicytopenia with anemia and severe thrombocytopenia- Likely related to myasthenia crisis- Improved following platelet transfusion and plasmapheresis- s/p 3 units PRBC - s/p 7 units platelet- PLEX held as per hematology- ASA on hold- Iron panel
suggestive of anemia of chronic disease
Hyperglycemia- Add lantus to aim for BG 140-180
Recent left hand abscess- CARE PROGRAM DIRECTOR Linezolid held --apprec ID, cont daptomycin--finish course
Oral and probably esophageal candidiasis- Dysphagia improving- finishing micafungin per ID
Elevated troponin, suspect nonischemic myocardial troponin elevation- Patient denies any chest pain- Cardiology following, holding ASA due to thrombocytopenia
Lactic acidosis/metabolic acidosis --resolved
Liver cirrhosis- Likely due to ETOH use
Mild hyponatremia
Pedal edema likely due to slight volume overload from multiple transfusions - Will continue IV lasix 40 mg bid
code status--Full code
DVT proph - SCDs
Original Note:
Today's Communication/Plan
-
Continue steroids and mestinon
Hold PLEX for now per neurology and hematology
Physiatry consult appreciated
Replete K as needed
Hold lasix for now given low BPs
Assessment / Plan
Assessment / Plan
73 y/o male with known myasthenia gravis on mestinon, prednisone and Vyvgart with:
# Proximal muscle weakness
- Possibly MG flare relating to active inflammatory process/pancreatitis
- Neurology following
- Continue Mestinon 90 mg 4 times daily, prednisone increased to 60 mg nightly with PPI prophylaxis
- PLEX held as per hematology and neurology
- Vyvgart held
- Vital capacity q12h
- Consult physiatry for acute rehab
# Hypokalemia, acute
- Will replete K as needed
# Abd pain 2/2 pancreatitis
- Possibly related to linezolid
- CARE PROGRAM DIRECTOR Linezolid held
- Now resolved
- Lipase 4000 -> 348
- CT abdomen/pelvis, abdominal ultrasound report noted
- Continue diet IDDSI Level [address], aspiration precautions, VSE once patient agreeable -- per patient, dysphagia better today
- IgG4 WNL which was checked for autoimmune pancreatitis
# Diarrhea
- Likely related to pancreatitis
- Now resolved
- No further diarrhea for stool studies
- CARE PROGRAM DIRECTOR Linezolid held
#Arrhythmia
- Patient had an episode of elevated HRs (up to 200) on 03/09 after plasmapheresis, EKG showed sinus rhythm with PACs, converted to NSR with Valsalva
- Patient complains of chills at night, no chest pain, no palpitations. Was hypotensive this am (MAP 50-65) and tachycardic.
- Cardiology following
- Echo no change compared to prior, EF 60-65%
- Now resolved
# Bicytopenia with anemia and severe thrombocytopenia
- Likely related to myasthenia crisis
- Improved following platelet transfusion and plasmapheresis
- s/p 3 units PRBC
- s/p 7 units platelet
- PLEX held as per hematology and neurology given clinical stability and thrombocytopenia
- ASA on hold
- Iron panel suggestive of anemia of chronic disease
# Hyperglycemia
- Continue lantus HS
# Recent left hand abscess
- CARE PROGRAM DIRECTOR Linezolid held
- Continue daptomycin per ID (d#38/42)
# Oral and probably esophageal candidiasis
- Dysphagia improving
- Continue micafungin per ID (last dose tomorrow)
# Elevated troponin, suspect non-UT related
- Patient denies any chest pain
- Cardiology following, holding ASA 2/2 thrombocytopenia
# Lactic acidosis
- Likely related to linezolid side effect
- Now resolved
# Metabolic acidosis
- Likely related to linezolid side effect
- Now resolved
# Liver cirrhosis
- Likely 2/2 ETOH use
# Mild hyponatremia
# Pedal edema likely due to slight volume overload from multiple transfusions
- Will hold IV lasix 40 mg bid for now given low BPs
Full code
DVT prophylaxis - SCDs
Updated at bedside.
Anticipated Discharge: 24 - 48 hours
Subjective/Interval History
-
Date of Service: March 13, 2024
Objective Data
-
Labs:
Laboratory Results
03/13/24
03:50
WBC 6.3
Hgb 9.4 L
Hct 27.1 L
Plt Count 51 L D
PT 18.4 H
INR 1.51
APTT 32.9
Sodium 130 L
Potassium 3.3 L
Chloride 98
Carbon Dioxide 26
BUN 14
Creatinine 0.8
Glucose 228 H
Calcium 7.9 L
Vital Signs:
Vital Signs
Temp Pulse Resp BP Pulse Ox
98.5 F 123 19 109/57 95
03/13/24 03:16 03/13/24 06:31 03/13/24 06:00 03/13/24 06:31 03/13/24 06:00
I&O
03/12/24 03/13/24 03/14/24
06:59 06:59 06:59
Intake Total 240 / 240 340 / 340
Output Total 3300 / 3300 1200 / 1200
Balance -3060 / -3060 -860 / -860
Review of Systems
-
History Source: Patient
Constitutional: Reports Night Sweats and Weakness
EENT: Reports No Symptoms Reported
Respiratory: Reports No Symptoms
Cardiac: Reports No Symptoms
Abdomen/GI: Reports No Symptoms
Genitourinary: Reports No Symptoms
Musculoskeletal: Reports Muscle Weakness
Skin: Reports No Symptoms
Neuro: Reports Weakness
Endocrine: Reports No Symptoms
Hematologic / Lymphatic: Reports No Symptoms
Physical Exam
-
General: Well Developed, Well Nourished, No Apparent Distress and Comfortable
HEENT: Normocephalic
Respiratory: Clear to Auscultation
Cardiac: Regular Rhythm and S1/S2
GI: Soft, Nontender, Nondistended and Normal Bowel Sounds
Genito-urinary: No Costovertebral Tender
Musculoskeletal: No Clubbing, No Cyanosis, Edema, Right Lower Extrem (1+) and Edema, Left Lower Extrem (1+)
Skin: Warm
Neuro: Awake, Alert and Oriented
Hematologic / Lymphatic: No Lymphadenopathy
Psych: Calm
--- NOTE | 2024-03-13 10:01 | W.PN.ID1 ---
Date of Service
Date of Service: March 13, 2024
Today's Communication
c/w daptomycin
tomorrow is final day of micafungin
Assessment / Plan
Suspected myasthenia gravis flare
Hx left hand infection with MRSA, Probable osteomyelitis
- On 6-week course of antibiotics
Thrombocytopenia - likely multifactorial - linezolid, cirrhosis, sepsis
Pancreatitis - improving - possibly due to linezolid
ANGELIA - resolved
Lactic acidosis - resolved
CAD
CHF
GERD
HTN
DM
Possible Cirrhosis
Recommendations:
Probable left Hand Osteomyelitis
Currently d#38 (of 42) of effective rx, (from debridement)
c/w daptomycin
- c/w 700 mg q24 hours
- hold statin while on daptomycin
- CPK baseline normal 03/05, repeat weekly on mondays while on daptomycin
Monitor CBC, BMP periodically, follow T curve and physical exam
Oral and probably esophageal candidiasis
- qtc 440
- dysphagia resolved
- c/w micafungin - continue today
Myasthenia gravis
- on a 5 day course of plasmapheresis
- no objection to steroids, management per neurology
Chief Complaint
-: Other (possible osteomyelitis, lactic acidosis)
Subjective / Review of Systems
afebrile
bp stable
strength improving
no complaints
Vital Signs / Physical Exam
Vital Signs
Vital Signs
Temp Pulse Resp BP Pulse Ox
99.6 F 90 16 93/49 94
03/13/24 07:05 03/13/24 08:39 03/13/24 08:39 03/13/24 08:39 03/13/24 08:39
Physical Exam
Constitutional: No Acute Distress
Cardiovascular: Regular Rate and S1/S2; Negative Murmur or Rub
Pulmonary: Clear and Symmetric; Negative Wheezes or Rales
Gastrointestinal: Soft, Non Tender, Non Distended and Normal Bowel Sounds
Skin: Warm and Dry; Negative Jaundice
Neurological: Awake
Objective Data
Lab Data
Lab Results
03/13/24 03:50
03/13/24 03:50
PT 18.4 Sec (11.4-14.6) H 03/13/24 03:50
INR 1.51 03/13/24 03:50
APTT 32.9 Sec (23.4-35.0) 03/13/24 03:50
Estimated Creat Clear 82 ml/min 03/13/24 03:50
Lactic Acid 1.9 mmol/L (0.7-2.0) 03/08/24 05:28
Total Bilirubin 1.5 mg/dl (0.2-1.3) H 03/06/24 04:58
AST 46 U/L (17-59) 03/06/24 04:58
ALT 37 U/L (0-50) 03/06/24 04:58
Alkaline Phosphatase 122 U/L (38-126) 03/06/24 04:58
Most recent labs reviewed.
Micro Results:
03/04/24 08:39 Influenza Types A & B (RYLIE) - Final
Nasal Swab Negative for Influenza A & B, NAAT
Negative results must be combined with clinical observations
and patient history.
Nucleic Acid Amplification test (NAAT)performed on the
[employer] platform.
[2024-03-13 10:05] LABS: Glucose - Point of Care 230 mg/dl (70-99)
[2024-03-13] MEDS: LASIX IV (10:14)
[2024-03-13] MEDS: KCL 40 MEQ PO (11:56)
--- NOTE | 2024-03-13 12:31 | PTCARENOTE ---
Assumed care of patient at beginning of this shift from previous RN. Lopressor given on previous RN at 0631 as HR 123. Initial BP on this shift at 0800 was 78/42. Recycled for verification: 80/43 and 85/36 with MAP 50-55. He was due for lasix 40mg
IV at 0800. TT sent to Dr Jeff who instructed to hold IV lasix. Current BP 106/62, MAP 76, HR 88.
Patient was scheduled for plasmapheresis this morning; Dr Grewal in to see patient and stated she was calling [facility] to cancel. Dr Jeff updated and confirmed with her that there is no treatment for today; they will evaluate tomorrow.
Patient made aware. TT send to pharmacy updating that treatment is not today.
PT/OT in to work with patient and was able to get him OOB to chair; he tolerated for a little less than an hour. 2 person assist back to bed.
K+ 3.3; 40meq kdur given as ordered.
Patient continues with decreased appetite; ensure clear given but patient took only 25%. Remains on Q2T schedule but is able to help turn and pull up in bed using the handles on the headboard. See worklist for full assessment and vital signs.
--- NOTE | 2024-03-13 12:56 | W.PN.NEURO.1 ---
Today's Communication / Plan
-
.
Subjective/Objective
Subjective Data
Date of Service: March 13, 2024
Neurology follow-up note.
24-hour events. Hypotensive down to 78/40 2 in the morning, afebrile. Saturating well on room air.
Labs: Sodium�130, glucose�228, platelets�51,
Mr. Brock reports no acute complaints.
PMH: Generalized MG(2023), chemical pancreatitis, L hand abscess(01/2024), hepatic cirrhosis, CAD, DM(6.4), CKD, CHF, GERD, Platt's esophagus, ambulatory dysfunction, OA
PSH: left hand I&D (02/05/2024), bilateral cataract surgery, CABG, PTCI, cholecystectomy, R TKA
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
FH:sister-lung CA, father-CAD
All: Neomycin�polymyxin) latex, Chantix
ROS: Constitutional: Negative. Negative for chills, fever and unexpected weight change.
HENT: Negative for ear pain, hearing loss, tinnitus and trouble swallowing.
Eyes: Negative for diplopia
Respiratory: Negative for cough, choking and shortness of breath.
Cardiovascular: Negative for chest pain, palpitations and leg swelling.
Gastrointestinal: Positive for dysphagia, dysarthria,
Endocrine: Negative. Negative for cold intolerance.
Genitourinary: Positive for chronic urinary urgency
Musculoskeletal: Positive for left hand pain
Skin: Negative for rash.
Allergic/Immunologic: Negative. Negative for immunocompromised state.
Neurological: Positive for leg weakness,
Psychiatric/Behavioral: Negative for behavioral problems, confusion and hallucinations.
General: Well developed. In no acute distress.
Cardio: Regular rate and rhythm. Extremities are without cyanosis or edema.
Neuro:
Mental Status: Alert, oriented to location, person. Preserved attention and comprehension. Follows simple requests consistently. No hemineglect
Cranial Nerves: Pupils are equally round, surgical. EOMs full. Visual rosas full to confrontation. No ptosis. No nystagmus. Face symmetric. Impaired hearing AU. The palate elevated well. SCMs and traps 5/5. Tongue midline. Moderate
dysarthria including edentulous.
Motor: Normal bulk and tone. No pronator or arm drift. Strength 5/5 throughout, except for neck flexors 4 out of 5, lateral triceps, biceps and bels�4- out of 5, hip flexors, knee extensors�3+ out of 4. Dorsiflexion�5 out of 5. No clonus.
Gait: deferred
Assessment and Plan:
I. Generalized seropositive MG, clinically stable.
II. Thrombocytopenia
III. Chronic ambulatory dysfunction.
IV. Hypertension
-Avoid cerebral hypoperfusion.
-Continue Mestinon 90 mg 4 times daily, prednisone 30 mg nightly with PPI prophylaxis
-Continue prednisone to 60 mg with GI prophylaxis.
-Fall and aspiration precautions
-No indication to continue PLEX given clinical stability and recently increased oral immunosuppression therapy as well as ongoing thrombocytopenia.
-Hold Vyvgart given infection
-Please obtain medical records form [facility])
-PT
-DVT prophylaxis
-Outpatient neurology follow-up in 1 week
-Please recall neurology services any questions or concerns.
I personally reviewed all radiology and labs along with past medical records pertinent to current medical problems. Total time spent in patient care is 35 minutes.
Thank you for allowing us to participate in the care of this patient. Please do not hesitate to contact us with any questions or concerns
Objective Data
Vital Signs
Temp Pulse Resp BP Pulse Ox
36.9 C 88 23 106/62 95
03/13/24 11:05 03/13/24 12:00 03/13/24 12:00 03/13/24 12:00 03/13/24 12:00
Lab Results
03/13/24 03:50
03/13/24 03:50
PT 18.4 Sec (11.4-14.6) H 03/13/24 03:50
INR 1.51 03/13/24 03:50
APTT 32.9 Sec (23.4-35.0) 03/13/24 03:50
Sodium 130 mmol/L (135-145) L 03/13/24 03:50
Potassium 3.3 mmol/L (3.5-5.1) L 03/13/24 03:50
BUN 14 mg/dl (9-20) 03/13/24 03:50
Glucose 228 mg/dl (70-99) H 03/13/24 03:50
Calcium 7.9 mg/dl (8.4-10.2) L 03/13/24 03:50
Vitamin B12 901 pg/ml (239-931) 03/08/24 05:28
Patient Allergies
hydrocortisone [From [facility] ([id number])] Allergy (Unknown, Verified 02/27/24 13:27)
Unknown
neomycin [From [facility]cort ([id number])] Allergy (Unknown, Verified 02/27/24 13:27)
Unknown
polymyxin B [From [facility]cort ([id number])] Allergy (Unknown, Verified 02/27/24 13:27)
Unknown
varenicline Allergy (Unknown, Verified 02/27/24 13:27)
Unknown
latex Allergy (Verified 02/27/24 13:27)
Hives/REDNESS
Vital Signs and Labs
-
Vital Signs and Labs:
Vital Signs
Temp Pulse Resp BP Pulse Ox
36.9 C 88 23 106/62 95
03/13/24 11:05 03/13/24 12:00 03/13/24 12:00 03/13/24 12:00 03/13/24 12:00
Lab Results
03/13/24 03:50
03/13/24 03:50
PT 18.4 Sec (11.4-14.6) H 03/13/24 03:50
INR 1.51 03/13/24 03:50
APTT 32.9 Sec (23.4-35.0) 03/13/24 03:50
Sodium 130 mmol/L (135-145) L 03/13/24 03:50
Potassium 3.3 mmol/L (3.5-5.1) L 03/13/24 03:50
BUN 14 mg/dl (9-20) 03/13/24 03:50
Glucose 228 mg/dl (70-99) H 03/13/24 03:50
Calcium 7.9 mg/dl (8.4-10.2) L 03/13/24 03:50
Vitamin B12 901 pg/ml (239-931) 03/08/24 05:28
Medications
-
Medications:
Generic Name Dose Route Start Last Admin
Trade Name Freq PRN Reason Stop Dose Admin
Acetaminophen 500 mg 03/04/24 15:36 03/10/24 03:15
Acetaminophen 500 Mg Tablet PO 04/01/24 15:35 500 mg
HSPRN PRN Administration
sleep
Acetaminophen 650 mg 03/04/24 15:25 03/08/24 12:37
Acetaminophen 325 Mg Tablet PO 04/01/24 15:24 650 mg
Q4HPRN PRN Administration
mild pain/ALBERTS/temp> 100.4F
Aspirin 81 mg 03/05/24 08:00 03/05/24 08:01
Aspirin 81 Mg (Enteric Coated) Tablet PO 04/02/24 07:59 81 mg
DAILY SÁNCHEZ Administration
Dextrose 12.5 grams 03/04/24 15:25 03/06/24 07:07
Dextrose 50% (0.5 Grams/Ml) 50 Ml Syringe IV 04/01/24 15:24 12.5 grams
[id number] PRN Administration
hypoglycemia
Protocol
Diphenhydramine HCl 25 mg 03/04/24 15:38 03/10/24 03:15
Diphenhydramine 25 Mg Capsule PO 04/01/24 15:37 25 mg
HSPRN PRN Administration
SLEEP
Furosemide 40 mg 03/10/24 16:00 03/13/24 10:14
Furosemide 40 Mg (10 Mg/Ml) 4 Ml Vial IV 04/07/24 15:59 Not Given
BID AT 0800,1600 SÁNCHEZ
Glucagon 1 mg 03/04/24 15:25
Glucagon 1 Mg Vial IM 04/01/24 15:24
PRN PRN
hypoglycemia
Protocol
Heparin Sodium 0 units 03/15/24 08:00
Heparin (1000 Units/Ml) 10,000 Units/10 Ml Vial INTRACATH 03/15/24 08:01
ONCE ONE
Heparin Sodium 0 units 03/17/24 08:00
Heparin (1000 Units/Ml) 10,000 Units/10 Ml Vial INTRACATH 03/17/24 08:01
ONCE ONE
Hydromorphone HCl 0.5 mg 03/04/24 15:25 03/10/24 09:57
Hydromorphone 0.5 Mg/0.5 Ml Syringe IV 03/18/24 15:24 0.5 mg
Q4HPRN PRN Administration
severe pain
Daptomycin 700 mg/ Device 14 mls @ 0 mls/hr 03/06/24 16:00 03/12/24 17:46
IV 03/17/24 23:00 14 mls
Q24H SÁNCHEZ Administration
As Directed
Micafungin Sodium 100 mg/ 105 mls @ 105 mls/hr 03/08/24 18:00 03/12/24 17:35
Dextrose IV 03/14/24 17:59 105 mls
Q24H SÁNCHEZ Administration
Albumin Human 12.5 grams in 250 mls @ 2,000 mls/hr 03/15/24 08:00
Albumin 5% INTRACATH 03/15/24 10:00
.Q8M SÁNCHEZ
Calcium Gluconate 4,000 mg/ 290 mls @ 0 mls/hr 03/15/24 08:00
Sodium Chloride IV 03/15/24 08:01
ONCE ONE
As Directed
Albumin Human 12.5 grams in 250 mls @ 2,000 mls/hr 03/17/24 08:00
Albumin 5% INTRACATH 03/17/24 10:00
.Q8M SÁNCHEZ
Calcium Gluconate 4,000 mg/ 290 mls @ 0 mls/hr 03/17/24 08:00
Sodium Chloride IV 03/17/24 08:01
ONCE ONE
As Directed
Insulin Glargine 10 units/ 0.1 mls @ 0 mls/hr 03/12/24 22:00 03/12/24 20:51
Device SC 04/09/24 21:59 0.1 mls
HS SÁNCHEZ Administration
As Directed
Insulin Aspart 0 units 03/06/24 12:32 03/13/24 07:54
Insulin Aspart Low Resistance 300 Units/3 Ml Pen.Injctr SC 04/02/24 11:31 2 units
AC SÁNCHEZ Administration
Protocol
Metoprolol Tartrate 100 mg 03/05/24 08:00 03/13/24 06:31
Metoprolol 100 Mg Regular Release Tablet PO 04/02/24 07:59 100 mg
DAILY SÁNCHEZ Administration
Miconazole Nitrate 0 applic 03/06/24 20:00 03/13/24 07:56
Miconazole 2% (Same As [place]oe [place]) Ointment Tube TOPICAL 04/03/24 19:59 1 applic
BID SÁNCHEZ Administration
Pantoprazole Sodium 40 mg 03/04/24 20:00 03/13/24 07:55
Pantoprazole 40 Mg Delayed Release Tablet PO 04/01/24 19:59 40 mg
BID SÁNCHEZ Administration
Prednisone 60 mg 03/11/24 14:43 03/13/24 07:55
Prednisone 20 Mg Tablet PO 04/02/24 07:59 60 mg
DAILY SÁNCHEZ Administration
Pyridostigmine [place] 90 mg 03/10/24 13:00 03/13/24 07:54
Pyridostigmine 60 Mg Tablet PO 04/07/24 12:59 90 mg
QID SÁNCHEZ Administration
Sodium Chloride 0 flush 03/05/24 08:00 03/05/24 11:39
Sodium Chloride 0.9% (Flush) Syringe IV 04/02/24 07:59 1 flush
PER PROTOCOL SÁNCHEZ Administration
Home Medications
-
Home Medications
aspirin 81 mg capsule 81 mg PO Q48H Blood Clot Prevention/Tx 10/11/23
esomeprazole magnesium 20 mg capsule,delayed release (Nexium) 20 mg PO BID Gastrointestinal Issue 10/11/23
metoprolol tartrate 100 mg tablet 100 mg PO DAILY Heart Disease/Condition 10/11/23
pyridostigmine bromide 60 mg tablet 60 mg PO Q6 MYASTHENIA GRAVIS 10/11/23
simvastatin 20 mg tablet 20 mg PO HS High Cholesterol 10/11/23
spironolactone 25 mg tablet 25 mg PO DAILY Heart Disease/Condition 10/11/23
insulin lispro 100 unit/mL subcutaneous pen 3 - 10 unit SC MEALS Diabetes 01/02/24
acetaminophen 500 mg tablet 1,000 mg PO Q6HPRN PRN mild pain 02/02/24
prednisone 20 mg tablet 30 mg PO DAILY MYASTHENIA GRAVIS 02/02/24
linezolid 600 mg tablet 600 mg PO BID #80 tabs 02/06/24
diphenhydramine 25 mg-acetaminophen 500 mg tablet (Tylenol PM Extra Strength) 1 tab PO HS PRN sleep 02/27/24
efgartigimod jimbo 1008 [id number] 11,200 unit/5.6 mL subcut soln (Vyvgart Hytrulo) 5.6 ml SC TU MG 02/27/24
--- NOTE | 2024-03-13 13:00 | CHAP ---
Msgr. Domingo Bender of [facility] in [place] anointed the patient and gave him Holy Communion.
[2024-03-13 13:12] LABS: Glucose - Point of Care 296 mg/dl (70-99)
[2024-03-13] MEDS: NOVOLOG FLEXPEN-LOW RESISTANCE 3 UNITS SC (13:45)
[2024-03-13] MEDS: LASIX 40 MG IV (16:12)
[2024-03-13] MEDS: CUBICIN 14 MG IV (16:13)
--- NOTE | 2024-03-13 17:13 | CON.MD ---
Documented by User: Neetu Bhakta PA-C 03/14/24 14:45
Consultation - Medical
-
Referring Provider:�Nanda Barros
Chief Complaint:�myasthenia Gravis Flare,Debility
�
History of Present Illness:�73-year-old male with PMH of (hypertension, insulin-dependent diabetes mellitus, myasthenia gravis currently on steroids as well as pyridostigmine) presented to the emergency department on 03/04/2024 with GI distress,
dysphagia, weight loss, progressive weakness and decreased vision. Patient was diagnosed with myasthenia gravis in August 2023 and underwent plasmapheresis. Fell in 01/2024 and presented to the ED after failed outpatient antibiotic treatments for
left hand cellulitis. His left hand was getting more swollen and painful. An abscess was confirmed by MRI. status post I&D by orthopedics on 02/05/2024. Preliminary wound culture with Staph aureus. Nasal swab positive for MRSA. He was seen by
ID and was discharged on oral linezolid for 6 weeks which could possibly have caused pancreatitis.
He presented to the ED on 03/04/24 with concerns of worsening weakness, abdominal pain associated with diarrhea x 2 weeks with poor oral intake. He is on Linezolid for left hand cellulitis with staph infection and MRSA of nares.
abdominal US with prior cholecystectomy. No findings to suggest biliary tract dilatation.Small volume ascites.Mildly irregular hepatic contour.Stable mild chronic right medical renal disease. Hematology consulted for plasmapheresis. Per
Neurology-Patient was previously also started on Vyvgart Hytrulo. He had 1 round of 4 doses over 4 weeks followed by 4 weeks off and is into his second dose of his second round. He has been receiving that at [facility]. Neuro- recommended PLEX for MG
symptoms despite current medications. IR consulted for non-tunneled pheresis catheter placement. plan to start PLEX with albumin replacement QOD x 5 starting 03/05.
Patient on Pyridostigmine 60 mg QID and Prednisone 30 mg daily. Patient with thrombocytopenia from 150K on 02/05 to 51K this admission. Prior in 120-150 range. - suspect related to Linezolid abx therapy. Hematology recommended to consider holding
Linezolid abx if no longer clinically indicated (sent home 02/05 with 40day course) and hold ppx AC if plts < 50K or bleeding. Patient found to have acute pancreatitis and cirrhosis, acute kidney injury, lactic acidosis, and anemia and elevated
troponin and cardiology was consulted. Plasmapheresis was deferred at this time
Cardio: Given platelet count of 23 would hold off on antiplatelet agents or anticoagulation at this time with concern for cirrhosis, will not start statin at this time. Repeat EKG and check transthoracic echocardiogram to assess LV function and
evaluate for regional wall motion abnormalities
ID: recommended discontinuing further linezolid given thrombocytopenia and to begin daptomycin and hold statin.
Bicytopenia with anemia and severe thrombocytopenia- Likely related to myasthenia crisis- Improved following platelet transfusion and plasmapheresis- s/p 3 units PRBC - s/p 7 units platelet- PLEX held as per hematology- ASA on hold- Iron panel
suggestive of anemia of chronic disease
Patient had an episode of elevated HRs (up to 200) on 03/09 after plasmapheresis, EKG showed sinus rhythm with PACs, converted to NSR with Valsalva--
s/p rapid response PM 03/09/24, possible VT. Lexiscan nuclear stress test at [facility] 09/08/2017: Small area of mildly reversible myocardial ischemia involving apical lateral segment. EF greater than 65%. Echo 03/05/2024: Left
ventricle: Normal size and function. No regional wall motion abnormalities are noted. The estimated ejection fraction is 64% by Reyes's method of discs. Right ventricle: Normal size and function Mild tricuspid regurgitation. No further SVT
with aberrancy. Cardio: recommended cont Lasix IV per nephrology with no further recommendations except to follow OP with his primary engineering design manager.
Plasmapheresis since there has been remediation of pancreatitis goal of 5 therapies, first treatment 03/09/2024; would not continue this therapy unless the patient's platelet count goes over 50,000. Advance pyridostigmine from 60 mg 4x/day to dosing
of 90 mg 4 times a day. Continue 30 mg of prednisone.
Neuro_ 03/13- Continue Mestinon 90 mg 4 times daily, prednisone 30 mg nightly with PPI prophylaxis.prednisone to 60 mg with GI prophylaxis.No indication to continue PLEX given clinical stability and recently increased oral immunosuppression therapy
as well as ongoing thrombocytopenia. Hold Vyvgart given infection
�
Past Medical History:�Essential hypertension, IDDM mellitus type 2, Myasthenia gravis on prednisone, GERD,
Procedure History:�cholecystectomy, right knee replacement, cardiac stents, bilateral cataract surgery, CABG, PTCI, Right TKA
Family History:�sister-lung CA, father-CAD
�
Social History:�
Functional Level Premorbidly:�Independent with all activities�
Functional Level Currently:�Bed mobility�supine to sit�supervision, sit to supine�mod assist, transfer�max assist, ambulation�sidesteps to 2 feet to edge of bed with rolling walker�mod assist, unstable posteriorly at times, requiring increased
assistance
�
Tobacco:�Denies�
Alcohol:�Denies�
Drug use:�Denies�
�
Lives with:�Family
24-hour assistance available:�
Number of floors:�3 floor condo
# steps to enter:�elevator access
# steps to second floor:
Potential First floor set up:�yes
Driving:�No, does the driving
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
�
�
Allergies:�
Allergy/AdvReac Type Severity Reaction Status Date / Time
hydrocortisone Allergy Unknown Unknown Verified 02/27/24 13:27
[From [facility]cort
([id number])]
neomycin Allergy Unknown Unknown Verified 02/27/24 13:27
[From [facility]cort
([id number])]
polymyxin B Allergy Unknown Unknown Verified 02/27/24 13:27
[From Westcort
([id number])]
varenicline Allergy Unknown Unknown Verified 02/27/24 13:27
latex Allergy Hives/REDNE Verified 02/27/24 13:27
SS
�
Review of Systems:�
Constitutional: (x) Normal _
Eye: (x) Normal _
Ear/Nose/Throat: (x) Normal _
Respiratory: (x) Normal _
Cardiovascular: (x) abNormal _HTN, SVT
Gastrointestinal: (x) abNormal _dysphagia,
Genitourinary: (x) Normal _
Musculoskeletal: (x) Normal _left hand infection, left hand pain, gait dysfunction
Integumentary: (x) Normal _
Neurologic: (x) Normal _MG, weakness, dysarthria
Psychiatric: (x) Normal _
Endocrine: (x) Normal _
Hematologic/Lymphatic: (x) abNormal _thrombocytopenia
Allergic/Immunologic: (x) Normal _
�
Medications:�
Active Current Visit Medication List
Category Date Time Status
Acetaminophen [Tylenol] Med 03/04/24 15:36 Active
500 mg PO HSPRN PRN
Acetaminophen [Tylenol] Med 03/04/24 15:25 Active
650 mg PO Q4HPRN PRN
Albumin Human 5% 250 ml [Albumin 5%] Med 03/13/24 08:00 Active
12.5 grams in 250 ml INTRACATH 2,000 mls/hr
Albumin Human 5% 250 ml [Albumin 5%] Med 03/15/24 08:00 Active
12.5 grams in 250 ml INTRACATH 2,000 mls/hr
Albumin Human 5% 250 ml [Albumin 5%] Med 03/17/24 08:00 Active
12.5 grams in 250 ml INTRACATH 2,000 mls/hr
Aspirin Low Dose EC [Aspir Low (Enteric Coated)] Med 03/05/24 08:00 Hold
81 mg PO DAILY
Calcium Gluconate [Calcium Gluconate 10% Injection] 4, Med 03/13/24 08:00 Active
000 mg
0.9% Sodium Chloride 250 ml [Nss] 250 ml
IV ONCE
Calcium Gluconate [Calcium Gluconate 10% Injection] 4, Med 03/15/24 08:00 Active
000 mg
0.9% Sodium Chloride 250 ml [Nss] 250 ml
IV ONCE
Calcium Gluconate [Calcium Gluconate 10% Injection] 4, Med 03/17/24 08:00 Active
000 mg
0.9% Sodium Chloride 250 ml [Nss] 250 ml
IV ONCE
DAPTOmycin [Cubicin] 700 mg Med 03/06/24 16:00 Active
Syringe [Syringe-Pump] 0 ml
IV Q24H
Dextrose 50%-Water [Dextrose 50% Syringe] Med 03/04/24 15:25 Active
12.5 grams IV [id number] PRN
Diphenhydramine [Benadryl] Med 03/04/24 15:38 Active
25 mg PO HSPRN PRN
Flush (0.9% Sodium Chloride) [Flush (Nss)] Med 03/05/24 08:00 Active
See Dose Instructions IV PER PROTOCOL
Furosemide [Lasix] Med 03/10/24 16:00 Active
40 mg IV BID AT 0800,1600
Glucagon [GlucaGen] Med 03/04/24 15:25 Active
1 mg IM PRN PRN
HYDROmorphone [Dilaudid] Med 03/04/24 15:25 Active
0.5 mg IV Q4HPRN PRN
Heparin Med 03/13/24 08:00 Once
See Dose Instructions INTRACATH ONCE ONE
Heparin Med 03/15/24 08:00 Once
See Dose Instructions INTRACATH ONCE ONE
Heparin Med 03/17/24 08:00 Once
See Dose Instructions INTRACATH ONCE ONE
Insulin Aspart Corrective Low [Novolog Flexpen-Low Med 03/06/24 12:32 Active
Resistance]
See Protocol SC AC
Insulin Glargine Lantus [Lantus] 10 units Med 03/12/24 22:00 Active
Subcutaneous Insulin Syringe [Syringe-Insulin] 0 unit
SC HS
Metoprolol [Lopressor] Med 03/05/24 08:00 Active
100 mg PO DAILY
Micafungin Sodium [Mycamine] 100 mg Med 03/08/24 18:00 Active
Dextrose 5%/Water 100 ml [D5w] 100 ml
IV Q24H
Miconazole Nitrate [Antifungal Clear] Med 03/06/24 20:00 Active
See Dose Instructions TOPICAL BID
Pantoprazole [Protonix] Med 03/04/24 20:00 Active
40 mg PO BID
Prednisone [Deltasone] Med 03/11/24 14:43 Active
60 mg PO DAILY
Pyridostigmine [Mestinon] Med 03/10/24 13:00 Active
90 mg PO QID
�
Vitals:�
Temp Pulse Resp BP Pulse Ox
98.1 F 101 15 112/56 96
03/14/24 07:15 03/14/24 06:00 03/14/24 06:00 03/14/24 06:00 03/14/24 06:00
Height 5 ft 10 in
Actual Weight 81 kg
Body Mass Index (BMI) 25.6
�
Physical Exam:�
General Appearance/Observation: Well-developed, well-nourished individual in no apparent distress.�
Pain/Comfort Assessment: left hand
Mood/Affect: Appropriate�
�
Integumentary/Operative Site:�
�� Pressure Ulcer Evaluation: heels not visualized
��
�� Other Type of Wound: ecchymosis throughout body
��
�
Eyes: Conjunctiva/Lids: normal���� Pupils: pupils equal round and reactive to light and Accommodation�
Ears/Nose/Throat: oral mucosa moist,� throat clear.������������ Lips/Teeth/Gums: edentulous.
Neck: No muscle spasm or tenderness�
Cardiovascular: Heart: regular, no murmur�
Pulses: dorsalis pedis 2+ bilaterally�
Respiratory: Respiratory Effort/Chest Expansion: normal������� Auscultation: Clear to auscultation bilaterally�
Gastrointestinal: abdomen not tender, no distension, normal abdominal bowel sounds
Genitourinary: No Thacker�
Extremities:�Edema: None�Cyanosis: None�Trophic�changes: None
�
Neurology Exam:
Orientation: Alert, Oriented to self, Time, Place�
Memory: Intact for immediate medical concerns
Comprehension: Intact
Two step command: Intact
Naming: Intact
Cranial Nerves:
�� CNII:�Pupillary light reflex: Intact����Visual Field: Intact
�� CN III, IV, : Extraocular muscles: Intact�
�� CN V:�Facial Sensation�at�Forehead: Intact,�Maxilla: Intact,�Mandible: Intact
�� CN VII:�Facial movement: Symmetric
�� CN VIII:�Hearing: decreased
�� CN IX/X:�Speech & swallow: dysarthric due to edentulous? has denture but does not wear-painful�Position of Uvula: Midline
�� CN XI:�Shoulder shrug: Symmetric
�� CN XII:�Tongue protrusion: Midline
Sensory:
�� Light touch: Intact in bilateral upper and lower extremities
��
�
Reflexes:
�� Biceps: 1+ bilaterally
�� Brachioradialis: 1+ bilaterally
�� Triceps: 1+ bilaterally
�� Patellar: 1+ bilaterally
�� Achilles:absent bilaterally
�� Babinski: Down going bilaterally
�� Clonus: NT
�� Fernanad: Negative bilaterally�
Cerebellar: Dysmetria/Ataxia: None�
Musculoskeletal:
Motor: (Manual muscle scale 0-5)�
Muscle SA EF WE EE FF FA HF KE DF EHL PF
Right� 4 4 4 4 3+ 3+ 5 4 5
Left 4 4 4 4 3+ 3+ 5 4 5
�
Tone: Normal in all extremities�
Range of Motion: Passively within normal limits in all extremities�
�
Lab Results:
Labs
WBC 7.5 10^3/uL (4.8-10.8) 03/14/24 04:27
RBC 2.99 10^6/uL (4.70-6.10) L 03/14/24 04:27
Hgb 9.2 g/dL (13.0-18.0) L 03/14/24 04:27
Hct 26.3 % (39.0-52.0) L 03/14/24 04:27
MCV 88.0 fL (80.0-94.0) 03/14/24 04:27
MCH 30.8 pg (27.0-31.0) 03/14/24 04:27
MCHC 35.0 g/dL (33.0-37.0) 03/14/24 04:27
RDW 14.6 % (11.5-14.5) H 03/14/24 04:27
Plt Count 52 10^3/uL (130-400) L 03/14/24 04:27
Plt Count Comment Yes 03/07/24 03:48
MPV 12.1 fL (7.4-10.4) H 03/14/24 04:27
Abs Immat Gran (auto) 0.1 10^3/uL (0-0.05) H 03/14/24 04:27
Absolute Neuts (auto) 6.8 10^3/uL (1.4-6.5) H 03/14/24 04:27
Absolute Lymphs (auto) 0.3 10^3/uL (1.2-3.4) L 03/14/24 04:27
Absolute Monos (auto) 0.3 10^3/uL (0.1-0.6) 03/14/24 04:27
Absolute Eos (auto) 0.0 10^3/uL (0-0.7) 03/14/24 04:27
Absolute Basos (auto) 0.0 10^3/uL (0-0.2) 03/14/24 04:27
CBC Comment 03/13/24 03:50
Total Counted 100 03/07/24 03:48
Immature Gran % 0.9 % (0-0.5) H 03/14/24 04:27
Neutrophils % 90.7 % (42.2-75.2) H 03/14/24 04:27
Lymphocytes % 4.3 % (20.5-51.1) L 03/14/24 04:27
Monocytes % 4.0 % (1.7-9.3) 03/14/24 04:27
Eosinophils % 0.0 % (0-6) 03/14/24 04:27
Basophils % 0.1 % (0-2) 03/14/24 04:27
Nucleated RBC % 0 % (-) 03/14/24 04:27
Abs Neuts (Manual) 5.3 10^3/uL (1.4-6.5) 03/07/24 03:48
Segmented Neutrophils 77 % (42-75) H 03/07/24 03:48
Band Neutrophils 16 % (0-3) H 03/07/24 03:48
Lymphocytes (Manual) 4 % (20-51) L 03/07/24 03:48
Monocytes (Manual) 3 % (2-9) 03/07/24 03:48
Nucleated RBCs 1 (-) 03/07/24 03:48
Normal RBC Morphology Yes 03/07/24 03:48
Retic Count 0.2 % (0.4-2.8) L 03/08/24 05:28
PT 18.5 Sec (11.4-14.6) H 03/14/24 04:27
INR 1.49 03/14/24 04:27
APTT 35.3 Sec (23.4-35.0) H 03/14/24 04:27
Fibrinogen 136 MG/DL (199-459) L 03/14/24 04:27
VBG pH 7.22 (7.32-7.43) L 03/05/24 09:48
VBG pCO2 33 mmHg (35-48) L 03/05/24 09:48
VBG pO2 51 mmHg (30-50) H 03/05/24 09:48
VBG HCO3 13.5 mmol/L (22-27) L 03/05/24 09:48
VBG O2 Sat (Rowdy) 81.2 % 03/05/24 09:48
VBG Base Excess -13.1 mmol/L (-4 to +4) 03/05/24 09:48
VBG O2 Therapy 03/05/24 09:48
Sodium 130 mmol/L (135-145) L 03/14/24 04:27
Potassium 3.4 mmol/L (3.5-5.1) L 03/14/24 04:27
Chloride 99 mmol/L (98-107) 03/14/24 04:27
Carbon Dioxide 28 mmol/L (22-30) 03/14/24 04:27
BUN 15 mg/dl (9-20) 03/14/24 04:27
Creatinine 0.7 mg/dL (0.7-1.3) 03/14/24 04:27
Estimated Creat Clear 94 ml/min 03/14/24 04:27
eGFR > 60.00 03/14/24 04:27
Glucose 215 mg/dl (70-99) H 03/14/24 04:27
Lactic Acid 1.9 mmol/L (0.7-2.0) 03/08/24 05:28
Calcium 7.6 mg/dl (8.4-10.2) L 03/14/24 04:27
Magnesium 1.7 mg/dl (1.6-2.3) 03/12/24 05:11
Iron 66 ug/dl (49-181) 03/08/24 05:28
TIBC 142 ug/dl (261-462) L 03/08/24 05:28
% Saturation 46 % (20-50) 03/08/24 05:28
Ferritin 1390.0 ng/ml (17.9-464.0) H 03/08/24 05:28
Total Bilirubin 1.5 mg/dl (0.2-1.3) H 03/06/24 04:58
Direct Bilirubin 1.0 mg/dl (0.0-0.4) H 03/05/24 06:26
AST 46 U/L (17-59) 03/06/24 04:58
ALT 37 U/L (0-50) 03/06/24 04:58
Alkaline Phosphatase 122 U/L (38-126) 03/06/24 04:58
Lactate Dehydrogenase 421 U/L (120-246) H 03/08/24 05:28
Creatine Kinase < 20 U/L (55-170) L 03/11/24 04:50
Troponin I 0.108 ng/ml H* 03/09/24 23:15
Total Protein 4.1 g/dl (6.3-8.2) L 03/06/24 04:58
Albumin 2.3 g/dl (3.5-5.0) L 03/06/24 04:58
Triglycerides 115 mg/dl (10-149) 03/06/24 04:58
Lipase 348 U/L (23-300) H 03/11/24 04:50
Vitamin B12 901 pg/ml (239-931) 03/08/24 05:28
Folate 3.9 ng/ml (2.76-20) 03/08/24 05:28
TSH (Reflex) 0.76 uIU/ml (0.47-4.68) 03/04/24 08:06
TSH (Reflex) Cancelled 03/04/24 08:06
Urine Color Yellow 03/04/24 10:42
Urine Clarity Clear (Clear) 03/04/24 10:42
Urine pH 6.0 (5.0-9.0) 03/04/24 10:42
Ur Specific [place] 1.020 (<1.030) 03/04/24 10:42
Urine Ketones Negative (Negative) 03/04/24 10:42
Ur Occult Blood Reflex Negative (Negative) 03/04/24 10:42
Urine Nitrite (Reflex) Negative (Negative) 03/04/24 10:42
Urine Bilirubin Negative (Negative) 03/04/24 10:42
Urine Urobilinogen Negative (Neg - 1+) 03/04/24 10:42
Leukocyte Esterase Rfl Trace (Negative) A 03/04/24 10:42
Urine RBC 0-2 /HPF (0-2) 03/04/24 10:42
Urine WBC (Reflex) 3-5 /HPF (0-5) 03/04/24 10:42
Ur Squamous Epith Cells 3-5 /LPF (Few) 03/04/24 10:42
Urine Bacteria (Reflex) Few (Negative) A 03/04/24 10:42
Urine Mucus Moderate 03/04/24 10:42
Urine Yeast Few (Negative) A 03/04/24 10:42
Urine Creatinine 88.000 mg/dl 03/06/24 12:08
Urine Sodium 24 mmol/L (30-90) L 03/06/24 12:08
Urine Glucose Negative (Negative) 03/04/24 10:42
Urine Albumin (Reflex) Trace (Neg - Trace) 03/04/24 10:42
IgG1 207 mg/dL (240-1118) L 03/06/24 04:58
IgG2 53 mg/dL (124-549) L 03/06/24 04:58
IgG3 6 mg/dL (21-134) L 03/06/24 04:58
IgG4 16 mg/dL (1-123) 03/06/24 04:58
SARS-CoV-2 Antigen Negative (Negative) 03/04/24 08:39
POC Glucose 203 mg/dl (70-99) H 03/14/24 07:44
Blood Type O POS 03/10/24 01:44
Blood Type Confirm O POS 03/06/24 12:07
Antibody Screen Negative (Negative) 03/10/24 01:44
Crossmatch IS Only See Detail 03/10/24 01:44
�
Diagnostic Results:�as per HPI�
�
Assessment:73-year-old male with PMH of (hypertension, insulin-dependent diabetes mellitus, myasthenia gravis currently on steroids as well as pyridostigmine) with weakness secondary to Myasthenia Gravis flare and left hand infection complicated by
thrombocytopenia, acute pancreatitis, cirrhosis and ANGELIA.
�
Plan�
�PT/OT to increase independence with ADLs, improve balance, coordination, endurance, strength, mobility, community reintegration, decreased burden of care on others and family education.�
�
Suspected myasthenia gravis flare: Per ID- s/p Plasmapheresis 03/09, 03/11. No per neuro-clinically stable and with thrombocytopenia- no indication to continue with PLEX. Continue Mestinon 90 mg 4 times daily Continue Prednisone 60mg qd . Hold
Vyvgart given infection. OP neuro follow up in 1 week.
Hx left hand infection with MRSA, Probable osteomyelitis: daptomycin 700 mg IV q24 hours,(#38 (of 42) from debridement, hold statin while on daptomycin, CPK baseline normal 03/05, repeat weekly while on daptomycin , micafungin until 03/14
Oral and probably esophageal candidiasis: qtc 440, micafungin
Dysphagia: resolved. Advance diet as tolerated.�
Dysarthria: speech evaluation.
HTN: Metoprolol 100 daily
HLD: Statin�
Coronary artery disease�: Aspirin, statin, beta-krish�
CHF/edema: nephrology-titrate Lasix for edema and weight.
hyponatremia: 130.
DM II: Accu-Cheks, insulin sliding scale, insulin glargine 10 unit at bedtime
Anemia: Likely multifactorial.� Continue to monitor.�
Thrombocytopenia: likely multifactorial - linezolid, cirrhosis, sepsis. Continue to monitor. With platelets less than 50,000 recommend keeping therapies to bedside. If platelets less than 20,000 will use further caution with activity levels and hold
therapy for platelets less than 10,000.�
Pancreatitis - improving - possibly due to linezolid
ANGELIA/lactic acid: resolved
Psych: Psychology consult.� Monitor mood, adjust medications as needed.�
Skin: monitor for pressure sores/rashes/lesions.�
Pain: acetaminophen as needed, hydromorphone 0.5 mg IV every 4 as needed
Bowel: Colace and Senna, PRN bisacodyl.�
Bladder: Time void, PVRs, PRN straight cath.�
GI Prophylaxis: Pantoprazole�40mg bid
DVT Prophylaxis: Mechanical
Pulmonary: Incentive spirometry�
Safety: Continue to reinforce assistance with all transfers.� Patient with history of 2 falls while try to get out of bed without assistance
Code Status:� Full code
Dispo�(date/plan/equipment needs): Home with family care.� Social history reviewed.�
�
Functional and Medical Goals:�Modified Independent with ADL�s, ambulation, transfers�
�
Discharge Destination:�SNF
�
Summary of recommendations: Would benefit from Acute inpatient rehabilitation once platelets have been consistently going up and stable and patient medically clear.
Thrombocytopenia: likely multifactorial - linezolid, cirrhosis, sepsis. Continue to monitor. With platelets less than 50,000 recommend keeping therapies to bedside. If platelets less than 20,000 will use further caution with activity levels and hold
therapy for platelets less than 10,000.� Platelets to be consistently improving prior to transfer.
Hx left hand infection with MRSA, Probable osteomyelitis: daptomycin 700 mg IV q24 hours,(#38 (of 42) from debridement, hold statin while on daptomycin, CPK baseline normal 03/05, repeat weekly while on daptomycin , micafungin until 03/14. Will
antibiotics be completed after 42nd day of treatment or converted to Po
Pain: acetaminophen as needed, hydromorphone 0.5 mg IV every 4 as needed. Pain to be controlled on oral medications for 24 hours prior to transfer
Bowel: Colace and Senna, PRN bisacodyl.�
Safety: Continue to reinforce assistance with all transfers.� Patient with history of 2 falls while try to get out of bed without assistance
DVT Prophylaxis: Please comment on any prophylaxis restrictions
�
Thank you for allowing me to care for your patient. Please contact me with any questions or concerns.

Documented by User: Miki Vora MD 03/14/24 18:33
Consultation - Medical
-
Referring Provider:�Nanda Barros
Chief Complaint:�Myasthenia Gravis exacerbation,Debility
�
History of Present Illness:�73-year-old male with PMH of (hypertension, insulin-dependent diabetes mellitus, myasthenia gravis currently on steroids as well as pyridostigmine) presented to the emergency department on 03/04/2024 with GI distress,
dysphagia, weight loss, progressive weakness and decreased vision. Patient was diagnosed with myasthenia gravis in August 2023 and underwent plasmapheresis. Fell in 01/2024 and presented to the ED after failed outpatient antibiotic treatments for
left hand cellulitis. His left hand was getting more swollen and painful. An abscess was confirmed by MRI. status post I&D by orthopedics on 02/05/2024. Preliminary wound culture with Staph aureus. Nasal swab positive for MRSA. He was seen by
ID and was discharged on oral linezolid for 6 weeks which could possibly have caused pancreatitis.
He presented to the ED on 03/04/24 with concerns of worsening weakness, abdominal pain associated with diarrhea x 2 weeks with poor oral intake. He is on Linezolid for left hand cellulitis with staph infection and MRSA of nares.
Abdominal US with prior cholecystectomy. No findings to suggest biliary tract dilatation.Small volume ascites.Mildly irregular hepatic contour.Stable mild chronic right medical renal disease. Hematology consulted for plasmapheresis. Per
Neurology-Patient was previously also started on Vyvgart Hytrulo. He had 1 round of 4 doses over 4 weeks followed by 4 weeks off and is into his second dose of his second round. He has been receiving that at [facility]. Neuro- recommended PLEX for MG
symptoms despite current medications. IR consulted for non-tunneled pheresis catheter placement. plan to start PLEX with albumin replacement QOD x 5 starting 03/05.
Patient on Pyridostigmine 60 mg QID and Prednisone 30 mg daily. Patient with thrombocytopenia from 150K on 02/05 to 51K this admission. Prior in 120-150 range. - suspect related to Linezolid abx therapy. Hematology recommended to consider holding
Linezolid abx if no longer clinically indicated (sent home 02/05 with 40day course) and hold ppx AC if plts < 50K or bleeding. Patient found to have acute pancreatitis and cirrhosis, acute kidney injury, lactic acidosis, and anemia and elevated
troponin and cardiology was consulted. Plasmapheresis was deferred at this time
Cardio: Given platelet count of 23 would hold off on antiplatelet agents or anticoagulation at this time with concern for cirrhosis, will not start statin at this time. Repeat EKG and check transthoracic echocardiogram to assess LV function and
evaluate for regional wall motion abnormalities
ID: recommended discontinuing further linezolid given thrombocytopenia and to begin daptomycin and hold statin.
Bicytopenia with anemia and severe thrombocytopenia- Likely related to myasthenia crisis- Improved following platelet transfusion and plasmapheresis- s/p 3 units PRBC - s/p 7 units platelet- PLEX held as per hematology- ASA on hold- Iron panel
suggestive of anemia of chronic disease
Patient had an episode of elevated HRs (up to 200) on 03/09 after plasmapheresis, EKG showed sinus rhythm with PACs, converted to NSR with Valsalva--
s/p rapid response PM 03/09/24, possible VT. Lexiscan nuclear stress test at [facility] 09/08/2017: Small area of mildly reversible myocardial ischemia involving apical lateral segment. EF greater than 65%. Echo 03/05/2024: Left
ventricle: Normal size and function. No regional wall motion abnormalities are noted. The estimated ejection fraction is 64% by Reyes's method of discs. Right ventricle: Normal size and function Mild tricuspid regurgitation. No further SVT
with aberrancy. Cardio: recommended cont Lasix IV per nephrology with no further recommendations except to follow OP with his primary engineering design manager.
Plasmapheresis since there has been remediation of pancreatitis goal of 5 therapies, first treatment 03/09/2024; would not continue this therapy unless the patient's platelet count goes over 50,000. Advance pyridostigmine from 60 mg 4x/day to dosing
of 90 mg 4 times a day. Continue 30 mg of prednisone.
Neuro_ 03/13- Continue Mestinon 90 mg 4 times daily, prednisone 30 mg nightly with PPI prophylaxis.prednisone to 60 mg with GI prophylaxis.No indication to continue PLEX given clinical stability and recently increased oral immunosuppression therapy
as well as ongoing thrombocytopenia. Hold Vyvgart given infection
�
Past Medical History:�Essential hypertension, IDDM mellitus type 2, Myasthenia gravis on prednisone, GERD,
Procedure History:�cholecystectomy, right knee replacement, cardiac stents, bilateral cataract surgery, CABG, PTCI, Right TKA
Family History:�sister-lung CA, father-CAD
�
Social History:�
Functional Level Premorbidly:�Independent with all activities�
Functional Level Currently:�Bed mobility�supine to sit�supervision, sit to supine�mod assist, transfer�max assist, ambulation�sidesteps to 2 feet to edge of bed with rolling walker�mod assist, unstable posteriorly at times, requiring increased
assistance
�
Tobacco:�Denies�
Alcohol:�Denies�
Drug use:�Denies�
�
Lives with:�Family
24-hour assistance available:�Yes
Number of floors:�3 floor condo
# steps to enter:�elevator access
Driving:�No, does the driving
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
�
�
Allergies:�
Allergy/AdvReac Type Severity Reaction Status Date / Time
hydrocortisone Allergy Unknown Unknown Verified 02/27/24 13:27
[From Chamelicrt
([id number])]
neomycin Allergy Unknown Unknown Verified 02/27/24 13:27
[From GMG33rt
([id number])]
polymyxin B Allergy Unknown Unknown Verified 02/27/24 13:27
[From Chamelicrt
([id number])]
varenicline Allergy Unknown Unknown Verified 02/27/24 13:27
latex Allergy Hives/REDNE Verified 02/27/24 13:27
SS
�
Review of Systems:�
Constitutional: (x) abNormal _fatigue
Eye: (x) Normal _
Ear/Nose/Throat: (x) Normal _
Respiratory: (x) Normal _
Cardiovascular: (x) abNormal _HTN, SVT
Gastrointestinal: (x) abNormal _dysphagia previously,
Genitourinary: (x) Normal _
Musculoskeletal: (x) Normal _left hand infection, left hand pain, gait dysfunction
Integumentary: (x) Normal _
Neurologic: (x) Normal _MG, weakness, dysarthria
Psychiatric: (x) Normal _
Endocrine: (x) Normal _
Hematologic/Lymphatic: (x) abNormal _thrombocytopenia
Allergic/Immunologic: (x) Normal _
�
Medications:�
Active Current Visit Medication List
Category Date Time Status
Acetaminophen [Tylenol] Med 03/04/24 15:36 Active
500 mg PO HSPRN PRN
Acetaminophen [Tylenol] Med 03/04/24 15:25 Active
650 mg PO Q4HPRN PRN
Albumin Human 5% 250 ml [Albumin 5%] Med 03/13/24 08:00 Active
12.5 grams in 250 ml INTRACATH 2,000 mls/hr
Albumin Human 5% 250 ml [Albumin 5%] Med 03/15/24 08:00 Active
12.5 grams in 250 ml INTRACATH 2,000 mls/hr
Albumin Human 5% 250 ml [Albumin 5%] Med 03/17/24 08:00 Active
12.5 grams in 250 ml INTRACATH 2,000 mls/hr
Aspirin Low Dose EC [Aspir Low (Enteric Coated)] Med 03/05/24 08:00 Hold
81 mg PO DAILY
Calcium Gluconate [Calcium Gluconate 10% Injection] 4, Med 03/13/24 08:00 Active
000 mg
0.9% Sodium Chloride 250 ml [Nss] 250 ml
IV ONCE
Calcium Gluconate [Calcium Gluconate 10% Injection] 4, Med 03/15/24 08:00 Active
000 mg
0.9% Sodium Chloride 250 ml [Nss] 250 ml
IV ONCE
Calcium Gluconate [Calcium Gluconate 10% Injection] 4, Med 03/17/24 08:00 Active
000 mg
0.9% Sodium Chloride 250 ml [Nss] 250 ml
IV ONCE
DAPTOmycin [Cubicin] 700 mg Med 03/06/24 16:00 Active
Syringe [Syringe-Pump] 0 ml
IV Q24H
Dextrose 50%-Water [Dextrose 50% Syringe] Med 03/04/24 15:25 Active
12.5 grams IV [id number] PRN
Diphenhydramine [Benadryl] Med 03/04/24 15:38 Active
25 mg PO HSPRN PRN
Flush (0.9% Sodium Chloride) [Flush (Nss)] Med 03/05/24 08:00 Active
See Dose Instructions IV PER PROTOCOL
Furosemide [Lasix] Med 03/10/24 16:00 Active
40 mg IV BID AT 0800,1600
Glucagon [GlucaGen] Med 03/04/24 15:25 Active
1 mg IM PRN PRN
HYDROmorphone [Dilaudid] Med 03/04/24 15:25 Active
0.5 mg IV Q4HPRN PRN
Heparin Med 03/13/24 08:00 Once
See Dose Instructions INTRACATH ONCE ONE
Heparin Med 03/15/24 08:00 Once
See Dose Instructions INTRACATH ONCE ONE
Heparin Med 03/17/24 08:00 Once
See Dose Instructions INTRACATH ONCE ONE
Insulin Aspart Corrective Low [Novolog Flexpen-Low Med 03/06/24 12:32 Active
Resistance]
See Protocol SC AC
Insulin Glargine Lantus [Lantus] 10 units Med 03/12/24 22:00 Active
Subcutaneous Insulin Syringe [Syringe-Insulin] 0 unit
SC HS
Metoprolol [Lopressor] Med 03/05/24 08:00 Active
100 mg PO DAILY
Micafungin Sodium [Mycamine] 100 mg Med 03/08/24 18:00 Active
Dextrose 5%/Water 100 ml [D5w] 100 ml
IV Q24H
Miconazole Nitrate [Antifungal Clear] Med 03/06/24 20:00 Active
See Dose Instructions TOPICAL BID
Pantoprazole [Protonix] Med 03/04/24 20:00 Active
40 mg PO BID
Prednisone [Deltasone] Med 03/11/24 14:43 Active
60 mg PO DAILY
Pyridostigmine [Mestinon] Med 03/10/24 13:00 Active
90 mg PO QID
�
Vitals:�
Temp Pulse Resp BP Pulse Ox
97.5 F 76 17 118/67 95
03/13/24 15:05 03/13/24 18:00 03/13/24 18:00 03/13/24 18:00 03/13/24 18:00
Height 5 ft 10 in
Actual Weight 81 kg
Body Mass Index (BMI) 25.6
�
Physical Exam:�
General Appearance/Observation: Well-developed, well-nourished male in no apparent distress.�
Pain/Comfort Assessment: left hand
Mood/Affect: Appropriate�
�
Integumentary/Operative Site:�ecchymosis throughout body
�
Eyes: Conjunctiva/Lids: normal���� Pupils: pupils equal round and reactive to light and Accommodation�
Ears/Nose/Throat: oral mucosa moist,� throat clear.������������ Lips/Teeth/Gums: edentulous.
Neck: No muscle spasm or tenderness�
Cardiovascular: Heart: regular, no murmur�
Pulses: dorsalis pedis 2+ bilaterally�
Respiratory: Respiratory Effort/Chest Expansion: normal������� Auscultation: Clear to auscultation bilaterally�
Gastrointestinal: abdomen not tender, no distension, normal abdominal bowel sounds
Genitourinary: No Thacker�
Extremities:�Edema: None�Cyanosis: None�Trophic�changes: None
�
Neurology Exam:
Orientation: Alert, Oriented to self, Time, Place�
Memory: Intact for immediate medical concerns
Comprehension: Intact
Two step command: Intact
Naming: Intact
Cranial Nerves:
�� CNII:�Pupillary light reflex: Intact����Visual Field: Intact
�� CN III, IV, : Extraocular muscles: Intact�
�� CN V:�Facial Sensation�at�Forehead: Intact,�Maxilla: Intact,�Mandible: Intact
�� CN VII:�Facial movement: Symmetric
�� CN VIII:�Hearing: decreased
�� CN IX/X:�Speech & swallow: Mild dysarthric due to edentulous? has denture but does not wear-painful�Position of Uvula: Midline
�� CN XI:�Shoulder shrug: Symmetric
�� CN XII:�Tongue protrusion: Midline
Sensory:
�� Light touch: Intact in bilateral upper and lower extremities
��
�Reflexes:
�� Biceps: 2+ bilaterally
�� Brachioradialis: 2+ bilaterally
�� Triceps: 2+ bilaterally
�� Patellar: 2+ bilaterally
�� Achilles: absent bilaterally
�� Babinski: Down going bilaterally
�� Clonus: NT
�� Fernanda: Negative bilaterally�
Cerebellar: Dysmetria/Ataxia: None�
Musculoskeletal: Motor: (Manual muscle scale 0-5)�
Muscle SA EF WE EE FF FA HF KE DF EHL PF
Right� 3 4 4 4 3+ 3+ 5 4 5
Left 3 4 4 4 3+ 3+ 5 4 5
�
Tone: Normal in all extremities�
Range of Motion: Passively within normal limits in all extremities�
�
Lab Results:
Labs
WBC 7.5 10^3/uL (4.8-10.8) 03/14/24 04:27
RBC 2.99 10^6/uL (4.70-6.10) L 03/14/24 04:27
Hgb 9.2 g/dL (13.0-18.0) L 03/14/24 04:27
Hct 26.3 % (39.0-52.0) L 03/14/24 04:27
MCV 88.0 fL (80.0-94.0) 03/14/24 04:27
MCH 30.8 pg (27.0-31.0) 03/14/24 04:27
MCHC 35.0 g/dL (33.0-37.0) 03/14/24 04:27
RDW 14.6 % (11.5-14.5) H 03/14/24 04:27
Plt Count 52 10^3/uL (130-400) L 03/14/24 04:27
Plt Count Comment Yes 03/07/24 03:48
MPV 12.1 fL (7.4-10.4) H 03/14/24 04:27
Abs Immat Gran (auto) 0.1 10^3/uL (0-0.05) H 03/14/24 04:27
Absolute Neuts (auto) 6.8 10^3/uL (1.4-6.5) H 03/14/24 04:27
Absolute Lymphs (auto) 0.3 10^3/uL (1.2-3.4) L 03/14/24 04:27
Absolute Monos (auto) 0.3 10^3/uL (0.1-0.6) 03/14/24 04:27
Absolute Eos (auto) 0.0 10^3/uL (0-0.7) 03/14/24 04:27
Absolute Basos (auto) 0.0 10^3/uL (0-0.2) 03/14/24 04:27
CBC Comment 03/13/24 03:50
Total Counted 100 03/07/24 03:48
Immature Gran % 0.9 % (0-0.5) H 03/14/24 04:27
Neutrophils % 90.7 % (42.2-75.2) H 03/14/24 04:27
Lymphocytes % 4.3 % (20.5-51.1) L 03/14/24 04:27
Monocytes % 4.0 % (1.7-9.3) 03/14/24 04:27
Eosinophils % 0.0 % (0-6) 03/14/24 04:27
Basophils % 0.1 % (0-2) 03/14/24 04:27
Nucleated RBC % 0 % (-) 03/14/24 04:27
Abs Neuts (Manual) 5.3 10^3/uL (1.4-6.5) 03/07/24 03:48
Segmented Neutrophils 77 % (42-75) H 03/07/24 03:48
Band Neutrophils 16 % (0-3) H 03/07/24 03:48
Lymphocytes (Manual) 4 % (20-51) L 03/07/24 03:48
Monocytes (Manual) 3 % (2-9) 03/07/24 03:48
Nucleated RBCs 1 (-) 03/07/24 03:48
Normal RBC Morphology Yes 03/07/24 03:48
Retic Count 0.2 % (0.4-2.8) L 03/08/24 05:28
PT 18.5 Sec (11.4-14.6) H 03/14/24 04:27
INR 1.49 03/14/24 04:27
APTT 35.3 Sec (23.4-35.0) H 03/14/24 04:27
Fibrinogen 136 MG/DL (199-459) L 03/14/24 04:27
VBG pH 7.22 (7.32-7.43) L 03/05/24 09:48
VBG pCO2 33 mmHg (35-48) L 03/05/24 09:48
VBG pO2 51 mmHg (30-50) H 03/05/24 09:48
VBG HCO3 13.5 mmol/L (22-27) L 03/05/24 09:48
VBG O2 Sat ([place]) 81.2 % 03/05/24 09:48
VBG Base Excess -13.1 mmol/L (-4 to +4) 03/05/24 09:48
VBG O2 Therapy 03/05/24 09:48
Sodium 130 mmol/L (135-145) L 03/14/24 04:27
Potassium 3.4 mmol/L (3.5-5.1) L 03/14/24 04:27
Chloride 99 mmol/L (98-107) 03/14/24 04:27
Carbon Dioxide 28 mmol/L (22-30) 03/14/24 04:27
BUN 15 mg/dl (9-20) 03/14/24 04:27
Creatinine 0.7 mg/dL (0.7-1.3) 03/14/24 04:27
Estimated Creat Clear 94 ml/min 03/14/24 04:27
eGFR > 60.00 03/14/24 04:27
Glucose 215 mg/dl (70-99) H 03/14/24 04:27
Lactic Acid 1.9 mmol/L (0.7-2.0) 03/08/24 05:28
Calcium 7.6 mg/dl (8.4-10.2) L 03/14/24 04:27
Magnesium 1.7 mg/dl (1.6-2.3) 03/12/24 05:11
Iron 66 ug/dl (49-181) 03/08/24 05:28
TIBC 142 ug/dl (261-462) L 03/08/24 05:28
% Saturation 46 % (20-50) 03/08/24 05:28
Ferritin 1390.0 ng/ml (17.9-464.0) H 03/08/24 05:28
Total Bilirubin 1.5 mg/dl (0.2-1.3) H 03/06/24 04:58
Direct Bilirubin 1.0 mg/dl (0.0-0.4) H 03/05/24 06:26
AST 46 U/L (17-59) 03/06/24 04:58
ALT 37 U/L (0-50) 03/06/24 04:58
Alkaline Phosphatase 122 U/L (38-126) 03/06/24 04:58
Lactate Dehydrogenase 421 U/L (120-246) H 03/08/24 05:28
Creatine Kinase < 20 U/L (55-170) L 03/11/24 04:50
Troponin I 0.108 ng/ml H* 03/09/24 23:15
Total Protein 4.1 g/dl (6.3-8.2) L 03/06/24 04:58
Albumin 2.3 g/dl (3.5-5.0) L 03/06/24 04:58
Triglycerides 115 mg/dl (10-149) 03/06/24 04:58
Lipase 348 U/L (23-300) H 03/11/24 04:50
Vitamin B12 901 pg/ml (239-931) 03/08/24 05:28
Folate 3.9 ng/ml (2.76-20) 03/08/24 05:28
TSH (Reflex) 0.76 uIU/ml (0.47-4.68) 03/04/24 08:06
TSH (Reflex) Cancelled 03/04/24 08:06
Urine Color Yellow 03/04/24 10:42
Urine Clarity Clear (Clear) 03/04/24 10:42
Urine pH 6.0 (5.0-9.0) 03/04/24 10:42
Ur Specific [place] 1.020 (<1.030) 03/04/24 10:42
Urine Ketones Negative (Negative) 03/04/24 10:42
Ur Occult Blood Reflex Negative (Negative) 03/04/24 10:42
Urine Nitrite (Reflex) Negative (Negative) 03/04/24 10:42
Urine Bilirubin Negative (Negative) 03/04/24 10:42
Urine Urobilinogen Negative (Neg - 1+) 03/04/24 10:42
Leukocyte Esterase Rfl Trace (Negative) A 03/04/24 10:42
Urine RBC 0-2 /HPF (0-2) 03/04/24 10:42
Urine WBC (Reflex) 3-5 /HPF (0-5) 03/04/24 10:42
Ur Squamous Epith Cells 3-5 /LPF (Few) 03/04/24 10:42
Urine Bacteria (Reflex) Few (Negative) A 03/04/24 10:42
Urine Mucus Moderate 03/04/24 10:42
Urine Yeast Few (Negative) A 03/04/24 10:42
Urine Creatinine 88.000 mg/dl 03/06/24 12:08
Urine Sodium 24 mmol/L (30-90) L 03/06/24 12:08
Urine Glucose Negative (Negative) 03/04/24 10:42
Urine Albumin (Reflex) Trace (Neg - Trace) 03/04/24 10:42
IgG1 207 mg/dL (240-1118) L 03/06/24 04:58
IgG2 53 mg/dL (124-549) L 03/06/24 04:58
IgG3 6 mg/dL (21-134) L 03/06/24 04:58
IgG4 16 mg/dL (1-123) 03/06/24 04:58
SARS-CoV-2 Antigen Negative (Negative) 03/04/24 08:39
POC Glucose 203 mg/dl (70-99) H 03/14/24 07:44
Blood Type O POS 03/10/24 01:44
Blood Type Confirm O POS 03/06/24 12:07
Antibody Screen Negative (Negative) 03/10/24 01:44
Crossmatch IS Only See Detail 03/10/24 01:44
�
Diagnostic Results:�as per HPI�
�
Assessment:73-year-old male with PMH of (hypertension, insulin-dependent diabetes mellitus, myasthenia gravis currently on steroids as well as pyridostigmine) with weakness secondary to Myasthenia Gravis flare and left hand infection complicated by
thrombocytopenia, acute pancreatitis, cirrhosis and ANGELIA.
�
Plan�
PT/OT to increase independence with ADLs, improve balance, coordination, endurance, strength, mobility, community reintegration, decreased burden of care on others and family education.�
�
Suspected myasthenia gravis exacerbation: Per ID- s/p Plasmapheresis 03/09, 03/11. No per neuro-clinically stable and with thrombocytopenia- no indication to continue with PLEX. Continue Mestinon 90 mg 4 times daily Continue Prednisone 60mg qd . Hold
Vyvgart given infection. OP neuro follow up in 1 week.
Hx left hand infection with MRSA, Probable osteomyelitis: daptomycin 700 mg IV q24 hours,(#38 (of 42) from debridement, hold statin while on daptomycin, CPK baseline normal 03/05, repeat weekly while on daptomycin , micafungin until 03/14
Oral and probably esophageal candidiasis: qtc 440, micafungin
Dysphagia: resolved. On soft and bite-size diet based upon denture not fitting.�
Dysarthria: speech.
HTN: Metoprolol 100 mg daily
HLD: Statin�
Coronary artery disease: Aspirin, statin, beta-krish�
CHF/edema: nephrology-titrate Lasix for edema and weight.
hyponatremia: 130.
DM II: Accu-Cheks, insulin sliding scale, insulin glargine 10 unit at bedtime
Anemia: Likely multifactorial.� Continue to monitor.�
Thrombocytopenia: likely multifactorial - linezolid, cirrhosis, sepsis. Continue to monitor. With platelets less than 50,000 recommend keeping therapies to bedside. If platelets less than 20,000 will use further caution with activity levels and hold
therapy for platelets less than 10,000.�
Pancreatitis - improving - possibly due to linezolid
ANGELIA/lactic acid: resolved
Psych: Psychology consult.� Monitor mood, adjust medications as needed.�
Skin: monitor for pressure sores/rashes/lesions.�
Pain: acetaminophen as needed, hydromorphone 0.5 mg IV every 4 as needed. Please change to oral oxycodone or Dilaudid. Patient should be stable on oral regimen prior to transfer to rehab.
Bowel: Colace and Senna, PRN bisacodyl.�
Bladder: Time void, PVRs, PRN straight cath.�
GI Prophylaxis: Pantoprazole�40mg bid
DVT Prophylaxis: Mechanical, please comment on when chemoprophylaxis can be started.
Pulmonary: Incentive spirometry�
Safety: Continue to reinforce assistance with all transfers.� Patient with history of 2 falls while try to get out of bed without assistance
Code Status:� Full code
Dispo�(date/plan/equipment needs): Home with family care.� Social history reviewed.�
Functional and Medical Goals:�Modified Independent with ADL�s, ambulation, transfers�
Discharge Destination:�Acute inpatient rehabilitation
Attending Statement: Late entry
I saw and examined the patient 03/13/2024. Reviewed care plan with patient, therapy, nursing, and physician team assistant. I agree with the above subjective and physical exam, and plan as documented by CELESTINO Bhakta with adjustments made as necessary.
A total of 60 minutes were spent with the patient preparing for the evaluation, obtaining history, performing examination and evaluation, counseling, data review, case management, care coordination, warehouse order selector, and EMR documentation.
�
Summary of recommendations: Would benefit from Acute inpatient rehabilitation once platelets have been consistently going up and stable and patient medically clear.
Thrombocytopenia: likely multifactorial - linezolid, cirrhosis, sepsis. Continue to monitor. With platelets less than 50,000 recommend keeping therapies to bedside. If platelets less than 20,000 will use further caution with activity levels and hold
therapy for platelets less than 10,000.� Platelets to be consistently improving prior to transfer.
Hx left hand infection with MRSA, Probable osteomyelitis: daptomycin 700 mg IV q24 hours,(#38 (of 42) from debridement, hold statin while on daptomycin, CPK baseline normal 03/05, repeat weekly while on daptomycin , micafungin until 03/14. Will
antibiotics be completed after 42nd day of treatment or converted to Po
Pain: acetaminophen as needed, hydromorphone 0.5 mg IV every 4 as needed. Pain to be controlled on oral medications for 24 hours prior to transfer. Please change to oral oxycodone or Dilaudid. Patient should be stable on oral regimen prior to
transfer to rehab.
DVT Prophylaxis: Mechanical, please comment on when chemoprophylaxis can be started.
�
Thank you for allowing me to care for your patient. Please contact me with any questions or concerns.
[2024-03-13 17:17] LABS: Glucose - Point of Care 304 mg/dl (70-99)
[2024-03-13] MEDS: NOVOLOG FLEXPEN-LOW RESISTANCE 4 UNITS SC (17:29)
[2024-03-13] MEDS: MYCAMINE 105 MG IV (17:30)
[2024-03-13] MEDS: LANTUS 0.1 UNITS SC (21:38)
[2024-03-13 21:47] LABS: Glucose - Point of Care 290 mg/dl (70-99)
[2024-03-14] VITALS (17 sets, daily range): BP systolic 85–147; BP diastolic 48–71; BMI 25.6
--- NOTE | 2024-03-14 03:45 | PTCARENOTE ---
Pt AAOx3, tearful at times, pt expresses concern about rehabilitation. Pt was happy with the progress he made getting up with PT/OT and expresses how he wants to regain strength. Pt having incontinence of bowel soft small amounts of stool. Buttocks
reddened with MASD associated breakdown, antifungal cream and moisture barrier applied generously. NS with PAC's on tele. Wound care done and redressed and charted see worklist. Full CHG bath and bed change. Pt voiding using the urinal. Pt
tolerating frequent turning and repositioning. Call león is within reach.
[2024-03-14 05:00] LABS: INR 1.49; PT 18.5 Sec (11.4-14.6)
[2024-03-14 05:01] LABS: APTT 35.3 Sec (23.4-35.0)
[2024-03-14 05:06] LABS: Fibrinogen 136 MG/DL (199-459)
[2024-03-14 05:24] LABS: Blood Urea Nitrogen 15 mg/dl (9-20); Calcium 7.6 mg/dl (8.4-10.2); Carbon Dioxide 28 mmol/L (22-30); Chloride 99 mmol/L (98-107); Estimated Creatinine Clearance 94 ml/min; Glucose 215 mg/dl (70-99); Potassium 3.4 mmol/L (3.5-5.1); Sodium 130 mmol/L (135-145); eGFR > 60.00
[2024-03-14 06:18] LABS: Hematocrit 26.3 % (39.0-52.0); Hemoglobin 9.2 g/dL (13.0-18.0); Mean Corpuscular Hgb 30.8 pg (27.0-31.0); Mean Platelet Volume 12.1 fL (7.4-10.4); Platelet Count 52 10^3/uL (130-400); Red Blood Cell Count 2.99 10^6/uL (4.70-6.10); Red Cell Dist. Width 14.6 % (11.5-14.5); White Blood Cell Count 7.5 10^3/uL (4.8-10.8)
--- NOTE | 2024-03-14 07:29 | W.PN.HOSP.TC ---
Addendum entered and electronically signed by Nanda Jeff MD 03/14/24 16:13:
I saw and evaluated the patient independently. I reviewed the resident�s note and agree with findings and plan as documented by Dr. Richey.
GENERAL: well developed, well nourished, male in no apparent distress--agree much weaker today
HEENT: NC/AT
HEART: regular rate and rhythm, +S1, +S2
LUNGS : clear to auscultation bilaterally
ABDOM: soft, nontender, nondistended, + bowel sounds
EXT: no cyanosis, clubbing, or edema
NEUROLOGIC: grossly intact
Abd pain likely due to pancreatitis--possibly due to linezolid (held)--resolved--cont diet with aspiration precautions
Diarrhea- Likely related to pancreatitis-resolved- [employer] Linezolid held
Proximal muscle weakness- Possibly MG flare relating to active inflammatory process--apprec neuro- Continue Mestinon 90 mg 4 times daily, prednisone increased to 60 mg nightly with PPI prophylaxis--s/p PLEX (plasma exchange) now held as per
neurology- Vyvgart held- Vital capacity q12h- apprec physiatry, SNF
Arrhythmia- Patient had an episode of elevated HRs (up to 200) on 03/09 after plasmapheresis, EKG showed sinus rhythm with PACs, converted to NSR with Valsalva--apprec cards-- Echo no change compared to prior, EF 60-65%
Bicytopenia with anemia and severe thrombocytopenia- Likely related to myasthenia crisis- Improved following platelet transfusion and plasmapheresis- s/p 3 units PRBC - s/p 7 units platelet- PLEX held-- ASA on hold- Iron panel suggestive of anemia
of chronic disease
Hyperglycemia- Add lantus to aim for BG 140-180
Recent left hand abscess- [employer] Linezolid held --apprec ID, cont daptomycin--finish course
Oral and probably esophageal candidiasis- Dysphagia improving- finishing micafungin per ID
Elevated troponin, suspect nonischemic myocardial injury- Patient denies any chest pain- Cardiology following, holding ASA due to thrombocytopenia
Lactic acidosis/metabolic acidosis --resolved
Liver cirrhosis- Likely due to ETOH use
Mild hyponatremia
Pedal edema likely due to slight volume overload from multiple transfusions - Will continue IV lasix 40 mg bid
code status--Full code
DVT proph - SCDs
SNF recommended
Original Note:
Today's Communication/Plan
-
Continue antibiotics
Hold BB and lasix for now
Neurology and oncology input appreciated
Replete K as needed
Increase Lantus
Sepsis workup (CXR, U/A, BCx)
Assessment / Plan
Assessment / Plan
73 y/o male with known myasthenia gravis on mestinon, prednisone and Vyvgart with:
# Proximal muscle weakness
- Possibly MG flare relating to active inflammatory process/pancreatitis
- Neurology following
- Continue Mestinon 90 mg 4 times daily, prednisone increased to 60 mg nightly with PPI prophylaxis
- PLEX held as per hematology and neurology
- Vyvgart held
- Vital capacity q12h
- Consult physiatry for acute rehab
# Hypokalemia, acute
- Will replete K as needed
# Night sweats, chills during night
- Etiology unclear, will check CXR, BCx, U/A, TSH, Cortisol
- Patient denies chest pain, palpitations, N/V
- EKG sinus tachycardia with PACs
- Cardiology consulted -- per cardiology, tachycardia is not unexpected
- Will continue to monitor
- Blister on right arm, new - will monitor
# Abd pain 2/2 pancreatitis
- Possibly related to linezolid
- [employer] Linezolid held
- Now resolved
- Lipase 4000 -> 348
- CT abdomen/pelvis, abdominal ultrasound report noted
- Continue diet IDDSI Level [address], aspiration precautions, VSE once patient agreeable -- per patient, dysphagia better today
- IgG4 WNL which was checked for autoimmune pancreatitis
# Diarrhea
- Likely related to pancreatitis
- Now resolved
- No further diarrhea for stool studies
- [employer] Linezolid held
#Arrhythmia
- Patient had an episode of elevated HRs (up to 200) on 03/09 after plasmapheresis, EKG showed sinus rhythm with PACs, converted to NSR with Valsalva
- Patient complains of chills at night, no chest pain, no palpitations. Was hypotensive this am (MAP 50-65) and tachycardic --> per cardiology, BB should not be used in MG --> will hold lopressor
- Cardiology following
- Echo no change compared to prior, EF 60-65%
- EKG sinus tachycardia with PACs
# Bicytopenia with anemia and severe thrombocytopenia
- Likely related to myasthenia crisis
- Improved following platelet transfusion and plasmapheresis
- s/p 3 units PRBC
- s/p 7 units platelet
- PLEX held as per hematology and neurology given clinical stability and thrombocytopenia
- ASA on hold
- Iron panel suggestive of anemia of chronic disease
# Hyperglycemia
- Increase lantus to 15 HS
# Recent left hand abscess
- [employer] Linezolid held
- Continue daptomycin per ID (d#/)
# Oral and probably esophageal candidiasis
- Dysphagia improving
- Continue micafungin per ID (last dose tomorrow)
# Elevated troponin, suspect non-TN related
- Patient denies any chest pain
- Cardiology following, holding ASA 2/2 thrombocytopenia
# Lactic acidosis
- Likely related to linezolid side effect
- Now resolved
# Metabolic acidosis
- Likely related to linezolid side effect
- Now resolved
# Liver cirrhosis
- Likely 2/2 ETOH use
# Mild hyponatremia
# Pedal edema likely due to slight volume overload from multiple transfusions
- Will hold IV lasix 40 mg bid for now given low BPs
Full code
DVT prophylaxis - SCDs
Anticipated Discharge: 24 - 48 hours
Subjective/Interval History
-
Date of Service: March 14, 2024
Objective Data
-
Labs:
Laboratory Results
03/14/24
04:27
WBC 7.5
Hgb 9.2 L
Hct 26.3 L
Plt Count 52 L
PT 18.5 H
INR 1.49
APTT 35.3 H
Sodium 130 L
Potassium 3.4 L
Chloride 99
Carbon Dioxide 28
BUN 15
Creatinine 0.7
Glucose 215 H
Calcium 7.6 L
Vital Signs:
Vital Signs
Temp Pulse Resp BP Pulse Ox
99.2 F 101 15 112/56 96
03/13/24 20:23 03/14/24 06:00 03/14/24 06:00 03/14/24 06:00 03/14/24 06:00
I&O
03/13/24 03/14/24 03/15/24
06:59 06:59 06:59
Intake Total 340 / 340 105 / 105
Output Total 1200 / 1200 950 / 950
Balance -860 / -860 -845 / -845
Review of Systems
-
History Source: Patient
Constitutional: Reports Night Sweats and Weakness
EENT: Reports No Symptoms Reported
Respiratory: Reports No Symptoms
Cardiac: Reports No Symptoms
Abdomen/GI: Reports No Symptoms
Breast: Reports No Symptoms
Genitourinary: Reports No Symptoms
Musculoskeletal: Reports Muscle Weakness
Skin: Reports No Symptoms
Neuro: Reports Weakness
Endocrine: Reports No Symptoms
Hematologic / Lymphatic: Reports Bruising
Allergy / Immunology: Reports No Symptoms
Physical Exam
-
General: Well Developed, Well Nourished, No Apparent Distress and Comfortable
HEENT: Normocephalic
Cardiac: Regular Rhythm, S1/S2 and Tachycardic
GI: Soft, Nondistended, Normal Bowel Sounds and Tender (Mild RLQ tenderness )
Genito-urinary: No Costovertebral Tender
Musculoskeletal: No Clubbing, No Cyanosis, Edema, Right Lower Extrem and Edema, Left Lower Extrem
Skin: Warm and Other (Blister on right arm near elbow, tender to touch)
Neuro: Awake, Alert and Oriented
Hematologic / Lymphatic: No Lymphadenopathy
Psych: Calm
[2024-03-14 07:55] LABS: Glucose - Point of Care 203 mg/dl (70-99)
[2024-03-14 08:01] LABS: % Basophils 0.1 % (0-2); % Immature Granulocytes 0.9 % (0-0.5); % Lymphocytes 4.3 % (20.5-51.1); % Neutrophils 90.7 % (42.2-75.2); Absolute Immature Granulocytes 0.1 10^3/uL (0-0.05); Absolute Lymphocytes 0.3 10^3/uL (1.2-3.4); Absolute Monocytes 0.3 10^3/uL (0.1-0.6); Absolute Neutrophils 6.8 10^3/uL (1.4-6.5); Nucleated Red Blood Cells % 0 % (-)
--- NOTE | 2024-03-14 08:28 | PTCARENOTE ---
At change of shift patient noted to be tachycardic with PVC's and PAC's. BP 99/48, MAP 63, HR ranging from 90's-110's. Stat EKG completed. Attending notified via tt. Lopressor and Lasix held at this time per Dr. Rainey, cards consulted.
Pt aaox3, able to make needs known. States he feels hot, then cold, then hot. A febrile at this time. Will continue to monitor.
--- NOTE | 2024-03-14 08:44 | W.PN.ONC2 ---
Today's Communication / Plan
-
-
Impression
Impression
weakness - MG flare vs. pancreatitis/sepsis/anemia, s/p PLEX on 03/09, 03/11
Pancreatitis
Cirrhosis
Hx of Myasthenia gravis with weakness on pyridostigmine & prednisone
normocytic anemia s/p 1U PRBC 03/06
Thrombocytopenia likely from antibiotics, sepsis, cirrhosis. low fibrinogen likely 2/2 PLEX, less likely acute DIC. Anticipate improvement off plex
Prolonged PTT/PT likely r/t plex, liver dz, nutritional, and daptomycin
Left hand abscess on abx (daptomycin)
Fall 03/06 CT head negative for bld
Plan
Plan
s/p Plex 03/09 & 03/11. Neurology notes that there is no indication to continue PLEX given clinical stability and recently increased oral immunosuppression therapy as well as ongoing thrombocytopenia.
Monitor for bleeding
Monitor CBC daily
Subjective/Objective
Subjective
Vital Signs:
Vital Signs
Temp Pulse Resp BP Pulse Ox
98.1 F 101 15 112/56 96
03/14/24 07:15 03/14/24 06:00 03/14/24 06:00 03/14/24 06:00 03/14/24 06:00
Lab Results:
Laboratory Data
WBC 7.5 10^3/uL (4.8-10.8) 03/14/24 04:27
Hgb 9.2 g/dL (13.0-18.0) L 03/14/24 04:27
Plt Count 52 10^3/uL (130-400) L 03/14/24 04:27
PT 18.5 Sec (11.4-14.6) H 03/14/24 04:27
INR 1.49 03/14/24 04:27
APTT 35.3 Sec (23.4-35.0) H 03/14/24 04:27
eGFR > 60.00 03/14/24 04:27
Orders
Orders
Orders From Last 24 Hours
03/14/24 04:27
Fibrinogen IN AM
PT/INR [Prothrombin Time] IN AM
PTT IN AM
03/15/24 06:00
CBC/No Diff [Complete Blood Count/No Diff] IN AM
Fibrinogen IN AM
PT/INR [Prothrombin Time] IN AM
PTT IN AM
03/16/24 06:00
CBC/No Diff [Complete Blood Count/No Diff] IN AM
Fibrinogen IN AM
PT/INR [Prothrombin Time] IN AM
PTT IN AM
03/17/24 06:00
CBC/No Diff [Complete Blood Count/No Diff] IN AM
Fibrinogen IN AM
PT/INR [Prothrombin Time] IN AM
PTT IN AM
[2024-03-14] MEDS: LASIX IV (08:48)
[2024-03-14] MEDS: LOPRESSOR PO (08:48)
[2024-03-14] MEDS: MESTINON 90 MG PO ×4 (08:49→21:25)
[2024-03-14] MEDS: DELTASONE 60 MG PO (08:49)
[2024-03-14] MEDS: PROTONIX 40 MG PO ×2 (08:50→21:24)
[2024-03-14] MEDS: NOVOLOG FLEXPEN-LOW RESISTANCE 2 UNITS SC (08:51)
[2024-03-14] MEDS: ANTIFUNGAL CLEAR 1 APPLIC TOPICAL ×2 (08:51→21:25)
--- NOTE | 2024-03-14 10:03 | W.PN.ID1 ---
Addendum entered and electronically signed by Sharla Salgado MD 03/14/24 16:45:
source appears to be urine, bruising with attempts to obtain second set of blood cultures - cancelled
Original Note:
Date of Service
Date of Service: March 14, 2024
Today's Communication
c/w daptomycin d#39 (of 42) of effective rx, (from debridement)
- c/w micafungin
Assessment / Plan
Suspected myasthenia gravis flare
Hx left hand infection with MRSA, Probable osteomyelitis
- On 6-week course of antibiotics
Thrombocytopenia - likely multifactorial - linezolid, cirrhosis, sepsis
Pancreatitis - improving - possibly due to linezolid
ANGELIA - resolved
Lactic acidosis - resolved
CAD
CHF
GERD
HTN
DM
Possible Cirrhosis
Recommendations:
Rigors
- not witnessed, reported by patient/; he also looks notably more tired today
- UA with pyuria, no farias
- covid and flu screens
- blood cultures - ordered second set
- CXR is ordered for AM
- UTI seems to be source, if above workup not revealing would also consider limited abd US to check for progression of the minimal ascites seen previously
- added ceftriaxone
Probable left Hand Osteomyelitis
Currently d#39 (of 42) of effective rx, (from debridement)
c/w daptomycin
- c/w 700 mg q24 hours
- hold statin while on daptomycin
- CPK baseline normal 03/05 and 03/11
Oral and probably esophageal candidiasis
- qtc 440
- dysphagia resolved
- c/w micafungin day
Myasthenia gravis
- completed plasmapheresis
- no objection to steroids, management per neurology
Chief Complaint
-: Other (possible osteomyelitis, lactic acidosis)
Subjective / Review of Systems
afebrile
bp stable
PVCs overnight
mild hypotension
complaining of 'the shakes' reports that these have been intermittent for weeks
no tenderness over the lines
skin tear R arm - no erythema, warmth, or drainage
Vital Signs / Physical Exam
Vital Signs
Vital Signs
Temp Pulse Resp BP Pulse Ox
98.1 F 112 18 99/68 94
03/14/24 07:15 03/14/24 08:48 03/14/24 08:25 03/14/24 08:48 03/14/24 09:23
Physical Exam
Constitutional: No Acute Distress and Chronically Ill
Cardiovascular: Regular Rate and S1/S2; Negative Murmur or Rub
Pulmonary: Clear and Symmetric; Negative Wheezes or Rales
Gastrointestinal: Soft, Non Tender, Non Distended and Normal Bowel Sounds
Genito-Urinary: Negative Suprapubic Tenderness
Skin: Warm and Dry; Negative Rash or Jaundice
Wound: Other (skin tear - no erythema, warmth, tenderness or drainage)
Neurological: Awake
Lines: PICC (no erythema, warmth, tenderness or drainage)
Objective Data
Lab Data
Lab Results
03/14/24 04:27
03/14/24 04:27
PT 18.5 Sec (11.4-14.6) H 03/14/24 04:27
INR 1.49 03/14/24 04:27
APTT 35.3 Sec (23.4-35.0) H 03/14/24 04:27
Estimated Creat Clear 94 ml/min 03/14/24 04:27
Lactic Acid 1.9 mmol/L (0.7-2.0) 03/08/24 05:28
Total Bilirubin 1.5 mg/dl (0.2-1.3) H 03/06/24 04:58
AST 46 U/L (17-59) 03/06/24 04:58
ALT 37 U/L (0-50) 03/06/24 04:58
Alkaline Phosphatase 122 U/L (38-126) 03/06/24 04:58
Most recent labs reviewed.
Micro Results:
03/04/24 08:39 Influenza Types A & B (RYLIE) - Final
Nasal Swab Negative for Influenza A & B, NAAT
Negative results must be combined with clinical observations
and patient history.
Nucleic Acid Amplification test (NAAT)performed on the
[employer] platform.
[2024-03-14 12:14] LABS: Urine Albumin 3+ (Neg - Trace); Urine Bilirubin Negative (Negative); Urine Character Cloudy (Clear); Urine Color Yellow; Urine Glucose Negative (Negative); Urine Ketone Negative (Negative); Urine Leukocyte 3+ (Negative); Urine Nitrite Negative (Negative); Urine Occult Blood 2+ (Negative); Urine Specific Gravity 1.015 (<1.030); Urine Urobilinogen Negative (Neg - 1+)
[2024-03-14] MEDS: KCL 40 MEQ PO (12:25)
[2024-03-14 13:15] LABS: Urine Mucus Few
[2024-03-14 13:17] LABS: Urine Amorphous Seen; Urine Bacteria Many (Negative); Urine White Cell 80-90 /HPF (0-5)
[2024-03-14 13:55] LABS: Glucose - Point of Care 258 mg/dl (70-99)
--- NOTE | 2024-03-14 14:13 | CM ---
Patient seen at bedside with physician. Patient pending PM&R review, awaiting confirmation of acceptance from [facility] liaison. CM will continue to follow for discharge planning needs.
Plan;Acute Rehab.
[2024-03-14 14:26] LABS: COVID-19 Antigen Negative (Negative)
[2024-03-14] MEDS: NOVOLOG FLEXPEN-LOW RESISTANCE 3 UNITS SC ×2 (14:40→17:40)
[2024-03-14 15:11] LABS: Cortisol, Random 3.7 ug/dl
--- NOTE | 2024-03-14 15:50 | PTCARENOTE ---
Addendum entered by Ivy Reynolds RN 03/14/24 19:05:
Midline exchanged with PICC line by IV nurse. Cxray ordered and obtained, results pending. Report provided to next shift regarding pending placement confirmation. Blood cultures obtained by IV nurse via first draw from PICC at time of placement.
Order obtained from Dr. Salgado for second set of blood cultures.
Bladder scanned this afternoon due to minimal urinary output, scanned for 37ml. Patient voided total of 400ml by end of shift.
Original Note:
Patient c/o lethargy throughout the day. Continues with fair po intake. ST visited patient for eval, patient declined at that time due to fatigue. ST to return another time. BP's ranging from 99/78 to 119/70, MAPs ranging from 63-84. Patient
tachycardic this am, has returned to sinus rhythm since then with continued PACs and PVCs. Metoprolol discontinued this am due to contraindication with MG, per cardiology.
Blood cultures, UA, COVID and Flu swabs ordered, drawn, and sent to lab. COVID and Flu swabs negative.
ID visited and started patient on Rocephin.
Cxray ordered for am.
Unable to obtain second set of blood cultures, ID notified and states she will dc.
VAT nurse will be contacting physician regarding possible PICC line placement, replacing RUE midline.
Confirmed with Dr. Redd heart to give this afternoon.
[2024-03-14] MEDS: ROCEPHIN 1000 MG IV (16:26)
[2024-03-14] MEDS: STERILE WATER FOR INJECTION 10 ML IV (16:26)
--- NOTE | 2024-03-14 16:33 | VATNOTE ---
Called by IMU to draw labs on pt. Unsuccessful x2. Pt has midline in R arm, but unable to draw blood cultures from already existing line. Pt getting frequent labs and is a tough stick. PICC requested to hospitalist, order to be placed.
[2024-03-14] MEDS: CUBICIN 14 MG IV (16:56)
[2024-03-14] MEDS: LASIX 40 MG IV (16:57)
[2024-03-14 17:38] LABS: Glucose - Point of Care 250 mg/dl (70-99)
--- NOTE | 2024-03-14 20:00 | PTCARENOTE ---
Received pt from previous shift. Systems reviewed, see flowsheets. Pt frequently ringing for frequent BMs and to empty urinal. No complaints of pain. NSR on heart monitor with PACs and PVCs. SaO2 97% on RA. RUE PICC placed on previous shift,
awaiting confirmation of placement to use. R IJ in place. Will continue to monitor.
[2024-03-14 22:43] LABS: Glucose - Point of Care 225 mg/dl (70-99)
[2024-03-14] MEDS: LANTUS 0.15 UNITS SC (22:54)
[2024-03-14] MEDS: TYLENOL 500 MG PO (22:59)
[2024-03-14] MEDS: BENADRYL 25 MG PO (22:59)
[2024-03-15] VITALS (16 sets, daily range): BP systolic 102–128; BP diastolic 55–88; PULSE 104–107; O2SAT 96–97; BMI 24.1
[2024-03-15 06:22] LABS: Hemoglobin 9.5 g/dL (13.0-18.0); Mean Corp Hgb Conc. 35.2 g/dL (33.0-37.0); Mean Corpuscular Hgb 30.9 pg (27.0-31.0); Mean Corpuscular Volume 87.9 fL (80.0-94.0); Mean Platelet Volume 12.1 fL (7.4-10.4); Platelet Count 62 10^3/uL (130-400); Red Blood Cell Count 3.07 10^6/uL (4.70-6.10); Red Cell Dist. Width 14.6 % (11.5-14.5); White Blood Cell Count 11.1 10^3/uL (4.8-10.8)
[2024-03-15 06:26] LABS: APTT 34.7 Sec (23.4-35.0); PT 17.7 Sec (11.4-14.6)
[2024-03-15 06:31] LABS: Fibrinogen 125 MG/DL (199-459)
[2024-03-15 06:53] LABS: Blood Urea Nitrogen 16 mg/dl (9-20); Calcium 8.3 mg/dl (8.4-10.2); Carbon Dioxide 28 mmol/L (22-30); Chloride 100 mmol/L (98-107); Estimated Creatinine Clearance 82 ml/min; Glucose 154 mg/dl (70-99); Magnesium 1.6 mg/dl (1.6-2.3); Potassium 3.4 mmol/L (3.5-5.1); Sodium 131 mmol/L (135-145); eGFR > 60.00
--- NOTE | 2024-03-15 08:17 | CM ---
Pending confirmation from [facility], Patient is accepted to [facility] and CM awaiting clarification re medical stability per physicians.
--- NOTE | 2024-03-15 08:37 | W.PN.ONC2 ---
Today's Communication / Plan
-
-
Impression
Impression
weakness - MG flare vs. pancreatitis/sepsis/anemia, s/p PLEX on 03/09, 03/11
Pancreatitis
Cirrhosis
Hx of Myasthenia gravis with weakness on pyridostigmine & prednisone
normocytic anemia s/p 1U PRBC 03/06
Thrombocytopenia likely from antibiotics, sepsis, cirrhosis, plex. Improving
Prolonged PTT/PT and low fibrinogen likely r/t plex, liver dz, nutritional, and daptomycin
Left hand abscess on abx (daptomycin)
Fall 03/06 CT head negative for bld
Plan
Plan
s/p Plex 03/09 & 03/11. Neurology notes that there is no indication to continue PLEX given clinical stability and recently increased oral immunosuppression therapy as well as ongoing thrombocytopenia.
Monitor for bleeding
Monitor CBC daily
Monitor coags, fibrinogen
Subjective/Objective
Subjective
no new complaints
Vital Signs:
Vital Signs
Temp Pulse Resp BP Pulse Ox
98.4 F 76 16 118/69 94
03/15/24 07:40 03/15/24 06:00 03/15/24 06:00 03/15/24 04:00 03/15/24 06:00
Lab Results:
Laboratory Data
WBC 11.1 10^3/uL (4.8-10.8) H 03/15/24 05:54
Hgb 9.5 g/dL (13.0-18.0) L 03/15/24 05:54
Plt Count 62 10^3/uL (130-400) L 03/15/24 05:54
PT 17.7 Sec (11.4-14.6) H 03/15/24 05:54
INR 1.40 03/15/24 05:54
APTT 34.7 Sec (23.4-35.0) 03/15/24 05:54
eGFR > 60.00 03/15/24 05:54
Orders
Orders
Orders From Last 24 Hours
03/15/24 05:54
CBC/No Diff [Complete Blood Count/No Diff] IN AM
Fibrinogen IN AM
PT/INR [Prothrombin Time] IN AM
PTT IN AM
03/16/24 06:00
CBC/No Diff [Complete Blood Count/No Diff] IN AM
Fibrinogen IN AM
PT/INR [Prothrombin Time] IN AM
PTT IN AM
03/17/24 06:00
CBC/No Diff [Complete Blood Count/No Diff] IN AM
Fibrinogen IN AM
PT/INR [Prothrombin Time] IN AM
PTT IN AM
[2024-03-15] MEDS: DELTASONE 60 MG PO (08:47)
[2024-03-15] MEDS: PROTONIX 40 MG PO ×2 (08:47→19:48)
[2024-03-15] MEDS: MESTINON 90 MG PO ×4 (08:47→21:52)
[2024-03-15] MEDS: ANTIFUNGAL CLEAR 1 APPLIC TOPICAL ×2 (08:47→19:48)
[2024-03-15] MEDS: LASIX 40 MG IV ×2 (08:48→16:04)
[2024-03-15] MEDS: NOVOLOG FLEXPEN-LOW RESISTANCE 1 UNITS SC (08:54)
[2024-03-15 08:56] LABS: Glucose - Point of Care 164 mg/dl (70-99)
--- NOTE | 2024-03-15 11:22 | PTCARENOTE ---
Recd pt this AM. NSR with HR in 80. able to assist with turns. incontinent of stool frequently. complains of pain and requests frequent repositioning. Needs encouragement to do things for himself as much as possible. pt is able to feed himself and
use urinal without assistance. Vital signs stable today. Appetite greatly improved.
--- NOTE | 2024-03-15 11:53 | W.PN.ID1 ---
Date of Service
Date of Service: March 15, 2024
Today's Communication
c/w daptomycin and ceftriaxone
Assessment / Plan
Suspected myasthenia gravis flare
Hx left hand infection with MRSA, Probable osteomyelitis
- On 6-week course of antibiotics
Thrombocytopenia - likely multifactorial - linezolid, cirrhosis, sepsis
Pancreatitis - improving - possibly due to linezolid
ANGELIA - resolved
Lactic acidosis - resolved
CAD
CHF
GERD
HTN
DM
Possible Cirrhosis
Recommendations:
UTI
- urine culture 100 K GNR
- post void residual
- c/w ceftriaxone day 2
Probable left Hand Osteomyelitis
Currently d#40 (of 42) of effective rx, (from debridement)
c/w daptomycin
- c/w 700 mg q24 hours
- hold statin while on daptomycin
- CPK baseline normal 03/05 and 03/11
Oral and probably esophageal candidiasis - Resolved
- completed course of micafungin
Myasthenia gravis
- completed plasmapheresis
- no objection to steroids, management per neurology
Chief Complaint
-: Other (possible osteomyelitis, lactic acidosis)
Subjective / Review of Systems
afebrile
bp stable
last evening RN shared that urine was foul smelling through the day
stool incontinence
appetite improved
dysurina ongoing
more alert, color better
Vital Signs / Physical Exam
Vital Signs
Vital Signs
Temp Pulse Resp BP Pulse Ox
98.4 F 115 18 118/58 96
03/15/24 07:40 03/15/24 10:00 03/15/24 10:00 03/15/24 10:00 03/15/24 08:00
Physical Exam
Constitutional: No Acute Distress
Cardiovascular: Regular Rate and S1/S2; Negative Murmur or Rub
Pulmonary: Clear and Symmetric; Negative Wheezes or Rales
Gastrointestinal: Soft, Non Tender, Non Distended and Normal Bowel Sounds
Genito-Urinary: Negative Suprapubic Tenderness
Skin: Warm and Dry; Negative Rash or Jaundice
Objective Data
Lab Data
Lab Results
03/15/24 05:54
03/15/24 05:54
PT 17.7 Sec (11.4-14.6) H 03/15/24 05:54
INR 1.40 03/15/24 05:54
APTT 34.7 Sec (23.4-35.0) 03/15/24 05:54
Estimated Creat Clear 82 ml/min 03/15/24 05:54
Lactic Acid 1.9 mmol/L (0.7-2.0) 03/08/24 05:28
Total Bilirubin 1.5 mg/dl (0.2-1.3) H 03/06/24 04:58
AST 46 U/L (17-59) 03/06/24 04:58
ALT 37 U/L (0-50) 03/06/24 04:58
Alkaline Phosphatase 122 U/L (38-126) 03/06/24 04:58
Most recent labs reviewed.
Micro Results:
03/14/24 11:33 Blood Culture - Preliminary
Blood/Venous No Growth in 24 hours- Final report to follow
03/14/24 11:09 Urine Culture - Preliminary
Urine Gram negative bacilli
03/14/24 18:39 Blood Culture - Pending
Blood/Venous
03/14/24 13:55 Influenza Types A & B (RYLIE) - Final
Nasal Swab Negative for Influenza A & B, NAAT
Negative results must be combined with clinical observations
and patient history.
Nucleic Acid Amplification test (NAAT)performed on the
[employer] platform.
03/04/24 08:39 Influenza Types A & B (RYLIE) - Final
Nasal Swab Negative for Influenza A & B, NAAT
Negative results must be combined with clinical observations
and patient history.
Nucleic Acid Amplification test (NAAT)performed on the
e[employer] platform.
[2024-03-15] MEDS: NOVOLOG FLEXPEN-LOW RESISTANCE 2 UNITS SC (12:25)
[2024-03-15 12:36] LABS: Glucose - Point of Care 241 mg/dl (70-99)
[2024-03-15] MEDS: STERILE WATER FOR INJECTION 10 ML IV (14:40)
[2024-03-15] MEDS: KCL ELIXIR 40 MEQ PO (14:40)
[2024-03-15] MEDS: ROCEPHIN 1000 MG IV (14:41)
--- NOTE | 2024-03-15 15:39 | W.PN.HOSP.TC ---
Addendum entered and electronically signed by Shawnee Hill MD 03/15/24 16:13:
I saw and evaluated the patient. I reviewed the resident�s note and agree with findings and plan as documented in the resident�s note.
A/P:
Abd pain likely due to pancreatitis--possibly due to linezolid (held)--resolved--cont diet with aspiration precautions
Diarrhea- Likely related to pancreatitis-resolved- DIETARY AIDE Linezolid held
Proximal muscle weakness- Possibly MG flare relating to active inflammatory process--apprec neuro- Continue Mestinon 90 mg 4 times daily, prednisone increased to 60 mg nightly with PPI prophylaxis--s/p PLEX (plasma exchange x2)- Vyvgart held- Vital
capacity q12h- apprec physiatry, Dispo plan for [place].
weakness has much improved, pt able to walk and participate with PT
Arrhythmia- Patient had an episode of elevated HRs (up to 200) on 03/09 after plasmapheresis, EKG showed sinus rhythm with PACs, converted to NSR with Valsalva--apprec cards-- Echo no change compared to prior, EF 60-65%
Bicytopenia with anemia and severe thrombocytopenia- Likely related to myasthenia crisis- Improved following platelet transfusion and plasmapheresis- s/p 3 units PRBC - s/p 7 units platelet- PLEX held-- ASA on hold- Iron panel suggestive of anemia
of chronic disease
Hyperglycemia- Add lantus to aim for BG 140-180
Recent left hand abscess- DIETARY AIDE Linezolid held --apprec ID, cont daptomycin--finish course
Oral and probably esophageal candidiasis- Dysphagia improving- finishing micafungin per ID
Elevated troponin, suspect nonischemic myocardial injury- Patient denies any chest pain- Cardiology following, holding ASA due to thrombocytopenia
Lactic acidosis/metabolic acidosis --resolved
Liver cirrhosis- Likely due to ETOH use
Mild hyponatremia
Pedal edema likely due to slight volume overload from multiple transfusions - Will continue IV lasix 40 mg bid
code status--Full code
DVT proph - SCDs
SNF recommended
Original Note:
Today's Communication/Plan
-
Continue Rocephin and daptomycin
Continue prednisone, Mestinon
Urine culture pending
Advance diet
Replete potassium as needed
Assessment / Plan
Assessment / Plan
73 y/o male with known myasthenia gravis on mestinon, prednisone and Vyvgart with:
# Proximal muscle weakness
- Possibly MG flare relating to active inflammatory process/pancreatitis
- Neurology following
- Continue Mestinon 90 mg 4 times daily, prednisone increased to 60 mg nightly with PPI prophylaxis
- Per neurology, will continue prednisone 60 mg for at least 12 weeks
- PLEX held as per hematology and neurology
- Vyvgart held
- Vital capacity q12h
- Physiatry consult -- Would benefit from Acute inpatient rehabilitation once platelets have been consistently going up and stable and patient medically clear.
- Patient feeling better today. Per PT, was able to walk to the window and back with a walker with minimal assistance
# Hypokalemia, acute
- Will replete K as needed
# Night sweats, chills during night
- Likely 2/2 UTI
- U/A active, UCx pending
- CXR small left pleural effusion, parenchymal opacity in medial LLL,
- BCx pending
- TSH, Cortisol WNL
- Now resolved
# UTI and likely pneumonia
- Continue Rocephin
- Urine culture pending
- ID following
# Abd pain 2/2 pancreatitis
- Now resolved
- Possibly related to linezolid
- DIETARY AIDE Linezolid held
- Lipase 4000 -> 348
- CT abdomen/pelvis, abdominal ultrasound report noted
- Continue diet IDDSI Level [address], aspiration precautions, VSE once patient agreeable -- per patient, dysphagia better today
- IgG4 WNL which was checked for autoimmune pancreatitis
# Diarrhea
- Now resolved
- Likely related to pancreatitis
- No further diarrhea for stool studies
- DIETARY AIDE Linezolid held
#Arrhythmia
- Patient had an episode of elevated HRs (up to 200) on 03/09 after plasmapheresis, EKG showed sinus rhythm with PACs, converted to NSR with Valsalva
- Patient complains of chills at night, no chest pain, no palpitations. Was hypotensive this am (MAP 50-65) and tachycardic --> per cardiology, BB should not be used in MG --> will hold lopressor
- Cardiology following
- Echo no change compared to prior, EF 60-65%
- EKG sinus tachycardia with PACs
# Bicytopenia with anemia and severe thrombocytopenia
- Improving
- Likely related to myasthenia crisis
- Improved following platelet transfusion and plasmapheresis
- s/p 3 units PRBC
- s/p 7 units platelet
- PLEX held as per hematology and neurology given clinical stability and thrombocytopenia
- ASA on hold
- Iron panel suggestive of anemia of chronic disease
# Hyperglycemia
- Continue lantus 15 HS
# Recent left hand abscess
- DIETARY AIDE Linezolid held
- Continue daptomycin per ID (d#39/42)
# Oral and probably esophageal candidiasis
- Dysphagia now resolved
- Completed course of micafungin
- Advance diet
# Elevated troponin, suspect non-NC related
- Patient denies any chest pain
- Cardiology following, holding ASA 2/2 thrombocytopenia
# Lactic acidosis
- Likely related to linezolid side effect
- Now resolved
# Metabolic acidosis
- Likely related to linezolid side effect
- Now resolved
# Liver cirrhosis
- Likely 2/2 ETOH use
- Outpatient follow-up with GI
# Mild hyponatremia
# Pedal edema likely due to slight volume overload from multiple transfusions
- Continue IV lasix 40 mg bid
Full code
DVT prophylaxis - SCDs
Anticipated Discharge: 24 - 48 hours
Subjective/Interval History
-
Date of Service: March 15, 2024
Objective Data
-
Labs:
Laboratory Results
03/15/24
05:54
WBC 11.1 H
Hgb 9.5 L
Hct 27.0 L
Plt Count 62 L
PT 17.7 H
INR 1.40
APTT 34.7
Sodium 131 L
Potassium 3.4 L
Chloride 100
Carbon Dioxide 28
BUN 16
Creatinine 0.8
Glucose 154 H
Calcium 8.3 L
Vital Signs:
Vital Signs
Temp Pulse Resp BP Pulse Ox
97.2 F 117 26 121/67 97
03/15/24 11:32 03/15/24 15:26 03/15/24 15:26 03/15/24 15:26 03/15/24 15:26
I&O
03/14/24 03/15/24 03/16/24
06:59 06:59 06:59
Intake Total 105 / 105 600 / 600 480 / 480
Output Total 950 / 950 975 / 975 375 / 375
Balance -845 / -845 -375 / -375 105 / 105
Review of Systems
-
History Source: Patient
Constitutional: Reports No Symptoms
EENT: Reports No Symptoms Reported
Respiratory: Reports No Symptoms
Cardiac: Reports No Symptoms
Abdomen/GI: Reports No Symptoms
Breast: Reports No Symptoms
Genitourinary: Reports No Symptoms
Musculoskeletal: Reports Muscle Weakness
Skin: Reports No Symptoms
Neuro: Reports Weakness
Endocrine: Reports No Symptoms
Hematologic / Lymphatic: Reports No Symptoms
Allergy / Immunology: Reports No Symptoms
Physical Exam
-
General: Well Developed, Well Nourished, No Apparent Distress and Comfortable
HEENT: Normocephalic
Respiratory: Decreased Breath Sounds (On base of left lung)
Cardiac: Regular Rhythm and S1/S2
GI: Soft, Nontender, Nondistended and Normal Bowel Sounds
Genito-urinary: No Costovertebral Tender
Musculoskeletal: No Clubbing, No Cyanosis, Edema, Right Lower Extrem and Edema, Left Lower Extrem
Skin: Warm
Neuro: Awake, Alert and Oriented
Hematologic / Lymphatic: No Lymphadenopathy
Psych: Calm
[2024-03-15] MEDS: CUBICIN 14 MG IV (16:03)
--- NOTE | 2024-03-15 16:24 | PTCARENOTE ---
Pt walked with PT/OT to window with walker, min assist. now sitting in bedside chair. diet advanced to low cholesterol.
--- NOTE | 2024-03-15 17:11 | W.PN.NEURO.1 ---
Today's Communication / Plan
-
.
Neuro Assessment/Plan
Assessment
This is a 73-year-old male patient who presented to the ER yesterday, 03/04/2024, with GI distress, progressive weakness and vision being unclear. He was diagnosed with myasthenia gravis in August 2023. He received IVIG which was not helpful and was
therefore admitted to [facility] for plasmapheresis. He was started on Vyvgart Hytrulo, he has also been taking pyridostigmine 60 mg 4 times a day as well as steroids.
In January after a fall developed left hand abscess requiring I&D and ongoing antibiotics including linezolid for 6 week course. Prednisone was aggressively reduced to 30 mg daily.
Plan was to initiate plasmapheresis, held due to low platelets and pancreatitis
CT abdomen 03/04/2024 acute showed pancreatitis
Plan
Started plasmapheresis since there has been remediation of pancreatitis goal of 5 therapies, fist treatment 03/09/2024; would not continue this therapy unless the patient's platelet count goes over 50,000
Advance pyridostigmine from 60 mg 4x/day to dosing of 90 mg 4 times a day
Continue 30 mg of prednisone
Restart aspirin when possible
continue PT/OT and speech evaluations and treatment
Will follow
Subjective/Objective
Subjective Data
Date of Service: March 15, 2024
Neurology follow-up note.
24-hour events. Tachycardic, normotensive, afebrile, saturating well on room air.
Mr. Brock reports improvement in mobility and swallowing. He is now able to consume regular diet(bite size with thin liquids. Yhe patient's dentures are causing discomfort due to weight loss, requiring relining. The patient has been ambulating
with a walker during physical therapy sessions. He denies double vision but reports slight visual fuzziness. No changes in speech are noted.
CXR-Small bilateral pleural effusions. Mild patchy parenchymal opacity in the left lung base, which could represent atelectasis or pneumonia.
Labs: WBC�11.1, platelets�62.
PMH: Generalized MG(07/2023), chemical pancreatitis, L hand abscess(01/2024), hepatic cirrhosis, CAD, DM(6.4), CKD, CHF, GERD, Platt's esophagus, ambulatory dysfunction, OA, BMI 24
PSH: left hand I&D (02/05/2024), bilateral cataract surgery, CABG, PTCI, cholecystectomy, R TKA
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
FH:sister-lung CA, father-CAD
All: Neomycin�polymyxin) latex, Chantix
ROS: positive for 65 pounds loss over 6 months
HENT: Negative for ear pain, hearing loss, tinnitus and trouble swallowing.
Eyes: Negative for diplopia
Respiratory: Negative for cough, choking and shortness of breath.
Cardiovascular: Negative for chest pain, palpitations and leg swelling.
Gastrointestinal: Positive for dysphagia, dysarthria,
Endocrine: Negative. Negative for cold intolerance.
Genitourinary: Positive for chronic urinary urgency
Musculoskeletal: Positive for left hand pain
Skin: Negative for rash.
Allergic/Immunologic: Negative. Negative for immunocompromised state.
Neurological: Negative for weakness
Psychiatric/Behavioral: Negative for behavioral problems, confusion and hallucinations.
General: Well developed. In no acute distress.
Cardio: Regular rate and rhythm. Extremities are without cyanosis or edema.
Neuro:
Mental Status: Alert, oriented to location, person. Preserved attention and comprehension. Follows simple requests consistently. No hemineglect
Cranial Nerves: Pupils are equally round, surgical. EOMs full. Visual rosas full to confrontation. No ptosis. No nystagmus. Face symmetric. Impaired hearing AU. The palate elevated well. SCMs and traps 5/5. Tongue midline. Mild to
moderate dysarthria including edentulous.
Motor: Normal bulk and tone. No pronator or arm drift. Strength 5/5 throughout. Bilateral triceps 4-/5, biceps 5-/5. Neck flexors and extensors as well as biceps�5-5
Gait: deferred
Assessment and Plan:
I. Generalized seropositive MG, clinically improved.
II. Dysphagia�improving
III. Thrombocytopenia
IV. Chronic ambulatory dysfunction.
V. Hepatic cirrhosis
-Aspiration precautions
-Continue Mestinon 90 mg 4 times daily
-Continue prednisone 60 mg nightly with PPI prophylaxis
-No indication to continue PLEX given clinical improvement with current acute immunosuppression
-Please obtain medical records form [facility])
-PT
-DVT prophylaxis
-Please recall neurology services any questions or concerns.
I personally reviewed all radiology and labs along with past medical records pertinent to current medical problems. Total time spent in patient care is 40 minutes.
Thank you for allowing us to participate in the care of this patient. Please do not hesitate to contact us with any questions or concerns
Objective Data
Vital Signs
Temp Pulse Resp BP Pulse Ox
36.3 C 108 26 108/63 97
03/15/24 15:30 03/15/24 16:04 03/15/24 15:26 03/15/24 16:04 03/15/24 15:26
Lab Results
03/15/24 05:54
03/15/24 05:54
PT 17.7 Sec (11.4-14.6) H 03/15/24 05:54
INR 1.40 03/15/24 05:54
APTT 34.7 Sec (23.4-35.0) 03/15/24 05:54
Sodium 131 mmol/L (135-145) L 03/15/24 05:54
Potassium 3.4 mmol/L (3.5-5.1) L 03/15/24 05:54
BUN 16 mg/dl (9-20) 03/15/24 05:54
Glucose 154 mg/dl (70-99) H 03/15/24 05:54
Calcium 8.3 mg/dl (8.4-10.2) L 03/15/24 05:54
Vitamin B12 901 pg/ml (239-931) 03/08/24 05:28
Patient Allergies
hydrocortisone [From [facility] ([id number])] Allergy (Unknown, Verified 02/27/24 13:27)
Unknown
neomycin [From [facility]cort ([id number])] Allergy (Unknown, Verified 02/27/24 13:27)
Unknown
polymyxin B [From [facility]cort ([id number])] Allergy (Unknown, Verified 02/27/24 13:27)
Unknown
varenicline Allergy (Unknown, Verified 02/27/24 13:27)
Unknown
latex Allergy (Verified 02/27/24 13:27)
Hives/REDNESS
Vital Signs and Labs
-
Vital Signs and Labs:
Vital Signs
Temp Pulse Resp BP Pulse Ox
36.3 C 108 26 108/63 97
03/15/24 15:30 03/15/24 16:04 03/15/24 15:26 03/15/24 16:04 03/15/24 15:26
Lab Results
03/15/24 05:54
03/15/24 05:54
PT 17.7 Sec (11.4-14.6) H 03/15/24 05:54
INR 1.40 03/15/24 05:54
APTT 34.7 Sec (23.4-35.0) 03/15/24 05:54
Sodium 131 mmol/L (135-145) L 03/15/24 05:54
Potassium 3.4 mmol/L (3.5-5.1) L 03/15/24 05:54
BUN 16 mg/dl (9-20) 03/15/24 05:54
Glucose 154 mg/dl (70-99) H 03/15/24 05:54
Calcium 8.3 mg/dl (8.4-10.2) L 03/15/24 05:54
Vitamin B12 901 pg/ml (239-931) 03/08/24 05:28
Medications
-
Medications:
Generic Name Dose Route Start Last Admin
Trade Name Freq PRN Reason Stop Dose Admin
Acetaminophen 500 mg 03/04/24 15:36 03/14/24 22:59
Acetaminophen 500 Mg Tablet PO 04/01/24 15:35 500 mg
HSPRN PRN Administration
sleep
Acetaminophen 650 mg 03/04/24 15:25 03/08/24 12:37
Acetaminophen 325 Mg Tablet PO 04/01/24 15:24 650 mg
Q4HPRN PRN Administration
mild pain/ALBERTS/temp> 100.4F
Aspirin 81 mg 03/05/24 08:00 03/05/24 08:01
Aspirin 81 Mg (Enteric Coated) Tablet PO 04/02/24 07:59 81 mg
DAILY SÁNCHEZ Administration
Ceftriaxone Sodium 1,000 mg 03/14/24 14:00 03/15/24 14:41
Ceftriaxone 1000 Mg / 10 Ml Vial IV 1,000 mg
Q24H SÁNCHEZ Administration
Dextrose 12.5 grams 03/04/24 15:25 03/06/24 07:07
Dextrose 50% (0.5 Grams/Ml) 50 Ml Syringe IV 04/01/24 15:24 12.5 grams
[id number] PRN Administration
hypoglycemia
Protocol
Diphenhydramine HCl 25 mg 03/04/24 15:38 03/14/24 22:59
Diphenhydramine 25 Mg Capsule PO 04/01/24 15:37 25 mg
HSPRN PRN Administration
SLEEP
Furosemide 40 mg 03/10/24 16:00 03/15/24 16:04
Furosemide 40 Mg (10 Mg/Ml) 4 Ml Vial IV 04/07/24 15:59 40 mg
BID AT 0800,1600 SÁNCHEZ Administration
Glucagon 1 mg 03/04/24 15:25
Glucagon 1 Mg Vial IM 04/01/24 15:24
PRN PRN
hypoglycemia
Protocol
Hydromorphone HCl 0.5 mg 03/04/24 15:25 03/10/24 09:57
Hydromorphone 0.5 Mg/0.5 Ml Syringe IV 03/18/24 15:24 0.5 mg
Q4HPRN PRN Administration
severe pain
Daptomycin 700 mg/ Device 14 mls @ 0 mls/hr 03/06/24 16:00 03/15/24 16:03
IV 03/17/24 23:00 14 mls
Q24H SÁNCHEZ Administration
As Directed
Insulin Glargine 15 units/ 0.15 mls @ 0 mls/hr 03/14/24 11:55 03/14/24 22:54
Device SC 04/09/24 21:59 0.15 mls
HS SÁNCHEZ Administration
As Directed
Insulin Aspart 0 units 03/06/24 12:32 03/15/24 12:25
Insulin Aspart Low Resistance 300 Units/3 Ml Pen.Injctr SC 04/02/24 11:31 2 units
AC SÁNCHEZ Administration
Protocol
Metoprolol Tartrate 100 mg 03/05/24 08:00 03/14/24 08:48
Metoprolol 100 Mg Regular Release Tablet PO 04/02/24 07:59 Not Given
DAILY SÁNCHEZ
Miconazole Nitrate 0 applic 03/06/24 20:00 03/15/24 08:47
Miconazole 2% (Same As Aloe Chichester) Ointment Tube TOPICAL 04/03/24 19:59 1 applic
BID SÁNCHEZ Administration
Pantoprazole Sodium 40 mg 03/04/24 20:00 03/15/24 08:47
Pantoprazole 40 Mg Delayed Release Tablet PO 04/01/24 19:59 40 mg
BID SÁNCHEZ Administration
Prednisone 60 mg 03/11/24 14:43 03/15/24 08:47
Prednisone 20 Mg Tablet PO 04/02/24 07:59 60 mg
DAILY SÁNCHEZ Administration
Pyridostigmine Hamer 90 mg 03/10/24 13:00 03/15/24 12:28
Pyridostigmine 60 Mg Tablet PO 04/07/24 12:59 90 mg
QID SÁNCHEZ Administration
Sodium Chloride 0 flush 03/05/24 08:00 03/05/24 11:39
Sodium Chloride 0.9% (Flush) Syringe IV 04/02/24 07:59 1 flush
PER PROTOCOL SÁNCHEZ Administration
Sterile Water 10 ml 03/14/24 14:00 03/15/24 14:40
Sterile Water For Injection 10 Ml Vial IV 04/11/24 13:59 10 ml
Q24H SÁNCHEZ Administration
Home Medications
-
Home Medications
aspirin 81 mg capsule 81 mg PO Q48H Blood Clot Prevention/Tx 10/11/23
esomeprazole magnesium 20 mg capsule,delayed release (Nexium) 20 mg PO BID Gastrointestinal Issue 10/11/23
metoprolol tartrate 100 mg tablet 100 mg PO DAILY Heart Disease/Condition 10/11/23
pyridostigmine bromide 60 mg tablet 60 mg PO Q6 MYASTHENIA GRAVIS 10/11/23
simvastatin 20 mg tablet 20 mg PO HS High Cholesterol 10/11/23
spironolactone 25 mg tablet 25 mg PO DAILY Heart Disease/Condition 10/11/23
insulin lispro 100 unit/mL subcutaneous pen 3 - 10 unit SC MEALS Diabetes 01/02/24
acetaminophen 500 mg tablet 1,000 mg PO Q6HPRN PRN mild pain 02/02/24
prednisone 20 mg tablet 30 mg PO DAILY MYASTHENIA GRAVIS 02/02/24
linezolid 600 mg tablet 600 mg PO BID #80 tabs 02/06/24
diphenhydramine 25 mg-acetaminophen 500 mg tablet (Tylenol PM Extra Strength) 1 tab PO HS PRN sleep 02/27/24
efgartigimod jimbo 1008 [id number] 11,200 unit/5.6 mL subcut soln (Vyvgart Hytrulo) 5.6 ml SC TU MG 02/27/24
[2024-03-15] MEDS: NOVOLOG FLEXPEN-LOW RESISTANCE 4 UNITS SC (17:24)
[2024-03-15 17:35] LABS: Glucose - Point of Care 339 mg/dl (70-99)
[2024-03-15 21:46] LABS: Glucose - Point of Care 371 mg/dl (70-99)
[2024-03-15] MEDS: BENADRYL 25 MG PO (21:52)
[2024-03-15] MEDS: TYLENOL 500 MG PO (21:52)
[2024-03-15] MEDS: LANTUS 0.15 UNITS SC (21:53)
[2024-03-16] VITALS (9 sets, daily range): BP systolic 92–126; BP diastolic 45–75; BMI 24.0
[2024-03-16 06:04] LABS: Blood Urea Nitrogen 17 mg/dl (9-20); Calcium 8.3 mg/dl (8.4-10.2); Carbon Dioxide 31 mmol/L (22-30); Chloride 99 mmol/L (98-107); Estimated Creatinine Clearance 73 ml/min; Glucose 190 mg/dl (70-99); Potassium 3.6 mmol/L (3.5-5.1); Sodium 132 mmol/L (135-145); eGFR > 60.00
[2024-03-16 06:07] LABS: Hematocrit 26.7 % (39.0-52.0); Hemoglobin 9.3 g/dL (13.0-18.0); Mean Corp Hgb Conc. 34.8 g/dL (33.0-37.0); Mean Corpuscular Hgb 30.6 pg (27.0-31.0); Mean Corpuscular Volume 87.8 fL (80.0-94.0); Mean Platelet Volume 12.3 fL (7.4-10.4); Platelet Count 80 10^3/uL (130-400); Red Blood Cell Count 3.04 10^6/uL (4.70-6.10); Red Cell Dist. Width 14.8 % (11.5-14.5); White Blood Cell Count 13.5 10^3/uL (4.8-10.8)
[2024-03-16 06:36] LABS: INR 1.39; PT 17.4 Sec (11.4-14.6)
[2024-03-16 06:37] LABS: APTT 36.8 Sec (23.4-35.0)
[2024-03-16 06:55] LABS: Fibrinogen 114 MG/DL (199-459)
[2024-03-16] MEDS: NOVOLOG FLEXPEN-LOW RESISTANCE 1 UNITS SC (07:56)
[2024-03-16] MEDS: ANTIFUNGAL CLEAR 1 APPLIC TOPICAL (08:03)
[2024-03-16] MEDS: DELTASONE 60 MG PO (08:03)
[2024-03-16] MEDS: LASIX 40 MG IV (08:04)
[2024-03-16 08:05] LABS: Glucose - Point of Care 186 mg/dl (70-99)
[2024-03-16] MEDS: MESTINON 90 MG PO ×2 (08:06→13:40)
[2024-03-16] MEDS: PROTONIX 40 MG PO (08:06)
--- NOTE | 2024-03-16 09:06 | W.PN.HOSP.TC ---
Addendum entered and electronically signed by Nanda Jeff MD 03/16/24 14:18:
I saw and evaluated the patient independently. I reviewed the resident�s note and agree with findings and plan as documented by Dr. Richey.
GENERAL: well developed, well nourished, male in no apparent distress
HEENT: NC/AT
HEART: regular rate and rhythm, +S1, +S2
LUNGS : clear to auscultation bilaterally
ABDOM: soft, nontender, nondistended, + bowel sounds
EXT: no cyanosis, clubbing, or edema
NEUROLOGIC: grossly intact
Abd pain likely due to pancreatitis--possibly due to linezolid (held)--resolved--cont diet with aspiration precautions
Diarrhea- Likely related to pancreatitis-resolved- DATA SECURITY CONSULTANT Linezolid held
Proximal muscle weakness- Possibly MG flare relating to active inflammatory process--apprec neuro- Continue Mestinon 90 mg 4 times daily, prednisone increased to 60 mg nightly with PPI prophylaxis--s/p PLEX (plasma exchange) now held as per
neurology- Vyvgart to be held until off ABX--OK for Williamson--plasma exchange catheter to be d/c'd prior to [facility] transfer
Arrhythmia- Patient had an episode of elevated HRs (up to 200) on 03/09 after plasmapheresis, EKG showed sinus rhythm with PACs, converted to NSR with Valsalva--apprec cards-- Echo no change compared to prior, EF 60-65%
Bicytopenia with anemia and severe thrombocytopenia- Likely related to myasthenia crisis- Improved following platelet transfusion and plasmapheresis- s/p 3 units PRBC - s/p 7 units platelet- PLEX held-- ASA on hold- Iron panel suggestive of anemia
of chronic disease
Hyperglycemia- Add lantus to aim for BG 140-180
Recent left hand abscess- DATA SECURITY CONSULTANT Linezolid held --apprec ID, cont daptomycin--finish course, then REMOVE PICC line
Oral and probably esophageal candidiasis--Dysphagia improving--finishing micafungin per ID
Elevated troponin, suspect nonischemic myocardial injury- Patient denies any chest pain- Cardiology following, holding ASA due to thrombocytopenia
Lactic acidosis/metabolic acidosis --resolved
Liver cirrhosis- Likely due to ETOH use
Mild hyponatremia
Pedal edema likely due to slight volume overload from multiple transfusions - Will continue oral lasix 40 mg bid
code status--Full code
DVT proph - SCDs
Original Note:
Today's Communication/Plan
-
Continue rocephin, antibiogram pending
Continue prednisone 60, mestinon 90
Replete potassium as needed
Assessment / Plan
Assessment / Plan
73 y/o male with known myasthenia gravis on mestinon, prednisone and Vyvgart with:
# Proximal muscle weakness
- Possibly MG flare relating to active inflammatory process/pancreatitis
- Neurology following
- Continue Mestinon 90 mg 4 times daily, prednisone increased to 60 mg nightly with PPI prophylaxis
- Per neurology, will continue prednisone 60 mg for at least 12 weeks
- Will hold off of PLEX, hematology and neurology following
- Vyvgart held
- Vital capacity q12h
- Physiatry consult -- Would benefit from Acute inpatient rehabilitation once platelets have been consistently going up and stable and patient medically clear.
- Patient feeling stronger
# Hypokalemia, acute
- Will replete K as needed
# Night sweats, chills during night
- Likely 2/2 UTI
- U/A active, UCx gram -saw bacillli, antibiogram pending, continue rocephin for now
- CXR small left pleural effusion, parenchymal opacity in medial LLL,
- BCx no growth
- TSH, Cortisol WNL
- Now resolved
# UTI and likely pneumonia
- Continue Rocephin
- Urine culture -saw bacillli, antibiogram pending
- ID following
# Abd pain 2/2 pancreatitis
- Now resolved
- Possibly related to linezolid
- DATA SECURITY CONSULTANT Linezolid held
- Lipase 4000 -> 348
- CT abdomen/pelvis, abdominal ultrasound report noted
- Continue diet IDDSI Level [address], aspiration precautions, VSE once patient agreeable -- per patient, dysphagia now resolved -- advanced diet to low cholesterol, patient has no difficulty swallowing
- IgG4 WNL which was checked for autoimmune pancreatitis
# Diarrhea
- Now resolved
- Likely related to pancreatitis
- No further diarrhea for stool studies
- DATA SECURITY CONSULTANT Linezolid held
#Arrhythmia
- Patient had an episode of elevated HRs (up to 200) on 03/09 after plasmapheresis, EKG showed sinus rhythm with PACs, converted to NSR with Valsalva
- Patient complains of chills at night, no chest pain, no palpitations. Was hypotensive this am (MAP 50-65) and tachycardic --> per cardiology, BB should not be used in MG --> will hold lopressor
- Cardiology following
- Echo no change compared to prior, EF 60-65%
- EKG sinus tachycardia with PACs
# Bicytopenia with anemia and severe thrombocytopenia
- Improving
- Likely related to myasthenia crisis
- Improved following platelet transfusion and plasmapheresis
- s/p 3 units PRBC
- s/p 7 units platelet
- PLEX held as per hematology and neurology given clinical stability and thrombocytopenia
- ASA on hold
- Iron panel suggestive of anemia of chronic disease
# Leukocytosis
- 2/2 steroids
- Not unexpected
# Hyperglycemia
- Continue lantus 15 HS
# Recent left hand abscess
- DATA SECURITY CONSULTANT Linezolid held
- Continue daptomycin per ID (d#[id number])
# Oral and probably esophageal candidiasis
- Dysphagia now resolved
- Completed course of micafungin
- Advance diet
# Elevated troponin, suspect non-MO related
- Patient denies any chest pain
- Cardiology following, holding ASA 2/2 thrombocytopenia
# Lactic acidosis
- Likely related to linezolid side effect
- Now resolved
# Metabolic acidosis
- Likely related to linezolid side effect
- Now resolved
# Liver cirrhosis
- Likely 2/2 ETOH use
- Outpatient follow-up with GI
# Mild hyponatremia
- urine sodium low
# Pedal edema likely due to slight volume overload from multiple transfusions
- Continue IV lasix 40 mg bid
Full code
DVT prophylaxis - SCDs
Anticipated Discharge: Within 24 hours
Subjective/Interval History
-
Date of Service: March 16, 2024
Objective Data
-
Labs:
Laboratory Results
03/16/24
05:14
WBC 13.5 H
Hgb 9.3 L
Hct 26.7 L
Plt Count 80 L D
PT 17.4 H
INR 1.39
APTT 36.8 H
Sodium 132 L
Potassium 3.6
Chloride 99
Carbon Dioxide 31 H
BUN 17
Creatinine 0.9
Glucose 190 H
Calcium 8.3 L
Vital Signs:
Vital Signs
Temp Pulse Resp BP Pulse Ox
98.1 F 91 13 113/75 96
03/16/24 03:45 03/16/24 08:04 03/16/24 06:04 03/16/24 08:04 03/16/24 06:04
I&O
03/15/24 03/16/24 03/17/24
06:59 06:59 06:59
Intake Total 600 / 600 630 / 630
Output Total 975 / 975 750 / 750
Balance -375 / -375 -120 / -120
Review of Systems
-
History Source: Patient
Constitutional: Reports No Symptoms
EENT: Reports No Symptoms Reported
Respiratory: Reports No Symptoms
Cardiac: Reports No Symptoms
Abdomen/GI: Reports No Symptoms
Genitourinary: Reports No Symptoms
Musculoskeletal: Reports Muscle Weakness
Skin: Reports No Symptoms
Neuro: Reports No Symptoms
Endocrine: Reports No Symptoms
Hematologic / Lymphatic: Reports No Symptoms
Allergy / Immunology: Reports No Symptoms
Physical Exam
-
General: Well Developed, Well Nourished, No Apparent Distress and Comfortable
HEENT: Normocephalic
Respiratory: Clear to Auscultation
Cardiac: Regular Rhythm and S1/S2
GI: Soft, Nontender, Nondistended and Normal Bowel Sounds
Genito-urinary: No Costovertebral Tender
Musculoskeletal: No Clubbing, No Cyanosis, Edema, Right Lower Extrem and Edema, Left Lower Extrem
Skin: Warm
Neuro: Awake, Alert and Oriented
Hematologic / Lymphatic: No Lymphadenopathy
Psych: Calm
--- NOTE | 2024-03-16 11:00 | W.PN.UPDATE ---
Update Note
Progress Note Update
discussed with Dr Jeff
agree with transition to keflex for E coli: 7 day course likely sufficient, if persistent symptoms on steroids could extend to 14 days
tomorrow is final day of dapto
picc removal after completion of dapto
agree with transfer to [facility]
[2024-03-16 12:33] LABS: Glucose - Point of Care 201 mg/dl (70-99)
--- NOTE | 2024-03-16 13:31 | VATNOTE ---
order to remove phoresis catheter. Catheter removed intact following hospital policy with bed in trendelenberg position. Direct pressure applied for 10 minutes. Sterile occlusive dressing applied and intact at time of leaving room. Nursing staff
aware. Advised to remain in bed for 30m minutes.
[2024-03-16] MEDS: NOVOLOG FLEXPEN-LOW RESISTANCE 2 UNITS SC (13:38)
[2024-03-16] MEDS: ROCEPHIN 1000 MG IV (13:41)
[2024-03-16] MEDS: STERILE WATER FOR INJECTION 10 ML IV (13:41)
--- NOTE | 2024-03-16 16:52 | W.DCSUMMARY ---
Addendum entered and electronically signed by Nanda Jeff MD 03/16/24 20:35:
Read, reviewed, and agree. See same day progress note for additional details. Time spent coordinating care, DC planning, review of DC plan of care with resident, transition of care, review of records in EMR, med rec, consults, notes, d/w
consultants, nursing, family, and CM = 40 minutes
Original Note:
Discharge Summary
Discharge Data
Date of Admission: 03/04/24
Date of Discharge: 03/16/24
-
Pending Results: No
Hospital Course
Discharging Physician : Dr. Nanda Jeff, Dr. Denice Richey
Disposition : Acute rehab, [facility]
Principal Discharge diagnosis :
Pancreatitis
Adverse reaction to Linezolid
Thrombocytopenia
Anemia
Myasthenia gravis flare
Urinary tract infection
Sinus tachycardia with premature atrial contractions
Nonischemic myocardial injury,
Diabetes
Cirrhosis
Left hand abscess, MRSA
Oral and probably esophageal candidiasis
Chronic Discharge diagnosis :
Hypertension
Hyperlipidemia
Gastroesophageal reflux disease
Hospital Course :
Patient is a 73-year-old male with known history of myasthenia gravis on Mestinon 60 q6h, prednisone 30 daily and Vyvgart who presented to the ED with abrupt onset of worsening proximal strength, abdominal discomfort and diarrhea. Initial lab work
showed lipase >4000. Abdomen CT showed moderate acute interstitial edematous pancreatitis, and moderate hepatic cirrhosis. Patient was treated for pancreatitis with IV fluids and supportive management. Lipase continued to downtrend over the course
of few days with improvement in abdominal discomfort and diarrhea. Patient was also noted to have lactic acidosis, thrombocytopenia, anemia and elevated troponin levels. Patient denied any chest pain or shortness of breath. Cardiology,
gastroenterology, nephrology, oncology, neurology, infectious disease were following. Patient had been on linezolid for his left hand abscess on prior admission. With suspicion of the medication contributing to some of the current clinical
problems, decision was made to switch linezolid to daptomycin. Initial plan was for plasmapheresis however with thrombocytopenia, Plex was held. Patient received 7 units platelets and 3 units PRBCs. Blood counts improved and patient was started
on plasmapheresis, received 2 out of 5 treatments. Cardiology stopped aspirin given thrombocytopenia and performed echo, which showed EF 60 to 65% and mild TR. Per neurology, prednisone was increased to 60 daily, mestinon was advanced to 90 qid and
Vyvgart was held given infection. With weakness improving and thrombocytopenia, neurology and hematology stopped further plasmapheresis. Patient also completed a course of treatment with micafungin for oral and probably esophageal candidiasis after
reporting trouble swallowing. Diet was adjusted and slowly advanced. Dysphagia resolved over the course of hospital stay. Glucose levels were somewhat uncontrolled despite patient being on his home insulin. Insulin lantus was initiated as patient
was on steroids, and glucose levels improved. Patient seemed to be clinically improving however was complaining of rigors at night, was found to be tachycardic in the mornings and had low blood pressures. Cardiology recommended holding beta blockers
given MG flare. Patient was evaluated for sepsis. Urinalysis was suggestive of UTI and chest x-ray showed left pleural effusion and parenchymal opacity in medial left lung lower lobe (atelectasis versus pneumonia). Rocephin was started. Urine
culture resulted in pansensitive gram-negative bacilli. Patient was able to walk inside his room with walker with minimal assistance and was tolerating diabetic diet. PT/OT recommended acute rehab. Patient's plasma exchange catheter was removed
prior to discharge. Plts trended up to 80 and ASA was restarted.
Patient is medically stable for discharge to acute rehab on prednisone 60 daily, mestinon 90 qid, and daptomycin (last dose tomorrow, can remove PICC line after completion of daptomycin), keflex 500 bid x7 days, lasix 40 bid, insulin lantus 15, and
no change in other home meds other than holding Vyvgart and Lopressor until seen by his neurologist. Patient was advised to follow up outpatient with his neurologist, embedded systems software engineer for adjustment of prednisone, mestinon, Vyvgart, Lopressor and
it security specialist for newly diagnosed cirrhosis (likely 2/2 ETOH use).
Important imaging findings :
CT Abd/pelvis (03/04/24):
1. MODERATE ACUTE INTERSTITIAL EDEMATOUS PANCREATITIS.
2. Moderate diffuse pancreatic parenchymal atrophy and lipomatosis.
3. MODERATE HEPATIC CIRRHOSIS.
4. Small volume of abdominal and pelvic ascites.
5. Severe chronic bilateral renal disease.
6. Previous cholecystectomy.
7. Severe calcific atherosclerotic plaque in the coronary arteries.
8. Mild inflammatory interstitial pneumonitis in the lungs.
Discharge Plan
-
Patient Disposition: Acute Rehab Facility
Discharge Diagnosis/Procedures: Pancreatitis, medication adverse effect, myasthenia gravis flare, urinary tract infection, cirrhosis, sinus tachycardia with premature atrial contractions, anemia, thrombocytopenia, non-ischemic myocardial injury,
Left hand abscess MRSA, oral and probably esophageal candidiasis, hypertension, hyperlipidemia, diabetes, gastroesophageal reflux disease
Condition: Fair
Diet: Low Cholesterol, Diabetic, Carb Controlled and Restrict fluids to 48 oz
Activity: As tolerated
Driving Restrictions: Not until seen by your Dr
Bathing Restrictions: OK to Shower
Activity Restrictions/Additional Instructions:
Wound Care Instructions Skin Tears- Clean with normal saline or soap and water. Apply Xeroform and cover with ABD and wrap with susu. Change Q 48 hours and PRN for drainage.
Buttock Folds- Antifungal ointment BID
Penis- Vaseline to dry areas BID
Referrals:
Juancarlos Champagne MD [Family Provider] -
Additional Discharge Medication Instructions: You should follow up with your neurologist for adjusting the prednisone dose after discharge from acute rehab.
Your abdomen CT showed moderate cirrhosis. Please follow up out patient with a it security specialist.
The embedded systems software engineer stopped your Lopressor because of the myasthenia gravis flare. You should follow up with a embedded systems software engineer or your neurologist about restarting that medication.
Prescriptions:
New
prednisone 20 mg Tablet
60 mg PO DAILY Qty: 90 0RF
Rx Instructions:
Continue 60mg daily until seen by your neurologist.
DAPTOmycin [Cubicin] 700 MG
Syringe [Syringe-Pump] 0 ML
As Directed mls/hr IV Q24H
Ordered By: Denice Diana MD, Resident
Last Taken: 03/15/24 16:03 14 mls
Insulin Glargine Lantus [Lantus] 15 UNITS
Subcutaneous Insulin Syringe [Syringe-Insulin] 0 UNIT
As Directed mls/hr SC HS
Ordered By: Denice Diana MD, Resident
Last Taken: 03/15/24 21:53 0.15 mls
cephalexin 500 mg capsule
500 mg PO BID 7 Days Qty: 14 0RF
Rx Instructions:
for 7 days.
furosemide [Lasix] 40 mg tablet
40 mg PO BID Qty: 20 0RF
Continued
spironolactone 25 mg Tablet
25 mg PO DAILY
simvastatin 20 mg Tablet
20 mg PO HS
esomeprazole magnesium [Nexium] 20 mg Capsule,Delayed Release(Dr/Ec)
20 mg PO BID
aspirin 81 mg Capsule
81 mg PO Q48H
insulin lispro 100 unit/mL Insulin Pen
0 unit SC MEALS
Patient Comments:
low sliding scale
Rx Instructions:
low sliding scale
diphenhydramine-acetaminophen [Tylenol PM Extra Strength] 25-500 mg Tablet
1 tab PO HS PRN (Reason: sleep)
acetaminophen 500 mg Tablet
1,000 mg PO Q6HPRN PRN (Reason: mild pain)
linezolid 600 mg Tablet
600 mg PO BID Qty: 80 0RF
Changed
pyridostigmine bromide 60 mg Tablet
90 mg PO Q6 Qty: 0 0RF
Held
metoprolol tartrate 100 mg Tablet
100 mg PO DAILY
Hold Instructions: Do not take until seen by your neurologist or embedded systems software engineer.
Rx Instructions:
do not take untill seen by your neurologists or cardiologists.
Vyvgart Hytrulo 1,008 mg-11,200 unit/5.6 mL Solution
5.6 ml SC TU
Hold Instructions: Resume on 03/25/24. Do not take until you complete you course of antibiotics.
Rx Instructions:
hold instructions above.
Discontinued
prednisone 20 mg Tablet
30 mg PO DAILY
Discharge Orders:
Discharge Patient (As Directed); Ordered 03/16/24
Ordered By: Denice Gutiérrez
Discharge Date and Time
Discharge Date/Time: 03/16/24 15:22
Print Language: MOLDOVAN
== END 2024-03-16 15:22 | DRG 56 ==
LOC: IMU 13:18
PROVIDERS: Internal Medicine; Nurse Practitioner Acute Care; Nurse Practitioner Family; Nurse Practitioner Gerontology; Physician Assistant; Radiology Vascular & Interventional Radiology; Registered Nurse; Student in an Organized Health Care Education/Training Program; ADMITTING PHYSICIAN Internal Medicine; ATTENDING PHYSICIAN Internal Medicine; CONSULT PHYSICIAN Internal Medicine Hematology & Oncology; CONSULT PHYSICIAN Physical Medicine & Rehabilitation; CONSULT PHYSICIAN Psychiatry & Neurology Neurology; CONSULT PHYSICIAN Specialist; EMERGENCY PHYSICIAN Student in an Organized Health Care Education/Training Program; FAMILY PHYSICIAN Internal Medicine; OTHER PHYSICIAN Internal Medicine Cardiovascular Disease; OTHER PHYSICIAN Internal Medicine Infectious Disease
PROC: 02HV33Z Insertion of Infusion Device into Superior Vena Cava, Percutaneous Approach (ICD-10-PCS; 2024-03-04)
PROC: 30233R1 Transfusion of Nonautologous Platelets into Peripheral Vein, Percutaneous Approach (ICD-10-PCS; 2024-03-06)
PROC: 30233N1 Transfusion of Nonautologous Red Blood Cells into Peripheral Vein, Percutaneous Approach (ICD-10-PCS; 2024-03-06)
PROC: 6A550Z3 Pheresis of Plasma, Single (ICD-10-PCS; 2024-03-08)
DX: G70.01 Myasthenia gravis with (acute) exacerbation (principal); K85.80 Other acute pancreatitis without necrosis or infection; I13.0 Hypertensive heart and chronic kidney disease with heart failure and stage 1 through stage 4 chronic kidney disease, or unspecified chronic kidney disease; L03.114 Cellulitis of left upper limb; L02.512 Cutaneous abscess of left hand; E87.20 Acidosis, unspecified; N17.9 Acute kidney failure, unspecified; B37.81 Candidal esophagitis; E87.1 Hypo-osmolality and hyponatremia; I5A Non-ischemic myocardial injury (non-traumatic); N39.0 Urinary tract infection, site not specified; B37.0 Candidal stomatitis; D84.9 Immunodeficiency, unspecified; M86.8X4 Other osteomyelitis, hand; I25.10 Atherosclerotic heart disease of native coronary artery without angina pectoris; I50.9 Heart failure, unspecified; E11.22 Type 2 diabetes mellitus with diabetic chronic kidney disease; N18.32 Chronic kidney disease, stage 3b; K21.9 Gastro-esophageal reflux disease without esophagitis; D63.8 Anemia in other chronic diseases classified elsewhere; D69.59 Other secondary thrombocytopenia; E78.00 Pure hypercholesterolemia, unspecified; E86.0 Dehydration; K22.70 Barrett's esophagus without dysplasia; R63.4 Abnormal weight loss; R62.7 Adult failure to thrive; R19.7 Diarrhea, unspecified; E87.6 Hypokalemia; I49.1 Atrial premature depolarization; K70.30 Alcoholic cirrhosis of liver without ascites; Z11.52 Encounter for screening for COVID-19; Z68.24 Body mass index [BMI] 24.0-24.9, adult; Z79.4 Long term (current) use of insulin; Z79.52 Long term (current) use of systemic steroids; Z79.82 Long term (current) use of aspirin; Z79.899 Other long term (current) drug therapy; Z86.14 Personal history of Methicillin resistant Staphylococcus aureus infection; Z87.891 Personal history of nicotine dependence; Z95.5 Presence of coronary angioplasty implant and graft; Z90.49 Acquired absence of other specified parts of digestive tract; Z82.49 Family history of ischemic heart disease and other diseases of the circulatory system
CPT/HCPCS: 93308; 36580; 70450; 71045; 71046; 74018; 74176; 76700; 76937; 77001; 80048; 80053; 81003; 81015; 82248; 82533; 82550; 82570; 82607; 82728; 82746; 82787; 82805; 82962; 83540; 83550; 83605; 83615; 83690; 83735; 84300; 84443; 84478; 84484; 85025; 85027; 85045; 85384; 85610; 85730; 86850; 86900; 86901; 86920; 87040; 87077; 87086; 87186; 87502; 87811; 92526; 92610; 93005; 93306; 96360; 97163; 97167; 97530; 97535; 99285; J0878; P9016; P9035; P9045; P9073

== ENCOUNTER 2024-03-21 13:19 | Emergency (ER) | payer MEDICARE, SELFPAY ==
[2024-03-21] VITALS (7 sets, daily range): BP systolic 104–120; BP diastolic 64–81
--- NOTE | 2024-03-21 14:12 | ED.GENMED ---
History of Present Illness
<Edelmira Madden PA-C - Last Filed: 03/21/24 20:59>
General
Chief Complaint: Chest Pain
Source: patient and records
Exam Limitations: none
Time Seen by Provider: 03/21/24 13:35
Nursing documentation reviewed up to this point in time: agreed with
History of Present Illness
History of Present Illness:
pt is a 73 y/o M with h/o myasthenia gravis on MESTINON 60 MG Q6, PREGNISONE AND VYVGART presented to ED on 03/04-03/16 for abd pain, diarrhea and worsening acute on chronic wekaness; pt had lipase > [address] showing moderate acute intersitial
edematous pancreaitis; lipase downtrended pt also ahd elevated trop levels and anemia; he also had hand abscess and was on abx; pt received transfuisno of platelets and blood and plasmaphereis; course complicated by candidal esophagitis, pneumonia
and UTI
pt has been at [facility] here from 03/16 until now
he is minimally ambulatory at baseline givne his recent myasthenia flare
has edema in his legs chronically and bruising all over
he says he ate mashed potatoes and chicken for lunch at 12 and then at 1 developed chest pressure that now by 150 p,m is dissipating; he feels bettter now; no associated, nauesa, vomiting, diarphoresis, diarrhea, syncope
pt has had previous cardiac stents
no AC
denies abdominal pain
does not feel like his myasthenia is worsened;
he denies SOB, pleuritic pain, vomiting, fever, chills, abodmianl pain, diarrhea.
he strongly advocates to go back to [facility] and does not wish to be here
the pain is much better now
Past History
<Edelmira Madden PA-C - Last Filed: 03/21/24 20:59>
Past History
ED Past Medical History: GERD, HTN, Hypercholesterolemia, IDDM and Other (myasthenia Gravis)
ED Past Surgical History: Cardiac (stents), Cholecystectomy and Orthopedic (right knee replacement)
Social History
Alcohol: Chronic alcoholic
Personal:
Living: with family
Family History
Family History: Other (Reviewed and noncontributory)
Review of Systems
<Edelmira Madden PA-C - Last Filed: 03/21/24 20:59>
Review of Systems
Allergies reviewed?: Yes
All Other Systems: Not applicable
Phy Exam
<Edelmira Madden PA-C - Last Filed: 03/21/24 20:59>
Physical Exam
Physical Exam:
GENERAL: Alert , in no apparent distress
EYE: pupils equal and reactive
NECK: Supple
ENT: o/p clr, mmm.
CARDIAC: Regular rate and rhythm .+ moderate pitting 3+ edema b/l
LUNGS: Clear breath sounds bilaterally, no acute respiratory distress, no wheezes/rales/rhonchi
no rales
no tachypnea
ABDOMEN: Soft, without focal tenderness, no r/g, no cvat, normal bowel sounds
NEUROLOGICAL: Alert and oriented, no focal neuro deficits
SKIN: Warm and dry, skin intact. bruising all over scattered;
MUSCULOSKELETAL: moderate pitting edema, well perfused. neg aftab's sign
PSYCH: Normal and appropriate interaction.
Scores
<Edelmira Madden PA-C - Last Filed: 03/21/24 20:59>
Heart Score for Chest Pain Patients
STEMI patient?: No
History: Slightly or Non-Suspicious
ECG: Nonspecific Repolarization
Age: >/= 65 years
Risk Factors: >/= 3 Risk Factors or History of CAD
Troponin: >1 - <3 x Normal Limit
Heart Score for Chest Pain Patients: 6
Heart Score Risk: 20.3% MACE over next 6 weeks
Course
<Edelmira Madden PA-C - Last Filed: 03/21/24 20:59>
Orders/Labs/Results
Orders:
Orders
03/21/24 13:24
Electrocardiogram (*1) Urgent
Reason for Study: Chest Pain
03/21/24 13:25
EKG- Treatment ONCE
03/21/24 14:22
Complete Blood Count/With Diff Urgent
Comprehensive Metabolic Panel Urgent
Lipase Urgent
NT-proBNP Urgent
Troponin I Urgent
03/21/24 15:00
CR Chest - 2 Views Urgent
Comment:
Reason For Exam: chest pain, elevated BNP, edema
03/21/24 17:44
Troponin I Urgent
03/21/24 17:48
EKG [Electrocardiogram (*1)] Urgent
Reason for Study: Fatigue / Weakness
EKG- Treatment ONCE
Abnormal Lab Results
03/21/24 03/21/24
14:22 17:44
RBC 2.89 L 10^6/uL
(4.70-6.10)
Hgb 8.8 L g/dL
(13.0-18.0)
Hct 25.4 L %
(39.0-52.0)
RDW 14.9 H %
(11.5-14.5)
Abs Immat Gran (auto) 0.2 H 10^3/uL
(0-0.05)
Absolute Neuts (auto) 9.2 H 10^3/uL
(1.4-6.5)
Absolute Lymphs (auto) 0.5 L 10^3/uL
(1.2-3.4)
Immature Gran % 2.2 H %
(0-0.5)
Neutrophils % 91.1 H %
(42.2-75.2)
Lymphocytes % 4.6 L %
(20.5-51.1)
Sodium 133 L mmol/L
(135-145)
BUN 33 H mg/dl
(9-20)
Glucose 163 H mg/dl
(70-99)
Alkaline Phosphatase 178 H U/L
(38-126)
Troponin I 0.060 H* ng/ml 0.061 H* ng/ml
Total Protein 4.9 L g/dl
(6.3-8.2)
Albumin 2.9 L g/dl
(3.5-5.0)
03/21/24 14:22
03/21/24 14:22
Vital Signs
Initial and Last Documented VS:
Initial Vital Signs
Pulse Resp BP
92 21 120/81
03/21/24 13:23 03/21/24 13:23 03/21/24 13:23
Last Documented Vital Signs
Temp Pulse Resp BP
36.5 C 83 23 117/66
03/21/24 13:29 03/21/24 19:00 03/21/24 19:00 03/21/24 18:00
<Yandel Soliman MD - Last Filed: 03/21/24 20:02>
Orders/Labs/Results
Orders:
Orders
03/21/24 13:24
Electrocardiogram (*1) Urgent
Reason for Study: Chest Pain
03/21/24 13:25
EKG- Treatment ONCE
03/21/24 14:22
Complete Blood Count/With Diff Urgent
Comprehensive Metabolic Panel Urgent
Lipase Urgent
NT-proBNP Urgent
Troponin I Urgent
03/21/24 15:00
CR Chest - 2 Views Urgent
Comment:
Reason For Exam: chest pain, elevated BNP, edema
03/21/24 17:44
Troponin I Urgent
03/21/24 17:48
EKG [Electrocardiogram (*1)] Urgent
Reason for Study: Fatigue / Weakness
EKG- Treatment ONCE
Abnormal Lab Results
03/21/24 03/21/24
14:22 17:44
RBC 2.89 L 10^6/uL
(4.70-6.10)
Hgb 8.8 L g/dL
(13.0-18.0)
Hct 25.4 L %
(39.0-52.0)
RDW 14.9 H %
(11.5-14.5)
Abs Immat Gran (auto) 0.2 H 10^3/uL
(0-0.05)
Absolute Neuts (auto) 9.2 H 10^3/uL
(1.4-6.5)
Absolute Lymphs (auto) 0.5 L 10^3/uL
(1.2-3.4)
Immature Gran % 2.2 H %
(0-0.5)
Neutrophils % 91.1 H %
(42.2-75.2)
Lymphocytes % 4.6 L %
(20.5-51.1)
Sodium 133 L mmol/L
(135-145)
BUN 33 H mg/dl
(9-20)
Glucose 163 H mg/dl
(70-99)
Alkaline Phosphatase 178 H U/L
(38-126)
Troponin I 0.060 H* ng/ml 0.061 H* ng/ml
Total Protein 4.9 L g/dl
(6.3-8.2)
Albumin 2.9 L g/dl
(3.5-5.0)
03/21/24 14:22
03/21/24 14:22
Vital Signs
Initial and Last Documented VS:
Initial Vital Signs
Pulse Resp BP
92 21 120/81
03/21/24 13:23 03/21/24 13:23 03/21/24 13:23
Last Documented Vital Signs
Temp Pulse Resp BP
36.5 C 83 23 117/66
03/21/24 13:29 03/21/24 19:00 03/21/24 19:00 03/21/24 18:00
<Edelmira Madden PA-C - Last Filed: 03/21/24 20:59>
MDM/Problems Addressed
Differential Diagnosis Includes:
acs, gerd, anxiety, pancreitaitis
MDM/Problems Addressed:
pt is a 73 y/o M from [facility]
complicated pmh
recent admission at for myasthenia flare and pancreaitis complicated by seval other issues as mentioned above;
today:
pain in chest after eating lunch; dissipated; no SOB, fever, vomiting, diarrhea, abdomianl pain
he has been cp free here, 1st trop 0.06 and 2nd trop 0.061 which is lower than his previous trops on admission
he does have a sligth drop in hg but is heme neg and it is above 8 and is HEME NEG BROWN STOOL.
lipase normal
bnp elevated and has very small b/l Pleural effusions; on lasix, felt he could continue lasix; he doesn't seem to be in CHF now;
i think his pain was GERD
he is very insistent on going back to [facility]
d/w ed attending who agree dwith d/c back to [facility] attending agrees
<Edelmira Madden PA-C - Last Filed: 03/21/24 20:59>
*Critical Care Note
Total Time (30-74mins, 75-104mins- exclusive of procedures): Not Applicable
ED Attending Note
<Edelmira Madden PA-C - Last Filed: 03/21/24 20:59>
-
Portions of this chart may have been created with voice recognition software.� Occasional wrong word or��sound alike� substitutions may have occurred due to the inherent limitations of voice recognition software.
<Yandel Soliman MD - Last Filed: 03/21/24 20:02>
ED Attending Note
Patient seen and examined by attending physician: Yes
ED Attending Note:
Patient presents to ED from [facility] secondary to sudden onset of chest pain, shortly after completing his lunch. Chest pain described as pressure in the middle of his chest, nonradiating, without associated shortness of breath, diaphoresis,
nausea, or dizziness. Patient states that chest pain gradually improved to a point where when he arrived in ED, he no longer was experiencing chest pain. Patient does have history of CAD, with multiple stent placement in 1996. Since then, patient
states that he has not experienced any chest pain. Patient's recent medical history is significant for admission at [facility] for which he was treated for myasthenia gravis exacerbation along with pancreatitis. Patient is currently
receiving physical therapy/rehab at [facility].
Physical Exam
General: no apparent distress, not acutely ill. afebrile
Head: nc/at. eomi
Neck: supple. normal range of motion.
Heart: s1/s2 regular rate and rhythm, no murmur.
Lungs: no acute respiratory distress. clear bilaterally
Abdomen: normal bowel sounds. not tender.
Neuro: alert and oriented. no focal neurological deficits
Skin: no rash
Psychiatric: well kept. interactive and cooperative
Extremities: no edema. no calf tenderness.
Patient remains chest pain-free during extended course of observation ED. Blood work reveals mildly elevated troponin, which appears to be declining from when he was discharged from [facility]. Discussed differential diagnosis with
patient and his spouse, including recent stressors, including increased physical activity today during physical therapy, versus reflux versus ACS. Although chest pain self resolved with brief duration, patient does have history of CAD with
longstanding stent placement. As such, difficult to exclude potential ACS entirely via blood work or EKG. However, as patient remains asymptomatic with other potential etiology, agrees with patient desire to return back to rehab at this time.
Patient will follow-up with his orthotic practitioner upon discharge from [facility], or return to ED immediately with recurrent chest pain
Discharge Plan
Departure
Patient Disposition: Acute Rehab Facility
Date of Disposition: 03/21/24
Time of Disposition: 18:30
Patient with high blood pressure during this ER visit?: No
Condition: Fair
Covid-19: Not Applicable
Discharge Problem:
Chest pain, Anemia
Prescriptions:
No Action
metoprolol tartrate 100 mg Tablet
100 mg PO DAILY
Rx Instructions:
do not take untill seen by your neurologists or cardiologists.
insulin lispro 100 unit/mL Insulin Pen
0 unit SC MEALS
prednisone 20 mg Tablet
60 mg PO DAILY Qty: 90 0RF
cephalexin 500 mg capsule
500 mg PO BID 7 Days Qty: 14 0RF
Rx Instructions:
for 7 days.
pyridostigmine bromide 60 mg Tablet
90 mg PO Q6 Qty: 0 0RF
acetaminophen [Tylenol] 325 mg Tablet
650 mg PO Q6HPRN PRN (Reason: mild pain)
atorvastatin [Lipitor] 20 mg Tablet
20 mg PO QPM
trazodone 50 mg Tablet
25 mg PO HSPRN PRN (Reason: sleep)
trazodone 50 mg Tablet
50 mg PO HS
midodrine 5 mg Tablet
5 mg PO TID
Theragen Tablet
1 tab PO DAILY
aspirin 81 mg Tablet,Delayed Release (Dr/Ec)
81 mg PO Q48H
bisacodyl [Dulcolax (bisacodyl)] 10 mg Suppository
10 mg OH HSPRN PRN (Reason: constipaiton)
pantoprazole [Protonix] 40 mg Tablet,Delayed Release (Dr/Ec)
40 mg PO BID
diphenhydramine HCl [Benadryl] 25 mg Capsule
25 mg PO HSPRN PRN (Reason: sleep)
bisacodyl [Dulcolax (bisacodyl)] 5 mg Tablet,Delayed Release (Dr/Ec)
10 mg PO DAILYPRN PRN (Reason: constipation)
clotrimazole [Lotrimin] 1 % Cream
1 applic TOPICAL BID
enoxaparin [Lovenox] 40 mg/0.4 mL Syringe
40 mg SC QPM
Visbiome 112.5 billion cell Capsule
1 cap PO DAILY
melatonin 5 mg Tablet
5 mg PO HSPRN PRN (Reason: sleep)
furosemide [Lasix] 40 mg tablet
40 mg PO DAILY
Referrals:
Juancarlos Champagne MD [Family Provider] -
Interventions
Interventions:
*Risk Screen - Suicide Last Done: 03/21/24 13:27
*General Assessment Last Done: 03/21/24 13:27
*Neglect/Abuse Screening Last Done: 03/21/24 13:27
ED- Fall Risk Assessment Last Done: 03/21/24 19:10
*ED COVID-19 Vaccine History Last Done: 03/21/24 13:27
*Nursing Disposition Last Done: 03/21/24 19:10
ED- Cardiac Assessment Last Done: 03/21/24 13:30
Discharge Date and Time
Discharge Date/Time: 03/21/24 19:12
Print Language: SAO TOMEAN
[2024-03-21 14:28] LABS: % Basophils 0.1 % (0-2); % Immature Granulocytes 2.2 % (0-0.5); % Lymphocytes 4.6 % (20.5-51.1); % Neutrophils 91.1 % (42.2-75.2); Absolute Immature Granulocytes 0.2 10^3/uL (0-0.05); Absolute Lymphocytes 0.5 10^3/uL (1.2-3.4); Absolute Monocytes 0.2 10^3/uL (0.1-0.6); Absolute Neutrophils 9.2 10^3/uL (1.4-6.5); Hematocrit 25.4 % (39.0-52.0); Hemoglobin 8.8 g/dL (13.0-18.0); Mean Corp Hgb Conc. 34.6 g/dL (33.0-37.0); Mean Corpuscular Hgb 30.4 pg (27.0-31.0); Mean Corpuscular Volume 87.9 fL (80.0-94.0); Mean Platelet Volume 10.3 fL (7.4-10.4); Nucleated Red Blood Cells % 0 % (-); Platelet Count 130 10^3/uL (130-400); Red Blood Cell Count 2.89 10^6/uL (4.70-6.10); Red Cell Dist. Width 14.9 % (11.5-14.5); White Blood Cell Count 10.1 10^3/uL (4.8-10.8)
[2024-03-21 14:42] LABS: ALT (SGPT) 29 U/L (0-50); AST (SGOT) 43 U/L (17-59); Albumin 2.9 g/dl (3.5-5.0); Alkaline Phosphatase 178 U/L (38-126); Blood Urea Nitrogen 33 mg/dl (9-20); Calcium 8.6 mg/dl (8.4-10.2); Carbon Dioxide 30 mmol/L (22-30); Chloride 99 mmol/L (98-107); Glucose 163 mg/dl (70-99); Lipase 212 U/L (23-300); Potassium 3.5 mmol/L (3.5-5.1); Sodium 133 mmol/L (135-145); Total Bilirubin 1.1 mg/dl (0.2-1.3); Total Protein 4.9 g/dl (6.3-8.2); eGFR > 60.00
[2024-03-21 14:58] LABS: NT-proBNP 3330 pg/ml
[2024-03-21 18:16] LABS: Troponin I 0.061 ng/ml
[2024-03-21 21:11] LABS: Glucose - Point of Care 164 mg/dl (70-99)
== END 2024-03-21 19:12 ==
LOC: EMR 13:19
PROVIDERS: Physician Assistant; EMERGENCY PHYSICIAN Emergency Medicine; FAMILY PHYSICIAN Internal Medicine
DX: R07.89 Other chest pain (principal); G70.00 Myasthenia gravis without (acute) exacerbation; R60.0 Localized edema; K21.9 Gastro-esophageal reflux disease without esophagitis; I10 Essential (primary) hypertension; E78.00 Pure hypercholesterolemia, unspecified; E11.9 Type 2 diabetes mellitus without complications; I25.10 Atherosclerotic heart disease of native coronary artery without angina pectoris; D64.9 Anemia, unspecified; I49.1 Atrial premature depolarization; I49.3 Ventricular premature depolarization; Z87.440 Personal history of urinary (tract) infections; Z79.4 Long term (current) use of insulin; Z87.19 Personal history of other diseases of the digestive system; Z90.49 Acquired absence of other specified parts of digestive tract; Z95.5 Presence of coronary angioplasty implant and graft; Z96.651 Presence of right artificial knee joint
CPT/HCPCS: 99283; 71046; 80053; 82962; 83690; 83880; 84484; 85025; 93005

== ENCOUNTER 2024-03-30 16:39 | Inpatient (IN) | payer MEDICARE, SELFPAY ==
[2024-03-30] VITALS (8 sets, daily range): BP systolic 111–159; BP diastolic 67–87; BMI 25.8
--- NOTE | 2024-03-30 14:12 | ED.GENMED ---
History of Present Illness
General
Chief Complaint: Weakness
Time Seen by Provider: 03/30/24 13:53
History of Present Illness
History of Present Illness:
Patient is a 73-year-old man with history of myasthenia gravis on prednisone and mestinon with vygart currently being held, hypertension, hyperlipidemia, pancreatitis presenting to the emergency department generalized weakness. Per chart review
patient did have a admission recently for myasthenia flare that required plasmapheresis but was complicated by thrombocytopenia and anemia requiring PRBC as well as platelets. During that admission he was also found to have possible pneumonia
versus UTI. He was discharged to [facility] and was discharged from rehab yesterday. This morning he was at home and attempted to get out of bed with the help of his . Unfortunately slid secondary to weakness. He did not hit his head or lose
consciousness. He is not on a blood thinner. 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 He does state that he has had some congestion and cough. He believes that the weakness is secondary to myasthenia flare.
Past History
Past History
ED Past Medical History: GERD, HTN, Hypercholesterolemia, IDDM and Other (myasthenia Gravis)
ED Past Surgical History: Cardiac (stents), Cholecystectomy and Orthopedic (right knee replacement)
Social History
Alcohol: Chronic alcoholic
Personal:
Living: with family
Family History
Family History: Other (Reviewed and noncontributory)
Phy Exam
Physical Exam
Physical Exam:
GENERAL: in no acute distress
HEENT: normocephalic, extraocular movements intact, dry oral mucosa, congested
NECK: normal inspection
RESPIRATORY: no respiratory distress, clear to auscultation bilaterally
CARDIOVASCULAR: regular rate and rhythm
ABDOMEN/: soft, non-distended, non-tender to palpation, no rebound or guarding
EXTREMITIES: non-tender, significant pitting edema in all extremities
NEUROLOGIC: awake and alert, moves all extremities, equal strength in upper and lower extremities
SKIN: warm, significant bruising
Course
Orders/Labs/Results
Orders:
Orders
03/30/24 12:21
Electrocardiogram (*1) Urgent
Reason for Study: Fatigue / Weakness
EKG- Treatment ONCE
Complete Blood Count/With Diff Urgent
Comprehensive Metabolic Panel Urgent
03/30/24 13:53
Case Management Consult ONCE
Case Management Consult: Discharge Planning
Urinalysis Reflex To Culture Urgent
03/30/24 14:07
COVID-19 Antigen Urgent
Source: Nasal Swab
Influenza A+B Rapid Molecular Urgent
[facility] Source: Nasal Swab
Specimen Description:
Vital Signs
Initial and Last Documented VS:
Initial Vital Signs
Temp Pulse Resp BP Pulse Ox
98.7 F 93 18 111/73 97
03/30/24 12:17 03/30/24 12:17 03/30/24 12:17 03/30/24 12:17 03/30/24 12:17
Last Documented Vital Signs
Temp Pulse Resp BP Pulse Ox
98.7 F 84 30 115/67 96
03/30/24 12:17 03/30/24 13:30 03/30/24 13:30 03/30/24 13:00 03/30/24 13:30
MDM/Problems Addressed
Differential Diagnosis Includes:
Patient is a 73-year-old male with history of myasthenia gravis and recent admission for myasthenia flare recently discharged from rehab yesterday presenting to the emergency department with weakness. Patient slid out of bed this morning when he
attempted to get up. He not hit his head or lose consciousness. No traumatic injuries from the fall. He has been having some cough and URI symptoms. On exam patient without any significant weakness. He does have equal strength. Will rule out
infectious etiology versus worsening anemia or thrombocytopenia. Could be myasthenia flare. I discussed with neurology who will evaluate patient at bedside given the complicated history. Will also discussed with case management as patient cannot
go back home.
*Critical Care Note
Total Time (30-74mins, 75-104mins- exclusive of procedures): Not Applicable
Update Note
Update Note:
Neurology evaluated patient at bedside. They do believe that is related to myasthenia flare as patient is not on his vygart. He did have a long discussion with patient about the options. At the end they did choose IVIG and admission. Case
management evaluated patient. She will work on placement after the IVIG therapy is completed. Discussed with hospitalist who accepted patient to their service. Blood work is pending at the time of admission.
ED Attending Note
-
Portions of this chart may have been created with voice recognition software.� Occasional wrong word or��sound alike� substitutions may have occurred due to the inherent limitations of voice recognition software.
Discharge Plan
Departure
Patient Disposition: Admit
Date of Disposition: 03/30/24
Time of Disposition: 15:03
Presentation/result/management discussed w/ accepting MD/DO: Hospitalist
Discharge Problem:
Myasthenia gravis
Prescriptions:
No Action
metoprolol tartrate 100 mg Tablet
100 mg PO DAILY
Rx Instructions:
do not take untill seen by your neurologists or cardiologists.
aspirin 81 mg Tablet,Delayed Release (Dr/Ec)
81 mg PO Q48H
Chloraseptic Sore Throat 6-10 mg Lozenge
1 troy PO Q4HPRN PRN (Reason: cough) 30 Days Qty: 1 0RF
trazodone 50 mg Tablet
50 mg PO HS 30 Days Qty: 30 0RF
clotrimazole [Athlete's Foot (clotrimazole)] 1 % Cream
1 applic topical BID 30 Days Qty: 25 0RF
midodrine 5 mg Tablet
5 mg PO BID@0700,1300 30 Days Qty: 60 0RF
dextromethorphan-guaifenesin [MAXTussin DM] 10-100 mg/5 mL Liquid
5 ml PO Q6HPRN PRN (Reason: cough) 30 Days Qty: 50 0RF
atorvastatin [Lipitor] 20 mg Tablet
20 mg PO QPM Qty: 0 0RF
insulin aspart U-100 100 unit/mL (3 mL) Insulin Pen
4 unit SC AC 30 Days Qty: 3.6 0RF
prednisone 20 mg Tablet
60 mg PO DAILY 30 Days Qty: 90 0RF
pantoprazole [Protonix] 40 mg Tablet,Delayed Release (Dr/Ec)
40 mg PO BID 30 Days Qty: 60 0RF
pyridostigmine bromide 60 mg Tablet
90 mg PO Q6 30 Days Qty: 180 0RF
Insulin Glargine Lantus [Lantus] 12 UNITS
Subcutaneous Insulin Syringe [Syringe-Insulin] 0 UNIT
As Directed mls/hr SC DAILY
Reason for use: script called into your pharmacy with needles.
Ordered By: Neetu Bhakta, PAAndreeaC
Last Taken: Unknown
therapeutic multivitamin Tablet
1 tab PO DAILY Qty: 0 0RF
furosemide 20 mg tablet
10 mg PO DAILY 30 Days Qty: 15 0RF
potassium chloride [Klor-Con M10] 10 mEq tablet,ER particles/crystals
10 meq PO DAILY 30 Days Qty: 30 0RF
Referrals:
Juancarlos Champagne MD [Family Provider] -
Interventions
Interventions:
*Risk Screen - Suicide Last Done: 03/30/24 12:17
*General Assessment Last Done: 03/30/24 12:17
*Neglect/Abuse Screening Last Done: 03/30/24 12:17
Discharge Date and Time
Print Language: MOLDOVAN
--- NOTE | 2024-03-30 14:42 | CM ---
Patient seen at bedside with and daughter, in ED. Patient with ed consult for discharge planning needs. Patient was at [facility] and discharged 03/29/24. patient states he is too weak to be at home unable to manage with . Patient was set to
start with [facility] home care prior to discharge from [facility] but was not able to stay home for care with [facility]. Previously patient lives with in a 3rd floor condo with an elevator access. Patient had been independent with ADL's previous to last
hospitalization. Patient PCP Dr. Champagne and he uses the [facility]. CM will continue to follow for discharge planning needs.
Plan; SNF placement pending medical treatment plan/ assessments
--- NOTE | 2024-03-30 15:22 | HPS.HSE ---
Addendum entered and electronically signed by TRAN Nichols 03/30/24 18:16:
Hypokalemia
K3.4
Will give 40 KCl p.o.
Review of labs postadmission
WBC 15.8 with left shift, 98.7F
Chronic anemia
Hgb 8.7 > 8.3 on 03/25/2024
Chronic thrombocytopenia
PLT 67 <89 on 03/25/2024 <119 on 03/23/2024
CXR, right upper extremity ultrasound pending
IV antibiotics pending ID recommendations
Addendum entered and electronically signed by Nanda Jeff MD 03/30/24 17:21:
Patient is a 73-year-old male previously known to my service who was initially admitted from 03/04/24 through 03/16/24. Prior to that admission, he was on linezolid for left hand infection with MRSA and probable osteomyelitis. He presented with
pancreatitis that was thought to be due to linezolid and therefore was switched to IV daptomycin as a result of IDs input. Pancreatitis resolved but patient became weak with a myasthenia gravis flare. He was seen in consultation by neurology and
started on plasma exchange. He had 2 of 5 planned therapies. Unfortunately, due to the plasma exchange, he developed anemia and thrombocytopenia. He required 7 units of platelets and 3 units of packed red blood cells for transfusion. He also
developed fever during that hospitalization and was diagnosed with a urinary tract infection. He was converted over to cephalexin after completing his daptomycin course. His PICC line was removed on 03/17/2024. He was discharged to [facility]. He
completed his course at [facility] and was discharged 03/29/2024. Of note, patient and his did not feel the patient was ready for discharge but they were told by [facility] that insurance would be up on March 31, 2024 but they do not discharge on the
weekends.
He returns today because he was too weak to get out of bed and unable to stand. He is complaining of ongoing edema of his bilateral lower legs from the knees down, redness to his right arm (where the PICC line was) which is exceedingly tender to
touch, cough productive of yellow phlegm. He denied fever, chills, chest pain, shortness of breath, nausea, vomiting, diarrhea, or urinary symptoms. It is felt that he is having another myasthenia flare and will be admitted.
GENERAL: well developed, well nourished, male in no apparent distress--rounded devi face
HEENT: NC/AT---no O2 requirements
HEART: regular rate and rhythm, +S1, +S2
LUNGS : clear to auscultation bilaterally
ABDOM: soft, nontender, nondistended, + bowel sounds
EXT: no cyanosis, clubbing--4+ LE edema from knees down
SKIN: purplish purpuric lesions on bilateral legs, skin tear to left upper arm, right arm with scabbed PICC area, redness and tenderness to touch around the elbow
NEUROLOGIC: moves all extremities
Weakness--likely due to Myasthenia gravis flare (had plasma exchange last admission followed by thrombocytopenia/anemia and need for 7 packs platelets and 3 units pRBC)--only received 2 of 5 planned exchanges--apprec neuro--start stress dose
steroids (IV hydrocortisone 50 mg Q12), cont increased Mestinon of 90mg Q6H, and add IVIG--PT/OT--steroid induced myopathy also a valid concern
Right upper extremity-- cellulitis concern for DVT--s/p PICC removed 03/17/24 (completed 42/42 treatments with Linezolid followed by Daptomycin for MRSA left hand and 7 days of cephalexin for E. coli UTI)--prior to starting ABX--consult ID and check
RUE US
Cough concerning for viral versus bacterial disease--Check CXR, COVID, influenza swab (pending on admit)
Hx LEFT HAND infection with MRSA, Probable osteomyelitis--History of pancreatitis February 2024 secondary to Linezolid for left hand cellulitis---Completed 6-week course of daptomycin on 03/17/2024 for left hand cellulitis/E. coli UTI via PICC line
right upper extremity--PICC line right upper extremity removed 03/17/2024 at [facility]
Bilateral leg edema secondary to prolonged Steroids/decreased motility--poor nutrition--cont tubigrip--increase 20mg PO lasix to 40 mg IV daily--daily weights--consideration for cards consult
wounds/skin tears (POA)--Stage I/II sacral decub, left arm skin tear--Consult Wound care
anemia of chronic disease--labs pending but cannot r/o dilutional component from fluid retention from steroid use---Labs pending on admission--Hgb was 8.3 on 03/27/2024, PLT was 89 on 03/27/2024
Chronic HFpEF with exacerbation?--daily weights, I/Os--IV lasix daily--watch renal function with diuresis (2D echo 03/11/2024: EF 60 to 65%, normal LVS LVSF, no wall abnormality, no valvular issues)
Orthostatic hypotension--follow orthostatics--Continue midodrine 5 mg twice daily 07 and 1300--PT/OT consult
type 2 diabetes mellitus--Accu-Cheks with SSI low--Continue Lantus 12 units subcu a.m.-Continue insulin U100 4 units with meals
HLD--Continue Lipitor 20 mg every afternoon
CAD/cardiac stents x [address] [place] [address]--Continue aspirin/Lipitor
GERD--Continue Protonix 40 mg twice daily
Insomnia--Continue trazodone 50 mg at bedtime
Other PMH:
chronic hepatic cirrhosis�nonalcoholic
Chronic bilateral renal disease
DVT prophylaxis--SCDs if can tolerate
Code status--Full code
Original Note:
Family Physician
-
Family Physician: Juancarlos Champagne
Chief Complaint
-
Bilateral leg weakness, fall, cough x 1 week
History of Present Illness
73-year-old male with history of myasthenia gravis presenting to the ER today complaining of generalized weakness he had recent myasthenia gravis flare that required plasmapheresis but was complicated by thrombocytopenia/anemia requiring PRBCs as
well as platelet transfusion. During that admission was also found to have left hand infection with MRSA probable osteomyelitis/E. coli UTI. He was placed on daptomycin to finish 03/17/2024 via PICC line right upper extremity. He was discharged to
[facility] and was discharged from rehab yesterday 03/29/2024. He reports this morning he attempted to get out of bed with the help of his he unfortunately slid down to the floor secondary to weakness he did not hit his head or lose any
consciousness. He was seen by visiting nurse this morning who advised him to come to ER for eval given his weakness and fall. He is complaining of some congestion and cough yellow in color for the past week along with chills. He also has pain in
his right upper arm after PICC line was DC'd on 03/17/2024 he has associated circumferential erythema from upper arm to right forearm with scabbed ulcerations and surrounding multiple ecchymotic areas. He has weeping from bilateral upper arms. He
has bilateral +3 edema to lower extremities. He states he has had this swelling ongoing for the past 2 weeks he was placed on 20 mg of Lasix at [facility] but with no improvement. He was sent home to continue this regimen however he was unable to
get out of bed and stand today. He denies fever, headache, sore throat, chest pain, palpitations, abdominal pain, nausea, vomiting, diarrhea, urinary symptoms. He has past medical history of myasthenia gravis, DM2, HTN, HLD, CAD/cardiac stents,
GERD, chronic hepatic cirrhosis, severe chronic bilateral renal disease,
Medical History
Past Medical History
Past Medical History: Reports Other
Additional Past Medical History:
GERD
HTN
HLD
IDDM
Myasthenia Gravis
History plasmapheresis but was complicated by thrombocytopenia/anemia requiring PRBCs as well as platelet transfusion. February 2024
(7 units platelets and 3 units PRBCs. Blood counts improved and patient was started on plasmapheresis, received 2 out of 5 treatments)
History of dysphagia with myasthenia gravis flare
Left hand cellulitis February 2024 requiring 6 weeks of daptomycin finished 03/17/2024 via PICC line right upper extremity
E. coli UTI February 2024
Chronic CHF
Bilateral peripheral leg edema
chronic hepatic cirrhosis
severe chronic bilateral renal disease
Insomnia
Past Surgical History: Reports Other
Additional Past Surgical History:
cholecystectomy
right knee replacement
cardiac stents [facility]
Social History
Tobacco: Non-smoker
Alcohol: None
Drug: None
Personal:
Living: With Family
Family History
Family History: Not pertinent
Allergies / Home Medications
Allergies reflects when Allergies were last updated in [facility].
Home Medications with original date entered in [facility]
Allergy/Medication List:
Allergies
Allergy/AdvReac Type Severity Reaction Status Date / Time
hydrocortisone Allergy Unknown Unknown Verified 03/30/24 12:17
[From [facility]
([id number])]
neomycin Allergy Unknown Unknown Verified 03/30/24 12:17
[From [facility]
([id number])]
polymyxin B Allergy Unknown Unknown Verified 03/30/24 12:17
[From [facility]
([id number])]
varenicline Allergy Unknown Unknown Verified 03/30/24 12:17
latex Allergy Hives/REDNE Verified 03/30/24 12:17
SS
Home Medications
aspirin 81 mg tablet,delayed release 81 mg PO Q48H 03/21/24
atorvastatin 20 mg tablet (Lipitor) 20 mg PO QPM cholesterol #0 tabs 03/28/24
benzocaine 6 mg-menthol 10 mg lozenges (Chloraseptic Sore Throat) 1 troy PO Q4HPRN PRN cough 30 days #1 packet 03/28/24
clotrimazole 1 % topical cream (Athlete's Foot (clotrimazole)) 1 applic topical BID moisture associated skin rash, buttocks/groins 30 days #25 grams 03/28/24
dextromethorphan-guaifenesin 10 mg-100 mg/5 mL oral liquid (MAXTussin DM) 5 ml PO Q6HPRN PRN cough 30 days #50 mL 03/28/24
insulin aspart U-100 100 unit/mL (3 mL) subcutaneous pen 4 unit (0.04 mL) SC AC Diabetes 30 days #3.6 mL 03/28/24
midodrine 5 mg tablet 5 mg PO BID@0700,1300 orthostatic Hypotension 30 days #60 tabs 03/28/24
pantoprazole 40 mg tablet,delayed release (Protonix) 40 mg PO BID GERD 30 days #60 tabs 03/28/24
prednisone 20 mg tablet 60 mg (3 x 20 mg) PO DAILY Myasthenia Gravis 30 days #90 tabs 03/28/24
pyridostigmine bromide 60 mg tablet 90 mg (1.5 x 60 mg) PO Q6 MYASTHENIA GRAVIS 30 days #180 tabs 03/28/24
therapeutic multivitamin 1 tab PO DAILY Supplement #0 tabs 03/28/24
trazodone 50 mg tablet 50 mg PO HS insomnia 30 days #30 tabs 03/28/24
potassium chloride 10 mEq tablet,extended release(part/cryst) (Klor-Con M) 10 meq PO DAILY Electrolyte Repletion 30 days #30 tabs 03/29/24
furosemide 20 mg tablet 20 mg PO DAILY swelling, chf 03/30/24
insulin glargine 100 unit/mL (3 mL) subcutaneous pen (Lantus Solostar U-100 Insulin) 12 unit SC DAILY 03/30/24
Review of Systems
-
History Source: Patient and Family
A 12 point ROS was completed and negative except as noted: Yes
Constitutional: Reports Weight Gain (4 pounds overnight), Fatigue (Generalized) and Chills; Denies Fever
EENT: Denies Sore Throat or Runny Nose
Respiratory: Reports Cough (Productive yellow); Denies Trouble Breathing
Cardiac: Denies Chest Pain, Diaphoresis, Palpitations or Syncope
Abdomen/GI: Denies Abdominal Pain, Nausea, Vomiting, Diarrhea, Constipated, Bloody Stools or Black Stools
: Denies Dysuria, Frequency, Flank Pain, Incontinence, Difficulty Voiding or Urgency
Musculoskeletal: Reports Edema (+2 bilateral upper extremities, +3 bilateral lower extremities); Denies Joint Pain or Joint Swelling
Skin: Reports Other (Bilateral upper and lower legs with multiple contusions, skin tear right lower extremity, weeping left upper extremity, right arm circumferential erythema with scabbed ulcers, stage I and stage II sacral decub); Denies Itching
or Rash
Neurological: Reports Weakness (Generalized); Denies Dizzy or Headache
Endocrine: Reports No Symptoms
Hematologic/Lymphatic: Reports No Symptoms
Psych: Reports Calm
Physical Exam
Vital Signs
Vital Signs
Temp Pulse Resp BP Pulse Ox
98.7 F 84 30 115/67 96
03/30/24 12:17 03/30/24 13:30 03/30/24 13:30 03/30/24 13:00 03/30/24 13:30
Physical Exam
General: Comfortable, Conversant and Chills; No Pain or Fever
HEENT: NormoCephalic, Anicteric, PERRLA, [place] Conjunctivae, No Ptosis and Neck Nontender
Respiratory: Clear; No Wheezes, Rales or Rhonchi
Cardiac: S1/S2, Regular Rhythm and Peripheral Edema (+2 bilateral upper extremities, +3 bilateral lower extremities); No Murmur, Rub or Gallop
GI: Soft, Non Tender, Non Distended and No Hepatosplenomegaly
Rectal: Deferred by Provider
Genito-urinary: Deferred by me
Musculoskeletal: No Clubbing, No Cyanosis and Other (+2 bilateral upper leg edema, possibly bilateral lower leg edema bilateral upper and lower legs with multiple contusions, skin tear right lower extremity, weeping left upper extremity, right arm
circumferential erythema with scabbed ulcers, stage I and stage II sacral decub)
Skin: Warm, Dry and Ulcers (Bilateral upper and lower legs with multiple contusions, skin tear right lower extremity, weeping left upper extremity, right arm circumferential erythema with scabbed ulcers, stage I and stage II sacral decub); No Rash
Neuro: AO x 3, No Motor Deficits (While in bed), Cranial Nerves Intact and No Sensory Deficits; No Slurred Speech, Facial Droop, Tremors or Sedated
Psych: Calm
Impression/Plan
-
Impression/plan:
Admit to telemetry
#Myasthenia gravis flare
#History plasmapheresis but was complicated by thrombocytopenia/anemia requiring PRBCs as well as platelet transfusion.
(7 units platelets and 3 units PRBCs. Blood counts improved and patient was started on plasmapheresis, received 2 out of 5 treatments)
-Consult NEURO�patient seen by Dr. Tinoco at bedside
-Neuro recommending IVIG therapy
-Case management for SNF rehab
-IVIG X5 days
-will give stress dose IV cortisone 50 mg every 12 hours
-continue pyridostigmine 90 mg daily
#Right upper extremity cellulitis concern for DVT
#PICC line right upper extremity removed 03/17/2024 at [facility]
-Consult Infectious disease for antibiotic recommendation
#Cough concerning for viral versus bacterial disease
96% RA
-Check CXR, COVID, influenza swab (pending on admit)
#Hx LEFT HAND infection with MRSA, Probable osteomyelitis
#History of pancreatitis February 2024 secondary to Linezolid for left hand cellulitis
-Completed 6-week course of daptomycin on 03/17/2024 for left hand cellulitis/E. coli UTI via PICC line right upper extremity
#PICC line right upper extremity removed 03/17/2024 at [facility]
-Left hand no current cellulitis/abscess
#Bilateral arms +2 edema weeping serous fluid
#Bruising bilateral arms and legs/skin tear right lower extremity-POA
#Stage I/II sacral decub- POA
-Has been on Lasix 20 mg approximately 2 weeks
-Will give IV Lasix 40 mg daily
-Consult Wound care
#Bilateral leg edema secondary to prolonged Steroids/decreased motility
#Bilateral arms +2 edema weeping serous fluid
-Tubigrip's bilateral legs size G placed to lower extremities
-Weight 81.7 kg> 79.8 kg on 03/29/2024 1.9 kg in 1 day(4.18 pounds gain)
#Anemia likely dilutional
-Labs pending on admission
Hgb was 8.3 on 03/27/2024, PLT was 89 on 03/27/2024
#Chronic CHF
-I/O, daily weights
-Lasix 40 mg IV daily
2D echo 03/11/2024: EF 60 to 65%, normal LVS LVSF, no wall abnormality, no valvular issues
#Orthostatic hypotension
-follow orthostatics
-Continue midodrine 5 mg twice daily 07 and 1300
-PT/OT consult
#DM2
-Accu-Cheks with SSI low
-Continue Lantus 12 units subcu a.m.
-Continue insulin U100 4 units with meals
# HLD
-Continue Lipitor 20 mg every afternoon
#CAD/cardiac stents x [address] [place] [address]
-Continue aspirin 81 mg daily, Lipitor 20 mg every afternoon
# GERD
-Continue Protonix 40 mg twice daily
#Insomnia
-Continue trazodone 50 mg at bedtime
Other PMH:
chronic hepatic cirrhosis�nonalcoholic
Chronic bilateral renal disease
DVT prophylaxis
SCDs
Full code
--- NOTE | 2024-03-30 15:28 | CON.NEURO ---
Neuro Assessment/Plan
Assessment
Myasthenia gravis with exacerbation
the easy answer is that he missed half of his last cycle of Vyvgart Hytrulo, and as it has been 1 month since his last dose, and he is now due.
unfortunately, he usually gets it at infusion center and not at home; and it is not on hospital formulary
we discussed options, including increase prednisone to 80, IVIG, plasmapheresis;
the patient and I do not like any of these options, given he already has steroid side effects, IVIG not being very effective in the past, being difficult to get a line for plasmapheresis, and recent anemia/thrombocytopenia after plasma; eventual
decision for IVIG,
Plan
will admit for 5 day course; premedicate tylenol 325 benadryl 25
continue prednisone 60/day, mestinon 90 q6
anticipate discharge to SNF for rehab and so that he could be restarted on Vyvgart Hytrulo
Consultation
Order
Date of Consultation: 03/30/24
Requesting Provider: Prabhjot Riojas
Reason for Consult: weakness, myesthenia exacerbation
Subjective/Objective
Subjective Data
Date of Service: March 30, 2024
73-year-old male with history of AchR+ myasthenia gravis since August 2023, DM2, HTN, HLD, CAD/cardiac stents, GERD, chronic alcoholic, presenting to the ER today complaining of generalized weakness. He was recently admitted here Mar 04 for myasthenia
gravis flare, given 2 sessions of plasmapheresis but was stopped due to thrombocytopenia/anemia requiring PRBCs as well as platelet transfusion. During that admission was also found to have pneumonia versus UTI, treated with daptomycin. His
prednisone was increased from 30 to 60/day, and Mestinon increased from 4 tablet to 6 tablet/day
He was discharged to [facility] and was discharged from rehab yesterday 03/29/2024. He reports this morning he attempted to get out of bed with the help of his he unfortunately slid down to the floor secondary to weakness he did not hit his
head or lose any consciousness. He was seen by visiting nurse this morning who advised him to come to ER for eval given his weakness and fall.
He is supposed to be on Vyvgart Hytrulo, usually gets it at infusion center weekly x4 weeks, then 4 weeks off, but he missed 2 doses due to admission, and last dose was 1 month ago.
in the past, he was also treated with IVIG though it was not very effective.
Objective Data
Vital Signs
Temp Pulse Resp BP Pulse Ox
37.1 C 84 30 115/67 96
03/30/24 12:17 03/30/24 13:30 03/30/24 13:30 03/30/24 13:00 03/30/24 13:30
Patient Allergies
hydrocortisone [From [facility] ([id number])] Allergy (Unknown, Verified 03/30/24 12:17)
Unknown
neomycin [From [facility] ([id number])] Allergy (Unknown, Verified 03/30/24 12:17)
Unknown
polymyxin B [From [facility] ([id number])] Allergy (Unknown, Verified 03/30/24 12:17)
Unknown
varenicline Allergy (Unknown, Verified 03/30/24 12:17)
Unknown
latex Allergy (Verified 03/30/24 12:17)
Hives/REDNESS
Physical Exam
-
AOx3, speach clear, language intact
single breath count to 15
strength diffusely 4/5
Medications
-
Active Medications
Generic Name Dose Route Start Last Admin
Trade Name Freq PRN Reason Stop Dose Admin
Acetaminophen 325 mg 03/30/24 15:11
Acetaminophen 325 Mg Tablet PO 04/27/24 15:59
DAILY PRN
IVIG pre medicate
Diphenhydramine HCl 25 mg 03/30/24 15:11
Diphenhydramine 25 Mg Capsule PO 04/27/24 15:59
DAILY PRN
IVIG pre medicate
Immune Globulin 30 gram 03/30/24 15:11
Immune Globulin (Calculator Uses Ibw) - Pharmacy To Place Order 0.4 gram/kg (30 gram) 03/30/24 15:12
IV
DIRECTED ONE
Home Medications
�Medication �Instructions �Recorded
metoprolol tartrate 100 mg tablet 100 mg PO DAILY Heart 10/11/23
Disease/Condition
aspirin 81 mg tablet,delayed 81 mg PO Q48H 03/21/24
release
Insulin Glargine Lantus As Directed mls/hr SC DAILY script 03/28/24
[Lantus] 12 units called into your pharmacy with
needles.
atorvastatin 20 mg tablet (Lipitor) 20 mg PO QPM cholesterol #0 tabs 03/28/24
benzocaine 6 mg-menthol 10 mg 1 troy PO Q4HPRN PRN cough 30 days 03/28/24
lozenges (Chloraseptic Sore Throat) #1 packet
clotrimazole 1 % topical cream 1 applic topical BID moisture 03/28/24
(Athlete's Foot (clotrimazole)) associated skin rash,
buttocks/groins 30 days #25 grams
dextromethorphan-guaifenesin 10 5 ml PO Q6HPRN PRN cough 30 days 03/28/24
mg-100 mg/5 mL oral liquid #50 mL
(MAXTussin DM)
insulin aspart U-100 100 unit/mL 4 unit (0.04 mL) SC AC Diabetes 30 03/28/24
(3 mL) subcutaneous pen days #3.6 mL
midodrine 5 mg tablet 5 mg PO BID@0700,1300 orthostatic 03/28/24
Hypotension 30 days #60 tabs
pantoprazole 40 mg tablet,delayed 40 mg PO BID GERD 30 days #60 tabs 03/28/24
release (Protonix)
prednisone 20 mg tablet 60 mg (3 x 20 mg) PO DAILY 03/28/24
Myasthenia Gravis 30 days #90 tabs
pyridostigmine bromide 60 mg tablet 90 mg (1.5 x 60 mg) PO Q6 03/28/24
MYASTHENIA GRAVIS 30 days #180 tabs
therapeutic multivitamin 1 tab PO DAILY Supplement #0 tabs 03/28/24
trazodone 50 mg tablet 50 mg PO HS insomnia 30 days #30 03/28/24
tabs
furosemide 20 mg tablet 10 mg (1/2 x 20 mg) PO DAILY 03/29/24
swelling, chf 30 days #15 tabs
potassium chloride 10 mEq 10 meq PO DAILY Electrolyte 03/29/24
tablet,extended Repletion 30 days #30 tabs
release(part/cryst) (Klor-Terence M)
[2024-03-30 17:42] LABS: % Basophils 0.1 % (0-2); % Immature Granulocytes 0.8 % (0-0.5); % Lymphocytes 0.6 % (20.5-51.1); % Monocytes 0.7 % (1.7-9.3); % Neutrophils 97.8 % (42.2-75.2); Absolute Immature Granulocytes 0.1 10^3/uL (0-0.05); Absolute Lymphocytes 0.1 10^3/uL (1.2-3.4); Absolute Monocytes 0.1 10^3/uL (0.1-0.6); Absolute Neutrophils 15.5 10^3/uL (1.4-6.5); Hematocrit 25.5 % (39.0-52.0); Hemoglobin 8.7 g/dL (13.0-18.0); Mean Corp Hgb Conc. 34.1 g/dL (33.0-37.0); Mean Corpuscular Hgb 31.9 pg (27.0-31.0); Mean Corpuscular Volume 93.4 fL (80.0-94.0); Mean Platelet Volume 11.7 fL (7.4-10.4); Nucleated Red Blood Cells % 0 % (-); Platelet Count 67 10^3/uL (130-400); Red Blood Cell Count 2.73 10^6/uL (4.70-6.10); Red Cell Dist. Width 18.3 % (11.5-14.5); White Blood Cell Count 15.8 10^3/uL (4.8-10.8)
[2024-03-30] MEDS: PERCOCET 5/325 1 TABLET PO (17:42)
[2024-03-30 17:59] LABS: ALT (SGPT) 32 U/L (0-50); AST (SGOT) 25 U/L (17-59); Albumin 2.8 g/dl (3.5-5.0); Alkaline Phosphatase 176 U/L (38-126); Blood Urea Nitrogen 38 mg/dl (9-20); Calcium 8.2 mg/dl (8.4-10.2); Carbon Dioxide 30 mmol/L (22-30); Chloride 105 mmol/L (98-107); Estimated Creatinine Clearance 60 ml/min; Glucose 201 mg/dl (70-99); Potassium 3.4 mmol/L (3.5-5.1); Sodium 137 mmol/L (135-145); Total Bilirubin 2.1 mg/dl (0.2-1.3); Total Protein 4.9 g/dl (6.3-8.2); eGFR > 60.00
[2024-03-30 18:12] LABS: Alcohol None Detected
[2024-03-30] MEDS: LASIX 40 MG IV (18:43)
[2024-03-30 18:53] LABS: COVID-19 Antigen Negative (Negative)
--- NOTE | 2024-03-30 20:00 | EDRN ---
Report was received on this patient and he was sent by previous nurse at this time as well to go to Ultrasound and then up to the floor
--- NOTE | 2024-03-30 21:25 | EDRN ---
Patient still in ultrasound, tech tried to take upstairs however there was a delay with service technician, called to update the floor that he was going to on the DVT and that there was a delay in bringing him up.
--- NOTE | 2024-03-30 21:30 | PTCARENOTE ---
Patient arrived to unit from ED and U/S to 324 via stretcher, patient pulled to bed with assist of 3 people. Patient with significant generalized weakness and pain throughout entire body that he states he cannot explain. Alert and oriented.
Significant ecchymosis present to UEs B/L, redness to RUE following recent PICC removal, scattered small spots of red ecchymosis to chest and abdomen, skin tears present throughout UEs (see documentation), stage 2 opening to sacrum - silicone foam
placed. Initiated on court recording monitor #7 - SR with PVCs and BBBC. Lungs course with exp wheezing present throughout posterior. IV located to Left upper extremity -- spoke with VAT nurse who states she requested IR to place PICC as skin is fragile
with skin tears and right UE restricted. No orders at this time. Family at bedside, very involved with patient. State patient slid out of bed to the floor this afternoon, also that patient has had approx 70 pound weight loss over the last year.
Patient is resting comfortably in bed at this time, call león in reach. Will monitor.
--- NOTE | 2024-03-30 21:30 | EDRN ---
Ultrasound called me, informed me that the patient was positive for a DVT, patient was to be going right to the floor from ultrasound, did however, tiger text Kelly Borjas about the findings per Ultrasound so they would be aware.
[2024-03-30 22:05] LABS: Glucose - Point of Care 241 mg/dl (70-99)
--- NOTE | 2024-03-30 22:45 | EDRN ---
Spoke with Kelly Borjas who informed me that the ultrasound report read is not in, called ultrasound who said the read was done she talked with the radiologist, she will print and scan in the report so they can see the report./
[2024-03-30] MEDS: PROTONIX 40 MG PO (23:42)
[2024-03-30] MEDS: LIPITOR 20 MG PO (23:42)
[2024-03-30] MEDS: DESYREL 50 MG PO (23:43)
[2024-03-30] MEDS: TYLENOL 325 MG PO (23:43)
[2024-03-30] MEDS: BENADRYL 25 MG PO (23:43)
[2024-03-30] MEDS: ASPIR LOW (ENTERIC COATED) 81 MG PO (23:43)
[2024-03-30] MEDS: MESTINON 90 MG PO (23:43)
[2024-03-30] MEDS: SOLU-CORTEF 50 MG IV (23:44)
[2024-03-30] MEDS: KCL 40 MEQ PO (23:47)
[2024-03-30] MEDS: FLUSH (NSS) 1 FLUSH IV (23:48)
[2024-03-31] VITALS (23 sets, daily range): BP systolic 101–189; BP diastolic 66–93; BMI 25.1; BMI 25.3
--- NOTE | 2024-03-31 00:25 | W.PN.UPDATE ---
Update Note
Progress Note Update
Right upper extremity swelling concern for DVT
ER nurse spoke with cryptographic technician earlier who reported a positive DVT to the right upper extremity however we have been waiting report for approximately 2 hours I did speak with hematology Dr. Gill as it was presumed an occlusive DVT he
recommended at that time Eliquis 10 mg twice daily x 7 days then 5 mg twice daily to keep platelets greater than 50 HOWEVER, I spoke with cryptographic technician Maria at 12:25 AM on 01/18/2025 with Verbal right upper arm venous duplex positive superficial
venous nonocclusive thrombus in the proximal to mid basilic vein.
-I will hold current Eliquis since this is a nonocclusive thrombus
-Keep hematology consult for reevaluation in a.m.
[2024-03-31] MEDS: GAMMAGARD 300 IV ×2 (00:30→17:54)
[2024-03-31] MEDS: FLUSH (NSS) 1 FLUSH IV (00:37)
[2024-03-31] MEDS: LOTRIMIN 1% CREAM TOPICAL (00:47)
[2024-03-31 02:38] LABS: Urine Albumin 1+ (Neg - Trace); Urine Bilirubin Negative (Negative); Urine Character Clear (Clear); Urine Color Yellow; Urine Glucose Negative (Negative); Urine Ketone Negative (Negative); Urine Leukocyte Negative (Negative); Urine Nitrite Negative (Negative); Urine Occult Blood Negative (Negative); Urine Specific Gravity 1.015 (<1.030); Urine Urobilinogen Negative (Neg - 1+)
[2024-03-31 03:30] LABS: Urine Amorphous Seen; Urine Hyaline Cast >15 /LPF (0-2)
[2024-03-31 03:32] LABS: Urine Bacteria Few (Negative); Urine White Cell 0-2 /HPF (0-5)
[2024-03-31 03:34] LABS: Urine Mucus Moderate
[2024-03-31] MEDS: MESTINON 90 MG PO ×4 (06:11→23:24)
--- NOTE | 2024-03-31 06:44 | CON.ONC ---
Addendum entered and electronically signed by Ted Gill MD 03/31/24 07:07:
[facility]
[address] [place] [id number]
[phone]

Patient Name: EMILY SHARP
: 1950
Unit Number: [id number]
Age/Sex: 73/M
Patient
Location: [address] [place] [address]
Order Provider: Kelly Garcia
Exam Service Date: 03/30/24

Diagnostic Imaging Report
Signed
Order #:[id number]
Exams: US Periph Venous UPPER Ext RT
Indication: Swelling/edema following
Critical value: These findings were discussed directly by telephone with the patient's nurse at 9:30 PM on 03/30/2024.
Additionally, the preliminary radiology report ([facility]) was faxed at 9:34 PM
COMPARISON: None
FINDINGS:
Real time ultrasound of the venous system of the right upper extremity was obtained
There is occlusive venous thrombus in the basilic vein in the upper two thirds of the right upper arm
There is normal flow in the right brachial, cephalic, axillary, subclavian and internal jugular veins
IMPRESSION: There is occlusive deep venous thrombosis in the basilic vein in the upper two thirds of the right upper arm
Electronically signed by Urbano Carson MD, 03/31/2024 6:45 AM
Dictated By: Chelsi Carson MD
Dictated Date & Time: 03/31/24 0639
Signed/Co-Signer By: Chelsi Carson MD /
Signed/Co-Signer Date & Time: 03/31/24 0645 /
Transcribed by: Chelsi Carson
Printed Date and Time: @
cc:
Original Note:
Impression
Impression
Weakness
Myasthenia gravis with flare
Right upper extremity PICC associated DVT -- s/p PICC removed 03/17/24
Thrombocytopenia worse after plasma exchange -carl 18,000. Improved to 119,000, currently 67,000
LEFT HAND infection with MRSA, Probable osteomyelitis
Pancreatitis February 2024 secondary to Linezolid for left hand cellulitis-=
Bilateral leg edema secondary to prolonged Steroids/decreased motility-
anemia of chronic disease (HgB stable)
Chronic HFpEF with exacerbation
type 2 diabetes mellitus
CAD/cardiac stents x [address] [place] [address]
GERD
Hepatic cirrhosis�nonalcoholic
Chronic bilateral renal disease
Plan
Plan
Doppler positive for RUE DVT and patient with significant tenderness in the right upper extremity. Although low risk of embolization as this is a PICC associated thrombosis and the PICC has been removed, based on his symptoms I do think
anticoagulation is reasonable and with platelet count >50,000 anticoagulation should be reasonable. Initially I was thinking IV heparin while inpatient until a sense of how he responds to IVIG for his MG flare but hopefully he will respond so in
some ways it makes more sense to treat him with Eliquis which is what I would use for outpatient therapy and also should not lead to worsening thrombocytopenia as heparin can. With the plt >50,000, I believe he is eligible for anticoagulation and
we will treat him with standard Eliquis 10 mg p.o. BID x 7 days transitioning after that to 5 mg p.o. BID. Monitor for bleeding and for worsening thrombocytopenia although Eliquis should not lead to this. Hopefully his upper extremity swelling and
pain will respond quickly. Typical duration of anticoagulation is 3 months but if he needs to be stopped, this is not crucial as this is a low risk thrombosis to embolize (UE PICC associated).
Patient History
History of Present Illness
CC: Weakness and MG flare
Reason for hematologic consultation: Right upper extremity DVT
HPI: Patient is a very complicated 73-year-old man with multiple issues previously hospitalized from 03/04/24 through 03/16/24 with a complicated medical history. He was on linezolid for left hand infection with MRSA and probable osteomyelitis. He
presented with pancreatitis that was thought to be due to linezolid and therefore was switched to IV daptomycin as a result of IDs input. Pancreatitis resolved but patient became weak with a myasthenia gravis flare. He was seen in consultation by
neurology and started on plasma exchange. He had 2 of 5 planned therapies. Unfortunately, due to the plasma exchange, he developed anemia and thrombocytopenia. He required 7 units of platelets and 3 units of packed red blood cells for
transfusion. He also developed fever during that hospitalization and was diagnosed with a urinary tract infection. He was converted over to cephalexin after completing his daptomycin course. His PICC line was removed on 03/17/2024. He was
discharged to [facility]. He completed his rehab at [facility] and was discharged 03/29/2024.
He returnes to yesterday because he was too weak to get out of bed and unable to stand. In addition, he complains of bilateral lower leg swelling, redness and pain in his right arm (where the PICC line was) which is exceedingly tender to touch.
He was seen yesterday by neurology and felt that also be having a myasthenia flare having missed his last Vyvgart Hytrulo cycle and also having only had 2/5 plasma exchanges because of thrombocytopenia. Decision was made to treat his MG flare this
time with IVIG x 5-day course.
In the ER, a Doppler ultrasound was done to evaluate his right upper extremity pain and swelling and preliminarily was positive for DVT. There was occlusive thrombus in the basilic vein in the upper two thirds of the right upper extremity. Because
of thrombocytopenia, the admitting team was asking me about anticoagulation. Decision was to start Eliquis however later conversation suspected that the thrombus was nonocclusive (per tech verbal) but this morning the formal read is that it is
occlusive.
Past-Medical/Surgical History
PMH:
Myasthenia gravis
GERD
HTN
HLD
CAD
IDDM
Left hand cellulitis February 2024 requiring 6 weeks of daptomycin finished 03/17/2024 via PICC line right upper extremity
E. coli UTI February 2024
Chronic CHF
Bilateral peripheral leg edema
chronic hepatic cirrhosis
severe chronic bilateral renal disease
Insomnia
PSH:
cholecystectomy
right knee replacement
cardiac stents [address] [place] [address]
Social History
Tobacco: Non-smoker
Alcohol: None
Drug: None
Personal:
Living: With Family
Family History
Family History: Not pertinent
Patient Medication
�Medication �Instructions �Recorded �Confirmed �Last Taken �Type
aspirin 81 mg tablet,delayed 81 mg PO Q48H 03/21/24 03/30/24 03/21/24 History
release
atorvastatin 20 mg tablet (Lipitor) 20 mg PO QPM cholesterol #0 tabs 03/28/24 03/30/24 Unknown Rx
benzocaine 6 mg-menthol 10 mg 1 troy PO Q4HPRN PRN cough 30 days 03/28/24 03/30/24 Unknown Rx
lozenges (Chloraseptic Sore Throat) #1 packet
clotrimazole 1 % topical cream 1 applic topical BID moisture 03/28/24 03/30/24 Unknown Rx
(Athlete's Foot (clotrimazole)) associated skin rash,
buttocks/groins 30 days #25 grams
dextromethorphan-guaifenesin 10 5 ml PO Q6HPRN PRN cough 30 days 03/28/24 03/30/24 Unknown Rx
mg-100 mg/5 mL oral liquid #50 mL
(MAXTussin DM)
insulin aspart U-100 100 unit/mL 4 unit (0.04 mL) SC AC Diabetes 30 03/28/24 03/30/24 Unknown Rx
(3 mL) subcutaneous pen days #3.6 mL
midodrine 5 mg tablet 5 mg PO BID@0700,1300 orthostatic 03/28/24 03/30/24 Unknown Rx
Hypotension 30 days #60 tabs
pantoprazole 40 mg tablet,delayed 40 mg PO BID GERD 30 days #60 tabs 03/28/24 03/30/24 Unknown Rx
release (Protonix)
prednisone 20 mg tablet 60 mg (3 x 20 mg) PO DAILY 03/28/24 03/30/24 Unknown Rx
Myasthenia Gravis 30 days #90 tabs
pyridostigmine bromide 60 mg tablet 90 mg (1.5 x 60 mg) PO Q6 03/28/24 03/30/24 Unknown Rx
MYASTHENIA GRAVIS 30 days #180 tabs
therapeutic multivitamin 1 tab PO DAILY Supplement #0 tabs 03/28/24 03/30/24 03/21/24 Rx
trazodone 50 mg tablet 50 mg PO HS insomnia 30 days #30 03/28/24 03/30/24 Unknown Rx
tabs
potassium chloride 10 mEq 10 meq PO DAILY Electrolyte 03/29/24 03/30/24 Unknown Rx
tablet,extended Repletion 30 days #30 tabs
release(part/cryst) (Klor-Con M)
furosemide 20 mg tablet 20 mg PO DAILY swelling, chf 03/30/24 03/30/24 Unknown History
insulin glargine 100 unit/mL (3 12 unit SC DAILY 03/30/24 03/30/24 03/29/24 09:00 History
mL) subcutaneous pen (Lantus
Solostar U-100 Insulin)
Active Medications
Generic Name Dose Route Start Last Admin
Trade Name Freq PRN Reason Stop Dose Admin
Acetaminophen 325 mg 03/30/24 15:11 03/30/24 23:43
Acetaminophen 325 Mg Tablet PO 04/27/24 15:59 325 mg
DAILY PRN Administration
IVIG pre medicate
Aspirin 81 mg 03/30/24 22:00 03/30/24 23:43
Aspirin 81 Mg (Enteric Coated) Tablet PO 04/27/24 21:59 81 mg
Q48H SÁNCHEZ Administration
Atorvastatin Calcium 20 mg 03/30/24 22:00 03/30/24 23:42
Atorvastatin (Lipitor) 20 Mg Tablet PO 04/27/24 21:59 20 mg
QPM SÁNCHEZ Administration
Benzocaine/Menthol 1 lozenge 03/30/24 21:56
Benzocaine/Menthol Lozenge PO 04/27/24 21:55
Q4HPRN PRN
cough
Clotrimazole 1 applic 03/30/24 22:00 03/31/24 00:47
Clotrimazole 1% (Cream) 30 Gram Tube TOPICAL 04/27/24 21:59 Not Given
BID SÁNCHEZ
Dextrose 12.5 grams 03/30/24 21:56
Dextrose 50% (0.5 Grams/Ml) 50 Ml Syringe IV 04/27/24 21:55
[id number] PRN
hypoglycemia
Protocol
Diphenhydramine HCl 25 mg 03/30/24 15:11 03/30/24 23:43
Diphenhydramine 25 Mg Capsule PO 04/27/24 15:59 25 mg
DAILY PRN Administration
IVIG pre medicate
Furosemide 40 mg 03/31/24 08:00
Furosemide 40 Mg (10 Mg/Ml) 4 Ml Vial IV 04/28/24 07:59
DAILY SÁNCHEZ
Glucagon 1 mg 03/30/24 21:56
Glucagon 1 Mg Vial IM 04/27/24 21:55
PRN PRN
hypoglycemia
Protocol
Guaifenesin/Dextromethorphan 100 mg 03/30/24 21:56
Guaifenesin Dm (Sugar/Dye/Alcohol/Sodium Free) 10 Ml Cup PO 04/27/24 21:55
Q6HPRN PRN
cough
Hydrocortisone Sodium Succinate 50 mg 03/31/24 00:00 03/30/24 23:44
Hydrocortisone Sodium Succinate 100 Mg/2 Ml Vial IV 04/28/24 00:00 50 mg
Q12H SÁNCHEZ Administration
Immune Globulin 30 grams in 300 mls @ 300 mls/hr 03/31/24 00:00 03/31/24 00:30
Gammagard IV 04/03/24 18:59 300 mls
DAILY@1800 SÁNCHEZ Administration
Protocol
As Directed
Insulin Aspart 4 units 03/31/24 07:30
Insulin Aspart (100 Units/Ml) 3 Ml Flexpen SC 04/28/24 07:29
AC SÁNCHEZ
Insulin Glargine 12 units 03/31/24 08:00
Insulin Glargine (Lantus) Vial 1000 Units/10 Ml SC 04/28/24 07:59
DAILY SÁNCHEZ
Midodrine 5 mg 03/31/24 07:00
Midodrine 5 Mg Tablet PO 04/28/24 06:59
BID@0700,1300 SÁNCHEZ
Multivitamins Therapeutic 1 tablet 03/31/24 08:00
Multivitamin Tablet PO 04/28/24 07:59
DAILY SÁNCHEZ
Ondansetron HCl 4 mg 03/30/24 21:56
Ondansetron 4 Mg/2 Ml Vial IV 04/27/24 21:55
Q6HPRN PRN
nausea and vomiting
Oxycodone HCl 5 mg 03/30/24 21:56
Oxycodone 5 Mg Regular Release Tablet PO 04/13/24 21:55
Q4HPRN PRN
moderate pain
Pantoprazole Sodium 40 mg 03/30/24 21:56 03/30/24 23:42
Pantoprazole 40 Mg Delayed Release Tablet PO 04/27/24 21:55 40 mg
BID SÁNCHEZ Administration
Potassium Chloride 10 meq 03/31/24 08:00
Potassium Chloride 10 Meq Extended Release Tablet PO 04/28/24 07:59
DAILY SÁNCHEZ
Pyridostigmine Pratt 90 mg 03/31/24 00:00 03/31/24 06:11
Pyridostigmine 60 Mg Tablet PO 04/28/24 00:00 90 mg
Q6 SÁNCHEZ Administration
Sodium Chloride 0 flush 03/30/24 22:00 03/31/24 00:37
Sodium Chloride 0.9% (Flush) Syringe IV 04/27/24 21:59 1 flush
PER PROTOCOL SÁNCHEZ Administration
Trazodone HCl 50 mg 03/30/24 22:00 03/30/24 23:43
Trazodone 50 Mg Tablet PO 04/27/24 21:59 50 mg
HS SÁNCHEZ Administration
Physical Exam
-
General: Comfortable and Other; Negative Respiratory Distress
HEENT: Negative Jaundice
Cardiology: S1 and S2
Pulmonary: Clear
GI: Soft
Extremities: Other (RUE tender)
Labs
Lab Results
WBC 15.8 10^3/uL (4.8-10.8) H 03/30/24 17:23
RBC 2.73 10^6/uL (4.70-6.10) L 03/30/24 17:23
Hgb 8.7 g/dL (13.0-18.0) L 03/30/24 17:23
Hct 25.5 % (39.0-52.0) L 03/30/24 17:23
MCV 93.4 fL (80.0-94.0) 03/30/24 17:23
MCH 31.9 pg (27.0-31.0) H 03/30/24 17:23
MCHC 34.1 g/dL (33.0-37.0) 03/30/24 17:23
RDW 18.3 % (11.5-14.5) H 03/30/24 17:23
Plt Count 67 10^3/uL (130-400) L D 03/30/24 17:23
MPV 11.7 fL (7.4-10.4) H 03/30/24 17:23
Abs Immat Gran (auto) 0.1 10^3/uL (0-0.05) H 03/30/24 17:23
Absolute Neuts (auto) 15.5 10^3/uL (1.4-6.5) H 03/30/24 17:23
Absolute Lymphs (auto) 0.1 10^3/uL (1.2-3.4) L 03/30/24 17:23
Absolute Monos (auto) 0.1 10^3/uL (0.1-0.6) 03/30/24 17:23
Absolute Eos (auto) 0.0 10^3/uL (0-0.7) 03/30/24 17:
Absolute Basos (auto) 0.0 10^3/uL (0-0.2) 03/30/24 17:23
Immature Gran % 0.8 % (0-0.5) H 03/30/24 17:23
Neutrophils % 97.8 % (42.2-75.2) H 03/30/24 17:23
Lymphocytes % 0.6 % (20.5-51.1) L 03/30/24 17:23
Monocytes % 0.7 % (1.7-9.3) L 03/30/24 17:23
Eosinophils % 0.0 % (0-6) 03/30/24 17:23
Basophils % 0.1 % (0-2) 03/30/24 17:23
Creatinine 1.1 mg/dL (0.7-1.3) 03/30/24 17:23
Vital Signs
Vital Signs
Temp Pulse Resp BP Pulse Ox
98.1 F 82 17 150/80 99
03/31/24 03:43 03/31/24 03:43 03/31/24 03:43 03/31/24 03:43 03/31/24 03:43
[2024-03-31 07:57] LABS: Glucose - Point of Care 224 mg/dl (70-99)
[2024-03-31 09:15] LABS: % Basophils 0.1 % (0-2); % Immature Granulocytes 0.8 % (0-0.5); % Lymphocytes 1.1 % (20.5-51.1); % Monocytes 0.7 % (1.7-9.3); % Neutrophils 97.3 % (42.2-75.2); Absolute Immature Granulocytes 0.1 10^3/uL (0-0.05); Absolute Lymphocytes 0.2 10^3/uL (1.2-3.4); Absolute Monocytes 0.1 10^3/uL (0.1-0.6); Absolute Neutrophils 15.2 10^3/uL (1.4-6.5); Hematocrit 25.1 % (39.0-52.0); Hemoglobin 8.5 g/dL (13.0-18.0); Mean Corp Hgb Conc. 33.9 g/dL (33.0-37.0); Mean Corpuscular Hgb 31.6 pg (27.0-31.0); Mean Corpuscular Volume 93.3 fL (80.0-94.0); Mean Platelet Volume 11.4 fL (7.4-10.4); Nucleated Red Blood Cells % 0 % (-); Platelet Count 68 10^3/uL (130-400); Red Blood Cell Count 2.69 10^6/uL (4.70-6.10); Red Cell Dist. Width 18.2 % (11.5-14.5); White Blood Cell Count 15.7 10^3/uL (4.8-10.8)
[2024-03-31 09:27] LABS: ALT (SGPT) 30 U/L (0-50); AST (SGOT) 27 U/L (17-59); Albumin 2.9 g/dl (3.5-5.0); Alkaline Phosphatase 163 U/L (38-126); Blood Urea Nitrogen 40 mg/dl (9-20); Calcium 7.9 mg/dl (8.4-10.2); Carbon Dioxide 30 mmol/L (22-30); Chloride 105 mmol/L (98-107); Estimated Creatinine Clearance 73 ml/min; Glucose 190 mg/dl (70-99); Potassium 4.2 mmol/L (3.5-5.1); Sodium 137 mmol/L (135-145); Total Bilirubin 2.2 mg/dl (0.2-1.3); Total Protein 5.9 g/dl (6.3-8.2); eGFR > 60.00
[2024-03-31] MEDS: PROTONIX 40 MG PO ×2 (09:50→20:00)
[2024-03-31] MEDS: KCL 10 MEQ PO (09:50)
[2024-03-31] MEDS: ProAmatine 5 MG PO (09:50)
[2024-03-31] MEDS: ELIQUIS 10 MG PO ×2 (09:50→20:00)
[2024-03-31] MEDS: THERAGRAN 1 TABLET PO (09:50)
[2024-03-31] MEDS: LOTRIMIN 1% CREAM 1 APPLIC TOPICAL ×2 (10:00→20:02)
[2024-03-31] MEDS: LANTUS 0.12 UNITS SC (10:00)
[2024-03-31] MEDS: LASIX 40 MG IV (10:08)
[2024-03-31] MEDS: NOVOLOG FLEXPEN 4 UNITS SC ×3 (10:22→17:03)
[2024-03-31] MEDS: ROXICODONE 5 MG PO ×3 (10:30→23:35)
--- NOTE | 2024-03-31 10:30 | VATNOTE ---
Addendum entered by Lynda Mariscal RN 03/31/24 12:42:
Attempted to get blood return from midline by taking down dressing and pulling back midline and re-advancing using sterile technique. Scant blood return noted in line while pulled out 6 cm, but not enough for lab draws.
Original Note:
Unable to get blood return from midline at this time
[2024-03-31 12:05] LABS: Glucose - Point of Care 313 mg/dl (70-99)
--- NOTE | 2024-03-31 12:25 | CM ---
Alert awake oriented pt who lives with Sonia in an apartment with no steps to enter. Pt was dc from [facility] readmitted at [facility]. said she believes he will need SNF at [place].He will need PT OT ordered.He is assisted in home with all ADLs.He
uses a walker.
[facility]
Pharmacy [facility]
PCP DR Champagne
PLAN Probable SNF after PT OT
--- NOTE | 2024-03-31 12:38 | VATNOTE ---
Attempted to obtain blood return from midline by placing a guidewire back in the midline using sterile technique and re-advancing the midline. Still unable to obtain blood return. Flushes without resistance or pain. Will discuss plan with .
[2024-03-31] MEDS: SOLU-CORTEF 50 MG IV ×2 (13:00→23:25)
[2024-03-31] MEDS: ProAmatine PO ×2 (13:10→13:24)
--- NOTE | 2024-03-31 13:14 | CON.ID ---
Consultation
-
Date/Time Consultation Requested: 03/30/2024 1630
Date/Time Consultation Performed: 03/31/2024 1300
Requesting Provider: Kelly Borjas
Performing Provider: Dr. Loza
Reason for Consultation: Right arm cellulitis
Chief Complaint / Past History
History of Present Illness
Víctor Brock is a 73-year-old man being evaluated at the request of [facility] regarding left wrist infection. History is obtained from chart review, along with patient interview.
The patient has a significant past medical history of myasthenia gravis which was diagnosed in mid 2023. He is known to the Infectious Diseases service, having been seen in late January for a left hand cellulitis which ultimately grew MRSA. Notes
from that admission indicated he had had some left hand swelling and decreased range of motion. He was taken to the OR on 02/04, with excisional debridement of deep fascial layer tendons and bone. He was ultimately discharged on 02/05, to continue
with a 6-week course of linezolid.
He presented back to the hospital on 03/04 secondary to increasing weakness over the prior 3 days. He was found to have pancreatitis, along with thrombocytopenia. Because of thrombocytopenia, he was transitioned to daptomycin to complete his course
of therapy for prior MRSA. He completed his course of daptomycin on 03/17 with removal of his PICC line, and admitted to [facility], with an additional 7-day course of Keflex in the treatment of recovered E. coli from the urine.
He was discharged from [facility] on 03/29, but presented back to [facility] ER on 03/30 secondary to profound weakness, with an inability to even get out of bed. Additionally, he reports that he has been complaining of right arm discomfort
for quite some time. Ultrasound imaging of the right arm has revealed an occlusive clot. The arm is also quite tender to touch, and there is concern for possible bacterial SSTI.
Past History
Additional Past Medical History:
GERD
HTN
HLD
IDDM
Myasthenia Gravis
Additional Past Surgical History:
cholecystectomy
right knee replacement
cardiac stents
Allergy History:
hydrocortisone [From [facility] ([id number])] Allergy (Unknown, Verified 03/30/24 12:17)
Unknown
neomycin [From [facility] ([id number])] Allergy (Unknown, Verified 03/30/24 12:17)
Unknown
polymyxin B [From [facility] ([id number])] Allergy (Unknown, Verified 03/30/24 12:17)
Unknown
varenicline Allergy (Unknown, Verified 03/30/24 12:17)
Unknown
latex Allergy (Verified 03/30/24 12:17)
Hives/REDNESS
Medications Reviewed: Yes
Current Antibiotics:
none
Social History
Tobacco: Non-Smoker
Alcohol: None
Drug: None
Personal:
Living: With Family
Employment: Retired
Family History
Family History: Not Pertinent
Review of Systems
Vital Signs
Temp Pulse Resp BP Pulse Ox
98 F 93 18 189/93 95
03/31/24 11:00 03/31/24 11:00 03/31/24 11:00 03/31/24 11:00 03/31/24 11:00
Physical Exam
Physical Exam
Constitutional: No Acute Distress, Comfortable, Chronically Ill and Non-toxic
Eyes: No Conjunctival Hemorrhage and Sclera Anicteric
Oral: No Thrush and No Ulcers
Cardiovascular: S1/S2; Negative S3/S4
Pulmonary: Clear; Negative Wheezes or Rales
Gastrointestinal: Soft, Tender, Non Distended, Normal Bowel Sounds, No Rebound and No Guarding
Extremities: Edema (RUE) and Erythema (RUE); Negative Cyanosis
Skin: Rash (Pustular lesions noted on right forearm. Area quite tender to touch.) and Other (Multiple areas of superficial ecchymosis)
Neurological: Awake and Alert
Psychological: Calm
.
Lab / Diagnostic Study Results
03/31/24 08:45
03/31/24 08:45
Abs Immat Gran (auto) 0.1 10^3/uL (0-0.05) H 03/31/24 08:45
Absolute Neuts (auto) 15.2 10^3/uL (1.4-6.5) H 03/31/24 08:45
Absolute Lymphs (auto) 0.2 10^3/uL (1.2-3.4) L 03/31/24 08:45
Absolute Monos (auto) 0.1 10^3/uL (0.1-0.6) 03/31/24 08:45
Absolute Basos (auto) 0.0 10^3/uL (0-0.2) 03/31/24 08:45
Immature Gran % 0.8 % (0-0.5) H 03/31/24 08:45
Neutrophils % 97.3 % (42.2-75.2) H 03/31/24 08:45
Lymphocytes % 1.1 % (20.5-51.1) L 03/31/24 08:45
Monocytes % 0.7 % (1.7-9.3) L 03/31/24 08:45
Eosinophils % 0.0 % (0-6) 03/31/24 08:45
Basophils % 0.1 % (0-2) 03/31/24 08:45
Ur Squamous Epith Cells 6-10 /LPF (Few) 03/31/24 02:16
Microbiology Results
Micro:
03/30/24 17:23 Influenza Types A & B (RYLIE) - Final
Nasal Swab Negative for Influenza A & B, NAAT
Negative results must be combined with clinical observations
and patient history.
Nucleic Acid Amplification test (NAAT)performed on the
Desk platform.
Imaging:
03/30/2024 Duplex ultrasound right upper extremity: Occlusive venous thrombus in the basilic vein in the upper two thirds of the right upper arm. Normal flow in the right brachial, cephalic, axillary, subclavian and internal jugular veins. Please
see full dictation for additional detail.
Assessment / Plan
Suspected purulent cellulitis right upper extremity
Right upper extremity DVT (occlusive)
Leukocytosis
Thrombocytopenia
Elevated bilirubin
Hx MRSA
GERD
HTN
HLD
IDDM
Myasthenia Gravis on chronic steroids
Recommendations:
A wound culture has been obtained from the right forearm.
Begin empiric daptomycin 800 mg IV q24h.
Follow white count and temperature curve.
Right upper extremity elevation to decrease edema.
Further recommendations as additional data is returned.
Care Review

- RIGHT FOREARM -
--- NOTE | 2024-03-31 13:23 | W.PN.HOSP.TC ---
Today's Communication/Plan
-
see bold
Assessment / Plan
Assessment / Plan
Gen: NAD, Awake and alert, appears chronically ill
Eyes: EOMI, PERRLA, no scleral icterus.
Neck: supple.
CV: RRR with frequent premature beats, +S1/S2, no m/r/g.
Resp: CTAB, no rales, wheezes, or rhonchi.
Abd: +BS, soft, NT, ND
Skin: ecchymoses on arms
Neuro: CN 2-12 intact, non-focal.
Psych: Normal mood and affect.
CXR: Top normal heart size. Trace pleural effusions, diminished in size compared to prior examination. No significant vascular congestion. No evidence of pneumonia.
RUE U/S: Occlusive deep venous thrombosis in the basilic vein in the upper two thirds of the right upper arm
Acute myasthenia exacerbation:
-presented with weakness
-had plasma exchange last admission followed by thrombocytopenia/anemia and need for 7U platelets and 3U pRBC. Only received 2 of 5 planned exchanges.
-neuro and heme following
-cont IVIG
-cont Solumedrol/Mestinon
Acute RUE DVT:
-Eliquis started
Chronic HFpEF:
-with acute on chronic B/L LE edema (likely due to prolonged Steroids/decreased motility/poor nutrition) cont IV Lasix
-daily wts, I/Os
-cont Tubigrip
Other problems:
Anemia of chronic disease: Hb stable
Orthostatic hypotension: cont Midodrine with hold parameters
DM2: cont Lantus/premeal Novolog
HLD: cont statin
CAD s/p stents x 2 in 1997: cont ASA/statin
GERD: Cont PPI
Insomnia: cont trazodone
Hypokalemia, resolved
Chronic anemia
Chronic thrombocytopenia
Wounds/skin tears (POA): Stage I/II sacral decub, left arm skin tear, c/s wound care
h/o L hand MRSA osteomyelitis:
-h/o pancreatitis February 2024 secondary to Linezolid for left hand cellulitis
-Completed 6-week course of daptomycin on 03/17/2024 for left hand cellulitis/E. coli UTI via PICC line right upper extremity
-PICC line right upper extremity removed 03/17/[facility]
FULL/Eliquis
Total time spent on today's encounter was 50 minutes which included time spent in counseling the patient/family regarding diagnosis and treatment plan as listed above, goals of care, and symptom management. Case was discussed with nursing staff,
specialists, and care coordinators/case management. All labs and imaging personally reviewed by me. Remainder the time spent in detailed review of previous records, lab data, imaging, and other medical provider documentation.
Anticipated Discharge: > 48 hours
Subjective/Interval History
-
Date of Service: March 31, 2024
c/o back pain.
Objective Data
-
Labs:
Laboratory Results
03/31/24
08:45
WBC 15.7 H
Hgb 8.5 L
Hct 25.1 L
Plt Count 68 L
Sodium 137
Potassium 4.2
Chloride 105
Carbon Dioxide 30
BUN 40 H
Creatinine 0.9
Glucose 190 H
Calcium 7.9 L
Total Bilirubin 2.2 H
AST 27
ALT 30
Alkaline Phosphatase 163 H
Vital Signs:
Vital Signs
Temp Pulse Resp BP Pulse Ox
98 F 100 18 167/90 95
03/31/24 11:00 03/31/24 13:19 03/31/24 11:00 03/31/24 13:19 03/31/24 11:00
I&O
03/30/24 03/31/24 04/01/24
06:59 06:59 06:59
Intake Total 460 / 460
Output Total 275 / 275
Balance 185 / 185
--- NOTE | 2024-03-31 15:08 | W.PN.NEURO.1 ---
Today's Communication / Plan
-
IVIG day 2
Neuro Assessment/Plan
Assessment
03/30 NIF -40, vital capacity 2 L (25 ml/kg)
Myasthenia gravis with exacerbation
in the setting of MRSA skin infection, and that that he missed half of his last cycle of Vyvgart Hytrulo, and as it has been 1 month since his last dose, and he is now due.
unfortunately, he usually gets it at infusion center and not at home; and it is not on hospital formulary
we discussed options, including increase prednisone to 80, IVIG, plasmapheresis;
the patient and I do not like any of these options, given he already has steroid side effects, IVIG not being very effective in the past, being difficult to get a line for plasmapheresis, and recent anemia/thrombocytopenia after plasma; eventual
decision for IVIG. Agree with trying stress dose steroids hydrocortisone 50 q12
Plan
will admit for 5 day course; premedicate tylenol 325 benadryl 25
continue prednisone 60/day, mestinon 90 q6
anticipate discharge to SNF for rehab and so that he could be restarted on Vyvgart Hytrulo
Subjective/Objective
Subjective Data
Date of Service: March 31, 2024
IVIG day 2
feels about the same
Objective Data
Vital Signs
Temp Pulse Resp BP Pulse Ox
36.6 C 100 18 167/90 95
03/31/24 11:00 03/31/24 13:19 03/31/24 11:00 03/31/24 13:19 03/31/24 11:00
Lab Results
03/31/24 08:45
03/31/24 08:45
Sodium 137 mmol/L (135-145) 03/31/24 08:45
Potassium 4.2 mmol/L (3.5-5.1) 03/31/24 08:45
BUN 40 mg/dl (9-20) H 03/31/24 08:45
Glucose 190 mg/dl (70-99) H 03/31/24 08:45
Calcium 7.9 mg/dl (8.4-10.2) L 03/31/24 08:45
Patient Allergies
hydrocortisone [From Westcort ([id number])] Allergy (Unknown, Verified 03/30/24 12:17)
Unknown
neomycin [From Westcort ([id number])] Allergy (Unknown, Verified 03/30/24 12:17)
Unknown
polymyxin B [From Westcort ([id number])] Allergy (Unknown, Verified 03/30/24 12:17)
Unknown
varenicline Allergy (Unknown, Verified 03/30/24 12:17)
Unknown
latex Allergy (Verified 03/30/24 12:17)
Hives/REDNESS
Physical Exam
-
AOx3, speech clear, language intact
strength diffusely 4/5
[2024-03-31] MEDS: FLUSH (NSS) 2 FLUSH IV (16:13)
[2024-03-31] MEDS: CUBICIN 16 MG IV (16:13)
[2024-03-31 16:52] LABS: Glucose - Point of Care 271 mg/dl (70-99)
[2024-03-31] MEDS: BENADRYL 25 MG PO (18:03)
[2024-03-31] MEDS: TYLENOL 325 MG PO (18:03)
[2024-03-31 21:58] LABS: Glucose - Point of Care 297 mg/dl (70-99)
[2024-03-31] MEDS: DESYREL 50 MG PO (23:24)
[2024-04-01 03:09] VITALS: BP 166/84
[2024-04-01] MEDS: ROXICODONE 5 MG PO ×3 (03:15→17:44)
[2024-04-01 04:55] LABS: Hematocrit 24.5 % (39.0-52.0); Hemoglobin 8.1 g/dL (13.0-18.0); Mean Corp Hgb Conc. 33.1 g/dL (33.0-37.0); Mean Corpuscular Hgb 31.2 pg (27.0-31.0); Mean Corpuscular Volume 94.2 fL (80.0-94.0); Mean Platelet Volume 11.3 fL (7.4-10.4); Platelet Count 72 10^3/uL (130-400); Red Cell Dist. Width 18.5 % (11.5-14.5); White Blood Cell Count 11.9 10^3/uL (4.8-10.8)
[2024-04-01 05:00] LABS: ALT (SGPT) 29 U/L (0-50); AST (SGOT) 27 U/L (17-59); Albumin 2.5 g/dl (3.5-5.0); Alkaline Phosphatase 176 U/L (38-126); Blood Urea Nitrogen 35 mg/dl (9-20); Calcium 7.5 mg/dl (8.4-10.2); Carbon Dioxide 28 mmol/L (22-30); Chloride 106 mmol/L (98-107); Estimated Creatinine Clearance 66 ml/min; Glucose 199 mg/dl (70-99); Sodium 135 mmol/L (135-145); Total Bilirubin 1.7 mg/dl (0.2-1.3); eGFR > 60.00
[2024-04-01 06:00] VITALS: BMI 24.7
[2024-04-01] MEDS: MESTINON 90 MG PO (06:08)
--- NOTE | 2024-04-01 07:25 | W.PN.HOSP.TC ---
Today's Communication/Plan
-
IVIG stopped - Dr Grewal recommend stopping IVIG because it can be prothrombotic. Continue Solu-Medrol/Mestinon. Brain MRI ordered for concern of embolic infarcts. There was no PFO seen on echo conducted on 03/11/2024. PFT NIF every 6 hours.
Palliative care consulted due to poor prognosis as a consequence of multiple severe active comorbidities in the setting of advanced age and poor functional status.
Assessment / Plan
Assessment / Plan
HPI: Patient is a 73-year-old male who was previously admitted to [facility] from 03/04/2024 through 03/16/2024. Prior to that admission, he was on linezolid for left hand infection with MRSA and possible osteomyelitis. At that time, he
presented with pancreatitis that was thought to be due to linezolid and therefore was switched to IV daptomycin following infectious diseases input. The patient's pancreatitis resolved but the patient became weak with a myasthenia gravis flare.
Neurology was consulted and the patient was started on a plasma exchange. The patient received 2 of 5 planned therapy but unfortunately due to the plasma exchange she developed anemia and thrombocytopenia. He required 7 units of platelets and 3
units of PRBCs for transfusion. He developed fever during that hospitalization and was diagnosed with a UTI. The patient was converted over to cephalexin after completing his daptomycin course. On 03/17/2024 his PICC line was removed and he was
subsequently discharged to [facility]. He completed his course at [facility] and was discharged on 03/29/2024. Unfortunately, the patient returned to [facility] as he was too weak to get out of bed and unable to stand following his discharge from
[facility]. He complained of ongoing edema of his bilateral lower legs from the knees down and redness of his right arm where the PICC line was. The redness on his arm was exceedingly tender to touch and he had a cough productive of yellow phlegm. The
patient denied fever, chills, chest pain, shortness of breath, nausea, vomiting, diarrhea, or urinary symptoms. The patient was subsequently admitted to [facility] for acute myasthenia gravis exacerbation.
Asessment/Plan:
-Acute myasthenia exacerbation:
presented with weakness
had plasma exchange last admission followed by thrombocytopenia/anemia and need for 7 units of platelets and 3 units of PRBCs. Only received 2 of 5 planned exchanges.
Appreciate neurology and hematology input
IVIG stopped - Dr Grewal recommend stopping IVIG because it can be prothrombotic.
Continue Solu-Medrol/Mestinon
Neurology recommends brain MRI for concern of embolic infarcts.
There was no PFO seen on echo conducted on 03/11/2024
PFT NIF every 6 hours
Palliative care consulted due to poor prognosis as a consequence of multiple severe active comorbidities in the setting of advanced age and poor functional status.
-Acute RUE DVT:
Continue Eliquis
-Chronic HFpEF:
Presented with acute on chronic B/L LE edema (likely due to prolonged Steroids/decreased motility/poor nutrition) cont IV Lasix
Follow daily weights + I's and O's -
Continue Tubigrip pressure stockings
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
History of pancreatitis February 2024 secondary to Linezolid for left hand cellulitis
Completed 6-week course of daptomycin on 03/17/2024 for left hand cellulitis/E. coli UTI via PICC line right upper extremity
PICC line right upper extremity removed 03/17/2024 at [facility]
-Anemia of chronic disease: Stable
Hb stable
-Orthostatic hypotension: Stable/monitoring
Continue midodrine with hold parameters MAP <65 or SBP <100
-Type 2 diabetes mellitus: Stable/monitoring
Continue Lantus/premeal Novolog
-Hyperlipidemia: Stable/monitoring
Continue statin
-Coronary artery disease s/p stents x 2 in 1997:
Continue ASA/statin
-GERD:
Continue PPI
-Insomnia:
Continue trazodone
-Hypokalemia:
resolved
-Chronic anemia
-Chronic thrombocytopenia
-Wounds/skin tears:
Stage I/II sacral decubitus ulcer, left arm skin tear, c/s wound care
Wound team continues to follow
FULL CODE STATUS
DVT Prophylaxis: Eliquis
Anticipated Discharge: > 48 hours
Subjective/Interval History
-
Met with patient at the bedside. Patient is very soft-spoken and raspy when he tries to articulate himself. Calm and polite but clearly uncomfortable. Bruising and large sized petechia scattered throughout the body. Patient emphasized that
palpation should be done very gently.
Objective Data
-
Labs:
Laboratory Results
04/01/24
04:22
WBC 11.9 H
Hgb 8.1 L
Hct 24.5 L
Plt Count 72 L
Sodium 135
Potassium 4.0
Chloride 106
Carbon Dioxide 28
BUN 35 H
Creatinine 1.0
Glucose 199 H
Calcium 7.5 L
Total Bilirubin 1.7 H
AST 27
ALT 29
Alkaline Phosphatase 176 H
Vital Signs:
Vital Signs
Temp Pulse Resp BP Pulse Ox
98.1 F 108 18 166/84 96
04/01/24 03:09 04/01/24 03:09 04/01/24 03:09 04/01/24 03:09 04/01/24 03:09
I&O
03/31/24 04/01/24 04/02/24
06:59 06:59 06:59
Intake Total 460 / 460 1680 / 1680
Output Total 275 / 275 350 / 350
Balance 185 / 185 1330 / 1330
Review of Systems
-
History Source: Patient
All other systems: Reviewed and negative
Constitutional: Reports Fatigue, Sleep Disturbance and Weakness
EENT: Reports Mouth Pain and Other (Parched Throat)
Respiratory: Reports No Symptoms
Cardiac: Reports No Symptoms
Abdomen/GI: Reports Abdominal Pain
Breast: Reports No Symptoms
Genitourinary: Reports No Symptoms
Skin: Reports Sores and Other (Large blisters throughout the body. Loose wrinkly skin on lower limbs with bruising. Cool to touch.)
Neuro: Reports Weakness
Endocrine: Reports No Symptoms
Hematologic / Lymphatic: Reports Bleeding and Bruising
Physical Exam
-
General: Well Developed, Well Nourished, Pain and Obese
HEENT: Normocephalic and Other (Dry mouth); Negative Moist Mucous Membranes
Respiratory: Clear to Auscultation
Cardiac: S1/S2; Negative JVD
Breast: Deferred by me
GI: Soft, Nondistended and Normal Bowel Sounds
Rectal: Deferred by Provider
Genito-urinary: Deferred by me
Musculoskeletal: No Edema
Skin: Warm, Lesions, IV Access / Catheter Site and Other (Large blisters throughout body, ecchymosis on arms)
Neuro: Awake, Alert, Oriented and AO x 3
Psych: Calm
[2024-04-01 07:34] LABS: Glucose - Point of Care 208 mg/dl (70-99)
[2024-04-01 07:59] VITALS: BP 117/69
[2024-04-01 08:15] LABS: Absolute Neutrophils -Man Diff 11.5 10^3/uL (1.4-6.5); Band Neutrophils 11 % (0-3); Lymphocytes 2 % (20-51); Monocytes 1 % (2-9); Segmented Neutrophils 86 % (42-75)
[2024-04-01 08:16] LABS: Anisocytosis 1+; Basophilic Stippling 1+; Hypochromasia 1+; Normal RBC Morphology No; Ovalocytes 1+; Platelets Checked Yes; Polychromasia 1+; Total Cells Counted 100
--- NOTE | 2024-04-01 08:31 | W.PN.UPDATE ---
Update Note
Progress Note Update
I saw and evaluated the patient. I reviewed the resident�s note and agree with findings and plan as documented in the resident�s note.
Patient complains of right upper extremity pain. Denies chest pain or shortness of breath.
Gen: NAD, Awake and alert, appears chronically ill
Eyes: EOMI, PERRLA, no scleral icterus.
Neck: supple.
CV: tachycardic, reg rhythm with frequent premature beats, +S1/S2, no m/r/g.
Resp: CTAB anteriorly, no rales, wheezes, or rhonchi.
Abd: +BS, soft, NT, ND
Skin: RUE with superficial hematoma with mild bleeding, other ecchymoses on arms
Neuro: CN 2-12 intact, non-focal.
Psych: Normal mood and affect.
CXR: Top normal heart size. Trace pleural effusions, diminished in size compared to prior examination. No significant vascular congestion. No evidence of pneumonia.
RUE U/S: Occlusive deep venous thrombosis in the basilic vein in the upper two thirds of the right upper arm
Acute myasthenia exacerbation:
-presented with weakness
-had plasma exchange last admission followed by thrombocytopenia/anemia and need for 7U platelets and 3U pRBC. Only received 2 of 5 planned exchanges.
-neuro and heme following
-IVIG currently being stopped because, as per Dr. Grewal, can be prothrombotic. Neuro also recommending MRI brain for concern for embolic infarcts. Note that on echo 03/11/24 there was no PFO.
-cont Solumedrol/Mestinon
-NIF Q6H
Acute RUE DVT:
-Eliquis started
Chronic HFpEF:
-with acute on chronic B/L LE edema (likely due to prolonged Steroids/decreased motility/poor nutrition) cont IV Lasix
-daily wts, I/Os
-cont Tubigrip
Other problems:
Anemia of chronic disease: Hb stable
Orthostatic hypotension: cont Midodrine with hold parameters
DM2: cont Lantus/premeal Novolog
HLD: cont statin
CAD s/p stents x 2 in 1997: cont ASA/statin
GERD: Cont PPI
Insomnia: cont trazodone
Hypokalemia, resolved
Chronic anemia
Chronic thrombocytopenia
Wounds/skin tears (POA): Stage I/II sacral decub, left arm skin tear, c/s wound care
h/o L hand MRSA osteomyelitis:
-h/o pancreatitis February 2024 secondary to Linezolid for left hand cellulitis
-Completed 6-week course of daptomycin on 03/17/2024 for left hand cellulitis/E. coli UTI via PICC line right upper extremity
-PICC line right upper extremity removed 03[facility]17/20[facility]
FULL/Eliquis
Patient's overall prognosis is extremely poor due to multiple, severe, active comorbidities (burden of pathology) in the setting of advanced age and poor functional status. Will consult palliative care.
Total time spent on today's encounter was 51 minutes which included time spent in counseling the patient/family regarding diagnosis and treatment plan as listed above, goals of care, and symptom management. Case was discussed with nursing staff,
specialists, and care coordinators/case management. All labs and imaging personally reviewed by me. Remainder the time spent in detailed review of previous records, lab data, imaging, and other medical provider documentation.
--- NOTE | 2024-04-01 08:52 | W.PN.NEURO.1 ---
Today's Communication / Plan
-
.
Neuro Assessment/Plan
Assessment
This is a 73-year-old RH male with a PMH of MG diagnosed 08/2023 on Vyvgart, HTN, HLD, CAD/cardiac stents, HFpEF, pancreatitis, MRSA cellulitis, chronic daily alcohol who presented to on 03/30/24 with report of increased generalized weakness s/p
fall out of bed at home and report of RUE pain.
US RUE 03/30/23: There is occlusive deep venous thrombosis in the basilic vein in the upper two thirds of the right upper arm.
I. Myasthenia gravis exacerbation.
II. RUE occlusive DVT.
III. Thrombocytopenia, anemia.
IV. Orthostatic hypotension.
Plan
-IVIG stopped per Dr. Grewal; in the setting of lack of response to IVIG in the past, and concern for possible thrombotic side effects.
-Continue increased dose of pyridostigmine 90mg up from 60mg, QID. Can consider increasing to 120mg if tolerating 90mg without diarrhea.
-Solu-Cortef changed to prednisone 60mg PO daily.
-Would like to obtain MRI brain imaging to rule out alternative source of weakness, but patient declines further testing.
-PT/OT/ST evaluations.
-Agree with palliative care consult.
Subjective/Objective
Subjective Data
Date of Service: April 01, 2024
Patient tearful. Endorses exhaustion from hospitalizations and severe RUE discomfort. Denies headache, diplopia, numbness, diarrhea, chest pain, palpitations, and shortness of breath. Reports difficulty swallowing, dysarthria, and generalized
weakness unchanged from yesterday. He cannot endorse if his dysarthria is worse early vs late in the day, he reports that the days just blend together for him.
Objective Data
Vital Signs
Temp Pulse Resp BP Pulse Ox
98.2 F 106 18 117/69 97
04/01/24 07:59 04/01/24 07:59 04/01/24 07:59 04/01/24 07:59 04/01/24 07:59
Lab Results
04/01/24 04:22
04/01/24 04:22
Sodium 135 mmol/L (135-145) 04/01/24 04:22
Potassium 4.0 mmol/L (3.5-5.1) 04/01/24 04:22
BUN 35 mg/dl (9-20) H 04/01/24 04:22
Glucose 199 mg/dl (70-99) H 04/01/24 04:22
Calcium 7.5 mg/dl (8.4-10.2) L 04/01/24 04:22
Patient Allergies
hydrocortisone [From Westcort ([id number])] Allergy (Unknown, Verified 03/30/24 12:17)
Unknown
neomycin [From Westcort ([id number])] Allergy (Unknown, Verified 03/30/24 12:17)
Unknown
polymyxin B [From Westcort ([id number])] Allergy (Unknown, Verified 03/30/24 12:17)
Unknown
varenicline Allergy (Unknown, Verified 03/30/24 12:17)
Unknown
latex Allergy (Verified 03/30/24 12:17)
Hives/REDNESS
Review of Systems
-
History Source: Patient
EENT: Swallowing Difficulty; Negative Blurry Vision or Decreased Vision
Respiratory: Negative Trouble Breathing
Cardiac: Negative Chest Pain or Palpitations
Abdomen/GI: Negative Diarrhea
Genitourinary: Negative Difficulty Voiding
Neuro: Weakness and Speech Problem; Negative Dizzy, Headache, Numbness or Tremors
Physical Exam
-
General: Appears Chronically Ill
Eyes: Negative No Ptosis (bilateral ptosis L>R)
HEENT: Normocephalic and Atraumatic
Respiratory: No Dyspnea
Cardiac: Negative Murmur
Skin: Other (RUE red/warm/scabs/ecchymosis/weeping)
Extremities: Edema +2
Psych: Depressed
Extended Neurological Exam
Mood & Affect: Depressed (tearful)
Attention Span & Concentration: Awake, Alert and Interactive
Memory: Unremarkable and Able to Recall
Tremor: Hand Tremor Absent and Head Tremor Absent
Involuntary Movement: None
Speech: Dysarthric
Cranial Nerve II: Left Eye: Pupillary Reactivity Unremarkable, Pupillary Size Unremarkable and Visual Cabezas Intact; Negative Resists Eye Opening Fully (reduced bilaterally L>R)
Cranial Nerve II: Right Eye: Pupillary Reactivity Unremarkable, Pupillary Size Unremarkable and Visual Cabezas Intact
Cranial Nerves III, IV, : Extraocular Movement: Extraocular Movement Full in all Directions, Ptosis on Left and Ptosis on Right
Cranial Nerve V: Facial Sensation: Intact to Light Touch
Cranial Nerve VII: Facial Symmetry: Normal Facial Symmetry
Cranial Nerve VIII: Hearing: Unremarkable Hearing to Normal Conversational Volume
Cranial Nerves IX, X: Palate Movement: Palate Elevation Symmetric
Cranial Nerve XI: Shoulder Shrug: Reduced on Right and Reduced on Left
Cranial Nerve XII: Tongue Protusion: Midline
Muscle Strength, Overall: Reduced Throughout (neck ext 3/5, neck flexion 4/5. LUE shoulder extension 4/5, DIANE RUE due to pain. BLE hip flexion 2/5)
Deep Tendon Reflexes: Unable to Assess (endorses pain, asked provider to stop testing)
Cold Sensation: Unremarkable
Vibration Sensation: Unremarkable
Touch Sensation: Double Simultaneous Stimulation Unremarkable
Coordination: [id number] Testing Unremarkable (LUE ) and Unable to Assess (RUE due to pain)
Babinski Sign: Absent Bilaterally
Gait & Station: Unable to Assess
Data Reviewed
-
Labs: Report Reviewed
Reviewed with: Physician and Patient
Medications
-
Active Medications
Generic Name Dose Route Start Last Admin
Trade Name Freq PRN Reason Stop Dose Admin
Acetaminophen 325 mg 03/30/24 15:11 03/31/24 18:03
Acetaminophen 325 Mg Tablet PO 04/27/24 15:59 325 mg
DAILY PRN Administration
IVIG pre medicate
Apixaban 10 mg 03/31/24 08:00 04/01/24 09:53
Apixaban (Eliquis) 5 Mg Tablet PO 04/06/24 20:01 Not Given
BID SÁNCHEZ
Aspirin 81 mg 03/30/24 22:00 03/30/24 23:43
Aspirin 81 Mg (Enteric Coated) Tablet PO 04/27/24 21:59 81 mg
Q48H SÁNCHEZ Administration
Atorvastatin Calcium 20 mg 03/30/24 22:00 03/30/24 23:42
Atorvastatin (Lipitor) 20 Mg Tablet PO 04/27/24 21:59 20 mg
QPM SÁNCHEZ Administration
Benzocaine/Menthol 1 lozenge 03/30/24 21:56
Benzocaine/Menthol Lozenge PO 04/27/24 21:55
Q4HPRN PRN
cough
Clotrimazole 1 applic 03/30/24 22:00 04/01/24 09:25
Clotrimazole 1% (Cream) 30 Gram Tube TOPICAL 04/27/24 21:59 1 applic
BID SÁNCHEZ Administration
Dextrose 12.5 grams 03/30/24 21:56
Dextrose 50% (0.5 Grams/Ml) 50 Ml Syringe IV 04/27/24 21:55
[id number] PRN
hypoglycemia
Protocol
Diphenhydramine HCl 25 mg 03/30/24 15:11 03/31/24 18:03
Diphenhydramine 25 Mg Capsule PO 04/27/24 15:59 25 mg
DAILY PRN Administration
IVIG pre medicate
Furosemide 40 mg 03/31/24 08:00 04/01/24 09:53
Furosemide 40 Mg (10 Mg/Ml) 4 Ml Vial IV 04/28/24 07:59 Not Given
DAILY SÁNCHEZ
Glucagon 1 mg 03/30/24 21:56
Glucagon 1 Mg Vial IM 04/27/24 21:55
PRN PRN
hypoglycemia
Protocol
Guaifenesin/Dextromethorphan 100 mg 03/30/24 21:56
Guaifenesin Dm (Sugar/Dye/Alcohol/Sodium Free) 10 Ml Cup PO 04/27/24 21:55
Q6HPRN PRN
cough
Insulin Glargine 12 units/ 0.12 mls @ 0 mls/hr 03/31/24 10:00 04/01/24 09:20
Device SC 04/28/24 09:59 0.12 mls
DAILY SÁNCHEZ Administration
As Directed
Daptomycin 800 mg/ Device 16 mls @ 0 mls/hr 03/31/24 14:00 03/31/24 16:13
IV 16 mls
Q24H SÁNCHEZ Administration
As Directed
Insulin Aspart 4 units 03/31/24 07:30 04/01/24 09:53
Insulin Aspart (100 Units/Ml) 3 Ml Flexpen SC 04/28/24 07:29 Not Given
AC SÁNCHEZ
Insulin Aspart 0 units 04/01/24 11:30
Insulin Aspart Moderate Resistance 300 Units/3 Ml Pen.Injctr SC 04/29/24 11:29
AC SÁNCHEZ
Protocol
Midodrine 5 mg 03/31/24 07:00 04/01/24 09:53
Midodrine 5 Mg Tablet PO 04/28/24 06:59 Not Given
BID@0700,1300 SÁNCHEZ
Multivitamins Therapeutic 1 tablet 03/31/24 08:00 04/01/24 09:53
Multivitamin Tablet PO 04/28/24 07:59 Not Given
DAILY SÁNCHEZ
Ondansetron HCl 4 mg 03/30/24 21:56
Ondansetron 4 Mg/2 Ml Vial IV 04/27/24 21:55
Q6HPRN PRN
nausea and vomiting
Oxycodone HCl 5 mg 03/30/24 21:56 04/01/24 09:23
Oxycodone 5 Mg Regular Release Tablet PO 04/13/24 21:55 5 mg
Q4HPRN PRN Administration
moderate pain
Pantoprazole Sodium 40 mg 03/30/24 21:56 04/01/24 09:53
Pantoprazole 40 Mg Delayed Release Tablet PO 04/27/24 21:55 Not Given
BID SÁNCHEZ
Potassium Chloride 10 meq 03/31/24 08:00 04/01/24 09:15
Potassium Chloride 10 Meq Extended Release Tablet PO 04/28/24 07:59 10 meq
DAILY SÁNCHEZ Administration
Prednisone 60 mg 04/01/24 09:00 04/01/24 09:15
Prednisone 20 Mg Tablet PO 04/29/24 08:59 60 mg
DAILY SÁNCHEZ Administration
Pyridostigmine Daniel 90 mg 03/31/24 00:00 04/01/24 06:08
Pyridostigmine 60 Mg Tablet PO 04/28/24 00:00 90 mg
Q6 SÁNCHEZ Administration
Sodium Chloride 0 flush 03/30/24 22:00 03/31/24 16:13
Sodium Chloride 0.9% (Flush) Syringe IV 04/27/24 21:59 2 flush
PER PROTOCOL SÁNCHEZ Administration
Trazodone HCl 50 mg 03/30/24 22:00 03/31/24 23:24
Trazodone 50 Mg Tablet PO 04/27/24 21:59 50 mg
HS SÁNCHEZ Administration
Home Medications
�Medication �Instructions �Recorded
aspirin 81 mg tablet,delayed 81 mg PO Q48H 03/21/24
release
atorvastatin 20 mg tablet (Lipitor) 20 mg PO QPM cholesterol #0 tabs 03/28/24
benzocaine 6 mg-menthol 10 mg 1 troy PO Q4HPRN PRN cough 30 days 03/28/24
lozenges (Chloraseptic Sore Throat) #1 packet
clotrimazole 1 % topical cream 1 applic topical BID moisture 03/28/24
(Athlete's Foot (clotrimazole)) associated skin rash,
buttocks/groins 30 days #25 grams
dextromethorphan-guaifenesin 10 5 ml PO Q6HPRN PRN cough 30 days 03/28/24
mg-100 mg/5 mL oral liquid #50 mL
(MAXTussin DM)
insulin aspart U-100 100 unit/mL 4 unit (0.04 mL) SC AC Diabetes 30 03/28/24
(3 mL) subcutaneous pen days #3.6 mL
midodrine 5 mg tablet 5 mg PO BID@0700,1300 orthostatic 03/28/24
Hypotension 30 days #60 tabs
pantoprazole 40 mg tablet,delayed 40 mg PO BID GERD 30 days #60 tabs 03/28/24
release (Protonix)
prednisone 20 mg tablet 60 mg (3 x 20 mg) PO DAILY 03/28/24
Myasthenia Gravis 30 days #90 tabs
pyridostigmine bromide 60 mg tablet 90 mg (1.5 x 60 mg) PO Q6 03/28/24
MYASTHENIA GRAVIS 30 days #180 tabs
therapeutic multivitamin 1 tab PO DAILY Supplement #0 tabs 03/28/24
trazodone 50 mg tablet 50 mg PO HS insomnia 30 days #30 03/28/24
tabs
potassium chloride 10 mEq 10 meq PO DAILY Electrolyte 03/29/24
tablet,extended Repletion 30 days #30 tabs
release(part/cryst) (Klor-Con M)
furosemide 20 mg tablet 20 mg PO DAILY swelling, chf 03/30/24
insulin glargine 100 unit/mL (3 12 unit SC DAILY 03/30/24
mL) subcutaneous pen (Lantus
Solostar U-100 Insulin)
[2024-04-01 09:05] LABS: Glycohemoglobin (HgbA1c) 6.8 % (4.0-5.6)
[2024-04-01] MEDS: KCL 10 MEQ PO (09:15)
[2024-04-01] MEDS: PROTONIX PO ×3 (09:15→20:26)
[2024-04-01] MEDS: ELIQUIS PO ×3 (09:15→20:24)
[2024-04-01] MEDS: DELTASONE 60 MG PO (09:15)
[2024-04-01] MEDS: LASIX IV ×2 (09:16→09:53)
[2024-04-01] MEDS: THERAGRAN PO ×2 (09:16→09:53)
[2024-04-01] MEDS: LANTUS 0.12 UNITS SC (09:20)
[2024-04-01] MEDS: ProAmatine PO ×3 (09:23→14:39)
[2024-04-01] MEDS: NOVOLOG FLEXPEN SC ×4 (09:24→16:49)
[2024-04-01] MEDS: LOTRIMIN 1% CREAM 1 APPLIC TOPICAL (09:25)
--- NOTE | 2024-04-01 09:50 | PTCARENOTE ---
pt refused all AM medications, and breakfast. accepted only PRN pain medication. Refusing wound care, refusing MRI. Pt states 'I cannot do this any longer. No more poking and prodding, no more tests' Pt is tearful. much support offered. This nurse
offered to call only contact on chart Sonia () but pt states 'she doesn't get it, she is slow, she can't remember'. Attending notified, palliative care consult. CB in reach, monitor pain
--- NOTE | 2024-04-01 10:50 | WOUNDNOTE ---
WON RN NOTE: Patient refusing consult, nurse Linda medicated for pain but still refused, wants comfort care. Nurse notified hospitalist. Patient known to service, last seen 03/06/24 with same skin tear wounds on extremities, reviewed wound care
with nurse for skin tears.
--- NOTE | 2024-04-01 11:39 | PTCARENOTE ---
attending and resident notified of changes on traffic monitor specialist pt appears to be going in and out of afib rate 110-130. Pt denies any s/s or palpitations. refusing vital signs, and EKG. is at bedside, expressed understanding of patients wishes.
reviewed code status. again, notified attending and resident. pt continues to refuse wound care, personal care, medications and food. offered Keeley, pt states he received communion yesterday.
--- NOTE | 2024-04-01 11:54 | W.PN.UPDATE ---
Update Note
Progress Note Update
Contacted at 11:09 AM regarding patient going in and out of A-fib on the monitor. EKG ordered but patient refused. Patient asked to have his CODE STATUS changed to DNR. The lyric writer met with the patient and confirmed his wishes to be made DNR.
CODE STATUS has been changed to DNR.
--- NOTE | 2024-04-01 12:42 | W.PN.ID1 ---
Date of Service
Date of Service: April 01, 2024
Today's Communication
Await conversations with hospice team.
Assessment / Plan
Suspected purulent cellulitis right upper extremity
Right upper extremity DVT (occlusive)
Leukocytosis
Thrombocytopenia
Elevated bilirubin
Hx MRSA
GERD
HTN
HLD
IDDM
Myasthenia Gravis on chronic steroids
Recommendations:
Right forearm wound culture without growth at present.
Patient currently declining further medical interventions, and wishes to talk to hospice.
Palliative care/hospice has been consulted. Patient is DNR.
Will continue to follow.
Chief Complaint
-: Cellulitis
Subjective / Review of Systems
Patient seen and examined. Patient reports that he is 'tired of living, and would just like to '. and daughter present in the room.
Vital Signs / Physical Exam
Vital Signs
Vital Signs
Temp Pulse Resp BP Pulse Ox
98.2 F 106 18 117/69 97
04/01/24 07:59 04/01/24 07:59 04/01/24 07:59 04/01/24 07:59 04/01/24 07:59
Physical Exam
Constitutional: Comfortable and Chronically Ill
Eyes: Sclera Anicteric
Pulmonary: Non Labored
Extremities: Edema
Neurological: Awake
Psychological: Calm
Objective Data
Lab Data
Lab Results
04/01/24 04:22
04/01/24 04:22
Estimated Creat Clear 66 ml/min 04/01/24 04:22
Total Bilirubin 1.7 mg/dl (0.2-1.3) H 04/01/24 04:22
AST 27 U/L (17-59) 04/01/24 04:22
ALT 29 U/L (0-50) 04/01/24 04:22
Alkaline Phosphatase 176 U/L (38-126) H 04/01/24 04:22
Most recent labs reviewed.
Micro Results:
03/31/24 13:15 Wound Culture - Preliminary
Arm - Right No growth
Gram Stain - Preliminary
03/30/24 17:23 Influenza Types A & B (RYLIE) - Final
Nasal Swab Negative for Influenza A & B, NAAT
Negative results must be combined with clinical observations
and patient history.
Nucleic Acid Amplification test (NAAT)performed on the
[employer] platform.
Imaging:
03/30/2024 Duplex ultrasound right upper extremity: Occlusive venous thrombus in the basilic vein in the upper two thirds of the right upper arm. Normal flow in the right brachial, cephalic, axillary, subclavian and internal jugular veins. Please
see full dictation for additional detail.
[2024-04-01 12:47] VITALS: BMI 24.7
--- NOTE | 2024-04-01 13:55 | RESPNOTE ---
Patient refused NIF, family at bedside
--- NOTE | 2024-04-01 14:02 | W.CON.PAL ---
Consultation
-
Date/Time Consultation Requested: 04/01
Date/Time Consultation Performed: 04/01
Requesting Provider: Prabhakar
Performing Provider: Ivis Spence
Reason for Consult: Goals of Care Discussion
Primary Diagnosis: MG flare
Related Diagnosis: heart failure, new afib, c/f embolic strokes, RUE DVT
Consult Requested By: Patient's Physician
Reason for Admission
Illness Course/HPI
73 year old M with PMH of myesthenia gravis dx 08/2023. Recent admission 03/04/24 through 03/16/24 with pancreatitis that was thought to be due to linezolid which he was taking for c/f osteomyelitis. Was switched to daptomycin x6 weeks. Course c/b
myasthenia gravis flare. Started on plasmapheresis per neuro. Received 2/5 treatments and unfortunately had to be stopped 2/2 anemia and thrombocytopenia requiring 7 units of platelets and 3 units of PRBCs. He was eventually discharged to [facility], completed his course at [facility] and was discharged 03/29/2024. Returned to ED 03/31 due to profound weakness and b/l LE edema as well as RUE pain and redness where PICC line was. Admitted for management of possible skin infection and MG flare.
Seen by neuro on admission - not many options for his MG flare. Opted to try IVIG and increased steroids/mestinon. Received one IVIG infusion and now recommending to stop due to prothrombotic effects as RUE ultrasound revealed RUE DVT. Neuro
recommending brain MRI to rule out embolic infarcts. Patient now declining further testing, interventions. States he is tired and it is 'between him and the Lord.'
Seen at bedside with spouse and daughter present. Patient is tearful, states he has been dealing with back and forth in the hospital, rehabs since his diagnosis in August. Initially was doing okay, had a gradual decline but over the last 2 months he
has had a steeper decline and is now pretty much bedbound and unable to walk. Developing pressure ulcer on sacrum. Tells me he is tired of being poked and prodded and doesnt want to do it anymore. Declines further testing including MRI. He is
thankful for the care he is receiving from the nurses.
Discussed with him and his family about hospice. They are open to this and request to speak with hospice nurse tomorrow afternoon so they have time to gather their thoughts and think of any questions they may have.
Patient is a DNR, changed today after new episodes of afib.
Goals of Care Discussion
-
Individuals Present for Discussion & Relationship to Patient:
see HPI
Patient able to participate in discussion at time of visit: Yes
Pain & Symptom Assessment
[place] Symptom Scale 0=none, 10=worst
Pain: 0
Tired: 5
Nausea: 0
Appetite: 3
Shortness of Breath: 0
Objective Data
-
Objective Data:
Vital Signs
Temp Pulse Resp BP Pulse Ox
98.2 F 106 18 117/69 97
04/01/24 07:59 04/01/24 07:59 04/01/24 07:59 04/01/24 07:59 04/01/24 07:59
Laboratory Results
04/01/24 04:22
04/01/24 04:22
Hemoglobin A1c 6.8 % (4.0-5.6) H 04/01/24 04:22
Total Protein 6.0 g/dl (6.3-8.2) L 04/01/24 04:22
Albumin 2.5 g/dl (3.5-5.0) L 04/01/24 04:22
Urine Color Yellow 03/31/24 02:16
Urine Clarity Clear (Clear) 03/31/24 02:16
Urine pH 6.0 (5.0-9.0) 03/31/24 02:16
Ur Specific [place] 1.015 (<1.030) 03/31/24 02:16
Urine Ketones Negative (Negative) 03/31/24 02:16
Urine Bilirubin Negative (Negative) 03/31/24 02:16
Palliative Performance Scale
Palliative Performance Scale:
PPS Level Ambulation Activity & Evidence of Disease Self Care Intake Conscious Level
100% Full Normal Activity & Work; Full Intake Full
No Evidence of Disease
90% Full Normal Activity & Work; Full Normal Full
Some Evidence of Disease
80% Full Normal Activity with Effort Full Normal or Full
Some Evidence of Disease Reduced
70% Reduced Unable Normal Job/Work Full Normal or Full
Significant Disease Reduced
60% Reduced Unable Hobby/Housework Occasional Normal or Full or Confusion
Significant Disease Assistance Reduced
50% Mainly Sit/Lie Unable to do Any Work Considerable Normal or Full or Confusion
Extensive Disease Assistance Req'd Reduced
40% Mainly in Bed Unable to do Most Activity Mainly Assistance Normal or Full or Drowsy;
Extensive Disease Reduced +/- Confusion
30% Totally Bed Unable to do Any Activity Total Care Normal or Full or Drowsy;
Bound Extensive Disease Reduced +/- Confusion
20% Totally Bed Bound Unable to do Any Activity Total Care Minimal to Full or Drowsy;
Extensive Disease Sips +/- Confusion
10% Totally Bed Bound Unable to do Any Activity Total Care Mouth Care Drowsy or Coma;
Extensive Disease Only +/- Confusion
0%
PPS Score Level:
Palliative Performance Score Response
Palliative Performance Score Response: 40%
Physical Exam
-
General: Appears Chronically Ill and Obese
HEENT: Normocephalic
Respiratory: Clear to Auscultation
Cardiac: Irregular Rhythm
Peripheral Vascular: Edema, Right Upper Extremity, Edema, Right Lower Extremity and Edema, Left Lower Extremity
GI: Soft and Normal Bowel Sounds
Skin: Warm, Lesions, Decubitus Ulcers and Ecchymosis
Neuro: AO x 3
Psych: Depressed
Assessment / Plan
-
Assessment/Plan:
73 year old male with myesthenia gravis admitted with flare, RUE DVT. In and out of the hospital over the last few months.
- patient interested in home hospice - agreeable to meet with nurse tomorrow PM
- family in agreement as well
- liaison, and CM aware
- will await outcome of hospice meeting tomorrow
- thankfully denies bothersome symptoms at this time
Care Reviewed
Data Reviewed
Chest X ray: Image Reviewed
Echocardiogram: Image Reviewed
Radiology procedure: Image Reviewed
Medical Tests: I reviewed
Reviewed with: Patient, Family and Physician
[2024-04-01] MEDS: MESTINON PO ×3 (14:38→23:23)
--- NOTE | 2024-04-01 15:29 | HOSPNOTE ---
Family and patient asked to meet with hospice tomorrow 04/02. I will meet with family at 1pm per their request. More information to follow after meeting.
[2024-04-01] MEDS: CUBICIN IV (15:37)
--- NOTE | 2024-04-01 17:32 | CM ---
Referral sent to Hospice.
Plan: Case management will continue to follow and assist with discharge planning. Hospice.
[2024-04-01 19:14] LABS: Hepatitis C Antibody Negative (Negative)
[2024-04-01] MEDS: LOTRIMIN 1% CREAM TOPICAL (20:25)
[2024-04-01] MEDS: DESYREL PO (21:13)
[2024-04-01] MEDS: ASPIR LOW (ENTERIC COATED) PO (21:13)
[2024-04-01] MEDS: ATIVAN 0.5 MG IV (22:47)
[2024-04-01] MEDS: NSS (PRESERVATIVE FREE) 0.25 ML IV (22:54)
[2024-04-01] MEDS: MORPHINE SULFATE 2 MG IV (23:11)
[2024-04-02] MEDS: MORPHINE SULFATE 2 MG IV ×2 (03:42→05:47)
[2024-04-02] MEDS: MESTINON PO ×2 (05:05→12:00)
[2024-04-02] MEDS: ATIVAN 0.5 MG IV (05:05)
[2024-04-02] MEDS: NOVOLOG FLEXPEN SC ×2 (07:19→12:00)
[2024-04-02] MEDS: ProAmatine PO ×2 (07:19→12:00)
[2024-04-02] MEDS: ELIQUIS PO (07:20)
[2024-04-02] MEDS: LASIX IV (07:20)
[2024-04-02] MEDS: LANTUS SC (07:20)
[2024-04-02] MEDS: KCL PO (07:20)
[2024-04-02] MEDS: DELTASONE PO (07:20)
[2024-04-02] MEDS: THERAGRAN PO (07:21)
[2024-04-02] MEDS: PROTONIX PO (07:21)
[2024-04-02] MEDS: LOTRIMIN 1% CREAM TOPICAL (07:21)
--- NOTE | 2024-04-02 08:05 | W.PN.UPDATE ---
Update Note
Progress Note Update
I saw and evaluated the patient. I reviewed the resident�s note and agree with findings and plan as documented in the resident�s note.
Patient sleeping
Gen: NAD, NCAT, appears chronically ill
Eyes: EOMI, PERRLA, no scleral icterus.
Neck: supple.
CV: tachycardic, reg rhythm, +S1/S2, no m/r/g.
Resp: remains CTAB anteriorly, no rales, wheezes, or rhonchi.
Abd: +BS, soft, NT, ND
Skin: RUE with superficial hematoma, other ecchymoses on arms
Neuro: sleeping
Psych: calm
CXR: Top normal heart size. Trace pleural effusions, diminished in size compared to prior examination. No significant vascular congestion. No evidence of pneumonia.
RUE U/S: Occlusive deep venous thrombosis in the basilic vein in the upper two thirds of the right upper arm
Acute myasthenia exacerbation:
-presented with weakness
-had plasma exchange last admission followed by thrombocytopenia/anemia and need for 7U platelets and 3U pRBC. Only received 2 of 5 planned exchanges.
-neuro and heme following
-was on IVIG which was stopped on 04/01/24 because, as per Dr. Grewal, IVIG can be prothrombotic (I do not see this in the literature). Neuro also recommending MRI brain for concern for embolic infarcts. Note that on echo 03/11/24 there was no
PFO/VSD. Pt refused MRI brain (in my opinion this test is unnecessary). Also, reports of afib from yesterday from nursing. Pt now off tele. On my review of tele strips pt with SVT, sinus tachy. P-waves seen on all strips in back of the physical
chart.
-was on Solumedrol/Mestinon. Pt refusing all meds at this time.
-NIF Q6H
Acute RUE DVT:
-Eliquis started
Chronic HFpEF:
-with acute on chronic B/L LE edema (likely due to prolonged Steroids/decreased motility/poor nutrition) was on IV Lasix, now refusing all meds
-daily wts, I/Os
-cont Tubigrip
Other problems (noting pt is refusing meds):
Anemia of chronic disease: Hb stable
Orthostatic hypotension: cont Midodrine with hold parameters
DM2: cont Lantus/premeal Novolog
HLD: cont statin
CAD s/p stents x 2 in 1997: cont ASA/statin
GERD: Cont PPI
Insomnia: cont trazodone
Hypokalemia, resolved
Chronic anemia
Chronic thrombocytopenia
Wounds/skin tears (POA): Stage I/II sacral decub, left arm skin tear, c/s wound care
h/o L hand MRSA osteomyelitis:
-h/o pancreatitis February 2024 secondary to Linezolid for left hand cellulitis
-Completed 6-week course of daptomycin on 03/17/2024 for left hand cellulitis/E. coli UTI via PICC line right upper extremity
-PICC line right upper extremity removed 03/17/2024 at [facility]
DNR/Eliquis
Patient's overall prognosis is extremely poor due to multiple, severe, active comorbidities (burden of pathology) in the setting of advanced age and poor functional status. Palliative care saw in c/s. Hospice to meet with the pt today. Family
updated at beside.
Total time spent on today's encounter was 50 minutes which included time spent in counseling the patient/family regarding diagnosis and treatment plan as listed above, goals of care, and symptom management. Case was discussed with nursing staff,
specialists, and care coordinators/case management. All labs and imaging personally reviewed by me. Remainder the time spent in detailed review of previous records, lab data, imaging, and other medical provider documentation.
--- NOTE | 2024-04-02 08:30 | W.PN.ONC2 ---
Today's Communication / Plan
-
.
Impression
Impression
Myasthenia gravis with flare
Right upper extremity PICC associated DVT -- s/p PICC removed 03/17/24
Thrombocytopenia worse after plasma exchange -carl 18,000. Improved to 119,000, currently 67,000
LEFT HAND infection with MRSA, Probable osteomyelitis
Pancreatitis February 2024 secondary to Linezolid for left hand cellulitis
Bilateral leg edema
anemia of chronic disease (HgB stable)
Chronic HFpEF with exacerbation
type 2 diabetes mellitus
CAD/cardiac stents x [address] [place] [address]
GERD
Hepatic cirrhosis�nonalcoholic
Chronic bilateral renal disease
coagulopathy/DIC
Plan
Plan
Continue anticoagulation for symptomatic RUE DVT with 03/30 RUE US showing occlusive deep venous thrombosis in the basilic vein in the upper two thirds of the right upper arm with finite course of 3 months. I would discontinue if any evidence of
bleeding or if platelets <50,0000 since there is a low risk of embolization as this is a PICC associated thrombosis and the PICC has been removed.
Cryo prn bleeding with fibrinogen <150, ffp prn bleeding with INR >1.5, platelet transfusion prn bleeding
Palliative care consult with plan to meet with hospice today noted
Subjective/Objective
Subjective
no new complaints
no bleeding
currently declining multiple therapies
Vital Signs:
Vital Signs
Temp Pulse Resp BP Pulse Ox
98.2 F 106 18 117/69 97
04/01/24 07:59 04/01/24 07:59 04/01/24 07:59 04/01/24 07:59 04/01/24 07:59
Lab Results:
Laboratory Data
WBC 11.9 10^3/uL (4.8-10.8) H 04/01/24 04:22
Hgb 8.1 g/dL (13.0-18.0) L 04/01/24 04:22
Plt Count 72 10^3/uL (130-400) L 04/01/24 04:22
eGFR > 60.00 04/01/24 04:22
--- NOTE | 2024-04-02 09:28 | VATNOTE ---
No blood return from either lumen of PICC line. Will discuss with RHODA and .
--- NOTE | 2024-04-02 09:57 | W.PN.HOSP.TC ---
Today's Communication/Plan
-
Patient continues to refuse all medications and studies. Patient and his family are deciding current goals of treatment. We will wait for the patient and family to make their decision.
Assessment / Plan
Assessment / Plan
Asessment/Plan:
-Acute myasthenia exacerbation:
presented with weakness
had plasma exchange last admission followed by thrombocytopenia/anemia and need for 7 units of platelets and 3 units of PRBCs. Only received 2 of 5 planned exchanges.
Appreciate neurology and hematology input
IVIG stopped - Dr Grewal recommend stopping IVIG because it can be prothrombotic.
Continue Solu-Medrol/Mestinon
Neurology recommends brain MRI for concern of embolic infarcts.
There was no PFO seen on echo conducted on 03/11/2024
PFT NIF every 6 hours
Palliative care consulted due to poor prognosis as a consequence of multiple severe active comorbidities in the setting of advanced age and poor functional status.
-Acute RUE DVT:
Continue Eliquis
-Chronic HFpEF:
Presented with acute on chronic B/L LE edema (likely due to prolonged Steroids/decreased motility/poor nutrition) cont IV Lasix
Follow daily weights + I's and O's -
Continue Tubigrip pressure stockings
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
History of pancreatitis February 2024 secondary to Linezolid for left hand cellulitis
Completed 6-week course of daptomycin on 03/17/2024 for left hand cellulitis/E. coli UTI via PICC line right upper extremity
PICC line right upper extremity removed 03/17/2024 at [facility]
-Anemia of chronic disease: Stable
Hb stable
-Orthostatic hypotension: Stable/monitoring
Continue midodrine with hold parameters MAP <65 or SBP <100
-Type 2 diabetes mellitus: Stable/monitoring
Continue Lantus/premeal Novolog
-Hyperlipidemia: Stable/monitoring
Continue statin
-Coronary artery disease s/p stents x 2 in 1997:
Continue ASA/statin
-GERD:
Continue PPI
-Insomnia:
Continue trazodone
-Hypokalemia:
resolved
-Chronic anemia
-Chronic thrombocytopenia
-Wounds/skin tears:
Stage I/II sacral decubitus ulcer, left arm skin tear, c/s wound care
Wound team continues to follow
FULL CODE STATUS
DVT Prophylaxis: Eliquis
Anticipated Discharge: > 48 hours
Anticipated Discharge: 24 - 48 hours
Subjective/Interval History
-
Met with patient at the bedside. Initially sleeping in bed but stopped by again later when patient was awake. Ongoing discussions continue with the patient and his family over whether comfort care or hospice would be best for the patient.
Objective Data
-
Labs:
Patient refused lab draws on 04/02/2024
Vital Signs:
Vital Signs
Temp Pulse Resp BP Pulse Ox
98.2 F 106 18 117/69 97
04/01/24 07:59 04/01/24 07:59 04/01/24 07:59 04/01/24 07:59 04/01/24 07:59
I&O
04/01/24 04/02/24 04/03/24
06:59 06:59 06:59
Intake Total 1680 / 1680 240 / 240
Output Total 350 / 350
Balance 1330 / 1330 240 / 240
Review of Systems
-
History Source: Patient
Constitutional: Reports Fatigue and Weakness
EENT: Reports Mouth Pain
Respiratory: Reports No Symptoms
Cardiac: Reports No Symptoms
Abdomen/GI: Reports No Symptoms
Breast: Reports No Symptoms
Genitourinary: Reports No Symptoms
Musculoskeletal: Reports Muscle Pain, Muscle Stiffness and Muscle Weakness
Skin: Reports Sores
Neuro: Reports No Symptoms
Endocrine: Reports No Symptoms
Hematologic / Lymphatic: Reports No Symptoms
Allergy / Immunology: Reports No Symptoms
Physical Exam
-
General: Well Developed and No Apparent Distress
HEENT: Normocephalic, Atraumatic, Moist Mucous Membranes and Anicteric
Respiratory: Clear to Auscultation
Cardiac: S1/S2; Negative Murmur or JVD
Breast: Deferred by me
GI: Soft, Nontender and Normal Bowel Sounds
Rectal: Deferred by Provider
Genito-urinary: Deferred by me
Skin: Lesions and Other (Ecchymosis scattered throughout body)
Neuro: Awake, Alert, Oriented and AO x 3
Psych: Calm
[2024-04-02] MEDS: CATHFLO/ACTIVASE 2 MG INTRACATH (10:08)
--- NOTE | 2024-04-02 11:09 | VATNOTE ---
CathFlo given as ordered. Both lumens now flush easily and have brisk blood return. Family at bedside refusing labs to be drawn. made aware.
--- NOTE | 2024-04-02 13:40 | HOSPNOTE ---
Spoke with family we will admit patient inpatient hospice today. Admissions was called and Attending in agreement with plan. Patient will be moved to [facility].
--- NOTE | 2024-04-02 14:34 | CM ---
Patient admitting to hospice today, per Hospice note. No further needs from CM.
Plan: Case management will continue to follow and assist with discharge planning. Home with Hospice.
--- NOTE | 2024-04-02 15:59 | W.PN.ID1 ---
Date of Service
Date of Service: April 02, 2024
Today's Communication
Sign off
Assessment / Plan
Suspected purulent cellulitis right upper extremity
Right upper extremity DVT (occlusive)
Leukocytosis
Thrombocytopenia
Elevated bilirubin
Hx MRSA
GERD
HTN
HLD
IDDM
Myasthenia Gravis on chronic steroids
Recommendations:
Family has just met with hospice plan administrator, and will be transition to inpatient hospice presently. Emotional support offered to family.
Antibiotics to be discontinued (he has been refusing antibiotics).
Little more to offer from a Infectious Diseases standpoint.
Will see again at your request.
Chief Complaint
-: Cellulitis
Vital Signs / Physical Exam
Vital Signs
Vital Signs
Temp Pulse Resp BP Pulse Ox
98.2 F 106 18 117/69 97
04/01/24 07:59 04/01/24 07:59 04/01/24 07:59 04/01/24 07:59 04/01/24 07:59
Physical Exam
Constitutional: Comfortable and Chronically Ill
Pulmonary: Non Labored
Psychological: Calm
Objective Data
Lab Data
Estimated Creat Clear 66 ml/min 04/01/24 04:22
Total Bilirubin 1.7 mg/dl (0.2-1.3) H 04/01/24 04:22
AST 27 U/L (17-59) 04/01/24 04:22
ALT 29 U/L (0-50) 04/01/24 04:22
Alkaline Phosphatase 176 U/L (38-126) H 04/01/24 04:22
Most recent labs reviewed.
Micro Results:
03/31/24 13:15 Wound Culture - Preliminary
Arm - Right No growth
Gram Stain - Preliminary
03/30/24 17:23 Influenza Types A & B (RYLIE) - Final
Nasal Swab Negative for Influenza A & B, NAAT
Negative results must be combined with clinical observations
and patient history.
Nucleic Acid Amplification test (NAAT)performed on the
[employer] platform.
Imaging:
03/30/2024 Duplex ultrasound right upper extremity: Occlusive venous thrombus in the basilic vein in the upper two thirds of the right upper arm. Normal flow in the right brachial, cephalic, axillary, subclavian and internal jugular veins. Please
see full dictation for additional detail.
== END 2024-04-02 14:54 | disposition hospice, inpatient (51) | DRG 57 ==
LOC: 3 WEST ACU 16:39
PROVIDERS: Clinical Nurse Specialist Family Health; Emergency Medicine; ADMITTING PHYSICIAN Internal Medicine; ATTENDING PHYSICIAN Internal Medicine; CONSULT PHYSICIAN Internal Medicine Hematology & Oncology; CONSULT PHYSICIAN Internal Medicine Infectious Disease; CONSULT PHYSICIAN Nurse Practitioner Gerontology; CONSULT PHYSICIAN Psychiatry & Neurology Clinical Neurophysiology; EMERGENCY PHYSICIAN Student in an Organized Health Care Education/Training Program; FAMILY PHYSICIAN Internal Medicine
DX: G70.01 Myasthenia gravis with (acute) exacerbation (principal); T82.868A Thrombosis due to vascular prosthetic devices, implants and grafts, initial encounter; I82.611 Acute embolism and thrombosis of superficial veins of right upper extremity; L03.113 Cellulitis of right upper limb; I50.32 Chronic diastolic (congestive) heart failure; D69.6 Thrombocytopenia, unspecified; D63.8 Anemia in other chronic diseases classified elsewhere; I11.0 Hypertensive heart disease with heart failure; I95.1 Orthostatic hypotension; E11.649 Type 2 diabetes mellitus with hypoglycemia without coma; E78.00 Pure hypercholesterolemia, unspecified; I25.10 Atherosclerotic heart disease of native coronary artery without angina pectoris; Z95.5 Presence of coronary angioplasty implant and graft; K21.9 Gastro-esophageal reflux disease without esophagitis; G47.00 Insomnia, unspecified; E87.6 Hypokalemia; S41.112A Laceration without foreign body of left upper arm, initial encounter; L89.152 Pressure ulcer of sacral region, stage 2; Y71.8 Miscellaneous cardiovascular devices associated with adverse incidents, not elsewhere classified; Z79.52 Long term (current) use of systemic steroids; Z86.14 Personal history of Methicillin resistant Staphylococcus aureus infection; Z79.899 Other long term (current) drug therapy; K74.60 Unspecified cirrhosis of liver; N28.9 Disorder of kidney and ureter, unspecified; Z11.52 Encounter for screening for COVID-19; Z96.651 Presence of right artificial knee joint; Z79.82 Long term (current) use of aspirin; Z79.4 Long term (current) use of insulin; Z66 Do not resuscitate; B35.3 Tinea pedis; I48.91 Unspecified atrial fibrillation
CPT/HCPCS: 71045; 71046; 80053; 81003; 81015; 82077; 82962; 83036; 85025; 86803; 87070; 87205; 87502; 87811; 93005; 93971; 97163; 97167; 99285; J0878; J1569; J2997

== ENCOUNTER 2024-04-02 15:06 | Inpatient (IN) | payer OTHER, SELFPAY ==
--- NOTE | 2024-04-02 14:00 | CHAP ---
Fr. Inocencio Doherty of [facility] in [place] gave Víctor the Sacrament of the Sick and an Apostolic Pardon. Exact time uncertain.
--- NOTE | 2024-04-02 16:15 | W.DCSUMMARY ---
Addendum entered and electronically signed by Chelsea Ardon MD, Resident 04/05/24 12:17:
ADDENDUM:
DATE OF SERVICE: Admission on 03/30/24, Discharge to Hospice on 04/02/24
Original Note:
Discharge Summary
Discharge Data
Date of Admission: 04/02/24
Date of Discharge: 04/02/24
-
Pending Results: No
Hospital Course
Patient is a 73-year-old male who was previously admitted to [facility] from 03/04/2024 through 03/16/2024. Prior to that admission, he was on linezolid for left hand infection with MRSA and possible osteomyelitis. At that time, he presented
with pancreatitis that was thought to be due to linezolid and therefore was switched to IV daptomycin following infectious diseases input. The patient's pancreatitis resolved but the patient became weak with a myasthenia gravis flare. Neurology
was consulted and the patient was started on a plasma exchange. The patient received 2 of 5 planned therapy but unfortunately due to the plasma exchange she developed anemia and thrombocytopenia. He required 7 units of platelets and 3 units of
PRBCs for transfusion. He developed fever during that hospitalization and was diagnosed with a UTI. The patient was converted over to cephalexin after completing his daptomycin course. On 03/17/2024 his PICC line was removed and he was subsequently
discharged to [facility]. He completed his course at [place] and was discharged on 03/29/2024. Unfortunately, the patient returned to [facility] as he was too weak to get out of bed and unable to stand following his discharge from [facility]. He
complained of ongoing edema of his bilateral lower legs from the knees down and redness of his right arm where the PICC line was. The redness on his arm was exceedingly tender to touch and he had a cough productive of yellow phlegm. The patient
denied fever, chills, chest pain, shortness of breath, nausea, vomiting, diarrhea, or urinary symptoms. The patient was subsequently admitted to [facility] for acute myasthenia gravis exacerbation.
IVIG was stopped, solu-medrol was given. Neurology reccomended getting an MRI for concern of embolic infarcts. PFT NIF every 6 hours. Palliative care was consulted due to poor prognosis as a consequence of multiple severe active comorbidities in the
setting of advanced age and poor functional status. The remainder of his home medications were continued. On 04/01/24 the patient met with Hospice and goals of care were discussed. Patient chose to change his code status to DNR. That same day the
patient chose to decline his medications or further lab draws. The patient and family decided to opt for inpatient hospice on 04/02/24.
The patient was discharged to the inpatient hospice service on 04/02/24 with the goal of care centered on maintaining the patient's comfort and dignity.
Discharge Plan
-
Referrals:
UNKNOWN - PT DOES,NOT KNOW [Family Provider] -
Prescriptions:
No Action
aspirin 81 mg Tablet,Delayed Release (Dr/Ec)
81 mg PO Q48H
insulin glargine [Lantus Solostar U-100 Insulin] 100 unit/mL (3 mL) Insulin Pen
12 unit SC DAILY
Patient Comments:
03/30/24: Dose depends on blood sugar, spouse unsure of dose range.
furosemide 20 mg tablet
20 mg PO DAILY
Chloraseptic Sore Throat 6-10 mg Lozenge
1 troy PO Q4HPRN PRN (Reason: cough) 30 Days Qty: 1 0RF
trazodone 50 mg Tablet
50 mg PO HS 30 Days Qty: 30 0RF
clotrimazole [Athlete's Foot (clotrimazole)] 1 % Cream
1 applic topical BID 30 Days Qty: 25 0RF
midodrine 5 mg Tablet
5 mg PO BID@0700,1300 30 Days Qty: 60 0RF
dextromethorphan-guaifenesin [MAXTussin DM] 10-100 mg/5 mL Liquid
5 ml PO Q6HPRN PRN (Reason: cough) 30 Days Qty: 50 0RF
atorvastatin [Lipitor] 20 mg Tablet
20 mg PO QPM Qty: 0 0RF
insulin aspart U-100 100 unit/mL (3 mL) Insulin Pen
4 unit SC AC 30 Days Qty: 3.6 0RF
prednisone 20 mg Tablet
60 mg PO DAILY 30 Days Qty: 90 0RF
pantoprazole [Protonix] 40 mg Tablet,Delayed Release (Dr/Ec)
40 mg PO BID 30 Days Qty: 60 0RF
pyridostigmine bromide 60 mg Tablet
90 mg PO Q6 30 Days Qty: 180 0RF
therapeutic multivitamin Tablet
1 tab PO DAILY Qty: 0 0RF
potassium chloride [Klor-Con M10] 10 mEq tablet,ER particles/crystals
10 meq PO DAILY 30 Days Qty: 30 0RF
Discharge Date and Time
Print Language: DOMINICAN
[2024-04-02] MEDS: MORPHINE SULFATE 1 MG IV ×2 (16:33→18:40)
--- NOTE | 2024-04-02 17:18 | ADM.HSP ---
Admission - Hospice
History of Present Illness
Patient is a 73-year-old male who was previously admitted to [facility] from 03/04/2024 through 03/16/2024. Prior to that admission, he was on linezolid for left hand infection with MRSA and possible osteomyelitis. At that time, he presented
with pancreatitis that was thought to be due to linezolid and therefore was switched to IV daptomycin following infectious diseases input. The patient's pancreatitis resolved but the patient became weak with a myasthenia gravis flare. Neurology
was consulted and the patient was started on a plasma exchange. The patient received 2 of 5 planned therapy but unfortunately due to the plasma exchange she developed anemia and thrombocytopenia. He required 7 units of platelets and 3 units of
PRBCs for transfusion. He developed fever during that hospitalization and was diagnosed with a UTI. The patient was converted over to cephalexin after completing his daptomycin course. On 03/17/2024 his PICC line was removed and he was subsequently
discharged to [place] [facility]. He completed his course at [place] and was discharged on 03/29/2024. Unfortunately, the patient returned to [facility] as he was too weak to get out of bed and unable to stand following his discharge from [place]. He
complained of ongoing edema of his bilateral lower legs from the knees down and redness of his right arm where the PICC line was. The redness on his arm was exceedingly tender to touch and he had a cough productive of yellow phlegm. The patient
denied fever, chills, chest pain, shortness of breath, nausea, vomiting, diarrhea, or urinary symptoms. The patient was subsequently admitted to [facility] for acute myasthenia gravis exacerbation.
IVIG was stopped, solu-medrol was given. Neurology reccomended getting an MRI for concern of embolic infarcts. PFT NIF every 6 hours. Palliative care was consulted due to poor prognosis as a consequence of multiple severe active comorbidities in the
setting of advanced age and poor functional status. The remainder of his home medications were continued. On 04/01/24 the patient met with Hospice and goals of care were discussed. That same day the patient chose to decline his medications or further
lab draws. The patient and family decided to opt for inpatient hospice on 04/02/24.
The patient was admitted to the inpatient hospice service on 04/02/24 with the goal of care centered on maintaining the patient's comfort and dignity.
Reason for Hospice Admission
Acute myasthenia exacerbation, multiple severe active comorbidities (burden of pathology) in the setting of advanced age and poor functional status
Review of Systems
History Source: Patient
Constitutional: Fatigue and Weakness
Respiratory: No Symptoms
Cardiac: No Symptoms
GI: No Symptoms
Breast: No Symptoms
Genito-Urinary: No Symptoms
Skin: Sores and Other (Numerous eccymosis throughout the body)
Neuro: No Symptoms
Hematologic / Lymphatic: Bleeding and Bruising
Physical Exam
General: Appears Chronically Ill and Obese
Respiratory: Clear to Auscultation
Cardiology: S1/S2
Breast: Deferred by me
GI: Normal Bowel Sounds
Rectal: Deferred by Provider
Genito-Urinary: Deferred by Provider
Musculoskeletal: No Clubbing
Skin: IV Access/Catheter Site and Other (Ecchymosis throughout)
Neuro: Awake and Alert
Psych: Calm
Assessment/Medication Plan
Generic Name Dose Route Start Last Admin
Trade Name Freq PRN Reason Stop Dose Admin
Acetaminophen 650 mg 04/02/24 16:05
Acetaminophen 325 Mg Tablet PO 04/30/24 16:04
Q4HPRN PRN
mild pain, ALBERTS, or temp >100.4F
Bisacodyl 10 mg 04/02/24 16:05
Bisacodyl 10 Mg Rectal Suppository RECTAL 04/30/24 16:04
DAILYPRN PRN
if no BM for 3 days
Hyoscyamine Sulfate 0.125 mg 04/02/24 16:05
Hyoscyamine Sulfate 0.125 Mg/Ml In Oral Syringe SL 04/30/24 16:04
Q4HPRN PRN
excessive secretions
Morphine Sulfate/Sodium Chloride 100 mg in 100 mls @ 0 mls/hr 04/02/24 16:15
Morphine IV
PER PROTOCOL SÁNCHEZ
Protocol
Per Protocol
Lorazepam 0.5 mg 04/02/24 16:40
Lorazepam 2 Mg/Ml Vial IV 04/30/24 16:39
Q2HPRN PRN
anxiety
Protocol
Morphine Sulfate 1 mg 04/02/24 16:05 04/02/24 16:33
Morphine 2 Mg/Ml Syringe IV 04/16/24 16:04 1 mg
Q1HPRN PRN Administration
moderate-severe pain / dyspnea
Morphine Sulfate 0 mg 04/02/24 16:05
Morphine 2 Mg/Ml Syringe IV 04/16/24 16:04
[id number] PRN
moderate-severe pain / dyspnea
Protocol
Ondansetron HCl 4 mg 04/02/24 16:05
Ondansetron 4 Mg/2 Ml Vial IV 04/30/24 16:04
Q6HPRN PRN
nausea/vomiting
Pharmacy Profile Note 0 unit 04/02/24 17:[address] 1 Unit IV 04/30/24 16:59
DIRECTED SÁNCHEZ
Sodium Chloride 0.25 ml 04/02/24 16:40
Nss (Pf) 10 Ml Vial For Ativan 0.5 Mg Dose IV 04/30/24 16:39
Q2HPRN PRN
IV LORAZEPAM DILUTION
Sodium Chloride 0 flush 04/02/24 17:00
Sodium Chloride 0.9% (Flush) Syringe IV 04/30/24 16:59
PER PROTOCOL SÁNCHEZ
[2024-04-02] MEDS: ATIVAN 0.5 MG IV (18:39)
[2024-04-02] MEDS: NSS (PRESERVATIVE FREE) 0.25 ML IV (18:40)
[2024-04-02 19:37] VITALS: BP 139/78
--- NOTE | 2024-04-03 02:53 | DOWNTIME ---
There was a [employer] Downtime on 04/03/2024 from 0100 to 04/03/2023 at 0235 . Downtime documentation of patient's care, including medication administrations, has been reconciled in the electronic record per guidelines. Refer to the
patient's paper chart under the miscellaneous tab to see printed paper medication records and downtime forms.
[2024-04-03] MEDS: MORPHINE SULFATE 1 MG IV ×3 (05:33→23:57)
[2024-04-03] MEDS: ATIVAN 0.5 MG IV ×2 (05:36→14:54)
[2024-04-03] MEDS: NSS (PRESERVATIVE FREE) 0.25 ML IV (05:36)
[2024-04-03 07:29] VITALS: BP 131/62
--- NOTE | 2024-04-03 07:32 | W.PN.HOSP.TC ---
Today's Communication/Plan
-
Patient seen resting comfortably in bed asleep. Family is thankful for the treatment and support given. We will continue to maintain the comfort and dignity of this patient.
Assessment / Plan
Assessment / Plan
Assessment/Plan:
Ensure Comfort and Dignity of Patient:
IV morphine as needed given for pain. Oral acetaminophen as needed.
IV Ativan as needed given for anxiety
Bisacodyl as needed for constipation
Ondansetron as needed for nausea
Hyoscyamine for excessive oral secretions
Cleaning and hygiene to maintain the dignity of the patient
Emotional support and counseling for patient and family
CODE STATUS: DNR
Anticipated Discharge: > 48 hours
Subjective/Interval History
-
Met with patient at the bedside. Patient is resting comfortably in bed. Mouth open and breathing. [id number] was at the bedside and emotional support was given to family.
Objective Data
-
Labs:
No lab draws for hospice patient
Vital Signs:
Vital Signs
Temp Pulse Resp BP Pulse Ox
100.1 F 125 18 131/62 94
04/03/24 07:29 04/03/24 07:29 04/03/24 07:29 04/03/24 07:29 04/03/24 07:29
Review of Systems
-
Unable to obtain full review of systems at this time due to: Acuity
Physical Exam
-
General: Well Developed, No Apparent Distress and Comfortable
HEENT: Normocephalic and Atraumatic
Respiratory: Non Labored Respirations
Cardiac: S1/S2
Breast: Deferred by me
GI: Soft, Nontender, Nondistended and Normal Bowel Sounds
Rectal: Deferred by Provider
Genito-urinary: Deferred by me
Musculoskeletal: No Clubbing and No Cyanosis
Skin: Other (Ecchymosis diffusely spread throughout the body)
--- NOTE | 2024-04-03 09:21 | W.PN.UPDATE ---
Update Note
Progress Note Update
I saw and evaluated the patient. I reviewed the resident�s note and agree with findings and plan as documented in the resident�s note.
Patient unresponsive.
Gen: NAD, NCAT, appears chronically ill
CV: tachycardic, reg rhythm, occasional premature beats, +S1/S2, no m/r/g.
Resp: CTAB anteriorly, no rales, wheezes, or rhonchi.
Abd: hypoactive BS, soft, NT, ND
Skin: RUE with superficial hematoma, other ecchymoses/purpura on arms/chest
Neuro: unresponsive
Psych: calm
Patient is on inpatient hospice for acute myasthenic exacerbation and chronic heart failure with preserved ejection fraction. Continue inpatient hospice care with Ativan and morphine as needed. Will progress to morphine drip if indicated. Family
updated at bedside.
From 04/02/24:
CXR: Top normal heart size. Trace pleural effusions, diminished in size compared to prior examination. No significant vascular congestion. No evidence of pneumonia.
RUE U/S: Occlusive deep venous thrombosis in the basilic vein in the upper two thirds of the right upper arm
Acute myasthenia exacerbation:
-presented with weakness
-had plasma exchange last admission followed by thrombocytopenia/anemia and need for 7U platelets and 3U pRBC. Only received 2 of 5 planned exchanges.
-neuro and heme following
-was on IVIG which was stopped on 04/01/24 because, as per Dr. Grewal, IVIG can be prothrombotic (I do not see this in the literature). Neuro also recommending MRI brain for concern for embolic infarcts. Note that on echo 03/11/24 there was no
PFO/VSD. Pt refused MRI brain (in my opinion this test is unnecessary). Also, reports of afib from yesterday from nursing. Pt now off tele. On my review of tele strips pt with SVT, sinus tachy. P-waves seen on all strips in back of the physical
chart.
-was on Solumedrol/Mestinon. Pt refusing all meds at this time.
-NIF Q6H
Acute RUE DVT:
-Eliquis started
Chronic HFpEF:
-with acute on chronic B/L LE edema (likely due to prolonged Steroids/decreased motility/poor nutrition) was on IV Lasix, now refusing all meds
-daily wts, I/Os
-cont Tubigrip
Other problems (noting pt is refusing meds):
Anemia of chronic disease: Hb stable
Orthostatic hypotension: cont Midodrine with hold parameters
DM2: cont Lantus/premeal Novolog
HLD: cont statin
CAD s/p stents x 2 in 1997: cont ASA/statin
GERD: Cont PPI
Insomnia: cont trazodone
Hypokalemia, resolved
Chronic anemia
Chronic thrombocytopenia
Wounds/skin tears (POA): Stage I/II sacral decub, left arm skin tear, c/s wound care
h/o L hand MRSA osteomyelitis:
-h/o pancreatitis February 2024 secondary to Linezolid for left hand cellulitis
-Completed 6-week course of daptomycin on 03/17/2024 for left hand cellulitis/E. coli UTI via PICC line right upper extremity
-[facility] right upper [facility] [facility]
--- NOTE | 2024-04-03 10:16 | HOSPNOTE ---
Addendum entered by Steffanie Puente RN 04/03/24 12:00:
Discharge planning in progress
Original Note:
Patient assessed in bed, non responsive and actively dying. Breathing is unlabored and regular. Pulse oximetry on room air 88% currently. Mouth care only. Patient has had 2 prn lorazepam and 3 prn morphine doses in the last 24 hours. Currently flacc
is mild for tenseness. SN met with daughter Abhilash. Discussed current status, what to look for as he gets closer to dying. She is aware that patient could pass at any time. Encouraged to have anyone come that needs to see him. All questions answered
and emotional support provided. Vitals 100.1, pulse 124 irregular, resp 20 bp 131/62. Patient requires GIP status as he need IV medications for comfort, unable to be managed at home.
--- NOTE | 2024-04-03 12:57 | CM ---
Patient chart reviewed
[facility] hospice
CM available for emotional support
PLAN: Inpatient Hospice
--- NOTE | 2024-04-03 18:17 | HOSPNOTE ---
Víctor was sleeping peacefully, non-responsive. He did not appear to be in pain. Spouse, Sonia, was present, along with two of Víctor's daughters. They shared background about Víctor, a Yazidi, anointed by Fr. Doherty recently. Microfilm Camera Operator provided
emotional and spiritual support through presence and dialogue. Will continue support through weekly visits, and will also check in on the weekend.
[2024-04-03 19:15] VITALS: BP 118/97
[2024-04-04] MEDS: NSS (PRESERVATIVE FREE) 0.25 ML IV (02:02)
[2024-04-04] MEDS: ATIVAN 0.5 MG IV (02:02)
[2024-04-04] MEDS: MORPHINE SULFATE 1 MG IV ×4 (02:03→22:19)
--- NOTE | 2024-04-04 07:40 | W.PN.HOSP.TC ---
Today's Communication/Plan
-
Patient seen resting comfortably in bed asleep. Respirations are slightly slower with more pauses in-between. Emotional support given to the family. Family is thankful for the treatment and support given. We will continue to maintain the comfort
and dignity of this patient.
Assessment / Plan
Assessment / Plan
Assessment/Plan:
Ensure Comfort and Dignity of Patient:
IV morphine as needed given for pain. Oral acetaminophen as needed.
IV Ativan as needed given for anxiety
Bisacodyl as needed for constipation
Ondansetron as needed for nausea
Hyoscyamine for excessive oral secretions
Cleaning and hygiene to maintain the dignity of the patient
Emotional support and counseling for patient and family
CODE STATUS: DNR
Anticipated Discharge: Within 24 hours
Subjective/Interval History
-
Date of Service: April 04, 2024
Met with patient at the bedside. He remains in bed sleeping with his mouth open. He is breathing comfortably and there are no excessive oral secretions. Emotional support given to the family.
Objective Data
-
Labs:
Labs will not be drawn for this hospice patient
Vital Signs:
Vital Signs
Temp Pulse Resp BP Pulse Ox
97.7 F 135 17 118/97 88
04/03/24 19:15 04/03/24 19:15 04/03/24 19:15 04/03/24 19:15 04/04/24 00:00
Review of Systems
-
Unable to obtain full review of systems at this time due to: Patient Non-verbal
Physical Exam
-
General: Well Developed and Comfortable
HEENT: Normocephalic and Atraumatic
Respiratory: Clear to Auscultation and Non Labored Respirations
Cardiac: S1/S2; Negative Murmur or Rub
Breast: Deferred by me
GI: Normal Bowel Sounds
Rectal: Deferred by Provider
Genito-urinary: Deferred by me
Musculoskeletal: No Clubbing and No Cyanosis
--- NOTE | 2024-04-04 08:04 | W.PN.UPDATE ---
Update Note
Progress Note Update
I saw and evaluated the patient. I reviewed the resident�s note and agree with findings and plan as documented in the resident�s note.
Patient unresponsive.
Gen: NAD, NCAT, appears chronically ill
CV: remains tachycardic, reg rhythm, occasional premature beats, +S1/S2, no m/r/g.
Resp: CTAB anteriorly, no rales, wheezes, or rhonchi.
Abd: +BS, soft, NT, ND
Neuro: unresponsive
Psych: calm
Patient is on inpatient hospice for acute myasthenic exacerbation and chronic heart failure with preserved ejection fraction. Continue inpatient hospice care with Ativan and morphine as needed. Will progress to morphine drip if indicated. Family
updated at bedside.
[2024-04-04 08:06] VITALS: BP 143/95
--- NOTE | 2024-04-04 09:59 | HOSPNOTE ---
State Farm Agent met with 73 year old patient at [facility] Level of Care at [facility] due to diagnosis of Mysthenia Gravis. Patient sister Leandra was in the room with patient. Patient was asleep and did not engage with STATE FARM AGENT as she spoke with
patient. Leandra reports that patient's Sonia will be visiting the patient sometime today. Leandra reports that patient is more comfortable since being in [facility]. STATE FARM AGENT inquired if family needed anything at this time and was informed that family
doesn't need anything. STATE FARM AGENT advised Leandra to notify the hospital staff and hospice staff if the family needs change. STATE FARM AGENT made outreach to patient's Sonia to introduce herself and discuss STATE FARM AGENT role. Sonia reports she was getting dress to head
to the hospital to visit with . Sonia reports spouse is comfortable and the family is good. Sonia reports she is the POA. Sonia reports they have 2 daughters, 21 grandchildren, a 2 great grandchildren. Sonia reports their
grandchildren and great grands are her spouse hobbies and interests. Sonia reports, her spouse was Manager [employer]. Sonia reports they are Worship, however, they roman catholic together at a [employer] [place]. Sonia reports the Arrangements are being finalized and she will provide STATE FARM AGENT with updates. STATE FARM AGENT will complete Risk Assessment with spouse later today. Patient requires [facility] Level of Care as he requires IV medications for comfort and
is unable to managed at home and/or in a outpatient setting. Discharge planning continues. STATE FARM AGENT will continue to monitor patient while in [facility].
--- NOTE | 2024-04-04 12:07 | HOSPNOTE ---
Patient is resting comfortably however patient needs to be medicated prior to any care. Bilateral arms are extremely painful. Patient is unresponsive however does respond to pain. Patient will be seen daily by hospice nurse. Patient needs to remain
inpatient hospice for pain management.
--- NOTE | 2024-04-04 13:13 | CM ---
Patient on hospice
family at bedside
CM available for emotional support.
PLAN: hospice
[2024-04-04 15:33] VITALS: BP 147/62
[2024-04-04 23:21] VITALS: BP 116/80
--- NOTE | 2024-04-05 01:34 | W.PN.DEATH ---
Pronouncement of
-
Called to see patient to pronounce.
No spontaneous heart tones or respirations noted.
Patient not responsive to verbal stimuli.
Patient is pronounced .
Time of : 01:10
Date of : 04/05/24
Cause of : Acute myasthenia gravis exacerbation, Heart failure with preserved ejection fraction, Diabetes mellitus type 2
Family Notified: No (Multiple attempts to call primary contact, Sonia Brock unsuccessful)
--- NOTE | 2024-04-05 05:49 | PTCARENOTE ---
Addendum entered by Kusum Norton RN 04/05/24 06:18:
L PICC removed without problem.
Original Note:
Pt and covering provider made aware. Pt pronounced. Attempts were made to contact next of kin but there was no answer. The body was cleaned and placed on shroud bag. Belongings sent with body this AM to the morgue.
--- NOTE | 2024-04-05 12:04 | W.DCSUMMARY ---
Discharge Summary
Discharge Data
Date of Admission: 04/02/24
Date of Discharge: 04/05/24
-
Pending Results: No
Hospital Course
Discharging Physician : Dr Jacob Radford
Disposition :
Primary care physician : Unknown
Principal Discharge diagnosis : Acute myasthenia exacerbation, multiple severe active comorbidities (burden of pathology) in the setting of advanced age and poor functional status
Chronic Discharge diagnosis :
Chronic HFpEF
Anemia of chronic disease
Orthostatic hypotension
Type 2 diabetes mellitus
Hyperlipidemia
Coronary artery disease s/p 2 stents in 1989
GERD
Chronic anemia and thrombocytopenia
Hospital Course : Patient is a 73-year-old male who was previously admitted to [facility] from 03/04/2024 through 03/16/2024. Prior to that admission, he was on linezolid for left hand infection with MRSA and possible osteomyelitis. At that
time, he presented with pancreatitis that was thought to be due to linezolid and therefore was switched to IV daptomycin following infectious diseases input. The patient's pancreatitis resolved but the patient became weak with a myasthenia gravis
flare. Neurology was consulted and the patient was started on a plasma exchange. The patient received 2 of 5 planned therapy but unfortunately due to the plasma exchange she developed anemia and thrombocytopenia. He required 7 units of platelets
and 3 units of PRBCs for transfusion. He developed fever during that hospitalization and was diagnosed with a UTI. The patient was converted over to cephalexin after completing his daptomycin course. On 03/17/2024 his PICC line was removed and he
was subsequently discharged to [facility]. He completed his course at [facility] and was discharged on 03/29/2024. Unfortunately, the patient returned to [facility] as he was too weak to get out of bed and unable to stand following his discharge
from [facility]. He complained of ongoing edema of his bilateral lower legs from the knees down and redness of his right arm where the PICC line was. The redness on his arm was exceedingly tender to touch and he had a cough productive of yellow phlegm.
The patient denied fever, chills, chest pain, shortness of breath, nausea, vomiting, diarrhea, or urinary symptoms. The patient was subsequently admitted to [facility] for acute myasthenia gravis exacerbation.
IVIG was stopped, solu-medrol was given. Neurology reccomended getting an MRI for concern of embolic infarcts. PFT NIF every 6 hours. Palliative care was consulted due to poor prognosis as a consequence of multiple severe active comorbidities in the
setting of advanced age and poor functional status. The remainder of his home medications were continued. On 04/01/24 the patient met with Hospice and goals of care were discussed. Patient chose to change his code status to DNR. That same day the
patient chose to decline his medications or further lab draws. The patient and family decided to opt for inpatient hospice on 04/02/24.
The patient was discharged to the inpatient hospice service on 04/02/24 with the goal of care centered on maintaining the patient's comfort and dignity. Patient was given comfort care which included pain medications and anxiolytics. Hygiene was
maintained for the patient throughout his hospital stay. Supportive counseling and emotional support given to family. The patient on 04/05/2024 at 1:10AM in the morning due to complications from acute myasthenia gravis exacerbation,
multiple severe active comorbidities in the setting of advanced age and poor functional status.
Important imaging findings :
-Chest x-ray conducted on 03/30/2024:
Top normal heart size. Trace pleural effusions, diminished in size compared to prior examination. No significant vascular congestion. No evidence of pneumonia.
-Peripheral vascular ultrasound conducted on 03/30/2024:
Real time ultrasound of the venous system of the right upper extremity was obtained
There is occlusive venous thrombus in the basilic vein in the upper two thirds of the right upper arm
There is normal flow in the right brachial, cephalic, axillary, subclavian and internal jugular veins
IMPRESSION: There is occlusive deep venous thrombosis in the basilic vein in the upper two thirds of the right upper arm
-Chest x-ray conducted on 03/31/2024:
Left PICC tip in the distal third of superior vena cava. No pneumothorax.
Slightly increased interstitial prominence in the right upper lobe, right lower lobe, and left lower lobe. Possibly reflecting underlying interstitial fibrotic changes. Cannot exclude the possibility of superimposed mild interstitial edema.
No focal dense consolidation.
Procedure findings : N/A
Discharge Plan
-
Patient Disposition:
Date/Time
Date/Time: 04/05/24 01:10
Discharge Date and Time
Discharge Date/Time: 04/05/24 01:10
Print Language: INDONESIAN
== END 2024-04-05 01:10 | disposition expired | DRG 57 ==
LOC: 2 NORTH 15:06
PROVIDERS: ADMITTING PHYSICIAN Internal Medicine
DX: G70.01 Myasthenia gravis with (acute) exacerbation (principal); I50.30 Unspecified diastolic (congestive) heart failure; M86.9 Osteomyelitis, unspecified; R53.1 Weakness; E11.9 Type 2 diabetes mellitus without complications; D64.9 Anemia, unspecified; D69.6 Thrombocytopenia, unspecified; Z51.5 Encounter for palliative care; Z66 Do not resuscitate; Z86.14 Personal history of Methicillin resistant Staphylococcus aureus infection